=== PATIENT | female | born 1965 | race Caucasian/White ===

== ENCOUNTER → 2017-08-14 09:08 | Outpatient (CLI) | payer SELFPAY ==
--- NOTE | 2017-08-14 09:14 | HPBI_ITS ---
MAMMOGRAPHY - BILATERAL SCREENING REASON FOR EXAM: Female, 51 years old. Routine annual screening examination. PERTINENT HISTORY: Non-contributory. TECHNIQUE: Digital bilateral breast jamil (3D mammographic acquisition) in the CC and MLO projections. 2-D mediolateral oblique (MLO) and craniocaudad (CC) views of both breasts were obtained. CAD: Full Field Digital Mammography with Computer Added Detection was performed. COMPARISON: Comparison is made with prior study dated June 10, 2016 and April 06, 2015. FINDINGS: Breast Composition: There are scattered areas of fibroglandular density. There are no dominant masses or suspicious calcifications. Stable bilateral benign appearing axillary lymph nodes. No other significant abnormalities are identified. There has been no significant change since the prior study. HPBI/SCREENING MAMM (CAD), BILAT IMPRESSION: Stable bilateral screening mammogram. Yearly follow-up mammogram recommended. (A) ASSESSMENT CATEGORY: BIRADS Category 2: Benign. A letter regarding these results will be sent to the patient by the facility within 30 days. Approximately 10% of breast cancers are not detected by mammography. A normal mammogram should not delay biopsy of a clinically suspicious abnormality. [id number] Electronically Signed: Jim Ty MD at 11:13 EST Tel [phone], Service support ,
== END ==
PROVIDERS: Family Provider Internal Medicine; PCP Internal Medicine; Visit Provider Internal Medicine
DX: Z12.31 Encounter for screening mammogram for malignant neoplasm of breast (principal)
CPT/HCPCS: 77063; 77067

== ENCOUNTER → 2018-08-09 16:33 | Outpatient (CLI) | payer OTHER, SELFPAY ==
--- NOTE | 2018-08-09 16:39 | US_ITS ---
STUDY: ULTRASOUND TRANSVAGINAL CLINICAL: Female, 52 years old. Left-sided pelvic pain TECHNIQUE: Transvaginal COMPARISON: None. FINDINGS: Normal uterine size measuring 9.5 x 2.3 x 2.4 cm in maximal craniocaudal dimension. A myometrial fundal mass measures 4.1 x 4.1 x 4.2 cm Normal endometrial thickness measuring 4.8 mm. The lower uterine segment endometrial complex, there is a focal, isoechoic to slightly hyperechoic lesion measuring up to 8 mm. Normal uterine cervix. Normal right ovary, measuring 2.5 x 1.2 x 1.2 cm. There are multiple follicles without a dominant cyst. Normal left ovary, measuring 2.5 x 1.7 x 1.0 cm. There are multiple follicles without a dominant cyst. There is no free fluid in the pelvis. Polycystic ovary disease: No. US/Pelvic (Non ) IMPRESSION: 1. Uterine fundal fibroid measuring 4.2 cm. 2. 8 mm focal lower uterine segment endometrial hyperechoic/isoechoic mass could represent an endometrial polyp. Additional evaluation with sonohysterography or MRI suggested. Electronically Signed: Deni Osman MD at 8:20 EST , Service support ,
--- NOTE | 2018-08-09 17:15 | US_ITS ---
STUDY: ULTRASOUND TRANSVAGINAL CLINICAL: Female, 52 years old. Left-sided pelvic pain TECHNIQUE: Transvaginal COMPARISON: None. FINDINGS: Normal uterine size measuring 9.5 x 2.3 x 2.4 cm in maximal craniocaudal dimension. A myometrial fundal mass measures 4.1 x 4.1 x 4.2 cm Normal endometrial thickness measuring 4.8 mm. The lower uterine segment endometrial complex, there is a focal, isoechoic to slightly hyperechoic lesion measuring up to 8 mm. Normal uterine cervix. Normal right ovary, measuring 2.5 x 1.2 x 1.2 cm. There are multiple follicles without a dominant cyst. Normal left ovary, measuring 2.5 x 1.7 x 1.0 cm. There are multiple follicles without a dominant cyst. There is no free fluid in the pelvis. Polycystic ovary disease: No. US/Transvaginal Non- IMPRESSION: 1. Uterine fundal fibroid measuring 4.2 cm. 2. 8 mm focal lower uterine segment endometrial hyperechoic/isoechoic mass could represent an endometrial polyp. Additional evaluation with sonohysterography or MRI suggested. Electronically Signed: Deni Osman MD at 8:20 EST , Service support ,
== END ==
PROVIDERS: Family Provider Internal Medicine; PCP Internal Medicine; Referring Provider Obstetrics & Gynecology Gynecology; Visit Provider Obstetrics & Gynecology Gynecology
DX: R10.2 Pelvic and perineal pain (principal)
CPT/HCPCS: 76830; 76856; 93976

== ENCOUNTER → 2018-09-17 07:03 | Outpatient (CLI) | payer OTHER, SELFPAY ==
--- NOTE | 2018-09-17 07:08 | BI_ITS ---
MAMMOGRAPHY - BILATERAL SCREENING REASON FOR EXAM: Female, 52 years old. Routine annual screening examination. PERTINENT HISTORY: Non-contributory. TECHNIQUE: Digital bilateral breast jamil (3D mammographic acquisition) in the CC and MLO projections. 2-D mediolateral oblique (MLO) and craniocaudad (CC) views of both breasts were obtained. CAD: Full Field Digital Mammography with Computer Added Detection was performed. COMPARISON: Comparison is made with prior study dated August 14, 2017 and June 10, 2016. FINDINGS: Breast Composition: There are scattered areas of fibroglandular density. There are no dominant masses or suspicious calcifications. There is a 3.3 mm x 3.1 mm well-defined nodule in the slightly upper central portion of the right breast. This may represent a small cyst. Stable benign-appearing bilateral axillary lymph nodes. Correlation with ultrasound is recommended. No other significant abnormalities are identified. BI/SCREENING MAMM (CAD), BILAT IMPRESSION: 3.3 mm x 3.1 mm well-defined nodule in the slightly upper central portion of the right breast. Correlation with ultrasound is recommended. ASSESSMENT CATEGORY: BIRADS Category 0: Incomplete. Need additional imaging evaluation. A letter regarding these results will be sent to the patient by the facility within 30 days. Approximately 10% of breast cancers are not detected by mammography. A normal mammogram should not delay biopsy of a clinically suspicious abnormality. [id number] Electronically Signed: Jim Ty, at 9:14 EDT , Service support ,
== END ==
PROVIDERS: Family Provider Internal Medicine; PCP Internal Medicine; Referring Provider Obstetrics & Gynecology Gynecology; Visit Provider Obstetrics & Gynecology Gynecology
DX: Z12.31 Encounter for screening mammogram for malignant neoplasm of breast (principal)
CPT/HCPCS: 77063; 77067

== ENCOUNTER → 2018-09-20 15:25 | Outpatient (CLI) | payer OTHER, SELFPAY ==
--- NOTE | 2018-09-20 15:36 | US_ITS ---
STUDY: ULTRASOUND BREAST - RIGHT REASON FOR EXAM: Female, 52 years old. MAMMSMammogram,Abnormal-[id number] for exam - Breast (US) TECHNIQUE: Axial and longitudinal images of the RIGHT breast were performed with a high resolution ultrasound transducer. COMPARISON: None. FINDINGS: RIGHT Breast: There is no ultrasound abnormality. There is no abnormal cyst or mass. US/Breast Limited Unilateral IMPRESSION: The previously described lesion on the mammogram is not visualized on the ultrasound. Stereotactic biopsy may be warranted to exclude a neoplastic process. ASSESSMENT CATEGORY: BIRADS Category 4: Suspicious - Biopsy Should Be Considered. A letter regarding these results will be sent to the patient by the facility within 30 days. Electronically Signed: Connie Vazquez, at 10:57 EDT Tel , Service support ,
== END ==
PROVIDERS: Family Provider Internal Medicine; PCP Internal Medicine; Referring Provider Obstetrics & Gynecology Gynecology; Visit Provider Obstetrics & Gynecology Gynecology
DX: R92.2 Inconclusive mammogram (principal)
CPT/HCPCS: 76642

== ENCOUNTER → 2018-10-22 | Outpatient (CLI) | payer SELFPAY ==
[2018-10-22 13:27] VITALS: BP 108/72; PULSE 66; RESP 16; O2SAT 99; BMI 29.2
--- NOTE | 2018-10-22 13:28 | CT_ITS ---
STUDY: CT CHEST WITHOUT CONTRAST REASON FOR EXAM: Female, 52 years old. Family history of cardiovascular disease RADIATION DOSAGE (If Supplied By Facility): CTDIvol = ( 12.19 ) mGy, DLP = ( 170.66 ) mGycm TECHNIQUE: Transaxial imaging was performed without the administration of intravenous contrast material. Individualized dose optimization techniques were used for this CT. COMPARISON: None. FINDINGS: Only a portion of the chest was imaged for the purposes of calcium scoring. No visible pulmonary nodules, acute alveolar disease, pleural fluid, or pericardial fluid. No acute osseous abnormality is visible. Visualized portions of upper abdomen are intact. CT/Limited Chest CT w/CCTA IMPRESSION: No focal lesions are seen in the visualized portions of the lungs. Electronically Signed: Alton Carpenter MD at 21:51 EDT Tel , Service support ,
--- NOTE | 2018-10-22 16:15 | CA.SCORE ---
Calcium Scoring Date of Study:: 10/22/18 Coronary Calcium Scoring: High-resolution Computed Tomographic imaging of the chest was performed on [10/22/2018], with particular attention paid to the coronary arteries. Images from the examination were analyzed for the presence and extent of coronary artery calcification , using coronary calcium quantification software. The patient tolerated the procedure well and there were no complications. The results of the coronary calcification analysis are provided below. - Findings Left Main (LM): 0 Left Anterior Descending (LAD): 0 Left Circumflex (LCX): 0 Right Coronary Artery (RCA): 0 Total Agatston Score: 0 Percentile Rankin - Conclusion Calcium Scoring Interpretation: Calcium Score Interpretation 0 No identifiable atherosclerotic plaque. Very low cardiovascular disease risk. <5% chance of presence coronary artery disease A Negative Examination 1-10 Minimal Plaque burden. Significant coronary artery disease very unlikely. 11-100 Mild plaque burden. Likely mild or minimal coronary atherosclerosis. 101-400 Moderate plaque burden Moderate non-obstructive coronary artery disease highly likely. Over 400 Extensive plaque burden. High likelihood of at least one significant coronary stenosis (>50% diameter) Calcium Score: 0 Negative Examination - The above is suggestive of no identifiable plaque. A full evaluation of cardiac risk should include assessment of all conventional risk factors.
== END | disposition home or self-care (01) ==
PROVIDERS: Family Provider Internal Medicine; PCP Internal Medicine; Referring Provider Internal Medicine; Visit Provider Internal Medicine
DX: Z82.49 Family history of ischemic heart disease and other diseases of the circulatory system (principal)
CPT/HCPCS: 75571; 76380

== ENCOUNTER → 2019-05-23 | Outpatient (CLI) | payer OTHER, SELFPAY ==
[2018-10-22 13:27] VITALS: BMI 29.2
--- NOTE | 2019-05-23 12:48 | RAD_ITS ---
STUDY: X-RAY - RIGHT FOOT CLINICAL: Female, 53 years old. Pain at the base of the great toe following hyperextension injury. TECHNIQUE: 3 view(s) of the foot. COMPARISON: None. FINDINGS: There is a small plantar calcaneal spur. Normal visualized subtalar, talonavicular, calcaneocuboid, tarsal and tarsometatarsal articulations. Normal metatarsi. Normal metatarsophalangeal joint of the great toe. Normal tibial and fibular sesamoid bones. Normal interphalangeal joint of the great toe. Normal phalanges of the great toe. Normal second through fifth metatarsophalangeal joints. Normal interphalangeal joints and phalanges of the lesser toes. The soft tissue structures are unremarkable. RAD/Foot min 3 Views IMPRESSION: Small plantar spur. Electronically Signed: Jim Ty, at 13:23 EST , Service support ,
== END | disposition home or self-care (01) ==
LOC: HPRAD 12:44
PROVIDERS: Family Provider Internal Medicine; PCP Internal Medicine; Referring Provider Internal Medicine; Visit Provider Internal Medicine
DX: M79.671 Pain in right foot (principal); W19.XXXA Unspecified fall, initial encounter
CPT/HCPCS: 73630

== ENCOUNTER → 2019-07-08 08:11 | Outpatient (CLI) | payer OTHER, SELFPAY ==
[2018-10-22 13:27] VITALS: BMI 29.2
--- NOTE | 2019-07-08 08:17 | RAD_ITS ---
STUDY: X-RAY - PELVIS AND RIGHT HIP REASON FOR EXAM: Female, 53 years old. Hip pain. TECHNIQUE: 3 views of the pelvis and hip. COMPARISON: None. FINDINGS: Tubal ligation devices. Left pelvic phlebolith. No acute fracture, dislocation or osseous destruction. Mild joint space narrowing at the hips. Mild productive changes at the superior lateral acetabula bilaterally. Normal pubic symphysis. Normal sacroiliac joints. Normal lumbar spine. Small pelvic enthesophytes. Slightly prominent lateral femoral head neck junction protuberance. No significant soft tissue swelling. Normal bowel gas pattern. RAD/HIP, UNI W/ Pelvis 2-3 Views IMPRESSION: Hips and pelvis intact Mild bilateral hip osteoarthritis Electronically Signed: Ron Travis DO at 9:08 EST Tel , Service support ,
== END ==
PROVIDERS: Family Provider Internal Medicine; PCP Internal Medicine; Referring Provider Internal Medicine; Visit Provider Internal Medicine
DX: M25.551 Pain in right hip (principal)
CPT/HCPCS: 73502

== ENCOUNTER → 2019-07-08 10:59 | Outpatient (CLI) | payer OTHER, SELFPAY ==
[2018-10-22 13:27] VITALS: BMI 29.2
--- NOTE | 2019-07-08 11:01 | ECHOD_ITS ---
Reason For Study: Chest pain Procedure This was a 2D Doppler, Color Flow transthoracic echocardiogram. Exam performed in department. Left Ventricle Normal LV size. Apical false tendon noted. Left ventricular systolic function is normal. The estimated ejection fraction is 60 %. No evidence for diastolic dysfunction. No regional wall motion abnormalities noted. Right Ventricle Normal RV size. Normal systolic function. Atria Normal left atrium. Normal right atrium. No doppler evidence for ASD. Bubble contrast study negative for right to left interatrial shunt. Mitral Valve There is no mitral annular calcification. Normal mitral valve. Trivial mitral valve insufficiency. Tricuspid Valve Normal tricuspid valve. Trivial tricuspid valve insufficiency. Right ventricular systolic pressure estimated to be 24 mmHg. Aortic Valve Trisinus/trileaflet aortic valve. Normal aortic valve. Pulmonic Valve The pulmonic valve is not well visualized. Trivial pulmonic valve insufficiency. Great Vessels Normal sized aortic root. Pericardium/Pleural No pericardial effusion. Medication 22 gauge I.V. with prn adaptor inserted into right arm. Performed a rapid injection of agitated mix of 9 cc saline and 1cc air to assess for atrial septal defect. MMode/2D Measurements & Calculations LVIDd: 4.3 cm IVSd: 0.79 cm Ao root diam: 2.7 cm LVIDs: 2.7 cm LVPWd: 0.71 cm RVDd: 2.8 cm FS: 36.6 % LAV(MOD-bp): 40.3 ml LA A4 area: 15.3 cm2 LA dimension(2D): 3.3 cm LAV(MOD-bp) Indexed: 25.1 ml/m2 LAV(MOD-sp2): 42.0 ml LAV(MOD-sp4): 38.8 ml RA A4 area: 10.9 cm2 Doppler Measurements & Calculations MV E max pedrito: 83.1 cm/sec Lat Peak E' Pedrito: 13.6 cm/sec Med Peak E' Pedrito: 10.7 cm/sec MV A max pedrito: 76.7 cm/sec E/E' lat: 6.1 E/E' med: 7.8 MV E/A: 1.1 Ao V2 max: 140.9 cm/sec LV V1 max: 117.0 cm/sec PA V2 max: 92.3 cm/sec Ao max P.9 mmHg LV V1 max P.5 mmHg TR max pedrito: 230.1 cm/sec TR max P.2 mmHg Interpretation Summary Left ventricular systolic function is normal. The estimated ejection fraction is 60 %. Apical false tendon noted. Trivial mitral valve insufficiency. Trivial tricuspid valve insufficiency. Trivial pulmonic valve insufficiency. Right ventricular systolic pressure estimated to be 24 mmHg. No evidence for diastolic dysfunction. Bubble contrast study negative for right to left interatrial shunt. Ordering Physician: Jaz Reid Referring Physician: Clarisse Evans D.O. Performed By: Gracie Reed RDCS
== END ==
PROVIDERS: Family Provider Internal Medicine; PCP Internal Medicine; Referring Provider Internal Medicine; Visit Provider Internal Medicine
DX: R07.9 Chest pain, unspecified (principal)
CPT/HCPCS: 93306; A4216

== ENCOUNTER → 2020-01-19 | Outpatient (CLI) | payer OTHER, BC, SELFPAY ==
[2018-10-22 13:27] VITALS: BMI 29.2
--- NOTE | 2020-01-19 10:44 | CT_ITS ---
STUDY: CT ABDOMEN AND PELVIS WITH CONTRAST REASON FOR EXAM: Female, 54 years old. RLQ PAIN RADIATION DOSAGE (If Supplied By Facility): CTDIvol = ( 13.17 ) mGy, DLP = ( 812.62 ) mGycm TECHNIQUE: Transaxial images were obtained from the dome of the diaphragm to the symphysis pubis without oral contrast. Oral and amp;amp; IV Gastrografin and amp;amp; 100mL Isovue-300 was administered. Sagittal and coronal images were reconstructed. Individualized dose optimization techniques were used for this CT. COMPARISON: None. FINDINGS: The visualized lung bases are unremarkable. The visualized portions of the heart are within normal limits. Normal liver. Normal gallbladder and extrahepatic biliary system. Normal spleen. Normal pancreas. Normal bilateral adrenal glands. Minimal dilatation of the right renal pelvis and proximal right ureter. There is a 1 mm calculus in the distal portion of the right ureter just proximal to the right ureterovesical junction. Normal left kidney. Normal visualized stomach. Normal small intestine. Normal colon. The appendix is visualized and appears normal. Normal abdominal aorta. Normal inferior vena cava. Normal retroperitoneum. Normal urinary bladder. The endometrium is thickened measuring 14 mm. There is a 1.7 cm x 1.1 cm right ovarian follicle. There is evidence of tubal ligation clips bilaterally. Normal abdominal wall. Normal osseous structures. CT/Abdomen/Pelvis WITH Contrast IMPRESSION: 1 mm calculus in the distal portion of the right ureter just proximal to the ureterovesical junction. Small ovarian follicles. Electronically Signed: Jim Ty, at 13:29 EDT , Service support ,
== END | disposition home or self-care (01) ==
PROVIDERS: PCP Internal Medicine; Referring Provider Internal Medicine; Visit Provider Internal Medicine
DX: R10.31 Right lower quadrant pain (principal)
CPT/HCPCS: 74177; Q9967

== ENCOUNTER → 2020-04-13 | Outpatient (CLI) | payer BC, SELFPAY ==
[2018-10-22 13:27] VITALS: BMI 29.2
--- NOTE | 2020-04-13 09:01 | US_ITS ---
STUDY: ULTRASOUND TRANSVAGINAL CLINICAL: Female, 54 years old. MEN Irregular Menses US - Pelvic, Tvag -- EXCESSIVE AND FREQUENT MENSTRUATION WITH IRREGULAR CYCLE-EVALUATE ENDO STRIPE TECHNIQUE: Transvaginal COMPARISON: To FINDINGS: Normal uterine size measuring 3.3 x 5.1 x 4.3 cm in maximal craniocaudal dimension. 2.4 cm intramural fibroid in the posterior body the uterus.. Normal endometrial thickness measuring 7 mm. There are no endometrial masses, and there is no fluid in the endometrial cavity. Normal uterine cervix. Normal right ovary, measuring 2.8 x 2.2 x 2.8 cm. 2.6 cm oval isoechoic mass with increased transmission the right ovary likely consistent with a complicated corpus luteum cyst.. Normal left ovary, measuring 3.4 x 1.7 x 1.5 cm. There are multiple follicles without a dominant cyst. There is no free fluid in the pelvis. Polycystic ovary disease: No. US/Transvaginal Non- IMPRESSION: 1. 2.4 cm intramural fibroid in the posterior body the uterus. 2. 2.6 cm probable the hemorrhagic corpus luteum cyst right ovary. Electronically Signed: Cade Curtis MD at 10:14 EDT Tel , Service support ,
== END | disposition home or self-care (01) ==
LOC: OPUS 08:59
PROVIDERS: PCP Internal Medicine; Referring Provider Obstetrics & Gynecology Gynecology; Visit Provider Obstetrics & Gynecology Gynecology
DX: N92.1 Excessive and frequent menstruation with irregular cycle (principal)
CPT/HCPCS: 76830

== ENCOUNTER → 2020-06-29 10:00 | Outpatient (CLI) | payer BC, SELFPAY ==
[2018-10-22 13:27] VITALS: BMI 29.2
--- NOTE | 2020-06-29 10:07 | RAD_ITS ---
STUDY: X-RAY - ESOPHAGUS (BARIUM SWALLOW) WITH FLUOROSCOPY REASON FOR EXAM: Female, 54 years old. COUGHING AFTER EATING -- CHOKING -- 6-8 MONTHS, GOTTEN WORSE TECHNIQUE: 26 view(s) of the esophagus were obtained following swallowing of barium. FLUOROSCOPY TIME (if supplied): (0:29) minutes/seconds COMPARISON: None. FINDINGS: There is no demonstrated esophageal foreign body. There is no demonstrated stricture or mucosal abnormality. Normal gastroesophageal junction, without a demonstrated hiatal hernia. The patient ingested a 12 mm tablet of barium without difficulty. Normal visualized aortic arch and descending thoracic aorta. Normal visualized pulmonary parenchyma. Normal visualized osseous structures of the thorax. RAD/Esophagus Dual Contrast IMPRESSION: Normal plain film x-ray examination (barium swallow) of the esophagus. Electronically Signed: Jim Ty, at 11:17 EST , Service support ,
== END ==
PROVIDERS: PCP Internal Medicine; Referring Provider Internal Medicine; Visit Provider Internal Medicine
DX: R13.10 Dysphagia, unspecified (principal)
CPT/HCPCS: 74221

== ENCOUNTER → 2022-07-07 | Outpatient (CLI) | payer BC, SELFPAY ==
--- NOTE | 2022-07-07 15:18 | RAD_ITS ---
INDICATION: FOOT PAIN EXAMINATION/TECHNIQUE: X-RAY - LEFT XR Foot Min 3 Views: Weightbearing views COMPARISON: None. FINDINGS: SOFT TISSUES: No significant soft tissue swelling. No radiopaque foreign body detected. BONES/JOINTS: No acute fracture or subluxation. Normal alignment. Preservation of the joint space(s). Small posterior and plantar calcaneal enthesophytes. RAD/Foot min 3 Views IMPRESSION: Mild calcaneal spurring. Electronically Signed: Ronan Zamora MD at 7:41 EST ,
== END | disposition home or self-care (01) ==
PROVIDERS: PCP Internal Medicine; Referring Provider Internal Medicine; Visit Provider Internal Medicine
DX: M77.30 Calcaneal spur, unspecified foot (principal)
CPT/HCPCS: 73630

== ENCOUNTER 2023-05-04 16:28 | Outpatient (CLI) | payer BC, SELFPAY ==
--- NOTE | 2023-05-04 16:29 | US_ITS ---
INDICATION: postmenopausal bleeding EXAMINATION: Ultrasound US Pelvis Non OB Complete With Transvaginal Imaging TECHNIQUE: Transabdominal and transvaginal pelvic ultrasound was performed. Grayscale, spectral waveform, and color flow Doppler evaluation of the adnexa. COMPARISON: FINDINGS: UTERUS: Anteverted. The uterus measures 9.2 x 4.3 x 2.8 cm. There is no uterine mass. The endometrial stripe measures 4 mm in AP diameter which is within normal limits. RIGHT OVARY: 2.3 x 1.9 x 1.5 cm.. Complex cyst 0.95 x 0.77 x 0.91 cm. This likely represents hemorrhagic cyst less likely endometrioma. Non-enlarged, normal echogenicity. There is normal arterial inflow and venous outflow present in the right ovary. LEFT OVARY: 1.9 x 1.1 x 1.1 cm.. Non-enlarged, normal echogenicity. There is normal arterial inflow and venous outflow present in the left ovary. FREE FLUID: None. US/Pelvic w/ Transvaginal IMPRESSION: Uterus normal. Endometrial thickness of 4 mm is normal in a postmenopausal patient. Given patient''s history of postmenopausal bleeding occult pathology including endometrial hyperplasia or endometrial carcinoma cannot be excluded. Complex cyst right ovary 1.0 x 0.9 x 0.2 cm likely hemorrhagic cyst or less likely endometrioma. Left ovary normal. Electronically Signed: Ronan Guevara MD at 10:13 EDT ,
== END 2023-05-04 23:59 | disposition home or self-care (01) ==
LOC: US 16:29
PROVIDERS: PCP Internal Medicine; Referring Provider Internal Medicine; Visit Provider Internal Medicine
DX: Z78.0 Asymptomatic menopausal state (principal)
CPT/HCPCS: 76830; 76856

== ENCOUNTER → 2023-07-03 | Outpatient (CLI) | payer BC, SELFPAY ==
--- NOTE | 2023-07-03 16:00 | US_ITS ---
INDICATION: abnormal pelvic ultrasound -- abdominal ultrasound ordered as well, only do transvaginal if nee EXAMINATION: Ultrasound US Pelvis Non OB Complete With Transvaginal Imaging TECHNIQUE: Transabdominal and transvaginal pelvic ultrasound was performed. Grayscale, spectral waveform, and color flow Doppler evaluation of the adnexa. COMPARISON: Prior study dated: 05/04/2023. FINDINGS: UTERUS: Anteverted. The uterus measures 7.5 x 3.2 x 2.8 cm. There is no uterine mass. The endometrial stripe is suboptimally visualized and measures 4 mm in AP diameter which is within normal limits. RIGHT OVARY: The right ovary measures 2.2 x 2.2 x 1.7 cm. Non-enlarged, normal echogenicity. There is normal arterial inflow and venous outflow present in the right ovary. LEFT OVARY: The left ovary is not visualized. FREE FLUID: None. US/Transvaginal Non- IMPRESSION: No significant abnormality is seen. Electronically Signed: Rush Strong MD at 16:02 EST ,
== END | disposition home or self-care (01) ==
LOC: US 15:58
PROVIDERS: PCP Internal Medicine; Referring Provider Internal Medicine; Visit Provider Internal Medicine
DX: R93.89 Abnormal findings on diagnostic imaging of other specified body structures (principal)
CPT/HCPCS: 76830; 76856

== ENCOUNTER → 2025-06-24 | Outpatient (CLI) | payer BC, SELFPAY ==
--- OUTSIDE RECORDS SUMMARY | 2025-06-24 07:43 | XMS RPT_ITS | CCD ---
Author Organization [facility] Care Team Providers Care Wheelage Clerk Name Role Phone Young Reid Unavailable MessengerAshwini Unavailable Unavailable Carrillo, Florencia Unavailable Unavailable Long, Constanza L Unavailable Unavailable Dustin, Dot Unavailable Unavailable Unavailable Unavailable Young Reid Unavailable MessengerAshwini Unavailable Unavailable Diallo, Constanza L Unavailable Unavailable Dustin, Dot Unavailable Unavailable Unavailable Unavailable Gravius, Renee Unavailable Unavailable Manchak, Agnes Unavailable Unavailable Rose Marie GASTON, Jeffy May Unavailable Gravius, Renee Unavailable Unavailable Messenger, Ashwini Unavailable Unavailable Viki Dumont Unavailable Manchak, Agnes Unavailable Unavailable Long, Constanza L Unavailable Unavailable Unavailable Unavailable Carrillo, Florencia Unavailable Unavailable Fast, Rajesh A Unavailable Young Reid MD Unavailable Gravius FLEXIBLE NANNY, Renee Unavailable Unavailable Julia DO, Viki Unavailable Messenger RNAshwini Unavailable Unavailable Fast DO, Rajesh A Unavailable Constanza Landrum RN Unavailable Unavailable Dustin, Dot Unavailable Unavailable Unavailable Unavailable JOEY Negrete LPN Unavailable Unavailable Manchak FLEXIBLE NANNY, Agnes Unavailable Unavailable Fast DO, Rajesh A Primary Care Provider Unavailable Primary Care Provider UnavailYoung Balderrama MD Unavailable Fast DO, Rajesh A Unavailable Sam Mcpherson LPN Unavailable Unavailable Baxter FLEXIBLE NANNY, Kayela Unavailable Unavailable Fast, Dr. Robb Primary Care Provider Austin, Dr. Medeiros Attending Provider [phone] Jayla PHOTOGRAPHIC COLORIST, Victor M Unavailable Unavailable Slarb PHOTOGRAPHIC COLORIST, Freda Unavailable Unavailable BONNEZZI, YOUNG Referring Unavailable BONNEZZI, YOUNG Attending Unavailable FAST, RAJESH A Attending Unavailable BONNEZZI, YOUNG Attending Unavailable FAST, RAJESH A Attending Unavailable FAST, RAJESH A Referring Unavailable FAST, RAJESH A Attending Unavailable Fast DO, Rajesh A Primary Care Provider Armida PHOTOGRAPHIC COLORIST, Malinda Unavailable Unavailable Fast, Dr. Robb Primary Care Provider Dr. Waldemar Avila Attending Provider [phone] Assessment, Health Risk Referring Unavaila ble Assessment, Health Risk Attending Unavaila ble Fast, Rajesh Primary Care Unavailable FAST, RAJESH A Referring Unavailable FAST, RAJESH A Attending Unavailable FAST, RAJESH A Primary Care Unavailable Fast DO, Rajesh A Primary Care Provider Medications Current Medications Medication Drug Class(es) Dates Sig (Normalized) Sig (Original) Calcium (6 sources) Phosphate Binder, Calcium take 1200 mg by mouth once daily CALCIUM PO Take 1,200 mg by mouth daily. Active take 1200 mg by mouth once daily CALCIUM PO Take 1,200 mg by mouth daily. 0 Active Cholecalciferol (VITAMIN D) 4000 Units capsule (6 sources) take 1 capsule by mouth once daily Cholecalciferol (VITAMIN D) 4000 Units capsule Take 4,000 Units by mouth daily. Active take 1 capsule by mouth once qi ly Cholecalciferol (VITAMIN D) 4000 Units capsule Take 4,000 Units by mouth daily. 0 Active HERBAL PRODUCT (20 sources) take 1 tablet by mouth once felicitas y HERBAL PRODUCT Take 1 tablet by mouth daily. Calm Day Active take 1 tablet by mouth at bedtim e HERBAL PRODUCT Take 1 tablet by mouth at bedtime. Sleeptime Active take 1 tablet by mouth once felicitas y HERBAL PRODUCT Take 1 tablet by mouth daily. eccinashea Active take 1 tablet by mouth once felicitas y HERBAL PRODUCT Take 1 tablet by mouth daily. Adrenamax Active take 1 tablet by mouth once felicitas y HERBAL PRODUCT Take 1 tablet by mouth daily. Calm Day 0 Active take 1 tablet by mouth at bedtim e HERBAL PRODUCT Take 1 tablet by mouth at bedtime. Sleeptime 0 Active take 1 tablet by mouth once felicitas y HERBAL PRODUCT Take 1 tablet by mouth daily. eccinashea 0 Active take 1 tablet by mouth once felicitas y HERBAL PRODUCT Take 1 tablet by mouth daily. Adrenamax 0 Active levothyroxine sodium 0.137 mg oral tablet (20 sources) l-Thyroxine Start: 05-11-2023 Synthroid 137 mcg oral tablet 1 Tablet 6days a week for 30 days Quantity: 30 {Tablet} Refills: 6 Ordered: 11-May-2023 Viki Dumont DO Start : 11-May-2023 Active Dispense as Written Comments: Cheryle BALDERAS Start: 05-11-2023 Synthroid 137 mcg oral tablet 1 Tablet 6days a week for 90 days Quantity: 90 {Tablet} Refills: 3 Ordered: 11-May-2023 Viki Dumont DO Start : 11-May-2023 Active Dispense as Written Comments: Mail order. Start: 07-12-2022 take 1 tablet by ramon th once daily levothyroxine 150 mcg oral tablet 1 Tablet qd for 90 days Quantity: 90 {Tablet} Refills: 3 Ordered: 12-Jul-2022 Viki Dumont DO Start : 12-Jul-2022 Active Dispense as Written Comments: Mail order. Start: 10-31-2017 take 1 tablet by ramon th once daily levothyroxine 137 MCG Tab tablet Take 137 mcg by mouth daily. 10/31/2017 Active Comment on above: ZOE Mail order. Cheryle DF Turmeric extract (6 sources) take 1 tablet by ramon th once daily TURMERIC PO Take 1 tablet by mouth daily. Active take 1 tablet by mouth once felicitas y TURMERIC PO Take 1 tablet by mouth daily. 0 Active Completed/Discontinued Medications Medication Drug Class(es) Dates Sig (Normalized) Sig (Original) amoxicillin 500 mg oral tablet (20 sources) Penicillin-class Antibacterial Start: 04-23-2023 take 4 tablets by mouth every hour amoxicillin 500 mg oral tablet 4 tablet 1 hour prior to procedure for 0 days Quantity: 4 {Tablet} Refills: 0 Ordered: 23-Apr-2023 Fast DORajesh Start : 23-Apr-2023 Active Start: 02-19-2023 End: 04-20-2023 take 4 tablets by mouth every hour amoxicillin 500 mg oral tablet 4 tablet one hour prior to dental procedure for 0 days Quantity: 4 {Tablet} Refills: 0 Ordered: 20-Apr-2023 Agnes Chris CMA Start : 19-Feb-2023 End : 20-Apr-2023 Inactive Start: 12-01-2021 End: 09-08-2022 take 4 capsules by mouth every hour amoxicillin 500 mg oral capsule 4 Capsule one hour prior to procedure for 0 days Quantity: 4 {Capsule} Refills: 0 Ordered: 08-Sep-2022 Viki Dumont DO Start : 01-Dec-2021 End : 08-Sep-2022 Inactive amoxicillin 875 mg / clavulanate 125 mg oral tablet (20 sources) Penicillin-class Antibacterial Start: 12-20-2017 End: 01-03-2018 take 1 tablet by mouth twice daily Augmentin 875-125 MG Oral Tablet 1 Tablet bid for 14 days Quantity: 28 {Tablet} Refills: 0 Ordered: 20-Dec-2017 Viki Dumont DO Start : 20-Dec-2017 End : 03-Jan-2018 Inactive azithromycin 250 mg oral tablet (20 sources) Macrolide Antimicrobial Start: 09-26-2019 End: 10-31-2019 Zithromax Z-Angel 250 MG Oral Tablet 1 (one) Tablet 2 day one than one a day for 10 days for 0 days Quantity: 12 {Tablet} Refills: 0 Ordered: 31-Oct-2019 Ashwini Ortiz RN Start : 26-Sep-2019 End : 31-Oct-2019 Inactive Start: 10-08-2017 End: 08-12-2018 take 1 tablet by mouth once daily Zithromax Z-Angel 250 MG Oral Tablet 1 (one) Tablet qd for 0 days Quantity: 1 {Packet} Refills: 0 Ordered: 12-Aug-2018 JOEY Negrete Start : 08-Oct-2017 End : 12-Aug-2018 Inactive betamethasone 0.5 mg/ml / clotrimazole 10 mg/ml topical cream (20 sources) Azole Antifungal, Corticosteroid Start: 03-16-2014 End: 12-28-2016 Lotrisone 1-0.05 % External Cream 1 (one) Cream bid for 0 days Quantity: 1 {Box} Refills: 1 Ordered: 28-Dec-2016 Ashwini Ortiz RN Start : 16-Mar-2014 End : 28-Dec-2016 Inactive Comments: 30gm tube Comment on above: 30gm tube celecoxib 200 mg oral capsule (1 source) Nonsteroidal Anti-inflammatory Drug Start: 10-14-2019 CELEBREX 200 MG CAPS 1 capsule as directed as needed CELECOXIB [id number] Jeffy Trotter MD chlordiazePOXIDE hydrochloride 5 mg / clidinium bromide 2.5 mg oral capsule (20 sources) Anticholinergic, Benzodiazepine Start: 03-11-2015 End: 12-28-2016 take 1 capsule by mouth three times daily Librax 5-2.5 MG Oral Capsule 1 (one) Capsule tid for 0 days Quantity: 30 {Capsule} Refills: 0 Ordered: 28-Dec-2016 Ashwini Ortiz RN Start : 11-Mar-2015 End : 28-Dec-2016 Inactive Comments: THIRTY Comment on above: THIRTY cholecalciferol 1.25 mg oral capsule (20 sources) Vitamin D Start: 11-06-2011 take 1 capsule by mouth two times weekly VITAMIN D3, [id number] (Oral Capsule) 1 Capsule 2 times a week for 0 days Quantity: 8 {Capsule} Refills: 11 Ordered: 06-Nov-2011 Ashwini Ortiz RN Start : 06-Nov-2011 Active ciprofloxacin 3 mg/ml ophthalmic solution (20 sources) Quinolone Antimicrobial Start: 07-12-2016 End: 12-28-2016 Ciprofloxacin HCl 0.3 % Ophthalmic Solution 1-2 drops q 2 hrs while awake x 2 days then 1-2 drops q 4 hrs while awake 3-5 days for 0 days Quantity: 1 {Bottle} Refills: 0 Ordered: 28-Dec-2016 Ashwini Ortiz RN Start : 12-Jul-2016 End : 28-Dec-2016 Inactive citalopram 10 mg oral tablet (20 sources) Serotonin Reuptake Inhibitor Start: 05-17-2012 End: 12-28-2016 take 1 tablet by mouth once daily CeleXA 10 MG Oral Tablet 1 Tablet daily for 0 days Quantity: 30 {Tablet} Refills: 3 Ordered: 28-Dec-2016 Ashwini Ortiz RN Start : 17-May-2012 End : 28-Dec-2016 Inactive clobetasol propionate 0.5 mg/ml topical lotion (20 sources) Corticosteroid Start: 01-12-2016 End: 12-28-2016 Clobetasol Propionate 0.05 % External Lotion 1 (one) Lotion apply bid for 0 days Quantity: 1 {Tube} Refills: 0 Ordered: 28-Dec-2016 Ashwini Ortiz RN Start : 12-Jan-2016 End : 28-Dec-2016 Inactive Comments: call office with cost [phone] Comment on above: call office with cos t [phone] codeine phosphate 2 mg/ml / guaiFENesin 20 mg/ml oral solution (20 sources) Opioid Agonist Start: 09-25-2014 End: 10-25-2015 CHERATUSSIN AC, 100-10MG/5ML (Oral Syrup) 1 (one) Syrup every 6 hiurs for 0 days Quantity: 8 {Fluid_Ounce} Refills: 0 Ordered: 25-Oct-2015 JOEY Negrete LPN Start : 25-Sep-2014 End : 25-Oct-2015 [facility] DULoxetine 30 mg delayed release oral capsule (20 sources) Serotonin and Norepinephrine Reuptake Inhibitor Start: 02-07-2021 End: 07-15-2021 take 1 capsule by mouth once daily DULoxetine HCl 30 MG Oral Capsule Delayed Release Particles 1 (one) Capsule qd for 0 days Quantity: 30 {Capsule} Refills: 5 Ordered: 15-Jul-2021 Renee Barrientos CMA Start : 07-Feb-2021 End : 15-Jul-2021 Inactive ergocalciferol 1.25 mg oral capsule (20 sources) Provitamin D2 Compound take 1 capsule by mouth every week DRDAVE, [id number] (Oral Capsule) 1 cap once a week (78782 UNIT) Inactive escitalopram 10 mg oral tablet (20 sources) Serotonin Reuptake Inhibitor Start: 02-07-2021 End: 02-07-2021 take 1 tablet by mouth once daily Escitalopram Oxalate 10 MG Oral Tablet 1 (one) Tablet qd for 0 days Quantity: 30 {Tablet} Refills: 6 Ordered: 07-Feb-2021 Rajesh Jim DO Start : 07-Feb-2021 End : 07-Feb-2021 Discontinued Start: 11-24-2019 take 1 tablet by ramon th once daily Escitalopram Oxalate 10 MG Oral Tablet 1 (one) Tablet qd for 0 days Quantity: 30 {Tablet} Refills: 6 Ordered: 24-Nov-2019 Franklin GASTON, Young Mccoy MD Start : 24-Nov-2019 Active fluconazole 100 mg oral tablet (20 sources) Azole Antifungal Start: 12-19-2021 End: 09-08-2022 take 1 tablet by mouth once daily fluconazole 100 mg oral tablet 1 (one) Tablet daily for 0 days Quantity: 7 {Tablet} Refills: 0 Ordered: 08-Sep-2022 Viki Dumont DO Start : 19-Dec-2021 End : 08-Sep-2022 Inactive Comments: please deliver to patient per her request, thank you Start: 03-10-2020 End: 04-12-2020 Diflucan 100 MG Oral Tablet 1 (one) Tablet daily for 5 days for 0 days Quantity: 5 {Tablet} Refills: 0 Ordered: 12-Apr-2020 Renee Barrientos CMA Start : 10-Mar-2020 End : 12-Apr-2020 Inactive Start: 02-04-2020 End: 04-12-2020 take 1 tablet by mouth once daily Diflucan 150 MG Oral Tablet 1 (one) Tablet qd for 1 days Quantity: 1 {Tablet} Refills: 2 Ordered: 12-Apr-2020 Floyd MO Renee Start : 04-Feb-2020 End : 12-Apr-2020 Inactive Comments: generic ok Start: 01-26-2016 End: 01-27-2016 take 1 tablet by mouth once daily Diflucan 150 MG Oral Tablet 1 Tablet QD for 1 days Quantity: 1 {Tablet} Refills: 0 Ordered: 26-Jan-2016 Viki Dumont DO Start : 26-Jan-2016 End : 27-Jan-2016 Inactive Comment on above: generic ok please deliver to adan valero per her request, thank you hydroxychloroquine sulfate 200 mg oral tablet (20 sources) Antimalarial, Antirheumatic Agent Start: 2019 End: 2019 take 1 tablet by mouth twice daily Hydroxychloroquine Sulfate 200 MG Oral Tablet 1 (one) Tablet bid for 0 days Quantity: 60 {Tablet} Refills: 0 Ordered: 11-Dec-2019 Viki Dumont DO Start : 26-Sep-2019 End : 11-Dec-2019 Inactive ivermectin 3 mg oral tablet (20 sources) Antiparasitic, Pediculicide Start: 2020 End: 2021 take 5 tablets by mouth every week Ivermectin 3 MG Oral Tablet 5 Tablet pills once a week for 0 days Quantity: 20 {Tablet} Refills: 6 Ordered: 15-Jul-2021 Hero Barrientos CMAin Start : 04-Mar-2021 End : 15-Jul-2021 Inactive Start: 12-31-2020 take 4 tablets by mo [facility] every week Ivermectin 3 MG Oral Tablet 4 Tablet pills once a week for 0 days Quantity: 20 {Tablet} Refills: 6 Ordered: 31-Dec-2020 Rajesh Jim DO Start : 31-Dec-2020 Active Start: 12-20-2020 Ivermectin 3 M G Oral Tablet 5 Tablet pills today and 5 pills day 3 for 0 days Quantity: 10 {Tablet} Refills: 1 Ordered: 20-Dec-2020 Viki Dumont DO Start : 20-Dec-2020 Active Start: 10-18-2020 Ivermectin 3 M G Oral Tablet 5 Tablet pills today and 5 pills day 3 for 0 days Quantity: 10 {Tablet} Refills: 1 Ordered: 18-Oct-2020 Rajesh Jim DO Start : 18-Oct-2020 Active ketorolac tromethamine 10 mg oral tablet (20 sources) Nonsteroidal Anti-inflammatory Drug, Cyclooxygenase Inhibitor Start: 01-21-2020 End: 04-12-2020 Ketorolac Tromethamine 10 MG Oral Tablet 1 (one) Tablet q6hrs x48hr for 0 days Quantity: 8 {Tablet} Refills: 0 Ordered: 12-Apr-2020 Hero Barrientos CMAin Start : 21-Jan-2020 End : 12-Apr-2020 Inactive Comments: loading dose given 01/21/2020 lot:[id number]:08/30site/route:L gmamt:1mlYOBANI Wheeler Comment on above: loading dose given 01/21/2020 lot:[id number] exp:08/30site/route:L gmamt:1mlYOBANI Wheeler levoFLOXacin 500 mg oral tablet (20 sources) Quinolone Antimicrobial Start: 04-10-2011 End: 03-06-2012 take 1 tablet by mouth once daily LEVAQUIN, 500MG (Oral Tablet) 1 Tablet qd for 0 days Quantity: 10 {Tablet} Refills: 0 Ordered: 06-Mar-2012 Ashwini Ortiz RN Start : 10-Apr-2011 End : 06-Mar-2012 Inactive LORazepam 0.5 mg oral tablet (20 sources) Benzodiazepine Start: 04-07-2019 End: 10-31-2019 take 1 tablet by mouth once daily at bedtime as needed LORazepam 0.5 MG Oral Tablet 1 (one) Tablet qhs prn for 0 days Quantity: 5 {Tablet} Refills: 0 Ordered: 31-Oct-2019 Ashwini Ortiz RN Start : 07-Apr-2019 End : 31-Oct-2019 Inactive Comments: called into [facility] 04/07/19 Start: 03-11-2015 End: 12-28-2016 take 1 tablet by mouth once daily as needed Ativan 0.5 MG Oral Tablet 1 (one) Tablet qd prn for 0 days Quantity: 20 {Tablet} Refills: 0 Ordered: 28-Dec-2016 Ashwini Ortiz RN Start : 11-Mar-2015 End : 28-Dec-2016 Inactive Comments: TWENTY Comment on above: [facility]ENT[facility] metaxalone 800 mg oral tablet (20 sources) Muscle Relaxant Start: 10-14-19 11 End: 10-22-19 13 take 1 tablet by mouth three times daily as needed METAXALONE, 800MG (Oral Tablet) 1 Tablet tid prn for 0 days Quantity: 30 {Tablet} Refills: 1 Ordered: 21-Oct-2012 Ashwini Ortiz RN Start : 13-Oct-2010 End : 21-Oct-2012 Inactive Comments: thirty Comment on above: thirty metoprolol tartrate 50 mg oral tablet (20 sources) beta-Adrenergic Brian Start: 10-22-19 End: 10-31-19 20 Metoprolol Tartrate 50 MG Oral Tablet 1 (one) Tablet by mouth at 6pm the night before scan, 1 tablet by mouth at 7am morning of scan for 0 days Quantity: 2 {Tablet} Refills: 0 Ordered: 31-Oct-2019 Ashwini Ortiz RN Start : 21-Oct-2018 End : 31-Oct-2019 Inactive [facility] [employer] (1 source) Start: 10-14-19 20 ADRENAL CAPS 1 capsule once daily [facility] [employer] [id number] Jeffy Trotter MD nitrofurantoin, macrocrystals 25 mg / nitrofurantoin, monohydrate 75 mg oral capsule (1 source) Start: 10-25-19 16 End: 12-29-19 17 take 1 capsule by mouth twice daily Macrobid 100 MG Oral Capsule 1 Capsule bid for 0 days Quantity: 20 {Capsule} Refills: 0 Ordered: 28-Dec-2016 Ashwini Ortiz NAZARIO Start : 25-Oct-2015 End : 28-Dec-2016 Inactive Comments: postcoital Comment on above: postcoital nitrofurantoin, macrocrystals 25 mg / nitrofurantoin, monohydrate 75 mg oral capsule (20 sources) Nitrofuran Antibacterial Start: 07-28-19 20 End: 04-12-20 Macrobid 100 MG Oral Capsule 1 Capsule bid x 10 days then prn post coital for 0 days Quantity: 50 {Capsule} Refills: 1 Ordered: 12-Apr-2020 Renee Barrientos CMA Start : 28-Jul-2019 End : 12-Apr-2020 Inactive Start: 08-12-2018 End: 12-28-2016 Macrobid 100 MG Oral Capsule 1 Capsule bid x 10 days then prn post coital for 0 days Quantity: 50 {Capsule} Refills: 1 Ordered: 12-Aug-2018 Young Reid MD, MD, Dana M Start : 12-Aug-2018 End : 28-Dec-2016 Active Start: 08-12-2018 End: 12-28-2016 Macrobid 100 MG Oral Capsule 1 Capsule bid x 10 days then prn post coital for 0 days Quantity: 50 {Capsule} Refills: 1 Ordered: 12-Aug-2018 Young Reid MD, MD, Dana M Start : 12-Aug-2018 End : 28-Dec-2016 Active Start: 08-12-2018 End: 12-28-2016 Macrobid 100 MG Oral Capsule 1 Capsule bid x 10 days then prn post coital for 0 days Quantity: 50 {Capsule} Refills: 1 Ordered: 12-Aug-2018 Young Reid MD, MD, Dana M Start : 12-Aug-2018 End : 28-Dec-2016 Active Start: 08-12-2018 End: 12-28-2016 Macrobid 100 MG Oral Capsule 1 Capsule bid x 10 days then prn post coital for 0 days Quantity: 50 {Capsule} Refills: 1 Ordered: 12-Aug-2018 Franklin GASTON, Young Mccoy MD Start : 12-Aug-2018 End : 28-Dec-2016 Active Start: 08-12-2018 End: 12-28-2016 Macrobid 100 MG Oral Capsule 1 Capsule bid x 10 days then prn post coital for 0 days Quantity: 50 {Capsule} Refills: 1 Ordered: 12-Aug-2018 Franklin GASTON, Young Mccoy MD Start : 12-Aug-2018 End : 28-Dec-2016 Active Start: 08-12-2018 End: 12-28-2016 Macrobid 100 MG Oral Capsule 1 Capsule bid x 10 days then prn post coital for 0 days Quantity: 50 {Capsule} Refills: 1 Ordered: 12-Aug-2018 Franklin GASTON, Young Mccoy MD Start : 12-Aug-2018 End : 28-Dec-2016 Active Start: 08-12-2018 End: 12-28-2016 Macrobid 100 MG Oral Capsule 1 Capsule bid x 10 days then prn post coital for 0 days Quantity: 50 {Capsule} Refills: 1 Ordered: 12-Aug-2018 Young Reid MD, MD, Dana M Start : 12-Aug-2018 End : 28-Dec-2016 Active NUTRITIONAL SUPPLEMENTS (1 source) Start: 10-14-2019 IMMUNE ENHANCE TABS 1 tablet once daily NUTRITIONAL SUPPLEMENTS [id number] Jeffy Trotter MD omeprazole 40 mg delayed release oral capsule (20 sources) Proton Pump Inhibitor Start: 09-30-2020 End: 09-08-2022 take 1 capsule by mouth once daily omeprazole 40 mg oral capsule,delayed release (enteric coated) 1 (one) Capsule daily for 0 days Quantity: 90 {Capsule} Refills: 2 Ordered: 08-Sep-2022 Viki Dumont DO Start : 30-Sep-2020 End : 08-Sep-2022 Inactive Start: 07-12-2020 take 1 capsule by mo ut once daily Omeprazole 40 MG Oral Capsule Delayed Release 1 (one) Capsule daily for 0 days Quantity: 30 {Capsule} Refills: 2 Ordered: 12-Jul-2020 Hero Barrientos CMAin Start : 12-Jul-2020 Active phenazopyridine hydrochloride 200 mg oral tablet (20 sources) Start: 10-25-2015 End: 12-28-2016 take 1 tablet by mouth every eight hours as needed Pyridium 200 MG Oral Tablet 1 Tablet q 8hrs prn for 0 days Quantity: 30 {Tablet} Refills: 1 Ordered: 28-Dec-2016 Ashwini Ortiz RN Start : 25-Oct-2015 End : 28-Dec-2016 Inactive phentermine hydrochloride 37.5 mg oral tablet (20 sources) Sympathomimetic Amine Anorectic Start: 08-16-2021 End: 09-08-2022 take 1 tablet by mouth once daily phentermine 37.5 mg oral tablet 1 Tablet daily for 0 days Quantity: 30 {Tablet} Refills: 0 Ordered: 08-Sep-2022 Viki Dumont DO Start : 16-Aug-2021 End : 08-Sep-2022 Inactive Comments: BMI 31.02 called to [facility] Start: 07-19-2021 take 1 tablet by [facility] once daily Phentermine HCl 37.5 MG Oral Tablet 1 Tablet daily for 0 days Quantity: 30 {Tablet} Refills: 0 Ordered: 19-Jul-2021 Franklin GASTON, Young Reid MD, Young Eric Start : 19-Jul-2021 Active Comments: BMI 31.0 Start: 06-20-2021 End: 07-15-2021 take 1 tablet by mouth once daily Phentermine HCl 37.5 MG Oral Tablet 1 Tablet daily for 0 days Quantity: 30 {Tablet} Refills: 0 Ordered: 15-Jul-2021 Renee Barrientos CMA Start : 20-Jun-2021 End : 15-Jul-2021 Inactive Comments: BMI 33.0 called to [facility] reviewed Start: 11-24-2019 End: 04-12-2020 take 1 tablet by mouth once daily Phentermine HCl 37.5 MG Oral Tablet 1 Tablet daily for 0 days Quantity: 30 {Tablet} Refills: 0 Ordered: 12-Apr-2020 Floyd MO Renee Start : 24-Nov-2019 End : 12-Apr-2020 Inactive Comments: BMI 30 10/31/19 starting weight 152 Start: 05-10-2015 End: 12-28-2016 take 1 tablet by mouth once daily Adipex-P 37.5 MG Oral Tablet 1 Tablet daily for 0 days Quantity: 30 {Tablet} Refills: 0 Ordered: 28-Dec-2016 Ashwini Ortiz LPN Start : 10-May-2015 End : 28-Dec-2016 Inactive Comments: BMI: 28.32 called to [facility] 05-10-15 douglas Comment on above: BMI: 28.32 called to [facility] 05-10-15 douglas BMI 30 10/31/19 start ing weight 152 BMI 33.0 called to Gerry Espino reviewed BMI 31.0 BMI 31.08-16-21 robin d to [facility] predniSONE 20 mg oral tablet (20 sources) Corticosteroid Start: 0 End: 0 take 2 tablets by mouth in the morning, then take 1 tablet by mouth twice daily in the evening, then take 1 tablet by mouth once daily, then take 1 tablet by mouth once daily, then take 1 tablet by mouth once daily predniSONE 20 MG Oral Tablet 1 (one) Tablet uad for 63 days Quantity: 73 {Tablet} Refills: 0 Ordered: 31-Dec-2019 Ashwini Ortiz RN Start : 31-Dec-2019 End : 03-Mar-2020 Inactive Comments: 2 pills in AM and 1 pill in PM x 7days1 pill bid x 14 days1 pill qd x 14 days1/2 pill qd x 14 days1/4 pill qd x 14 days Start: 01-17-2016 End: 12-28-2016 take 1 tablet by mouth once daily PredniSONE 20 MG Oral Tablet 1 (one) Tablet qd for 0 days Quantity: 30 {Tablet} Refills: 0 Ordered: 28-Dec-2016 Ashwini Ortiz LPN Start : 17-Jan-2016 End : 28-Dec-2016 Inactive Comment on above: 2 pills in AM and 1 pill in PM x 7days1 pill bid x 14 days1 pill qd x 14 days1/2 pill qd x 14 days1/4 pill qd x 14 days sulfamethoxazole 800 mg / trimethoprim 160 mg oral tablet (20 sources) Dihydrofolate Reductase Inhibitor Antibacterial, Sulfonamide Antimicrobial Start: 03-23-20 11 End: 03-06-20 12 take 1 tablet by mouth twice daily BACTRIM DS, 800-160MG (Oral Tablet) 1 Tablet bid for 0 days Quantity: 60 {Tablet} Refills: 1 Ordered: 06-Mar-2012 Ashwini Ortiz RN Start : 23-Mar-2011 End : 06-Mar-2012 Inactive tamsulosin hydrochloride 0.4 mg oral capsule (20 sources) alpha-Adrenergic Brian Start: 01-26-20 End: 02-25-20 take 1 capsule by mouth once daily Flomax 0.4 MG Oral Capsule 1 (one) Capsule qd for 30 days Quantity: 30 {Capsule} Refills: 0 Ordered: 26-Jan-2020 Ashwini Ortiz RN Start : 26-Jan-2020 End : 25-Feb-2020 Inactive tiZANidine 4 mg oral capsule (20 sources) Central alpha-2 Adrenergic Agonist Start: 05-09-20 End: 04-20-20 23 tiZANidine 4 mg oral capsule 1 1/2 (one and a half) Capsule bid for 0 days Quantity: 90 {Capsule} Refills: 6 Ordered: 20-Apr-2023 Agnes Chris CMA Start : 09-May-2021 End : 20-Apr-2023 Inactive Start: 11-24-2020 take 1 capsule by mo ut twice daily tiZANidine HCl 4 MG Oral Capsule 1 (one) Capsule bid for 0 days Quantity: 60 {Capsule} Refills: 1 Ordered: 24-Nov-2020 Rajesh Jim DO Start : 24-Nov-2020 Active Start: 07-12-2020 take 1 capsule by mo ut twice daily tiZANidine HCl 4 MG Oral Capsule 1 (one) Capsule bid for 0 days Quantity: 40 {Capsule} Refills: 1 Ordered: 12-Jul-2020 Renee Barrientos CMA Start : 12-Jul-2020 Active Start: 06-28-2020 take 1 capsule by mo ut twice daily tiZANidine HCl 4 MG Oral Capsule 1 (one) Capsule bid for 0 days Quantity: 30 {Capsule} Refills: 1 Ordered: 28-Jun-2020 Renee Barrientos CMA Start : 28-Jun-2020 Active tretinoin 0.5 mg/ml topical cream (20 sources) Retinoid Start: 08-15-2019 End: 10-31-2019 Tretinoin 0.05 % External Cream 1 (one) Application to face 3 times weekly for 0 days Quantity: 1 {Tube} Refills: 0 Ordered: 31-Oct-2019 Ashwini Ortiz RN Start : 15-Aug-2019 End : 31-Oct-2019 Inactive liothyronine sodium 0.025 mg oral tablet (20 sources) l-Triiodothyronine Start: 10-14-2019 CYTOMEL 25 MCG TABS quarter of a tablet 2-3 times a week LIOTHYRONINE SODIUM [id number] Jeffy Trotter MD Start: 10-08-2017 End: 07-15-2021 take 0.25 tablet by mouth three times weekly Liothyronine Sodium 25 MCG Oral Tablet 1/4 Tablet 3 times week for 30 days Quantity: 12 {Tablet} Refills: 3 Ordered: 15-Jul-2021 GravRenee awad CMA Start : 08-Oct-2017 End : 15-Jul-2021 Inactive valACYclovir 1000 mg oral tablet (20 sources) Herpesvirus Nucleoside Analog DNA Polymerase Inhibitor, Herpes Simplex Virus Nucleoside Analog DNA Polymerase Inhibitor, Herpes Zoster Virus Nucleoside Analog DNA Polymerase Inhibitor Start: 12-10-2014 End: 12-28-2016 Valtrex 1 GM Oral Tablet 1 (one) Tablet tid x 7 days for 0 days Quantity: 21 {Tablet} Refills: 0 Ordered: 28-Dec-2016 Ashwini Ortiz RN Start : 10-Dec-2014 End : 28-Dec-2016 Inactive Problems Active Problems Problem Classification Problem Date Documented Da te Episodic/Chronic Abdominal pain (20 sources) Right lower quadrant pain; Translations: [RLQ abdominal pain] Resolved: 0 01-19-2020 Episodic Allergic reactions (20 sources) Contact dermatitis due to poison desiree; Translations: [Poison desiree] 12-28-2016 Episodic Anxiety disorders (20 sources) Acute stress disorder; Translations: [Anxiety] Resolved: 3 12-28-2016 Chronic Calculus of urinary tract (20 sources) Kidney stone; Translations: [Kidney stone] Resolved: 3 01-30-2020 Episodic Coagulation and hemorrhagic disorders (20 sources) Spontaneous bruising; Translations: [Bruising, spontaneous] 11-23-2022 Episodic Esophageal disorders (20 sources) Gastroesophageal reflux disease; Translations: [Gastroesophageal reflux disease without esophagitis] 12-28-2016 Chronic Comment on above: h/o EGD prob 2014 no stricture or barrets at that tiime -- Genitourinary symptoms and ill-defined conditions (20 sources) Dysuria; Translations: [Blood in urine] Resolved: 0 12-12-2017 Episodic Immunizations and screening for infectious disease (20 sources) Need for prophylactic vaccination and inoculation against influenza; Translations: [Contact with and (suspected) exposure to other viral communicable diseases] 01-07-2020 Episodic Inflammation, infection of eye (20 sources) [place] eye disease; Translations: [Conjunctivitis] Resolved: 0 12-28-2016 Episodic Joint disorders and dislocations; trauma-related (1 source) Other articular cartilage disorders, right hip; Translations: [Other articular cartilage disorders, right hip] Onset: 0 10-14-2019 Chronic Malaise and fatigue (20 sources) Fatigue; Translations: [Fatigue] Resolved: 0 12-28-2016 Episodic Menopausal disorders (17 sources) Postmenopausal bleeding; Translations: [Postmenopausal bleeding] 04-18-2023 Chronic Menstrual disorders (20 sources) Menorrhagia; Translations: [Menorrhagia] Resolved: 3 12-28-2016 Chronic Mycoses (20 sources) Mycosis; Translations: [Yeast infection] Resolved: 0 12-28-2016 Episodic Nausea and vomiting (20 sources) Nausea; Translations: [Nausea] 12-28-2016 Episodic Nonmalignant breast conditions (1 source) Fibrocystic disease of breast; Translations: [Diffuse cystic mastopathy of unspecified breast] Chronic Nonspecific chest pain (20 sources) Chest pain; Translations: [Chest pain] Resolved: 3 12-28-2016 Episodic Nutritional deficiencies (20 sources) Vitamin D deficiency, unspecified; Translations: [Vitamin D deficiency] 04-22-2018 Chronic Osteoarthritis (20 sources) Osteoarthritis; Translations: [Osteoarthritis] 07-24-2021 Chronic Comment on above: getting hip replacme nt Other circulatory disease (20 sources) Easy bruising; Translations: [Easy bruising] Resolved: 0 Episodic Other circulatory disease (20 sources) Choking; Translations: [Choking] Resolved: 3 04-19-2020 Episodic Other connective tissue disease (10 sources) History of repair of hip joint; Translations: [S/P hip replacement] 04-23-2023 Chronic Other connective tissue disease (20 sources) Spasm; Translations: [Muscle spasm] 12-28-2016 Episodic Other connective tissue disease (20 sources) Muscle pain; Translations: [Myalgia] Resolved: 1 10-09-2018 Episodic Other diseases of veins and lymphatics (1 source) Peripheral venous insufficiency; Translations: [Venous insufficiency (chronic) (peripheral)] Episodic Other gastrointestinal disorders (20 sources) Dysphagia; Translations: [Swallowing difficulty] Resolved: 1 04-12-2020 Episodic Other gastrointestinal disorders (20 sources) Diarrhea; Translations: [Diarrhea] Resolved: 3 01-26-2022 Episodic Other lower respiratory disease (20 sources) Cough; Translations: [Cough] 12-28-2016 Episodic Other non-traumatic joint disorders (1 source) Other specified joint disorders, right hip; Translations: [Other specified joint disorders, right hip] Onset: 0 10-14-2019 Episodic Other non-traumatic joint disorders (20 sources) Hip pain; Translations: [Pain in right hip joint] Resolved: 3 04-12-2020 Episodic Comment on above: s/p PT- MRI ( 3-Tels a ) showed 30% of jt bone on bone-- s/p 2-sets of PRP and Exosome injections november 2019 Other nutritional; endocrine; and metabolic disorders (20 sources) Body mass index 25-29 - overweight; Translations: [BMI 26.0-26.9,adult] 12-28-2016 Chronic Other nutritional; endocrine; and metabolic disorders (20 sources) Obesity, unspecified; Translations: [Obesity] Chronic Other nutritional; endocrine; and metabolic disorders (20 sources) Obesity; Translations: [Obesity, unspecified] Resolved: 3 12-28-2016 Chronic Comment on above: with her gerd so bad she needs more weight loss. bmi 28 with this comorbid problem would continue adipex because working. will do total of three months. is making lifestyle change willrefillher meds a dipex ghet weight off before hip surgery Other nutritional; endocrine; and metabolic disorders (20 sources) Body mass index 30+ - obesity; Translations: [BMI 30.0-30.9,adult] Resolved: 2 11-24-2019 Chronic Other nutritional; endocrine; and metabolic disorders (20 sources) Weight gain; Translations: [Weight gain] 11-24-2019 Episodic Other nutritional; endocrine; and metabolic disorders (20 sources) Body mass index 25-29 - overweight; Translations: [BMI 26.0-26.9,adult] Resolved: 2 04-12-2020 Episodic Other nutritional; endocrine; and metabolic disorders (20 sources) Overweight in adulthood with body mass index of 25 or more but less than 30; Translations: [BMI 26.0-26.9,adult] Resolved: 2 08-16-2021 Episodic Other screening for suspected conditions (not mental disorders or infectious disease) (4 sources) Ultrasound scan abnormal; Translations: [Abnormal pelvic ultrasound] 05-10-2023 Chronic Other upper respiratory disease (20 sources) Pain in throat Episodic Other upper respiratory infections (20 sources) Sore throat symptom; Translations: [Acute laryngitis] 12-28-2016 Episodic Residual codes; unclassified (20 sources) Non-smoker; Translations: [Non-smoker] 04-12-2020 Episodic Thyroid disorders (20 sources) Hypothyroidism; Translations: [Hypothyroidism] 04-22-2018 Chronic Comment on above: was abnormal 3-17 wo uld recheck. due for recheck. chronic stable-jacqueline nue present regimen Unclassified (20 sources) Breast neoplasm screening status; Translations: [Other specified abnormal findings of blood chemistry] Onset: 5 Resolved: 7 08-09-2017 Episodic Unclassified (20 sources) Needs influenza immunization; Translations: [Need for prophylactic vaccination and inoculation against influenza] 12-28-2016 Episodic Urinary tract infections (20 sources) Urinary tract infectious disease; Translations: [Urinary tract infection, site not specified] 12-28-2016 Episodic Varicose veins of lower extremity (2 sources) Varicose veins of lower extremity; Translations: [Varicose veins of bilateral lower extremities with other complications] Onset: 2 Episodic Viral infection (20 sources) Viral disease; Translations: [Viral infection] 12-28-2016 Episodic Comment on above: pt has tamiflu at [facility]. severe cough and nasal rhinitis. postiive for flu. called in script Past or Other Problems Problem Classification Problem Date Documented Date Episodic/Chronic Esophageal disorders (20 sources) Esophageal disorders Influenza (10 sources) Influenza Mood disorders (4 sources) Mood disorders Onset: 01-31-2021 Resolved: 01-31-2021 01-31-2021 Other non-traumatic joint disorders (20 sources) Pain in right hip joint; Translations: [Right hip pain] 11-24-2019 Comment on above: s/p PT- MRI ( 3-Tels a ) showed 30% of jt bone on bone-- s/p 2-sets of PRP and Exosome injections november 2019 Residual codes; unclassified (20 sources) Bruises easily; Translations: [Easy bruising] Resolved: 04-19-2020 11-24-2019 Episodic Unclassified (20 sources) [place] eye Unclassified (20 sources) Stress Reaction (308.4) Unclassified (20 sources) Breast screening Unclassified (20 sources) Unspecified Diagnosis 02-07-2013 Unclassified (20 sources) Viral infection Unclassified (20 sources) HYPOTHYROIDISM NOS (244.9) Unclassified (20 sources) DEFICIENCY, VITAMIN D NOS (268.9) Unclassified (20 sources) Yeast infection (117.9) Unclassified (20 sources) Patient encounter status; Translations: [Lipid screening] 01-01-2017 Comment on above: pt good will get lab s done with lipids. will stay up to date on pap and pelvic. tetanus upt to date. had lipids 2015. lan ds colonscopy make sure gets tdap if not done in last 10 years. remind her to get mammogram Unclassified (20 sources) Unclassified (20 sources) EXAMINATION, ROUTINE MEDICAL (V70.0) Unclassified (20 sources) Abnormal TSH Unclassified (20 sources) Frequency (788.41) Unclassified (20 sources) LARYNGITIS, NOS (464.0) Unclassified (20 sources) BMI 26.0-26.9,adult Unclassified (20 sources) Non-smoker; Translations: [Non-smoker] 12-28-2016 Unclassified (20 sources) UTI symptoms Unclassified (20 sources) Poison desiree Unclassified (20 sources) Encounter for general adult medical examination w/o abnormal findings (Renamed from Encounter for general adult medical examination without abnormal findings) Unclassified (20 sources) Encounter for screening mammogram for malignant neoplasm of breast Unclassified (20 sources) Muscle spasm (728.85) Unclassified (20 sources) Non-smoker Unclassified (20 sources) Lipid screening; Translations: [Screening status] 01-19-2020 Unclassified (1 source) Problem Unclassified (20 sources) Exposure to SARS virus Unclassified (20 sources) Immune system finding; Translations: [Antibody response exam] 12-10-2019 Unclassified (20 sources) BMI 30.0-30.9,adult Unclassified (20 sources) Stress reaction Unclassified (20 sources) Weight gain Unclassified (20 sources) BMI 29.0-29.9,adult Unclassified (20 sources) RLQ abdominal pain Unclassified (20 sources) Swallowing difficulty Unclassified (20 sources) Exposure to COVID-19 virus Unclassified (13 sources) Encounter for screening for COVID-19 Unclassified (13 sources) BMI 33.0-33.9,adult Unclassified (20 sources) Pre-op evaluation Unclassified (11 sources) Immunity status testing Unclassified (10 sources) BMI 31.0-31.9,adult Unclassified (10 sources) Physical for colonoscopy 04-23-2023 Comment on above: medically stable Urinary tract infections (20 sources) Urinary tract infections Results Test Name Value Interpretation Reference Range Facility MAMMO SCREENING WITH PACO BI LATERALon 05-05-2025 MAMMO SCREENING WITH PACO BILATERAL EXAM: MAMMO SCREENING WITH PACO BILATERAL, 05/05/2025 11:54 AM CLINICAL INDICATIONS: Screening COMPARISON: May 03, 2024, May 01, 2023, February 14, 2022, January 31, 2021 TECHNIQUE: 3-D MLO and CC digital tomosynthesis images were obtained of the bilateral breasts. Synthetic 2-D images were generated from the tomosynthesis data. Computer aided detection was utilized. FINDINGS: Breast Density: The breasts are almost entirely fatty. There are no suspicious masses, calcifications, or architectural distortions. IMPRESSION: No mammographic evidence of malignancy. BI-RADS: 1: Negative Recommendation: Routine mammography. Recommendation Laterality: Bilateral The current National Comprehensive Cancer Network and [employer] guidelines recommend women undergo a screening mammogram every year over the age of 40 and continue mammographic screening as long as they are in good health. Screening mammography under age 40 may occur for women who are at increased risk for breast cancer. [facility] Facility: [facility] Mammography at [facility], [address] [place] [address], Table formatting from the original result was not included. MAMMO STANDARD RISK MQSA SITE BEGIN [facility] at [facility] [address], [place] [address] MQSA SITE END Normal [facility] IMPRESSION: No mammographic evidence of malignancy. BI-RADS: 1: Negative Recommendation: Routine mammography. Recommendation Laterality: Bilateral The current National Comprehensive Cancer Network and [employer] guidelines recommend women undergo a screening mammogram every year over the age of 40 and continue mammographic screening as long as they are in good health. Screening mammography under age 40 may occur for women who are at increased risk for breast cancer. [facility] Facility: [facility] Mammography at [facility], [address], [place] [address], OLOGY EXAM: MAMMO SCREENIN G WITH PACO BILATERAL, 05/05/2025 11:54 AM CLINICAL INDICATIONS: Screening COMPARISON: May 03, 2024, May 01, 2023, February 14, 2022, January 31, 2021 TECHNIQUE: 3-D MLO and CC digital tomosynthesis images were obtained of the bilateral breasts. Synthetic 2-D images were generated from the tomosynthesis data. Computer aided detection was utilized. FINDINGS: Breast Density: The breasts are almost entirely fatty. There are no suspicious masses, calcifications, or architectural distortions. RADIOLOGY Stacy Rock DO - 05/05/2025 EXAM: MAMMO SCREENING WITH PACO BILATERAL, 05/05/2025 11:54 AM CLINICAL INDICATIONS: Screening COMPARISON: May 03, 2024, May 01, 2023, February 14, 2022, January 31, 2021 TECHNIQUE: 3-D MLO and CC digital tomosynthesis images were obtained of the bilateral breasts. Synthetic 2-D images were generated from the tomosynthesis data. Computer aided detection was utilized. FINDINGS: Breast Density: The breasts are almost entirely fatty. There are no suspicious masses, calcifications, or architectural distortions. IMPRESSION IMPRESSION: No mammographic evidence of malignancy. BI-RADS: 1: Negative Recommendation: Routine mammography. Recommendation Laterality: Bilateral The current National Comprehensive Cancer Network and [employer] guidelines recommend women undergo a screening mammogram every year over the age of 40 and continue mammographic screening as long as they are in good health. Screening mammography under age 40 may occur for women who are at increased risk for breast cancer. [facility] Facility: [facility] Mammography at [facility], [address], [place] [address], [facility] Radiology Study observation (narrative) [facility] MG Breast - bilateral Screen ingOrdered By: Stacy Rock on 05-05-2025 [facility] Work Phone: Mumps Antibody,IgGon 025 MUMPS Ab, IgG 142.0 AU/mL Normal Immune >10.9 [facility] Comment on above: Result Comment: Nega tive <9.0 Equivocal 9.0 - 10.9 Positive >10.9 A positive result generally indicates past exposure to Mumps virus or previous vaccination. Performed By: #### L 3100.3400, L3400.1750, L509.4006 #### [facility] [address] [place], [place], [id number] Quantiferon TB-Gold+on 04-23 QFT MITOGEN RAMANDEEP > 10.00 Normal . [facility] Comment on above: Performed By: #### L 3400.8000 #### [facility] [address] [place], [address] QFT NIL VALUE 0.20 IU/mL Normal . [facility] Comment on above: Performed By: #### L 3400.8000 #### [facility] [address] [place], [address] QFT TB GOLD+ Comment Normal . [facility] Comment on above: Result Comment: [place] tiFERON-TB Gold Plus is a qualitative indirect test for M tuberculosis infection (including disease) and is intended for use in conjunction with risk assessment, radiography, and other medical and diagnostic evaluations. The QuantiFERON-TB Gold Plus result is determined by subtracting the Nil value from either TB antigen (Ag) value. The Mitogen tube serves as a control for the test. Performed By: #### L 3400.8000 #### [facility] [address] [place], [place], [id number] QFT TB POS CRIT Negative Normal Negative [facility] Comment on above: Result Comment: No r esponse to M tuberculosis antigens detected. Infection with M tuberculosis is unlikely, but high risk individuals should be considered for additional testing (ATS/IDSA/CDC Clinical Practice Guidelines, 2017). The reference range is an Antigen minus Nil result of <0.35 IU/mL. The specimen received for QuantiFERON testing was incubated by the ordering institution. Specific procedures outlined in our Directory of Services and in the package insert for the QuantiFERON Gold (In Tube) test must be followed to enable for proper stimulation of cells for the production of interferon gamma. Chemiluminescence immunoassay methodology Performed at: [facility] [address] [id number] Roller Repairer: Ole Mcneil PhD, Phone: [phone] Performed By: #### L 3400.8000 #### [facility] [address] [place], [address] QFT TB1+ AG RAMANDEEP 0.20 IU/mL Normal . [facility] Comment on above: Performed By: #### L 3400.8000 #### [facility] [address] [place], [address] QFT TB2+ AG RAMANDEEP 0.21 IU/mL Normal . [facility] Comment on above: Performed By: #### L 3400.8000 #### [facility] [address] [place], [place], [id number] [facility] EMP Rubeola Titeron 10-1 RUBEOLA Ab, IgG 28.2 AU/mL High Immune >16.4 [facility] Comment on above: Result Comment: Clie nt Requested Flag Negative <13.5 Equivocal 13.5 - 16.4 Positive >16.4 Presence of antibodies to Rubeola is presumptive evidence of immunity except when acute infection is suspected. Performed at: [facility] [id number] Roller Repairer: Ole Mcneil PhD, Phone: [phone] Performed By: #### L 3100.3400, L3400.1750, L509.4006 #### [facility] [address] [place], [place], [address] Hepatitis B Surface Antibody on 04-21-2025 HEP B Surf Ab Non-Reactive Normal [facility] Comment on above: Result Comment: <8.5 mIU/mL: Non-Reactive 8.5<= x <11.5 mIU/mL: Indeterminate >=11.5 mIU/mL: Reactive Non Reactive: Inconsistent with immunity less than <10 mIU/mL Reactive: Consistent with immunity greater than or equal to 10 mIU/mL Performed By: #### L 3890.6202 #### [facility] [address] [place], [place], [id number] L509.4006on 04-21-2025 Rubella IgG REAC Normal Nonreactive [facility] Comment on above: Result Comment: Anti body Result: Interpretation Non-Reactive: Non-Immune Reactive: Immune The following results were obtained with the [employer] Rubella IgG assay. Results from assays of other manufacturers cannot be used interchangeably. Performed By: #### L 3100.3400, L3400.1750, L509.4006 #### [facility] [address] [place], [place], [id number] Cancer Antigen (CA) 125 ([id number])Ordered By: Filler Blender on 05-10-2023 Cancer Ag 125 Qn 5.2 [arb'U]/mL Normal 0.0-38.1 Comp rehensive [facility]; [facility] Work Phone: Comment on above: [facility] El ectrochemiluminescence Immunoassay (ECLIA) .Values obtained with different assay methods or kits cannot beused interchangeably. Results cannot be interpreted as absoluteevidence of the presence or absence of malignant disease. PATIENT NOT FASTINGP ERFORMED BY: MAIA [facility] [id number] [facility] [id number] TSH ([id number])Ordered By: Irenemynor m Manager Animal on 05-10-2023 TSH Qn 0.051 {uIU/mL} Abnormal 0.450-4.500 Dulceen arianna [facility]; [facility] Work Phone: Comment on above: PATIENT NOT FASTINGP ERFORMED BY: MAIA [facility] [id number] [facility] [id number] MG Breast - bilateral Screen ingon 05-01-2023 IMPRESSION: No mammographic evidence of malignancy. BI-RADS: 1: Negative Recommendation: Routine mammography. Recommendation Laterality: Bilateral The current National Comprehensive Cancer Network and [employer] guidelines recommend women undergo a screening mammogram every year over the age of 40 and continue mammographic screening as long as they are in good health. Screening mammography under age 40 may occur for women who are at increased risk for breast cancer. OLOGY EXAM: MAMMO SCREENIN G WITH PACO BILATERAL, 05/01/2023 10:43 AM CLINICAL INDICATIONS: Screening COMPARISON: February 14, 2022, January 31, 2021, January 08, 2020, September 17, 2018 TECHNIQUE: 3-D MLO and CC digital tomosynthesis images were obtained of the bilateral breasts. Synthetic 2-D images were generated from the tomosynthesis data. Computer aided detection was utilized. FINDINGS: The breasts have scattered areas of fibroglandular density. There are no suspicious masses, calcifications, or architectural distortions. RADIOLOGY Maritza Landeros MD - 05/01/2023 EXAM: MAMMO SCREENING WITH PACO BILATERAL, 05/01/2023 10:43 AM CLINICAL INDICATIONS: Screening COMPARISON: February 14, 2022, January 31, 2021, January 08, 2020, September 17, 2018 TECHNIQUE: 3-D MLO and CC digital tomosynthesis images were obtained of the bilateral breasts. Synthetic 2-D images were generated from the tomosynthesis data. Computer aided detection was utilized. FINDINGS: The breasts have scattered areas of fibroglandular density. There are no suspicious masses, calcifications, or architectural distortions. IMPRESSION IMPRESSION: No mammographic evidence of malignancy. BI-RADS: 1: Negative Recommendation: Routine mammography. Recommendation Laterality: Bilateral The current National Comprehensive Cancer Network and [employer] guidelines recommend women undergo a screening mammogram every year over the age of 40 and continue mammographic screening as long as they are in good health. Screening mammography under age 40 may occur for women who are at increased risk for breast cancer. [facility] Radiology Study observation (narrative) [facility] MG Breast - bilateral Screen ingOrdered By: Maritza Landeros on 05-01-2023 [facility] Work Phone: C-REACTIVE PROTEIN ([id number])Or dered By: Filler Blender on 11-23-2022 CRP [Mass/Vol] 2 mg/L Normal 0-10 Comprehens olga Internal [facility]; [facility] Work Phone: Comment on above: PATIENT NOT FASTINGP ERFORMED BY: CB [facility] [id number] [facility] [id number] CBC, PLATELETS & AUT DIFF ([id number])Ordered By: Filler Blender on 11-23-2022 Basophils (Bld) [#/Vol] 0.1 10*3/uL Normal 0.0-0.2 [facility]; [facility] Work Phone: Comment on above: PATIENT NOT FASTINGP ERFORMED BY: CB [facility] [id number] [place] [facility] [id number] Basophils/100 WBC (Bld) 1 % Normal [facility] Internal Medicine; [facility] Work Phone: Comment on above: PATIENT NOT FASTINGP ERFORMED BY: CB [facility] Dpdsrq0943 [address] Asterias BiotherapeuticsFirstHealth [facility] [id number] Eosinophils (Bld) [#/Vol] 0.2 10*3/uL Normal 0.0-0.4 [facility]; [facility] Work Phone: Comment on above: PATIENT NOT FASTINGP ERFORMED BY: MAIA [facility] Rayhot5[address]Dublin [place] [id number] Eosinophils/100 WBC (Bld) 3 % Normal [facility]; [facility] Work Phone: Comment on above: PATIENT NOT FASTINGP ERFORMED BY: CB [facility] Uuuvsm9937 [address] RoadDublin [place] [id number] Erythrocyte distribution width (RBC) [Ratio] 13.6 % Normal 11.7-15.4 [facility]; [facility] Work Phone: Comment on above: PATIENT NOT FASTINGP ERFORMED BY: CB [facility] Oaryhb5085 [address] RoadDublin [place] [id number] Hematocrit (Bld) [Volume fraction] 44.1 % Normal 34.0-46.6 [facility]; [facility] Work Phone: Comment on above: PATIENT NOT FASTINGP ERFORMED BY: CB [facility] Tygdor5702 [address] RoadDublin [place] [id number] Hemoglobin (Bld) [Mass/Vol] 14.3 g/dL Normal 11.1-15.9 [facility]; [facility] Work Phone: Comment on above: PATIENT NOT FASTINGP ERFORMED BY: CB [facility] Zxomik8082 [address] RoadDublin [place] [id number] Immature granulocytes (Bld) [#/Vol] 0.0 10*3/uL Normal 0.0-0.1 [facility]; [facility] Work Phone: Comment on above: PATIENT NOT FASTINGP ERFORMED BY: CB [facility] Gzytqw1404 [address] RoadDublin [place] [id number] Immature granulocytes/100 WBC (Bld) 0 % Normal [facility]; [facility] Work Phone: Comment on above: PATIENT NOT FASTINGP ERFORMED BY: CB [facility] Famarz9894 [address] RoadDublin [place] [id number] Lymphocytes (Bld) [#/Vol] 3.2 10*3/uL Abnormal 0.7-3.1 [facility]; [facility] Work Phone: Comment on above: PATIENT NOT FASTINGP ERFORMED BY: MAIA Labcogadiel MichaelsHblumk3343 [address] RoadDublin [place] [id number] Lymphocytes/100 WBC (Bld) 39 % Normal [facility]; [facility] Work Phone: Comment on above: PATIENT NOT FASTINGP ERFORMED BY: CB [facility] Xjcddq9666 [address] RoadDublin [place] [id number] MCH (RBC) [Entitic mass] 26.7 pg Normal 26.6-33.0 [facility]; [facility] Work Phone: Comment on above: PATIENT NOT FASTINGP ERFORMED BY: MAIA [facility] Gwpcoq7098 [address] RoadDublin [place] [id number] MCHC (RBC) [Mass/Vol] 32.4 g/dL Normal 31.5-35.7 [facility]; [facility] Work Phone: Comment on above: PATIENT NOT FASTINGP ERFORMED BY: MAIA [facility] Soifxi[address] [facility] [place] [id number] MCV (RBC) [Entitic vol] 82 fL Normal 79-97 [facility]; [facility] Work Phone: Comment on above: PATIENT NOT FASTINGP ERFORMED BY: CB [facility] Mdgsfj[address] [facility] [place] [id number] Monocytes (Bld) [#/Vol] 0.5 10*3/uL Normal 0.1-0.9 [facility]; [facility] Work Phone: Comment on above: PATIENT NOT FASTINGP ERFORMED BY: CB [facility] Kpghon0292 [address]Dublin [place] [id number] Monocytes/100 WBC (Bld) 7 % Normal [facility]; [facility] Work Phone: Comment on above: PATIENT NOT FASTINGP ERFORMED BY: CB [facility] Hxzumf3020 [address]Dublin [place] [id number] Neutrophils (Bld) [#/Vol] 4.1 10*3/uL Normal 1.4-7.0 [facility]; [facility] Work Phone: Comment on above: PATIENT NOT FASTINGP ERFORMED BY: MAIA Michaels6370 [address] RoadDublin [place] [id number] Neutrophils/100 WBC (Bld) 50 % Normal [facility]; [facility] Work Phone: Comment on above: PATIENT NOT FASTINGP ERFORMED BY: MAIA [facility] Ohygpa1835 [address] RoadDublin [place] [id number] Platelets (Bld) [#/Vol] 365 10*3/uL Normal 150-450 [facility]; [facility] Work Phone: Comment on above: PATIENT NOT FASTINGP ERFORMED BY: MAIA Labcogadiel MichaelsIhayjm9482 [address] Roadblin [place] [id number] RBC (Bld) [#/Vol] 5.35 10*6/uL Abnormal 3.77-5.28 Compr ensive Internal Medicine; [facility] Work Phone: Comment on above: PATIENT NOT FASTINGP ERFORMED BY: MAIA Labcogadiel MichaelsXxdekz5436 [address] Roadblin [place] [id number] WBC (Bld) [#/Vol] 8.0 10*3/uL Normal 3.4-10.8 [facility] Internal Medicine; [facility] Work Phone: Comment on above: PATIENT NOT FASTINGP ERFORMED BY: MAIA [facility] Bdzbzh[address] [facility] [place] [id number] ESR-F (SED RATE ERYTHROCYTE - FEMALE) ([id number])Ordered By: Filler Blender on 11-23-2022 ESR (Bld) [Velocity] 27 mm/h Normal 0-40 [facility] Centerensive [facility]; [facility] Work Phone: Comment on above: PATIENT NOT FASTINGP ERFORMED BY: MAIA [facility] Cpyydj2315 [address]Dublin [place] [id number] METABOLIC PANEL, COMPREHENSI VE ([id number])Ordered By: Filler Blender on 11-23-2022 Albumin [Mass/Vol] 4.7 g/dL Normal 3.8-4.9 [facility] Internal Medicine; [facility] Work Phone: Comment on above: PATIENT NOT FASTINGP ERFORMED BY: CB [facility] Xjfgsa3655 [address] RoadDublin [place] [id number] Albumin/Globulin [Mass ratio] 1.7 {ratio} Normal 1.2-2.2 [facility]; [facility] Work Phone: Comment on above: PATIENT NOT FASTINGP ERFORMED BY: CB [facility] Skacrc8056 [address] RoadDublin [place] [id number] ALP [Catalytic activity/Vol] 114 U/L Normal 44-121 [facility]; [facility] Work Phone: Comment on above: PATIENT NOT FASTINGP ERFORMED BY: CB [facility] Tnglib7219 [address] RoadDublin [place] [id number] ALT [Catalytic activity/Vol] 16 U/L Normal 0-32 [facility]; [facility] Work Phone: Comment on above: PATIENT NOT FASTINGP ERFORMED BY: CB [facility] Mnexzw4884 [address] RoadDublin [place] [id number] AST [Catalytic activity/Vol] 23 U/L Normal 0-40 [facility]; [facility] Work Phone: Comment on above: PATIENT NOT FASTINGP ERFORMED BY: CB [facility] Efisdh4360 [address] RoadDublin [place] [id number] Bilirubin [Mass/Vol] 0.3 mg/dL Normal 0.0-1.2 [facility] Internal Medicine; [facility] Work Phone: Comment on above: PATIENT NOT FASTINGP ERFORMED BY: CB [facility] Skbnhw1684 [address] RoadDublin [place] [id number] Calcium [Mass/Vol] 10.0 mg/dL Normal 8.7-10.2 [facility] Internal Medicine; [facility] Work Phone: Comment on above: PATIENT NOT FASTINGP ERFORMED BY: CB [facility] Bcmklh4709 [address]Dublin [place] [id number] Chloride [Moles/Vol] 99 mmol/L Normal 96-106 Comp rehensive Internal Medicine; [facility] Work Phone: Comment on above: PATIENT NOT FASTINGP ERFORMED BY: MAIA Michaels6370 [facility] [id number] CO2 [Moles/Vol] 23 mmol/L Normal 20-29 Comprehen sive Internal Medicine; [facility] Work Phone: Comment on above: PATIENT NOT FASTINGP ERFORMED BY: MAIA Wyatt Zsfqvo7518 [facility] [id number] Creatinine [Mass/Vol] 0.84 mg/dL Normal 0.57-1.00 [facility]; [facility] Work Phone: Comment on above: PATIENT NOT FASTINGP ERFORMED BY: MAIA Roylin6370 [facility] [id number] GFR/1.73 sq M.predicted among non-blacks MDRD (S/P/Bld) [Vol rate/Area] 82 mL/min/{1.73_m2} Normal Comprehensiv e Internal Medicine; [facility] Work Phone: Comment on above: PATIENT NOT FASTINGP ERFORMED BY: MAIA Roylin6370 [facility] [id number] Globulin (S) [Mass/Vol] 2.8 g/dL Normal 1.5-4.5 [facility]; [facility] Work Phone: Comment on above: PATIENT NOT FASTINGP ERFORMED BY: MAIA Wyatt Wozntx9008 [facility] [id number] Glucose [Mass/Vol] 78 mg/dL Normal 70-99 Compre hensive Internal Medicine; [facility] Work Phone: Comment on above: PATIENT NOT FASTINGP ERFORMED BY: MAIA Wyatt Cozxlo5295 [facility] [id number] Potassium [Moles/Vol] 4.5 mmol/L Normal 3.5-5.2 [facility]; [facility] Work Phone: Comment on above: PATIENT NOT FASTINGP ERFORMED BY: MAIA Labcogadiel Ostuco1188 [address] RoadDublin [place] [id number] Protein [Mass/Vol] 7.5 g/dL Normal 6.0-8.5 [facility] Internal Medicine; [facility] Work Phone: Comment on above: PATIENT NOT FASTINGP ERFORMED BY: MAIA Labcogadiel RoyHpgqip5495 [address] RoadDublin [place] [id number] Sodium [Moles/Vol] 140 mmol/L Normal 134-144 [facility] Internal Medicine; [facility] Work Phone: Comment on above: PATIENT NOT FASTINGP ERFORMED BY: MAIA Labambar RoyGhwbjj4006 [address] RoadDublin [place] [id number] Urea nitrogen [Mass/Vol] 19 mg/dL Normal 6-24 [facility]; [facility] Work Phone: Comment on above: PATIENT NOT FASTINGP ERFORMED BY: MAIA [facility] Gppovw9253 [address] RoadDublin [place] [id number] Urea nitrogen/Creatinine [Mass ratio] 23 mg/mg Normal 9-23 [facility]; [facility] Work Phone: Comment on above: PATIENT NOT FASTINGP ERFORMED BY: MAIA Roylin6370 [address] [place] [id number] PT (PROTHROMBIN TIME) ([id number] )Ordered By: Filler Blender on 11-23-2022 INR Coag (PPP) [Relative time] 0.9 {INR} Normal 0.9-1.2 [facility]; [facility] Work Phone: Comment on above: Reference interval i s for non-anticoagulated patients. . Suggested INR therapeutic range for Vitamin K antagonist therapy: Standard Dose (moderate intensity therapeutic range): 2.0 - 3.0 Higher intensity therapeutic range 2.5 - 3.5 PATIENT NOT FASTINGP ERFORMED BY: MAIA [facility] Gkxetm9681 [address] RoadDublin [place] [id number] PT Coag (PPP) [Time] 9.8 s Normal 9.1-12.0 [facility] Internal Medicine; [facility] Work Phone: Comment on above: PATIENT NOT FASTINGP ERFORMED BY: ReadWorksMonmouth Medical CenterPwgwmp1549 [facility] [id number] PTT (ACTIVATED PARTIAL THROM BOPLASTIN TIME) ([id number])Ordered By: Filler Blender on 11-23-2022 aPTT Coag (PPP) [Time] 25 s Normal 24-33 [facility]; [facility] Work Phone: Comment on above: This test has not be en validated for monitoring unfractionated heparintherapy. aPTT-based therapeutic ranges for unfractionated heparintherapy have not been established. For general guidelines onHeparin monitoring, refer to the [employer] Directory of Services. PATIENT NOT FASTINGP ERFORMED BY: ReadWorksMonmouth Medical CenterHparvx6452 [facility] [id number] TSH ([id number])Ordered By: [employer] m Manager Animal on 11-09-2022 TSH Qn 0.026 {uIU/mL} Abnormal 0.450-4.500 [facility] Internal Medicine; [facility] Work Phone: Comment on above: PATIENT NOT FASTINGP ERFORMED BY: ReadWorksMonmouth Medical CenterSuwwyu4196 [facility] [id number] PT Outpatient Historical Leo a - Texton 10-24-2022 PT Outpatient Historical Data - Text PT Outpatient Historical Data Entered On: 10/24/2022 10:16 EDT Performed On: 10/24/2022 10:14 EDT by Tania Lopes PT PT Outpatient Historical Data Junior Administrative Assistant Goals : Yes Plan : Yes Manual Therapy : Yes Therapeutic Exercises : Yes Total Visit Count : 3 Precautions/Special Notes : Back and Neck Pain PMH-History of Acid Reflux, hypothyroidism (22 yo), stress incontinence. PSH-3 c-sections, R THR 07-29-21 Tania Lopes PT - 10/24/2022 10:14 EDT [facility] Goals - Historical PT Outpt Pt Goal - grid Goal #1 PT Patient,Caregiver Goal : NL adl's with minimal to no back and neck pain. Duration : 12 weeks Status : Progressing, continue Date : 09/19/2022 EDT Comment : 11/15 Tania Lopes PT - 10/24/2022 10:14 EDT General Function Goal #1 Goal #2 Goal #3 Goal #4 Goal : Independent with symptom management Other: Patient able to forward bend without back and neck pain. Sleep through the night Transition to independent home or community exercise program Duration : 8 Weeks 8 Weeks 8 Weeks 12 Weeks Status : Progressing, continue Goal met Goal met Progressing, continue Date : 09/19/2022 EDT 09/19/2022 EDT 09/19/2022 EDT 09/19/2022 EDT Comment : Oswestry score reflects improved ability to forward bend with decreased score from 16 to 13 (Oswestry score improved to 10.) Moses PT, Tania 10/24/2022 10:14 EDT Moses PT, Tania 10/24/2022 10:14 EDT Moses PT, Tania 10/24/2022 10:14 EDT Moses PT, Tania 10/24/2022 10:14 EDT Goal #5 Goal #6 Goal : Lift/carry to assist in household tasks Other: Ambulate 1/2 mile without LBP as reflected by Oswestry score of 7. Duration : 12 Weeks 16 Weeks Status : Goal met Initial Date : 09/19/2022 EDT 09/19/2022 EDT Comment : Oswestry score reflects improved ability for lifting with decreased Oswestry score of 16 to 10 by end of treatment. Moses PT, Tania 10/24/2022 10:14 EDT Moses PT, Tania 10/24/2022 10:14 EDT Other PT Goals Goal #1 Goal #2 Goal : 0 score for Hoos JR hip survey with reflection in no c/o stiffness in transfers sit to stand. LEFS score increased by 15 as evidenced by patient being able to exercise without hip or back pain. Duration : 12 weeks 12 weeks Status : Initial Initial Moses PT, Tania 10/24/2022 10:14 EDT Moses PT, Tania 10/24/2022 10:14 EDT Plan - Historical PT Frequency Rehab Outpatient : Other: 1-4 x's/month PT Duration Rehab Outpatient : 12 Weeks PT Anticipated Treatments, Needs - Outpt : Edema control, Manual therapy, Dry needling, Neuromuscular re-education, Therapeutic exercises, Therapeutic activities, Pain Management, Patient education, Posture/Body mechanics training PT Plan/Goals Established w Pt/Caregiver : Yes Moses PT, Tania 10/24/2022 10:14 EDT Therapeutic Exercise - Historical Custom Therapeutic Exercise Exercise 1 Exercise 2 Exercise 3 Exercise 4 Exercise : SLS exercises pelvic tilt with exhale contract relax- hip flex/ext knee to chest Lopes PT, Tania 10/24/2022 10:14 EDT Lopes PT, Tania 10/24/2022 10:14 EDT Moses PT, Tania 10/24/2022 10:14 EDT Lopes PT, [place] 10/24/2022 10:14 EDT Exercise 5 Exercise 6 Exercise 7 Exercise 8 Exercise : table top prayer stretch toe stretch adductor stretch with pec stretch Lopes PT, Tania 10/24/2022 10:14 EDT Moses PT, Tania 10/24/2022 10:14 EDT Moses PT, Tania 10/24/2022 10:14 EDT Moses PT, Tania 10/24/2022 10:14 EDT Normal [facility] TSH (THYROID STIMULATING HOR RACHEL) ([id number])Ordered By: Filler Blender on 09-07-2022 TSH Qn 0.007 {uIU/mL} Abnormal 0.450-4.500 Timothy keller Internal Medicine; [facility] Work Phone: Comment on above: PATIENT NOT FASTINGP ERFORMED BY: [facility] Qspzed0731 [facility] [id number] CALCIFIDIOL ([id number]) VIT D 25 Ordered By: Filler Blender on 07-07-2022 25-hydroxyvitamin D [Mass/Vol] 56.3 ng/mL Normal 30.0-100.0 [facility]; [facility] Work Phone: Comment on above: Vitamin D deficiency has been defined by the [place] ofMedicine and an Endocrine Society practice guideline as alevel of serum 25-OH vitamin D less than 20 ng/mL (1,2).The Endocrine Society went on to further define vitamin Dinsufficiency as a level between 21 and 29 ng/mL (2).1. IOM ([place] of Medicine). 2010. Dietary reference intakes for calcium and D. [place]: The National Academies Press.2. Fidelia MF, Tayler MURDOCK, Nataliia HUFF, et al. Evaluation, treatment, and prevention of vitamin D deficiency: an Endocrine Society clinical practice guideline. JCEM. 2010; 96(7):1911-30. PATIENT NOT FASTINGP ERFORMED BY: [facility] Dxacqm4632 [facility] [id number] TSH (THYROID STIMULATING HOR RACHEL) ([id number])Ordered By: Filler Blender on 07-07-2022 TSH Qn 0.038 {uIU/mL} Abnormal 0.450-4.500 [facility] Internal Medicine; [facility] Work Phone: Comment on above: PATIENT NOT FASTINGP ERFORMED BY: [facility] Oordch1435 [facility] [id number] PT Outpatient Historical Leo a - Texton 05-16-2022 PT Outpatient Historical Data - Text PT Outpatient Historical Data Entered On: 05/16/2022 10:20 EST Performed On: 05/16/2022 10:18 EST by Tania Lopes PT PT Outpatient Historical Data Junior Administrative Assistant Goals : Yes Plan : Yes Manual Therapy : Yes Therapeutic Exercises : Yes Total Visit Count : 7 Precautions/Special Notes : R hip pain (tightness) PMH-hypothyroidism (22 yo), stress incontinence, normal bowels, acid reflux PSH- 3 c-sections, R hip replacement Tania Lopes PT - 05/16/2022 10:18 EST [facility] Goals - Historical PT Outpt Pt Goal - grid Goal #1 PT Patient,Caregiver Goal : NL adl's with minimal to no R hip pain. Duration : 12 weeks Status : Progressing, continue Tania Lopes PT - 05/16/2022 10:18 EST General Function Goal #1 Goal #2 Goal #3 Goal #4 Goal : Transition to independent home or community exercise program Independent with symptom management Other: Decreased edema R hip Other: Ascend 7 stairs without lurch in R hip with reciprocal pattern. Duration : 12 Weeks 12 Weeks 12 Weeks 12 Weeks Status : Progressing, continue Progressing, continue Goal met Goal met Date : 01/24/2022 EDT 01/24/2022 EDT Tania Lopes PT - 05/16/2022 10:18 EST Moses JACKMAN Tania 05/16/2022 10:18 EST Lopes PT, Tania 05/16/2022 10:18 EST Lopes PT, Tania 05/16/2022 10:18 EST Goal #5 Goal #6 Goal : Other: Normal scar and myofascial mobility R hip. Ambulate community distances with normal gait mechanics Duration : 12 Weeks 12 Weeks Status : Progressing, continue Goal met Date : 01/24/2022 EDT Lopes PT, Tania 05/16/2022 10:18 EST Lopes PT, Tania 05/16/2022 10:18 EST Plan - Historical PT Frequency Rehab Outpatient : 1 time per week PT Duration Rehab Outpatient : 12 Weeks PT Anticipated Treatments, Needs - Outpt : Edema control, Manual therapy, Dry needling, Therapeutic exercises, Therapeutic activities, Pain Management, Patient education, Posture/Body mechanics training PT Plan/Goals Established w Pt/Caregiver : Yes Moses PT, Tania 05/16/2022 10:18 EST Manual Therapy - Historical Manual Therapy Activity 1 Activity 2 Comment : dural stretch T9-sacrum Lopes PT, Tania 05/16/2022 10:18 EST Lopes PT, Tania 05/16/2022 10:18 EST Therapeutic Exercise - Historical Custom Therapeutic Exercise Exercise 1 Exercise 2 Exercise 3 Exercise 4 Exercise : SLS exercises pelvic tilt with exhale contract relax- hip flex/ext knee to chest Lopes PT, Tania 05/16/2022 10:18 EST Lopes PT, Tania 05/16/2022 10:18 EST Moses PT, Tania 05/16/2022 10:18 EST Moses PT, Tania 05/16/2022 10:18 EST Normal [facility] TSH (THYROID STIMULATING HOR RACHEL) ([id number])Ordered By: Filler Blender on 04-28-2022 TSH Qn 0.083 {uIU/mL} Abnormal 0.450-4.500 Timothy keller Internal Medicine; [facility] Work Phone: Comment on above: PATIENT NOT FASTINGP ERFORMED BY: CB [facility] Fvnigl2514 [facility] [id number] CALCIFEDIOL ([id number])Ordered B y: Filler Blender on 03-02-2022 25-hydroxyvitamin D [Mass/Vol] 35.6 ng/mL Normal 30.0-100.0 [facility]; [facility] Work Phone: Comment on above: Vitamin D deficiency has been defined by the [place] ofMedicine and an Endocrine Society practice guideline as alevel of serum 25-OH vitamin D less than 20 ng/mL (1,2).The Endocrine Society went on to further define vitamin Dinsufficiency as a level between 21 and 29 ng/mL (2).1. IOM ([place] of Medicine). 2010. Dietary reference intakes for calcium and D. [place]: The National Academies Press.2. Fidelia MF, Tayler MURDOCK, Nataliia HUFF, et al. Evaluation, treatment, and prevention of vitamin D deficiency: an Endocrine Society clinical practice guideline. JCEM. 2010; 96(7):1911-30. PATIENT WAS FASTINGP ERFORMED BY: MAIA [employer]6370 Unicorn ProductionFirstHealth Montgomery [facility] Hospital [id number] LIPID PANEL ([id number])Ordered B y: Filler Blender on 03-02-2022 Cholesterol [Mass/Vol] 208 mg/dL Abnormal 100-199 [facility]; [facility] Work Phone: Comment on above: PATIENT WAS FASTINGP ERFORMED BY: MAIA Lab[employer] Partsgadiel Fkfkhb3845 [facility] [id number] Cholesterol in HDL [Mass/Vol] 62 mg/dL Normal [facility]; [facility] Work Phone: Comment on above: PATIENT WAS FASTINGP ERFORMED BY: MAIA [employer] Partsrp Eoovtr9277 [facility] [id number] Triglyceride [Mass/Vol] 97 mg/dL Normal 0-149 [facility]; [facility] Work Phone: Comment on above: PATIENT WAS FASTINGP ERFORMED BY: MAIA [employer] Partsrp Xdimyz6164 [facility] [id number] LIPID PANEL ([id number]) 17 mg/dL Normal 5-40 Compr ensive Internal Medicine; [facility] Work Phone: Comment on above: PATIENT WAS FASTINGP ERFORMED BY: LabDasdak6370 [facility] [id number] LIPID PANEL ([id number]) 129 mg/dL Abnormal 0-99 Compr ehensive Internal Medicine; [facility] Work Phone: Comment on above: PATIENT WAS FASTINGP ERFORMED BY: [facility] Jouzzc1687 [facility] [id number] LIPID PANEL ([id number]) 2.1 {ratio} Normal 0.0-3.2 Comp rehensive Internal Medicine; [facility] Work Phone: Comment on above: LDL/HDL Ratio Men Wo men 1/2 Avg.Risk 1.0 1.5 Avg.Risk 3.6 3.2 2X Avg.Risk 6.2 5.0 3X Avg.Risk 8.0 6.1 PATIENT WAS FASTINGP ERFORMED BY: [facility] Wfhvhx7260 [facility] [id number] TSH (THYROID STIMULATING HOR RACHEL) ([id number])Ordered By: Filler Blender on 03-02-2022 TSH Qn 10.000 {uIU/mL} Abnormal 0.450-4.500 Compre[facility] Internal Medicine; [facility] Work Phone: Comment on above: PATIENT WAS FASTINGP ERFORMED BY: LabHavenwyck Hospital6370 [facility] [id number] MG Breast - bilateral Screen ingon 02-14-2022 IMPRESSION: No mammographic evidence of malignancy. BI-RADS: 2: Benign Recommendation: Routine mammography. Recommendation Laterality: Bilateral The current National Comprehensive Cancer Network and [place] [employer] guidelines recommend women undergo a screening mammogram every year over the age of 40 and continue mammographic screening as long as they are in good health. Screening mammography under age 40 may occur for women who are at increased risk for breast cancer. OLOGY EXAM: MAMMO SCREENIN G WITH PACO BILATERAL, 02/14/2022 10:29 AM CLINICAL INDICATIONS: Screening COMPARISON: Mammogram January 31, 2021, January 08, 2020, September 17, 2018 TECHNIQUE: 2-D MLO and CC views were obtained of the bilateral breasts. 3-D MLO and CC digital tomosynthesis images were also acquired. Computer aided detection was utilized. FINDINGS: The breasts have scattered areas of fibroglandular density. Bilateral benign appearing calcifications are noted. There are no new suspicious masses, calcifications, or architectural distortions. RADIOLOGY Janeen Pelayo DO - 02/14/2022 EXAM: MAMMO SCREENING WITH PACO BILATERAL, 02/14/2022 10:29 AM CLINICAL INDICATIONS: Screening COMPARISON: Mammogram January 31, 2021, January 08, 2020, September 17, 2018 TECHNIQUE: 2-D MLO and CC views were obtained of the bilateral breasts. 3-D MLO and CC digital tomosynthesis images were also acquired. Computer aided detection was utilized. FINDINGS: The breasts have scattered areas of fibroglandular density. Bilateral benign appearing calcifications are noted. There are no new suspicious masses, calcifications, or architectural distortions. IMPRESSION IMPRESSION: No mammographic evidence of malignancy. BI-RADS: 2: Benign Recommendation: Routine mammography. Recommendation Laterality: Bilateral The current National Comprehensive Cancer Network and [employer] guidelines recommend women undergo a screening mammogram every year over the age of 40 and continue mammographic screening as long as they are in good health. Screening mammography under age 40 may occur for women who are at increased risk for breast cancer. [facility] Radiology Study observation (narrative) [facility] MG Breast - bilateral Screen ingOrdered By: Janeen Pelayo on 02-14-2022 [facility] Work Phone: DONNA CULTURE-STOOL ([id number])Ord ered By: Filler Blender on 01-26-2022 Bacteria identified Cx Nom (Unsp spec) NSS Normal [facility]; [facility] Work Phone: Comment on above: No Salmonella or Sun gella recovered. PATIENT NOT FASTINGP ERFORMED BY: [facility]coMon[facility] Medical CenterFqqofe8963 [facility] [id number] Information: SRC:ST SRC:ST Bacteria identified Cx Nom (Unsp spec) NCI Normal [facility]; [facility] Work Phone: Comment on above: No Campylobacter spe cies isolated. PATIENT NOT FASTINGP ERFORMED BY: CB [facility] Ybdtqo1407 [address] RoadDublin [place] [id number] Information: SRC:ST SRC:ST Campylobacter sp identified Org specific cx Nom (Stl) Final report Normal [facility]; [facility] Work Phone: Comment on above: PATIENT NOT FASTINGP ERFORMED BY: CB [facility] Iknwhm[address] [facility] [place] [id number] Information: SRC:ST SRC:ST E. coli shiga-like toxin IA Ql (Stl) Negative Normal [facility]; [facility] Work Phone: Comment on above: PATIENT NOT FASTINGP ERFORMED BY: CB [facility] Jyfnav[address] [facility] [place] [id number] Information: SRC:ST SRC:ST Salmonella and Shigella sp identified Org specific cx Nom (Stl) Final report Normal [facility]; [facility] Work Phone: Comment on above: PATIENT NOT FASTINGP ERFORMED BY: [facility] Pdhypz3844 [address] [facility] [place] [id number] Information: SRC:ST SRC:ST LEUKOCYTE COUNT, FECAL ([id number])Ordered By: Filler Blender on 01-26-2022 WBC LM Ql (Stl) Final report Normal Compreh ensive [facility]; [facility] Work Phone: Comment on above: PATIENT NOT FASTINGP ERFORMED BY: CB [facility] Qxfxgx6649 [address] RoadFirsthealth Montgomery [facility] Hospitalin [place] [id number] WBC LM Ql (Stl) NWBC Normal Comprehen s[facility]; [facility] Work Phone: Comment on above: No white blood cells seen. PATIENT NOT FASTINGP ERFORMED BY: CB [facility] Awhbul5779 [address]iano RoadDublin [place] [id number] OVA & PARASITE DIR SMEAR ([id number])Ordered By: Filler Blender on 01-26-2022 Ova and parasites identified Concentration Nom (Stl) NOCP1 Normal [facility]; [facility] Work Phone: Comment on above: No ova, cysts, or pa rasites seen. .One negative specimen does not rule out the possibility of aparasitic infection. PATIENT NOT FASTINGP ERFORMED BY: [employer]6370 Unicorn ProductionFirstHealth Montgomery Memorial Hospital [id number] Ova and parasites identified LM Nom (Unsp spec) Final report Normal [facility]; [facility] Work Phone: Comment on above: These results were o btained using wet preparation(s) and trichromestained smear. This test does not include testing for Cryptosporidiumparvum, Cyclospora, or Microsporidia. PATIENT NOT FASTINGP ERFORMED BY: GreenerU6370 KanchufangTriStar [facility] [id number] DEVAUGHNOVcristian 11-21-2021 CNOV Office Visit (AMELIA) -------- VIKI DUMONT ([id number]) 1965 F Date Time Provider Department 11/21/21 2:45 PM RODNEY SPRAGUE During your visit today, we recorded the following information about you: Weight 79.4 kg Elena Juan RDMS, RVT 11/21/2021 3:07 PM Signed Patient is here today with concerns of veins in the legs. Patient complains of some pain without swelling. Patient is active and wears compression stockings. Elena Juan RDMS, RVT Rodney Sprague MD 11/21/2021 3:32 PM Signed Patient is seen today in assessment evaluation of bilateral lower extremity varicosities. I last saw this patient about 12 years ago and at that point time felt that the patient would best benefit from conservative management. She has been doing a very good job of this and been compliant with therapy and at this point in time presents wondering if the varicose veins have proceeded to a point that they should require treatment. She is moderately symptomatic from the varicose veins in the right lower extremity but they are right over her anterior tibia and I am really reluctant to treat these unless they become more symptomatic. They really have not grown in size since the last time we saw her may be a little bit more bulging than there was but this is primarily just one varix and there is a whole nest of underlying veins that 1 can see that her not yet varicose. She might benefit from sclerotherapy for this however at this point time my concern would be that if we get into any complication she might actually be having more pain and problems that she is currently having. Her left leg is a newer problem and this developed after recent right hip surgery. She has developed some telangiectasia and some irritating small varicose veins on the surface of the anterior left leg. At this point she is possibly going to have to have left hip surgery as well and while these may be treated with sclerotherapy and relieve some of her problems I think that I would wait until after she has had further surgery since the seem to develop after the first surgery that she had. Especially since she is going to be possibly having that surgery on the affected leg. She seems to understand all of this and overall have a good grasp of what our plan is. She is going to continue to wear compression and will follow up with one of my partners should her issue become more problematic. 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 I spent 10 minutes in the visit, with more than 50% of the total [id number] time of the visit in counseling / coordination of care. This note was generated with [employer] dictation software. It may contain incorrect words, spelling, and punctuation and that were not noted in review of the chart prior to signing. Referring Provider: SELF [200] Allergies As of Date: 11/21/2021 (Not on File) Date Reviewed: Never Reviewed Reason for Visit: Telangiectasia [2084] Pain [78] Varicose Veins [965] Primary Visit Diagnosis:Chronic venous insufficiency [I87.2] Other Visit Diagnosis:Varicose veins of bilateral lower extremities with other complications [I83.893] Problem List As Of Date 11/21/2021 Noted Resolved Varicose veins of both lower extremities [I83.9*11/21/2021 Visit Notes: >> Elena Juan RDMS, RVT SunNovember 21, 2021 3:06 PM Status: Signed Patient is here today with concerns of veins in the legs. Patient complains of some pain without swelling. Patient is active and wears compression stockings. Elena REGINO Juan, RVT Disposition: Return for varicose veins, venous insufficiency. Follow-up and Disposition History for Encounter Date Provider Department Center 11/21/2021 [id number]-MMPTUTRODNEY SPRAGUE*AGCARDVEIN AG POB Encounter Status:Closed by RODNEY SPRAGUE on 11/21/21 Normal [facility] 2019 Novel Coronavirus (COVI D-19), KOLBY ([id number])Ordered By: Filler Blender on 07-26-20212018 Novel Coronavirus (COVID-19), KOLBY ([id number]) Not detected Normal [facility]; [facility] Work Phone: Comment on above: This nucleic acid am plification test was developed and its performancecharacteristics determined by [employer]. Nucleic acidamplification tests include RT-PCR and TMA. This test has not beenFDA cleared or approved. This test has been authorized by FDA underan Emergency Use Authorization (EUA). This test is only authorizedfor the duration of time the declaration that circumstances existjustifying the authorization of the emergency use of in vitrodiagnostic tests for detection of SARS-CoV-2 virus and/or diagnosisof COVID-19 infection under section 564(b)(1) of the Act, 21 U.S.C.360bbb-3(b) (1), unless the authorization is terminated or revokedsooner.When diagnostic testing is negative, the possibility of a falsenegative result should be considered in the context of a patient'srecent exposures and the presence of clinical signs and symptomsconsistent with COVID-19. An individual without symptoms of COVID-19and who is not shedding SARS-CoV-2 virus would expect to have anegative (not detected) result in this assay. PATIENT NOT FASTINGP ERFORMED BY: MAIA [facility] Ghyyru2657 Luciano RoadFormerly [facility] [id number] CBC, PLATELETS & AUT DIFF ([id number])Ordered By: Filler Blender on 07-26-2021 Basophils (Bld) [#/Vol] 0.1 10*3/uL Normal 0.0-0.2 [facility]; [facility] Work Phone: Comment on above: PATIENT NOT FASTINGP ERFORMED BY: MAIA Michaels6370 [facility] [id number] Information: ADD CMP Basophils/100 WBC (Bld) 1 % Normal [facility]; [facility] Work Phone: Comment on above: PATIENT NOT FASTINGP ERFORMED BY: MAIA Wyatt Qtxpth9[address] [id number] Information: ADD CMP Eosinophils (Bld) [#/Vol] 0.2 10*3/uL Normal 0.0-0.4 [facility]; [facility] Work Phone: Comment on above: PATIENT NOT FASTINGP ERFORMED BY: MAIA Wyatt Bkaikw13[address] [id number] Information: ADD CMP Eosinophils/100 WBC (Bld) 2 % Normal [facility]; [facility] Work Phone: Comment on above: PATIENT NOT FASTINGP ERFORMED BY: MAIA Wyatt Nemrtx95[address] [id number] Information: ADD CMP Erythrocyte distribution width (RBC) [Ratio] 13.5 % Normal 11.7-15.4 [facility]; [facility] Work Phone: Comment on above: PATIENT NOT FASTINGP ERFORMED BY: MAIA Wyatt Kswsxg45[address] [id number] Information: ADD CMP Hematocrit (Bld) [Volume fraction] 40.9 % Normal 34.0-46.6 [facility]; [facility] Work Phone: Comment on above: PATIENT NOT FASTINGP ERFORMED BY: MAIA Wyatt Lcooyp7466 [facility] [id number] Information: ADD CMP Hemoglobin (Bld) [Mass/Vol] 13.6 g/dL Normal 11.1-15.9 [facility]; [facility] Work Phone: Comment on above: PATIENT NOT FASTINGP ERFORMED BY: MAIA Jose Cruzambar RoyWllnrh2801 [facility] [id number] Information: ADD CMP Immature granulocytes (Bld) [#/Vol] 0.0 10*3/uL Normal 0.0-0.1 [facility]; [facility] Work Phone: Comment on above: PATIENT NOT FASTINGP ERFORMED BY: MAIA Jose Cruzambar RoyFguewt119[address] [id number] Information: ADD CMP Immature granulocytes/100 WBC (Bld) 0 % Normal [facility]; [facility] Work Phone: Comment on above: PATIENT NOT FASTINGP ERFORMED BY: MAIA Jose Cruzambar RoyPzjuze01[address] [id number] Information: ADD CMP Lymphocytes (Bld) [#/Vol] 3.0 10*3/uL Normal 0.7-3.1 [facility]; [facility] Work Phone: Comment on above: PATIENT NOT FASTINGP ERFORMED BY: MAIA Jose Cruzambar RoyVfmxhv0194[address] [id number] Information: ADD CMP Lymphocytes/100 WBC (Bld) 33 % Normal [facility]; [facility] Work Phone: Comment on above: PATIENT NOT FASTINGP ERFORMED BY: MAIA Roy[address] [id number] Information: ADD CMP MCH (RBC) [Entitic mass] 28.1 pg Normal 26.6-33.0 [facility]; [facility] Work Phone: Comment on above: PATIENT NOT FASTINGP ERFORMED BY: MAIA Jose Cruzambar [address] [id number] Information: ADD CMP MCHC (RBC) [Mass/Vol] 33.3 g/dL Normal 31.5-35.7 [facility]; [facility] Work Phone: Comment on above: PATIENT NOT FASTINGP ERFORMED BY: CB LabHavenwyck Hospital6370 [facility] [id number] Information: ADD CMP MCV (RBC) [Entitic vol] 85 fL Normal 79-97 [facility]; [facility] Work Phone: Comment on above: PATIENT NOT FASTINGP ERFORMED BY: MAIA Wyatt Sxuotv0541 [facility] [id number] Information: ADD CMP Monocytes (Bld) [#/Vol] 0.7 10*3/uL Normal 0.1-0.9 [facility]; [facility] Work Phone: Comment on above: PATIENT NOT FASTINGP ERFORMED BY: MAIA Jose Cruzmiss[facility] delta [facility] Hemayp0484 [facility] [id number] Information: ADD CMP Monocytes/100 WBC (Bld) 8 % Normal [facility]; [facility] Work Phone: Comment on above: PATIENT NOT FASTINGP ERFORMED BY: [facility] Fdssyn3088 [facility] [id number] Information: ADD CMP Neutrophils (Bld) [#/Vol] 5.1 10*3/uL Normal 1.4-7.0 [facility]; [facility] Work Phone: Comment on above: PATIENT NOT FASTINGP ERFORMED BY: MAIA Yoselin Cdviqa9238 [facility] [id number] Information: ADD CMP Neutrophils/100 WBC (Bld) 56 % Normal [facility]; [facility] Work Phone: Comment on above: PATIENT NOT FASTINGP ERFORMED BY: LabZachary Ville [id number] [facility] [id number] Information: ADD CMP Platelets (Bld) [#/Vol] 373 10*3/uL Normal 150-450 [facility]; [facility] Work Phone: Comment on above: PATIENT NOT FASTINGP ERFORMED BY: LabZachary Ville [id number] [facility] [id number] Information: ADD CMP RBC (Bld) [#/Vol] 4.84 10*6/uL Normal 3.77-5.28 Compr [facility] Internal Medicine; [facility] Work Phone: Comment on above: PATIENT NOT FASTINGP ERFORMED BY: MAIA [facility] Tecqmc7911 [facility] [id number] Information: ADD CMP WBC (Bld) [#/Vol] 9.0 10*3/uL Normal 3.4-10.8 Compre [facility] Internal Medicine; [facility] Work Phone: Comment on above: PATIENT NOT FASTINGP ERFORMED BY: [facility] Vpcsod5574 [facility] [id number] Information: ADD CMP HgA1C , Office ([id number])Ordere d By: Agnes Chris on 07-26-2021 HbA1c (Bld) [Mass fraction] 5.5 % Normal 4.6 - 7.1 [facility]; [facility] Work Phone: TSH ([id number])Ordered By: Jonas Yancey on 07-26-2021 TSH Qn 0.183 {uIU/mL} Abnormal 0.450-4.500 Comprehen [facility]; [facility] Work Phone: Comment on above: PATIENT NOT FASTINGP ERFORMED BY: [employer] Ztojnj7698 [facility] [id number] INHOUSE Rapid Covid/ Flu A/ Flu BOrdered By: JOEY Negrete on 06-24-2021 SARS-CoV-2 (COVID-19) RNA KOLBY+probe Ql (Unsp spec) Negative Normal [facility]; [facility] Work Phone: MG Breast Viewson 01-31-2021 IMPRESSION: No mammographic evidence of malignancy. BI-RADS: 1: Negative Recommendation: Routine mammography. Recommendation Laterality: Bilateral The current National Comprehensive Cancer Network and [place] [employer] guidelines recommend women undergo a screening mammogram every year over the age of 40 and continue mammographic screening as long as they are in good health. Screening mammography under age 40 may occur for women who are at increased risk for breast cancer. OLOGY EXAM: MAMMO SCREENIN G WITH PACO BILATERAL, 01/31/2021 10:04 AM CLINICAL INDICATIONS: Screening COMPARISON: Prior exams dated 01/08/2020, 04/22/2019, 09/17/2018, 08/14/2017 TECHNIQUE: 2-D MLO and CC views were obtained of the bilateral breasts. 3-D MLO and CC digital tomosynthesis images were also acquired. Computer aided detection was utilized. FINDINGS: The breasts have scattered areas of fibroglandular density. There are no suspicious masses, calcifications, or architectural distortions. [facility] Stacy Rock DO - 01/31/2021 EXAM: MAMMO SCREENING WITH PACO BILATERAL, 01/31/2021 10:04 AM CLINICAL INDICATIONS: Screening COMPARISON: Prior exams dated 01/08/2020, 04/22/2019, 09/17/2018, 08/14/2017 TECHNIQUE: 2-D MLO and CC views were obtained of the bilateral breasts. 3-D MLO and CC digital tomosynthesis images were also acquired. Computer aided detection was utilized. FINDINGS: The breasts have scattered areas of fibroglandular density. There are no suspicious masses, calcifications, or architectural distortions. IMPRESSION IMPRESSION: No mammographic evidence of malignancy. BI-RADS: 1: Negative Recommendation: Routine mammography. Recommendation Laterality: Bilateral The current National Comprehensive Cancer Network and [place] [employer] guidelines recommend women undergo a screening mammogram every year over the age of 40 and continue mammographic screening as long as they are in good health. Screening mammography under age 40 may occur for women who are at increased risk for breast cancer. [facility] Radiology Study observation (narrative) [facility] MG Breast ViewsOrdered By: Abdi Rock on 01-31-2021 [facility] Work Phone: TSH (THYROID STIMULATING HOR RACHEL) ([id number])Ordered By: Filler Blender on 07-12-2020 TSH Qn 0.622 {uIU/mL} Normal 0.450-4.500 Comprehen [facility]; [facility] Work Phone: Comment on above: PATIENT NOT FASTINGP ERFORMED BY: [facility]Saint [facility] Cklxqb6671 [address] [facility] [place] [id number] Troponin I ([id number])Ordered By : Filler Blender on 07-12-2020 Troponin I.cardiac [Mass/Vol] ng/mL Normal 0.00-0.04 [facility]; [facility] Work Phone: Comment on above: PATIENT NOT FASTINGP ERFORMED BY: [facility] Tmitsz7614 [address] RoadDublin [place] [id number] Troponin I.cardiac [Mass/Vol] ng/mL Normal 0.00-0.04 [facility]; [facility] Work Phone: Comment on above: PATIENT NOT FASTINGP ERFORMED BY: [facility]Saint [facility] Zkkzhv0634 [address] [facility] [id number] 2019 Novel Coronavirus (COVI D-19), KOLBY ([id number])Ordered By: Filler Blender on 06-17-20202018 Novel Coronavirus (COVID-19), KOLBY ([id number]) Not Detected Normal [facility]; [facility] Work Phone: Comment on above: This nucleic acid am plification test was developed and its performancecharacteristics determined by [employer]. Nucleic acidamplification tests include PCR and TMA. This test has not been FDAcleared or approved. This test has been authorized by FDA under anEmergency Use Authorization (EUA). This test is only authorized forthe duration of time the declaration that circumstances existjustifying the authorization of the emergency use of in vitrodiagnostic tests for detection of SARS-CoV-2 virus and/or diagnosisof COVID-19 infection under section 564(b)(1) of the Act, 21 U.S.C.360bbb-3(b) (1), unless the authorization is terminated or revokedsooner.When diagnostic testing is negative, the possibility of a falsenegative result should be considered in the context of a patient'srecent exposures and the presence of clinical signs and symptomsconsistent with COVID-19. An individual without symptoms of COVID-19and who is not shedding SARS-CoV-2 virus would expect to have anegative (not detected) result in this assay. PATIENT NOT FASTINGP ERFORMED BY: [employer] Nfbrrd8089 [facility] [id number] 2018 Novel Coronavirus (COVID-19), KOLBY ([id number]) Not detected Normal [facility]; [facility] Work Phone: Comment on above: This nucleic acid am plification test was developed and its performancecharacteristics determined by [employer]. Nucleic acidamplification tests include PCR and TMA. This test has not been FDAcleared or approved. This test has been authorized by FDA under anEmergency Use Authorization (EUA). This test is only authorized forthe duration of time the declaration that circumstances existjustifying the authorization of the emergency use of in vitrodiagnostic tests for detection of SARS-CoV-2 virus and/or diagnosisof COVID-19 infection under section 564(b)(1) of the Act, 21 U.S.C.360bbb-3(b) (1), unless the authorization is terminated or revokedsooner.When diagnostic testing is negative, the possibility of a falsenegative result should be considered in the context of a patient'srecent exposures and the presence of clinical signs and symptomsconsistent with COVID-19. An individual without symptoms of COVID-19and who is not shedding SARS-CoV-2 virus would expect to have anegative (not detected) result in this assay. PATIENT NOT FASTINGP ERFORMED BY: [employer] Vbwcec7400 [facility] [id number] T3, FREE (TRIDOTHYRONINE) (8 2012)Ordered By: Filler Blender on 03-31-2020 Free T3 [Mass/Vol] 3.3 pg/mL Normal 2.0-4.4 Compre [facility] Internal Medicine Work Phone: Comment on above: PATIENT NOT FASTINGP ERFORMED BY: [employer] Mgzhai4245 [facility] [id number] TSH (THYROID STIMULATING HOR RACHEL) ([id number])Ordered By: Filler Blender on 03-31-2020 TSH Qn 0.048 {uIU/mL} Abnormal 0.450-4.500 Timothy keller Internal Medicine Work Phone: Comment on above: PATIENT NOT FASTINGP ERFORMED BY: LabAsc[facility] [place] [id number] Final Surgical Pathology Rep rain 01-22-2020 Final Surgical Pathology Report . Pathology Reports Accession: Collected Date/Time: Received Date/Time: Pathologist: [id number] 01/20/2020 08:56 EDT 01/21/2020 08:56 EDT DO EMERY MCDANIELS Final Surgical Pathology Report DIAGNOSIS: ENDOMETRIAL CURETTINGS -- PREDOMINANTLY FRAGMENTS OF BENIGN ENDOCERVIX, BENIGN ENDOCERVICAL POLYP AND RARE FRAGMENTS OF INACTIVE APPARENT LOWER UTERINE SEGMENT. Tissue suboptimal for endometrial evaluation. COMMENT: [facility] - [id number] CLINICAL INFORMATION: EXCESSIVE AND FREQUENT MENSTRUATION WITH IRREGULAR CYCLE SPECIMEN: ENDOMETRIAL CURETTINGS GROSS DESCRIPTION: Received in formalin, labeled with the patient's name, Case #[id number], and endometrium curettings are multiple nixon hemorrhagic tissue fragments aggregating to 2.5 x 2 x 0.1 cm. TS -1. Dictated by LV CAMP MICROSCOPIC DESCRIPTION: Slides reviewed. Electronically Signed by Pathology Report verified by [facility] Electronically signed by EMERY MCDANIELS DO Sign out Date: 01/22/2020 13:36 Performing Lab: [facility], [address] [place] [address] ([place]) Comment on above: Performed By: #### S PFR #### [place] [address] 2018 Novel Coronavirus (COVI D-19), KOLBY ([id number])Ordered By: Filler Blender on 01-07-2020 2019 Novel Coronavirus (COVID-19), KOLBY ([id number]) Not Detected Normal [facility] Work Phone: Comment on above: Testing was performe d using the Aptima SARS-CoV-2 assay.This test was developed and its performance characteristics determinedby [employer]. This test has not been FDA cleared orapproved. This test has been authorized by FDA under an Emergency UseAuthorization (EUA). This test is only authorized for the duration oftime the declaration that circumstances exist justifying theauthorization of the emergency use of in vitro diagnostic tests fordetection of SARS-CoV-2 virus and/or diagnosis of COVID-19 infectionunder section 564(b)(1) of the Act, 21 U.S.C. 360bbb-3(b)(1), unlessthe authorization is terminated or revoked sooner.When diagnostic testing is negative, the possibility of a falsenegative result should be considered in the context of a patient'srecent exposures and the presence of clinical signs and symptomsconsistent with COVID-19. An individual without symptoms of COVID-19and who is not shedding SARS-CoV-2 virus would expect to have anegative (not detected) result in this assay. PERFORMED BY: =[employer] [address] [id number] 2018 Novel Coronavirus (COVID-19), KOLBY ([id number]) Not detected Normal [facility]; [facility] Work Phone: Comment on above: Testing was performe d using the Aptima SARS-CoV-2 assay.This test was developed and its performance characteristics determinedby [employer]. This test has not been FDA cleared orapproved. This test has been authorized by FDA under an Emergency UseAuthorization (EUA). This test is only authorized for the duration oftime the declaration that circumstances exist justifying theauthorization of the emergency use of in vitro diagnostic tests fordetection of SARS-CoV-2 virus and/or diagnosis of COVID-19 infectionunder section 564(b)(1) of the Act, 21 U.S.C. 360bbb-3(b)(1), unlessthe authorization is terminated or revoked sooner.When diagnostic testing is negative, the possibility of a falsenegative result should be considered in the context of a patient'srecent exposures and the presence of clinical signs and symptomsconsistent with COVID-19. An individual without symptoms of COVID-19and who is not shedding SARS-CoV-2 virus would expect to have anegative (not detected) result in this assay. PERFORMED BY: =[employer] [address] [id number] 2019 Novel Coronavirus (COVI D-19), KOLBY ([id number])Ordered By: Filler Blender on 01-02-2020 2019 Novel Coronavirus (COVID-19), KOLBY ([id number]) Not Detected Normal [facility] Work Phone: Comment on above: Testing was performe d using the Aptima SARS-CoV-2 assay.This test was developed and its performance characteristics determinedby [employer]. This test has not been FDA cleared orapproved. This test has been authorized by FDA under an Emergency UseAuthorization (EUA). This test is only authorized for the duration oftime the declaration that circumstances exist justifying theauthorization of the emergency use of in vitro diagnostic tests fordetection of SARS-CoV-2 virus and/or diagnosis of COVID-19 infectionunder section 564(b)(1) of the Act, 21 U.S.C. 360bbb-3(b)(1), unlessthe authorization is terminated or revoked sooner.When diagnostic testing is negative, the possibility of a falsenegative result should be considered in the context of a patient'srecent exposures and the presence of clinical signs and symptomsconsistent with COVID-19. An individual without symptoms of COVID-19and who is not shedding SARS-CoV-2 virus would expect to have anegative (not detected) result in this assay. PATIENT NOT FASTINGP ERFORMED BY: =[employer] [address] [id number] 2019 Novel Coronavirus (COVID-19), KOLBY ([id number]) Not detected Normal [facility]; [facility] Work Phone: Comment on above: Testing was performe d using the Aptima SARS-CoV-2 assay.This test was developed and its performance characteristics determinedby [employer]. This test has not been FDA cleared orapproved. This test has been authorized by FDA under an Emergency UseAuthorization (EUA). This test is only authorized for the duration oftime the declaration that circumstances exist justifying theauthorization of the emergency use of in vitro diagnostic tests fordetection of SARS-CoV-2 virus and/or diagnosis of COVID-19 infectionunder section 564(b)(1) of the Act, 21 U.S.C. 360bbb-3(b)(1), unlessthe authorization is terminated or revoked sooner.When diagnostic testing is negative, the possibility of a falsenegative result should be considered in the context of a patient'srecent exposures and the presence of clinical signs and symptomsconsistent with COVID-19. An individual without symptoms of COVID-19and who is not shedding SARS-CoV-2 virus would expect to have anegative (not detected) result in this assay. PATIENT NOT FASTINGP ERFORMED BY: =[employer] [address] [id number] 2018 Novel Coronavirus (COVI D-19), KOLBY ([id number])Ordered By: Filler Blender on 12-29-20192018 Novel Coronavirus (COVID-19), KOLBY ([id number]) Not Detected Normal [facility] Work Phone: Comment on above: This test was develo ped and its performance characteristics determinedby [employer]. This test has not been FDA cleared orapproved. This test has been authorized by FDA under an Emergency UseAuthorization (EUA). This test is only authorized for the duration oftime the declaration that circumstances exist justifying theauthorization of the emergency use of in vitro diagnostic tests fordetection of SARS-CoV-2 virus and/or diagnosis of COVID-19 infectionunder section 564(b)(1) of the Act, 21 U.S.C. 360bbb-3(b)(1), unlessthe authorization is terminated or revoked sooner.When diagnostic testing is negative, the possibility of a falsenegative result should be considered in the context of a patient'srecent exposures and the presence of clinical signs and symptomsconsistent with COVID-19. An individual without symptoms of COVID-19and who is not shedding SARS-CoV-2 virus would expect to have anegative (not detected) result in this assay. PATIENT NOT FASTINGP ERFORMED BY: T[facility]illoVault[facility] [place] [id number] 2018 Novel Coronavirus (COVID-19), KOLBY ([id number]) Not detected Normal [facility]; [facility] Work Phone: Comment on above: This test was devvalentinao ped and its performance characteristics determinedby [employer]. This test has not been FDA cleared orapproved. This test has been authorized by FDA under an Emergency UseAuthorization (EUA). This test is only authorized for the duration oftime the declaration that circumstances exist justifying theauthorization of the emergency use of in vitro diagnostic tests fordetection of SARS-CoV-2 virus and/or diagnosis of COVID-19 infectionunder section 564(b)(1) of the Act, 21 U.S.C. 360bbb-3(b)(1), unlessthe authorization is terminated or revoked sooner.When diagnostic testing is negative, the possibility of a falsenegative result should be considered in the context of a patient'srecent exposures and the presence of clinical signs and symptomsconsistent with COVID-19. An individual without symptoms of COVID-19and who is not shedding SARS-CoV-2 virus would expect to have anegative (not detected) result in this assay. PATIENT NOT FASTINGP ERFORMED BY: [facility] [address]ivpi[address] [place] [id number] SARS-CoV-2 Antibody, IgGOrde red By: Filler Blender on 12-10-2019 SARS-CoV-2 Antibody, IgG Negative Normal [facility] Work Phone: Comment on above: This sample does not contain detectable SARS-CoV-2 IgG antibodies.This negative result does not rule out SARS-CoV-2 infection.Correlation with epidemiologic risk factors and other clinical andlaboratory findings is recommended. Serologic results should not beused as the sole basis to diagnose or exclude recent [id number].This assay was performed using the Nair SARS-CoV-2 IgG assay. Test(s) 646182-[id number]- CoV-2 Antibody, IgGhas not been FDA cleared or approved. This test hasbeen authorized by FDA under an Emergency Use Authorization(EUA). This test is only authorized for the duration of thedeclaration that circumstances exist justifying the authorizationof emergency use of in vitro diagnostics for detection and/ordiagnosis of COVID-19 under Section 564(b)(1) of the Act, 21U.S.C. 360bbb-3(b)(1), unless the authorization is terminated orrevoked sooner. This test has been authorized only for detectingthe presence of antibodies against SARS-CoV-2, not for any otherviruses or pathogens.PATIENT NOT FASTINGPERFORMED BY: [facility] Bbrhqz2371 [facility] [id number] SARS-CoV-2 Antibody, IgG Negative Normal [facility]; [facility] Work Phone: Comment on above: This sample does not contain detectable SARS-CoV-2 IgG antibodies.This negative result does not rule out SARS-CoV-2 infection.Correlation with epidemiologic risk factors and other clinical andlaboratory findings is recommended. Serologic results should not beused as the sole basis to diagnose or exclude recent [id number].This assay was performed using the Nair SARS-CoV-2 IgG assay. Test(s) 195971-QOFT- CoV-2 Antibody, IgGhas not been FDA cleared or approved. This test hasbeen authorized by FDA under an Emergency Use Authorization(EUA). This test is only authorized for the duration of thedeclaration that circumstances exist justifying the authorizationof emergency use of in vitro diagnostics for detection and/ordiagnosis of COVID-19 under Section 564(b)(1) of the Act, 21U.S.C. 360bbb-3(b)(1), unless the authorization is terminated orrevoked sooner. This test has been authorized only for detectingthe presence of antibodies against SARS-CoV-2, not for any otherviruses or pathogens.PATIENT NOT FASTINGPERFORMED BY: [facility] Zbtmbc7174 [facility] [id number] T3, FREE (TRIDOTHYRONINE) ([id number])Ordered By: Filler Blender on 12-10-2019 Free T3 [Mass/Vol] 2.5 pg/mL Normal 2.0-4.4 [facility] Work Phone: Comment on above: PATIENT NOT FASTINGP ERFORMED BY: [facility] Aonrvf5056 [facility]in [place] [id number] T4, FREE (THYROXINE) ([id number]) Ordered By: Filler Blender on 12-10-2019 Free T4 [Mass/Vol] 1.56 ng/dL Normal 0.82-1.77 [facility] Work Phone: Comment on above: PATIENT NOT FASTINGP ERFORMED BY: CB [facility] Evbxme5270 [address]uin [place] [id number] TSH ([id number])Ordered By: Syste m Manager Animal on 12-10-2019 TSH Qn 0.270 {uIU/mL} Abnormal 0.450-4.500 [facility] Internal [facility] Work Phone: Comment on above: PATIENT NOT FASTINGP ERFORMED BY: [facility] Eltzks6470 [facility] [id number] MRI HIP WO IVCON RTon 2019 MRI HIP WO IVCON RT * * *Final Report* * * DATE OF EXAM: Oct 21 2019 2:04PM [facility] 0207 - MRI HIP WO IVCON RT / PROCEDURE REASON: Other specified joint disorders right hip ([id number]) * * * * Physician Interpretation * * * * MRI Right Hip INDICATION: Chronic right hip pain, worsening since March 2019 COMPARISON: None. TECHNIQUE: Hip MRI protocol. RESULT: Right Hip: Diffuse femoral chondral irregularity and thinning. Areas of full-thickness chondral loss in the superior acetabulum with a subarticular degenerative cysts and mild marrow edema. Degenerative labral tearing. No fractures. No avascular necrosis. Small joint effusion. No synovitis. Left Hip: Within normal limits. No fractures. No avascular necrosis. Large field of view images limits evaluation of labrum and cartilage Sacroiliac joints: Within normal limits. Pubic symphysis: Within normal limits. Tendons: Within normal limits including the iliopsoas, hamstring, gluteal and rectus femoris tendons. Muscles: Within normal limits. Bone Marrow: Within normal limits. No fractures or marrow replacing lesions. IMPRESSION: RIGHT HIP OSTEOARTHRITIS. Bellows Assembler: JOSHUA Transcribe Date/Time: Oct 21 2019 5:10P Dictated by : PARTHIV AGUIAR, MD This examination was interpreted and the report reviewed and electronically signed by: DAVE STANFORD MD on Oct 21 2019 9:06PM EST [id number] Normal [facility] PROGRESSon 10-21-2019 PROGRESS HNO ID: [id number] Author: Sparkle Dangelo (Tech) Service: ? Author Type: Network Controller Type: Progress Notes Filed: 10/21/2019 2:00 PM Note Text: Radiology Service Progress Note PATIENT NAME: Viki Dumont DATE OF SERVICE: October 21, 2019 TIME: 1:59 PM PATIENT IDENTITY VERIFICATION COMPLETED USING TWO (2) IDENTIFIERS: Name and Date of confirmed by patient verbally. PATIENT GENDER DATA: Female. status: : No status: NO. PATIENT RELEVANT IMPLANT DATA REVIEWED: Yes RADIOLOGY DEPARTMENT: MR; Exam(s) Completed: Lower MSK: Hip, right PERIPHERAL IV DATA: Not applicable SIGNED BY: Sparkle Dangelo October 21, 2019 1:59 PM Normal [facility] Clinical Summary: HMSPatient IDon 10-14-[address] [facility] Work Phone: Office Visit: New/Est - 1st visit with physician, Rm: 7on 10-14-2019 NEGATED: Highlighted rowTobacco smoking status VTIS Tobacco smoking status [facility] Work Phone: NEGATED: Highlighted rowxray history of the right hip on 07/08/2019 at [facility]-images not available [facility] Work Phone: T3, FREE (TRIDOTHYRONINE) ([id number])Ordered By: Filler Blender on 09-25-2019 Free T3 [Mass/Vol] 1.8 pg/mL Abnormal 2.0-4.4 [facility] Work Phone: Comment on above: PATIENT NOT FASTINGP ERFORMED BY: [facility] Wxfqzz6000 [facility] [id number] T4, FREE (THYROXINE) ([id number]) Ordered By: Filler Blender on 09-25-2019 Free T4 [Mass/Vol] 1.55 ng/dL Normal 0.82-1.77 [facility] Work Phone: Comment on above: PATIENT NOT FASTINGP ERFORMED BY: MAIA [facility] Vhjoob6307 [address]Dublin [place] [id number] TSH (THYROID STIMULATING HOR RACHEL) ([id number])Ordered By: Filler Blender on 09-25-2019 TSH Qn 4.140 {uIU/mL} Normal 0.450-4.500 [facility] Work Phone: Comment on above: PATIENT NOT FASTINGP ERFORMED BY: CB [facility] Ywurtu3056 [address] [place] [id number] C-REACTIVE PROTEIN ([id number])Or dered By: Filler Blender on 06-27-2019 CRP [Mass/Vol] 1 mg/L Normal 0-10 [facility] Work Phone: Comment on above: PATIENT NOT FASTINGP ERFORMED BY: CB [facility] Rufjkt8830 [address] RoadFirsthealth Montgomery Memorial Hospitalin [place] [id number] CBC WITH MANUAL DIFF ([id number]) Ordered By: Filler Blender on 06-27-2019 Basophils (Bld) [#/Vol] 0.0 {x10E3/uL} Normal 0.0-0.2 [facility] Work Phone: Comment on above: PATIENT NOT FASTINGP ERFORMED BY: CB [facility] Dqsklq8245 [address] [place] [id number] Basophils (Bld) [#/Vol] 0.0 10*3/uL Normal 0.0-0.2 [facility]; [facility] Work Phone: Comment on above: PATIENT NOT FASTINGP ERFORMED BY: CB [facility] Hhoknx1566 [address]Dublin [place] [id number] Basophils/100 WBC (Bld) 1 % Normal [facility] Work Phone: Comment on above: PATIENT NOT FASTINGP ERFORMED BY: CB [facility] Sagell5676 [address]Dublin [place] [id number] Eosinophils (Bld) [#/Vol] 0.1 {x10E3/uL} Normal 0.0-0.4 [facility] Work Phone: Comment on above: PATIENT NOT FASTINGP ERFORMED BY: MAIA [facility] Ksrsgd6516 [address] [facility] [id number] Eosinophils (Bld) [#/Vol] 0.1 10*3/uL Normal 0.0-0.4 [facility]; [facility] Work Phone: Comment on above: PATIENT NOT FASTINGP ERFORMED BY: [facility] Qzjlaz4724 [facility] [id number] Eosinophils/100 WBC (Bld) 1 % Normal [facility] Work Phone: Comment on above: PATIENT NOT FASTINGP ERFORMED BY: LabC[place] [id number] [facility] [id number] Erythrocyte distribution width (RBC) [Ratio] 14.4 % Normal 12.3-15.4 [facility] Work Phone: Comment on above: Effective July 14, 2019, the RDW pediatric reference interval will be removed and the adult reference interval will be changing to: Female 11.7 - 15.4 Male 11.6 - 15.4 PATIENT NOT FASTINGP ERFORMED BY: [facility]Co[facility] CenterJrpyij2672 [facility] [id number] Hematocrit (Bld) [Volume fraction] 40.1 % Normal 34.0-46.6 [facility] Work Phone: Comment on above: PATIENT NOT FASTINGP ERFORMED BY: [facility]CoMon[facility] CenterEmgmvg7388 [facility] [id number] Hemoglobin (Bld) [Mass/Vol] 12.8 g/dL Normal 11.1-15.9 [facility] Work Phone: Comment on above: PATIENT NOT FASTINGP ERFORMED BY: LabCoAshley Ville 1349570 [facility] [id number] Immature granulocytes (Bld) [#/Vol] 0.0 {x10E3/uL} Normal 0.0-0.1 [facility] Work Phone: Comment on above: PATIENT NOT FASTINGP ERFORMED BY: CB [facility] Ewaynj8454 [address]Dublin [place] [id number] Immature granulocytes (Bld) [#/Vol] 0.0 10*3/uL Normal 0.0-0.1 [facility]; [facility] Work Phone: Comment on above: PATIENT NOT FASTINGP ERFORMED BY: CB [facility] Bobiop7245 [address]Dublin [place] [id number] Immature granulocytes/100 WBC (Bld) 0 % Normal [facility] Work Phone: Comment on above: PATIENT NOT FASTINGP ERFORMED BY: CB [facility] Idxlff3221 [address] RoadDublin [place] [id number] Lymphocytes (Bld) [#/Vol] 2.5 {x10E3/uL} Normal 0.7-3.1 [facility] Work Phone: Comment on above: PATIENT NOT FASTINGP ERFORMED BY: CB [facility] Grahwe3340 [address]Dublin [place] [id number] Lymphocytes (Bld) [#/Vol] 2.5 10*3/uL Normal 0.7-3.1 [facility]; [facility] Work Phone: Comment on above: PATIENT NOT FASTINGP ERFORMED BY: CB [facility] Jarjqp1392 [address]Dublin [place] [id number] Lymphocytes/100 WBC (Bld) 30 % Normal [facility] Work Phone: Comment on above: PATIENT NOT FASTINGP ERFORMED BY: CB [facility] Eslvab3397 [address]Dublin [place] [id number] MCH (RBC) [Entitic mass] 27.5 pg Normal 26.6-33.0 [facility] Work Phone: Comment on above: PATIENT NOT FASTINGP ERFORMED BY: CB [facility] Ktbyqe0677 [address]Dublin [place] [id number] MCHC (RBC) [Mass/Vol] 31.9 g/dL Normal 31.5-35.7 [facility] Work Phone: Comment on above: PATIENT NOT FASTINGP ERFORMED BY: CB [facility] Nfcocp5636 [address] RoadDublin [place] [id number] MCV (RBC) [Entitic vol] 86 fL Normal 79-97 [facility] Work Phone: Comment on above: PATIENT NOT FASTINGP ERFORMED BY: CB [facility] Dgcius5770 [address] [place] [id number] Monocytes (Bld) [#/Vol] 0.5 {x10E3/uL} Normal 0.1-0.9 [facility] Work Phone: Comment on above: PATIENT NOT FASTINGP ERFORMED BY: CB [facility] Obigzx3375 [address]Dublin [place] [id number] Monocytes (Bld) [#/Vol] 0.5 10*3/uL Normal 0.1-0.9 [facility]; [facility] Work Phone: Comment on above: PATIENT NOT FASTINGP ERFORMED BY: CB [facility] Ncgcde2455 [address] [place] [id number] Monocytes/100 WBC (Bld) 6 % Normal [facility] Work Phone: Comment on above: PATIENT NOT FASTINGP ERFORMED BY: CB [facility] Ovtkrx0155 [address]Dublin [place] [id number] Neutrophils (Bld) [#/Vol] 5.2 {x10E3/uL} Normal 1.4-7.0 [facility] Work Phone: Comment on above: PATIENT NOT FASTINGP ERFORMED BY: CB [facility] Bcaszi1067 [address]Dublin [place] [id number] Neutrophils (Bld) [#/Vol] 5.2 10*3/uL Normal 1.4-7.0 [facility]; [facility] Work Phone: Comment on above: PATIENT NOT FASTINGP ERFORMED BY: CB [facility] Gbxoae4606 [address]Dublin [place] [id number] Neutrophils/100 WBC (Bld) 62 % Normal [facility] Work Phone: Comment on above: PATIENT NOT FASTINGP ERFORMED BY: CB [facility] Fxjngs7874 [address] [place] [id number] Platelets (Bld) [#/Vol] 332 {x10E3/uL} Normal 150-450 [facility] Work Phone: Comment on above: PATIENT NOT FASTINGP ERFORMED BY: CB [facility] Cczkjh0798 [address] [place] [id number] Platelets (Bld) [#/Vol] 332 10*3/uL Normal 150-450 [facility]; [facility] Work Phone: Comment on above: PATIENT NOT FASTINGP ERFORMED BY: CB [facility] Pbavqi3244 [address] [place] [id number] RBC (Bld) [#/Vol] 4.66 {x10E6/uL} Normal 3.77-5.28 [facility] Internal [facility] Work Phone: Comment on above: PATIENT NOT FASTINGP ERFORMED BY: CB [facility] Wwdpuv7433 [address] [place] [id number] RBC (Bld) [#/Vol] 4.66 10*6/uL Normal 3.77-5.28 [facility]; [facility] Work Phone: Comment on above: PATIENT NOT FASTINGP ERFORMED BY: CB [facility] Qwjmvz3263 [address] [place] [id number] WBC (Bld) [#/Vol] 8.5 {x10E3/uL} Normal 3.4-10.8 [facility] Work Phone: Comment on above: PATIENT NOT FASTINGP ERFORMED BY: CB [facility] Fauzjz8966 [address] [place] [id number] WBC (Bld) [#/Vol] 8.5 10*3/uL Normal 3.4-10.8 [facility]; [facility] Work Phone: Comment on above: PATIENT NOT FASTINGP ERFORMED BY: CB [facility] Oznpzl8291 [address] [place] [id number] METABOLIC PANEL, COMPREHENSI VE ([id number])Ordered By: Filler Blender on 06-27-2019 Albumin [Mass/Vol] 4.1 g/dL Normal 3.5-5.5 [facility] Work Phone: Comment on above: PATIENT NOT FASTINGP ERFORMED BY: CB [facility] Udwbpz1452 [address]Dublin [place] [id number] Albumin/Globulin [Mass ratio] 1.6 {ratio} Normal 1.2-2.2 [facility] Work Phone: Comment on above: PATIENT NOT FASTINGP ERFORMED BY: CB [facility] Mgonqn8161 [address] [place] [id number] ALP [Catalytic activity/Vol] 69 [iU]/L Normal 39-117 [facility] Work Phone: Comment on above: PATIENT NOT FASTINGP ERFORMED BY: CB [facility] Ednujk6562 [address] [place] [id number] ALP [Catalytic activity/Vol] 69 U/L Normal 39-117 [facility]; [facility] Work Phone: Comment on above: PATIENT NOT FASTINGP ERFORMED BY: CB [facility] Fpfqtn6576 [address] [place] [id number] ALT [Catalytic activity/Vol] 18 [iU]/L Normal 0-32 [facility] Work Phone: Comment on above: PATIENT NOT FASTINGP ERFORMED BY: CB [facility] Rwxnbo7293 [address] [place] [id number] ALT [Catalytic activity/Vol] 18 U/L Normal 0-32 [facility]; [facility] Work Phone: Comment on above: PATIENT NOT FASTINGP ERFORMED BY: CB [facility] Hijrdt4076 [address] [place] [id number] AST [Catalytic activity/Vol] 24 [iU]/L Normal 0-40 [facility] Work Phone: Comment on above: PATIENT NOT FASTINGP ERFORMED BY: CB [facility] Xrufmi8021 [address] [place] [id number] AST [Catalytic activity/Vol] 24 U/L Normal 0-40 [facility]; [facility] Work Phone: Comment on above: PATIENT NOT FASTINGP ERFORMED BY: CB [facility] Rxuihd1851 [address] [place] [id number] Bilirubin [Mass/Vol] 0.2 mg/dL Normal 0.0-1.2 [facility] Work Phone: Comment on above: PATIENT NOT FASTINGP ERFORMED BY: CB [facility] Kjhyut5822 [address] RoadDublin [place] [id number] Calcium [Mass/Vol] 8.9 mg/dL Normal 8.7-10.2 [facility] Internal Medicine Work Phone: Comment on above: PATIENT NOT FASTINGP ERFORMED BY: MAIA [facility] Rdxopg1610 [address] RoadDublin [place] [id number] Chloride [Moles/Vol] 104 mmol/L Normal 96-106 [facility] Internal Medicine Work Phone: Comment on above: PATIENT NOT FASTINGP ERFORMED BY: CB [facility] Enejpa5431 [address] RoadDublin [place] [id number] CO2 [Moles/Vol] 27 mmol/L Normal 20-29 [facility] Internal Medicine Work Phone: Comment on above: PATIENT NOT FASTINGP ERFORMED BY: CB [facility] Vfwvxy9613 [address] RoadDublin [place] [id number] Creatinine [Mass/Vol] 0.71 mg/dL Normal 0.57-1.00 [facility] Internal Medicine Work Phone: Comment on above: PATIENT NOT FASTINGP ERFORMED BY: CB [facility] Qdmkta2229 [address] RoadDublin [place] [id number] GFR/1.73 sq M predicted among blacks CKD-EPI (S/P/Bld) [Vol rate/Area] 113 mL/min/1.73 Normal [facility] Internal Medicine Work Phone: Comment on above: PATIENT NOT FASTINGP ERFORMED BY: CB [facility] Pzniwv0675 [address] RoadDublin [place] [id number] GFR/1.73 sq M predicted among non-blacks CKD-EPI (S/P/Bld) [Vol rate/Area] 98 mL/min/1.73 Normal [facility] Work Phone: Comment on above: PATIENT NOT FASTINGP ERFORMED BY: MAIA [facility] Goiqhc7623 [address] RoadDublin [place] [id number] Globulin (S) [Mass/Vol] 2.5 g/dL Normal 1.5-4.5 [facility] Work Phone: Comment on above: PATIENT NOT FASTINGP ERFORMED BY: MAIA [facility] Pizpjz3267 [address] RoadDublin [place] [id number] Glucose [Mass/Vol] 81 mg/dL Normal 65-99 [facility] Internal Medicine Work Phone: Comment on above: PATIENT NOT FASTINGP ERFORMED BY: MAIA [facility] Nceuqb1829 [address] RoadDublin [place] [id number] Potassium [Moles/Vol] 4.3 mmol/L Normal 3.5-5.2 [facility] Work Phone: Comment on above: PATIENT NOT FASTINGP ERFORMED BY: MAIA [facility] Lvwbxg8283 [address] RoadDublin [place] [id number] Protein [Mass/Vol] 6.6 g/dL Normal 6.0-8.5 [facility] Internal Medicine Work Phone: Comment on above: PATIENT NOT FASTINGP ERFORMED BY: CB [facility] Sereiy8555 [address] RoadDublin [place] [id number] Sodium [Moles/Vol] 144 mmol/L Normal 134-144 [facility] Internal Medicine Work Phone: Comment on above: PATIENT NOT FASTINGP ERFORMED BY: CB [facility] Aitink5055 [address]Dublin [place] [id number] Urea nitrogen [Mass/Vol] 8 mg/dL Normal 6-24 [facility] Work Phone: Comment on above: PATIENT NOT FASTINGP ERFORMED BY: MAIA [facility] Uigbps2815 [address] RoadDublin [place] [id number] Urea nitrogen/Creatinine [Mass ratio] 11 mg/mg Normal 9-23 [facility] Work Phone: Comment on above: PATIENT NOT FASTINGP ERFORMED BY: [facility] [place] [id number] PT (Prothrobim Time) (22037) Ordered By: Filler Blender on 06-27-2019 INR Coag (PPP) [Relative time] 0.9 {INR} Normal 0.8-1.2 [facility] Work Phone: Comment on above: Reference interval i s for non-anticoagulated patients. . Suggested INR therapeutic range for Vitamin K antagonist therapy: Standard Dose (moderate intensity therapeutic range): 2.0 - 3.0 Higher intensity therapeutic range 2.5 - 3.5 PATIENT NOT FASTINGP ERFORMED BY: [facility]Formerly [facility] [id number] PT Coag (PPP) [Time] 10.0 {sec} Normal 9.1-12.0 [facility] Work Phone: Comment on above: PATIENT NOT FASTINGP ERFORMED BY: [facility]6[address]blin [place] [id number] PT Coag (PPP) [Time] 10.0 s Normal 9.1-12.0 [facility]; [facility] Work Phone: Comment on above: PATIENT NOT FASTINGP ERFORMED BY: [facility] [facility] Medical Centerblin [place] [id number] PTT (Activated Partial Throm boplastin Time) (12666)Ordered By: Filler Blender on 06-27-2019 aPTT Coag (PPP) [Time] 26 {sec} Normal 24-33 [facility] Work Phone: Comment on above: This test has not be en validated for monitoring unfractionated heparintherapy. aPTT-based therapeutic ranges for unfractionated heparintherapy have not been established. For general guidelines onHeparin monitoring, refer to the [facility] Directory of Services. PATIENT NOT FASTINGP ERFORMED BY: [place] [address]88[address] [facility] [id number] aPTT Coag (PPP) [Time] 26 s Normal 24-33 [facility]; [facility] Work Phone: Comment on above: This test has not be en validated for monitoring unfractionated heparintherapy. aPTT-based therapeutic ranges for unfractionated heparintherapy have not been established. For general guidelines onHeparin monitoring, refer to the [facility] Directory of Services. PATIENT NOT FASTINGP ERFORMED BY: [facility]6370 [facility] [id number] SED RATE ERYTHROCYTE (60028) Ordered By: Filler Blender on 06-27-2019 ESR (Bld) [Velocity] 3 mm/h Normal 0-40 [facility] Work Phone: Comment on above: PATIENT NOT FASTINGP ERFORMED BY: MAIA [facility] Crqyju9094 [facility] [id number] HPVon 06-16-2019 HPV Interp Normal See Interp HPVN [facility] ([place]) Comment on above: Order Comment: Order placed by AP_HPV_ORDER rule from [id number] Result Comment: High Risk HPV Typing: NEGATIVE HPV types 16, 18, 31, 33, 35, 39, 45, 51, 52, 56, 58, 59, 66 and 68 DNA were undetectable or below the pre-set threshold. The anita High-Risk HPV DNA Test is not intended for use as a screening device for Pap normal women under age 30 and is not intended to substitute for regular Pap screening. The anita High-Risk HPV DNA Test is designed to augment existing methods for the detection of cervical disease and should be used in conjunction with clinical information derived from other diagnostic and screening tests, physical examinations and full medical history in accordance with appropriate patient management procedures. NOTE: A negative result does not preclude the presence of HPV infection because results depend on adequate specimen collection, absence of inhibitors and sufficient DNA to be detected. See Interp HPVN Performed By: #### H PV #### [place] [address] HPV Source Cervix Normal [facility] ([place]) Comment on above: Order Comment: Order placed by AP_HPV_ORDER rule from [id number] Performed By: #### H PV #### [place] [address] [employer] Cytology Reporton 2018 [employer]er Cytology Report . Pathology Reports Accession: Collected Date/Time: Received Date/Time: Pathologist: [id number] 06/10/2019 15:59 EST 06/11/2019 18:00 EST [employer] Cytology Report SPECIMEN: Specimen Description: Liquid Prep w/ HPV Specimen: Cervical/Endocervical Screening or Diagnostic: Screening RELEVANT HISTORY: LMP: 05-07-19 [id number] SPECIMEN ADEQUACY: SATISFACTORY FOR EVALUATION ENDOCERVICAL/TRANSFORMAT IONAL ZONE COMPONENT ABSENT/INSUFFICIENT INTERPRETATION/RESULTS: NEGATIVE FOR INTRAEPITHELIAL LESION OR MALIGNANCY ADJUNCTIVE TESTING: HIGH RISK HPV DNA TESTING ORDERED, REPORT TO FOLLOW UNDER SEPARATE COVER COMMENT: This Pap Test was successfully processed and evaluated with the assistance of the [employer] ThinPrep Test Imaging System. Electronically Signed by Pathology report verified by [facility] Screened by: [place] Electronically signed by Ching BAEZA (ASCP) Sign-Out Date: 06/13/2019 15:46 Performing Lab: [address] Disclaimer The Pap test is a screening test for cervical cancer. As evidenced by published data, it is subject to both inherent false negative and false positive results. Your patient's results should be interpreted in context with pertinent clinical history including gynecological examination. Normal [facility] ([place]) Comment on above: Performed By: #### G YCR #### [place] [address] CTPCRon 06-12-2019 C. trachomatis Interp Normal See CT Interp N [facility] ([place]) Comment on above: Result Comment: C. t rachomatis DNA not detected. Specimen is presumptive negative for C. trachomatis. A negative result does not preclude C. trachomatis infection because results depend on adequate specimen collection, absence of inhibitors, and sufficient DNA to be detected. See CT Interp N Performed By: #### C TPCR, NGPCR1 #### [place] [address] C.trachomatis PCR Negative Normal Negative [facility] ([place]) Comment on above: Result Comment: Mole cular (PCR) assay performed on the Brodie Anita 4800 system. Performed By: #### C TPCR, NGPCR1 #### [facility] [address] [place] [address] Chlam Source Cervix Normal [facility] ([place]) Comment on above: Performed By: #### C TPCR, NGPCR1 #### [facility] [address] [place] [address] NGPCRon 06-12-2019 GC PCR Source Cervix Normal [facility] ([place]) Comment on above: Performed By: #### C TPCR, NGPCR1 #### [facility] [address] [place] [address] N. gonorrhoeae (PCR) Negative Normal Negative [facility] ([place]) Comment on above: Result Comment: Mole cular (PCR) assay performed on the [employer] Anita 4800 System. Performed By: #### C TPCR, NGPCR1 #### [address] [address] N. gonorrhoeae Interp Normal See NG Interp N [facility] ([place]) Comment on above: Result Comment: N. g onorrhoeae DNA not detected. Specimen is presumptive negative for N. gonorrhoeae. A negative result does not preclude Neisseria gonorrhoeae infection because results depend on adequate specimen collection, absence of inhibitors, and sufficient DNA to be detected. See NG Interp N Performed By: #### C TPCR, NGPCR1 #### [address] [address] NMR Profile (66842)Ordered B y: Filler Blender on 05-02-2019 Cholesterol [Mass/Vol] 182 mg/dL Normal 100-199 [facility] Work Phone: Comment on above: Test(s) 570619-PRK-X ; 212255-DYU-Z; 836809-ZVH-N; 011634-Mukthdsdaymuo; 984800-Tridcbytmdm, Total; 255681-VGE-C (Total);245392-Bplji LDL-P; 788797-QSC Size; 251233-FX-XO Scorewas developed and its performance characteristics determinedby [employer]. It has not been cleared or approved by the Foodand Drug Administration.PATIENT WAS FASTINGPERFORMED BY: [employer] [address] [id number] BY: [employer] Kghotd5317 [facility] [id number] Lipoprotein.alpha [Moles/Vol] 34.2 umol/L Normal [facility] Work Phone: Comment on above: Test(s) 582661-YKO-J ; 011451-TIE-C; 245777-NTZ-P; 480800-Aexbkczdgvgvg; 970328-Grrjvacqtdp, Total; 308234-RAN-A (Total);523060-Xkino LDL-P; 254895-SPI Size; 835971-FS-MX Scorewas developed and its performance characteristics determinedby [employer]. It has not been cleared or approved by the Foodand Drug Administration.PATIENT WAS FASTINGPERFORMED BY: [employer] [address] [id number] BY: [employer] Automotivelin6370 [facility] [id number] Lipoprotein.beta.sub particle [Entitic length] 21.7 nm Normal [facility] Work Phone: Comment on above: INTERPRETATIVE INFORMATION PARTICLE CONCENTRATION AND SIZE <--Lower CVD Risk Higher CVD Risk--> LDL AND HDL PARTICLES Percentile in Reference Population HDL-P (total) High 75th 50th 25th Low >34.9 34.9 30.5 26.7 <26.7 . Small LDL-P Low 25th 50th 75th High <117 117 527 839 >839 . LDL Size <-Large (Pattern A)-> <-Small (Pattern B)-> 23.0 20.6 20.5 19.0 Small LDL-P and LDL Size are associated with CVD risk, but not afterLDL-P is taken into account. Test(s) 625377-MGO-U ; 448685-CAB-O; 352173-YOL-A; 384174-Fnhuzydxqkuag; 057090-Dsihwlqxnat, Total; 600334-OVU-S (Total);347654-Yustv LDL-P; 134985-FIP Size; 179380-IU-WW Scorewas developed and its performance characteristics determinedby [employer]. It has not been cleared or approved by the Foodand Drug Administration.PATIENT WAS FASTINGPERFORMED BY: BECC[address] [id number] BY: [employer] urSelfFormerly [facility] [id number] Lipoprotein.beta.sub particle [Moles/Vol] 1026 nmol/L Abnormal [facility] Work Phone: Comment on above: Low < 1000 Moderate 1000 - 1299 Borderline-High 1300 - 1599 High 1600 - 2000 Very High > 2000 Test(s) 308196-QFS-G ; 717223-POS-W; 832243-FYO-V; 935332-Idiwacwimfezu; 666931-Hyhrbzhlgwl, Total; 357255-QEU-Z (Total);701148-Azdgg LDL-P; 503109-ZZD Size; 147997-GD-JC Scorewas developed and its performance characteristics determinedby [employer] Dot. It has not been cleared or approved by the FoodLookIt Drug Administration.PATIENT WAS FASTINGPERFORMED BY: BECC[address] [id number] BY: Muzicall70 NeedFeedFormerly [facility] [id number] Lipoprotein.beta.sub particle.small [Moles/Vol] 372 nmol/L Normal [facility] Work Phone: Comment on above: Test(s) 780486-HFK-Y ; 853203-EKJ-L; 073913-LVP-A; 089338-Bpbeblfchctbt; 961078-Duuqgpdifyy, Total; 223331-TKX-G (Total);825910-Jegpe LDL-P; 683272-TJE Size; 852837-BR-WL Scorewas developed and its performance characteristics determinedby [employer]. It has not been cleared or approved by the Foodand Drug Administration.PATIENT WAS FASTINGPERFORMED BY: [facility] [address] [id number] BY: [employer]6370 [facility] [id number] Triglyceride [Mass/Vol] 74 mg/dL Normal 0-149 [facility] Internal Medicine Work Phone: Comment on above: Test(s) 521677-TDV-C ; 128810-YEC-P; 989671-IRE-N; 020136-Optjpbofbwapa; 520242-Ydzzfhgzlfu, Total; 566439-JJK-F (Total);194797-Cuhsp LDL-P; 042594-PWO Size; 353659-NQ-NJ Scorewas developed and its performance characteristics determinedby [employer]. It has not been cleared or approved by the Foodand Drug Administration.PATIENT WAS FASTINGPERFORMED BY: [facility] [address] [id number] BY: [employer] Aqxuwq2453 [facility] [id number] NMR Profile (18860) 116 mg/dL Abnormal 0-99 [facility] Internal Medicine Work Phone: Comment on above: . Optimal < 100 Abov e optimal 100 - 129 Borderline 130 - 159 High 160 - 189 Very high > 189 .LDL-C is inaccurate if patient is non-fasting. Test(s) 974021-EIT-Y ; 529143-XMX-O; 288957-OVW-U; 884526-Stgcwwrtaknyu; 576651-Pdqfpfcfyvs, Total; 027461-ODT-G (Total);628110-Pxclm LDL-P; 691106-KCJ Size; 501130-JJ-OS Scorewas developed and its performance characteristics determinedby [employer]. It has not been cleared or approved by the Foodand Drug Administration.PATIENT WAS FASTINGPERFORMED BY: [facility] [address] [id number] BY: [employer]6370 [facility] [id number] NMR Profile (59576) 51 mg/dL Normal [facility] Internal Medicine Work Phone: Comment on above: Test(s) 243495-BSS-H ; 461573-PVS-E; 346883-WCE-M; 807491-Inhyfhrqejkfw; 438687-Tbovztntkny, Total; 546018-CAV-V (Total);816892-Oekwn LDL-P; 487492-KAD Size; 623389-KS-TT Scorewas developed and its performance characteristics determinedby Hot Dot. It has not been cleared or approved by the Foodand Drug Administration.PATIENT WAS FASTINGPERFORMED BY: [facility] [address] [id number] BY: [employer]6370 [facility] [id number] T3, FREE (TRIDOTHYRONINE) (2 2518)Ordered By: Filler Blender on 05-02-2019 Free T3 [Mass/Vol] 2.2 pg/mL Normal 2.0-4.4 [facility] Internal Medicine Work Phone: Comment on above: Test(s) 792241-XNK-L ; 927674-KQH-J; 580768-NEK-C; 085273-Zogydjtylfsfv; 056861-Clvmzwhmfxy, Total; 505436-OLR-A (Total);686790-Rskjp LDL-P; 643897-OZX Size; 419994-HJ-GI Scorewas developed and its performance characteristics determinedby [employer]. It has not been cleared or approved by the Foodand Drug Administration.PATIENT WAS FASTINGPERFORMED BY: [facility] [address] [id number] BY: [employer]lin6370 [facility] [id number] T4, FREE (THYROXINE) (90344) Ordered By: Filler Blender on 05-02-2019 Free T4 [Mass/Vol] 2.10 ng/dL Abnormal 0.82-1.77 [facility] Internal Medicine Work Phone: Comment on above: Test(s) 797261-OOZ-N ; 029001-VPW-K; 496308-GXQ-X; 736460-Svrrodrqldgwk; 020894-Gvkhzhspkai, Total; 548501-KSD-V (Total);763833-Gvnsq LDL-P; 308499-ZYQ Size; 345367-JL-XK Scorewas developed and its performance characteristics determinedby [employer]. It has not been cleared or approved by the Foodand Drug Administration.PATIENT WAS FASTINGPERFORMED BY: docTrackr[address] [place] [address] [id number] BY: [facility] For ExpecteensTriStar [facility] [id number] TSH (38772)Ordered By: [employer] Manager Animal on 05-02-2019 TSH Qn 0.276 {uIU/mL} Abnormal 0.450-4.500 [facility] Internal Medicine Work Phone: Comment on above: Test(s) 221946-LCE-I ; 690736-ZZE-B; 556038-MKX-I; 291505-Blphvjiakbwaj; 221208-Cpvunnlymcy, Total; 153215-DMG-Z (Total);142162-Yulpm LDL-P; 018666-RYO Size; 129984-IO-UP Scorewas developed and its performance characteristics determinedby [employer]. It has not been cleared or approved by the Foodand Drug Administration.PATIENT WAS FASTINGPERFORMED BY: BECCton1447 [facility] [id number] BY: [employer]70 [employer] [place] [id number] C-REACTIVE PROTEIN (10199)Or dered By: Filler Blender on 10-09-2018 CRP mass conc 2.4 mg/L Normal 0.0-4.9 [facility] Work Phone: Comment on above: PATIENT NOT FASTINGP ERFORMED BY: Muzicall70 KanchufangTriStar Greenview Regional Hospital [id number] CBC, PLATELETS & MANUAL DIFF (29467)Ordered By: Filler Blender on 10-09-2018 Basophils #/vol (Bld) 0.0 {x10E3/uL} Normal 0.0-0.2 [facility] Work Phone: Comment on above: PATIENT NOT FASTINGP ERFORMED BY: CB [facility] Ukuwrj7934 [address] RoadDublin [place] [id number] Basophils (Bld) [#/Vol] 0.0 10*3/uL Normal 0.0-0.2 [facility]; [facility] Work Phone: Comment on above: PATIENT NOT FASTINGP ERFORMED BY: CB [facility] Kgxrwj3649 [address] RoadDublin [place] [id number] Basophils/100 WBC (Bld) 1 % Normal [facility] Work Phone: Comment on above: PATIENT NOT FASTINGP ERFORMED BY: CB [facility] Lbsdbg2309 [address] RoadDublin [place] [id number] Eosinophils #/vol (Bld) 0.1 {x10E3/uL} Normal 0.0-0.4 [facility] Work Phone: Comment on above: PATIENT NOT FASTINGP ERFORMED BY: CB [facility] Pdilug9896 [address] RoadDublin [place] [id number] Eosinophils (Bld) [#/Vol] 0.1 10*3/uL Normal 0.0-0.4 [facility]; [facility] Work Phone: Comment on above: PATIENT NOT FASTINGP ERFORMED BY: CB [facility] Rqspgw5623 [address] RoadDublin [place] [id number] Eosinophils/100 WBC (Bld) 1 % Normal [facility] Work Phone: Comment on above: PATIENT NOT FASTINGP ERFORMED BY: CB [facility] Fphtfz7936 [address] RoadDublin [place] [id number] Erythrocyte distribution width Ratio (RBC) 14.2 % Normal 12.3-15.4 [facility] Work Phone: Comment on above: PATIENT NOT FASTINGP ERFORMED BY: CB [facility] Ackqej2581 [address] RoadDublin [place] [id number] Hematocrit Volume Fraction (Bld) 39.1 % Normal 34.0-46.6 [facility] Work Phone: Comment on above: PATIENT NOT FASTINGP ERFORMED BY: MAIA BillingsleyCogadiel MichaelsQfttht6397 [facility] [id number] Hemoglobin mass conc (Bld) 12.9 g/dL Normal 11.1-15.9 [facility] Work Phone: Comment on above: PATIENT NOT FASTINGP ERFORMED BY: CB [facility] Utubvt9587 [facility] [id number] Immature granulocytes #/vol (Bld) 0.0 {x10E3/uL} Normal 0.0-0.1 [facility] Work Phone: Comment on above: PATIENT NOT FASTINGP ERFORMED BY: MAIA [facility] Bfemlx2035 [facility] [id number] Immature granulocytes (Bld) [#/Vol] 0.0 10*3/uL Normal 0.0-0.1 [facility]; [facility] Work Phone: Comment on above: PATIENT NOT FASTINGP ERFORMED BY: MAIA [facility] Qfbuhe5120 [facility] [id number] Immature granulocytes/100 WBC (Bld) 0 % Normal [facility] Work Phone: Comment on above: PATIENT NOT FASTINGP ERFORMED BY: MAIA [facility] Bvefuc1213 [facility] [id number] Lymphocytes #/vol (Bld) 1.4 {x10E3/uL} Normal 0.7-3.1 [facility] Work Phone: Comment on above: PATIENT NOT FASTINGP ERFORMED BY: CB [facility] Srbczy3296 [address] [facility] [id number] Lymphocytes (Bld) [#/Vol] 1.4 10*3/uL Normal 0.7-3.1 [facility]; [facility] Work Phone: Comment on above: PATIENT NOT FASTINGP ERFORMED BY: CB [facility] Ytnsvx4048 [facility] [id number] Lymphocytes/100 WBC (Bld) 20 % Normal [facility] Work Phone: Comment on above: PATIENT NOT FASTINGP ERFORMED BY: CB [facility] Xcjwqp5949 [address] [facility] [id number] MCH Entitic mass (RBC) 27.4 pg Normal 26.6-33.0 [facility] Work Phone: Comment on above: PATIENT NOT FASTINGP ERFORMED BY: CB [facility] Talpeg6827 [address] [facility] [id number] MCHC mass conc (RBC) 33.0 g/dL Normal 31.5-35.7 [facility] Internal Medicine Work Phone: Comment on above: PATIENT NOT FASTINGP ERFORMED BY: CB [facility] Azldfz2997 [facility] [id number] MCV Entitic volume (RBC) 83 fL Normal 79-97 [facility] Work Phone: Comment on above: PATIENT NOT FASTINGP ERFORMED BY: CB [facility] Nlbyos1979 [address] [facility] [id number] Monocytes #/vol (Bld) 0.9 {x10E3/uL} Normal 0.1-0.9 [facility] Work Phone: Comment on above: PATIENT NOT FASTINGP ERFORMED BY: CB [facility] Pzujpi0145 [address] [facility] [id number] Monocytes (Bld) [#/Vol] 0.9 10*3/uL Normal 0.1-0.9 [facility]; [facility] Work Phone: Comment on above: PATIENT NOT FASTINGP ERFORMED BY: CB [facility] Zaqrkk5164 [address] [facility] [id number] Monocytes/100 WBC (Bld) 13 % Normal [facility] Work Phone: Comment on above: PATIENT NOT FASTINGP ERFORMED BY: CB [facility] Klumnt7822 [address] [facility]in [place] [id number] Neutrophils #/vol (Bld) 4.7 {x10E3/uL} Normal 1.4-7.0 [facility] Work Phone: Comment on above: PATIENT NOT FASTINGP ERFORMED BY: MAIA [facility] Byilke0290 [address] RoadDublin [place] [id number] Neutrophils (Bld) [#/Vol] 4.7 10*3/uL Normal 1.4-7.0 [facility]; [facility] Work Phone: Comment on above: PATIENT NOT FASTINGP ERFORMED BY: CB [facility] Kukrph7772 [address] RoadDublin [place] [id number] Neutrophils/100 WBC (Bld) 65 % Normal [facility] Work Phone: Comment on above: PATIENT NOT FASTINGP ERFORMED BY: CB LabCogadiel oRyHsvlxo4449 [address] RoadDublin [place] [id number] Platelets #/vol (Bld) 293 {x10E3/uL} Normal 150-379 [facility] Work Phone: Comment on above: PATIENT NOT FASTINGP ERFORMED BY: CB [facility] Fqxciy7719 [address] RoadDublin [place] [id number] Platelets (Bld) [#/Vol] 293 10*3/uL Normal 150-379 [facility]; [facility] Work Phone: Comment on above: PATIENT NOT FASTINGP ERFORMED BY: CB [facility] Oknyuc1673 [address] RoadDublin [place] [id number] RBC #/vol (Bld) 4.71 {x10E6/uL} Normal 3.77-5.28 [facility] Work Phone: Comment on above: PATIENT NOT FASTINGP ERFORMED BY: CB [facility] Cfilxh4122 [address] RoadDublin [place] [id number] RBC (Bld) [#/Vol] 4.71 10*6/uL Normal 3.77-5.28 [facility]; [facility] Work Phone: Comment on above: PATIENT NOT FASTINGP ERFORMED BY: CB [facility] Vcubgm1052 [address] RoadDublin [place] [id number] WBC #/vol (Bld) 7.1 {x10E3/uL} Normal 3.4-10.8 [facility] Internal Medicine Work Phone: Comment on above: PATIENT NOT FASTINGP ERFORMED BY: MAIA Michaels6370 [facility] [id number] WBC (Bld) [#/Vol] 7.1 10*3/uL Normal 3.4-10.8 [facility] Internal Medicine; [facility] Work Phone: Comment on above: PATIENT NOT FASTINGP ERFORMED BY: MAIA Wyatt Qpgxzh1019 [facility] [id number] METABOLIC PANEL, COMPREHENSI VE ([id number])Ordered By: Filler Blender on 10-09-2018 Albumin mass conc 4.3 g/dL Normal 3.5-5.5 [facility] Internal Medicine Work Phone: Comment on above: PATIENT NOT FASTINGP ERFORMED BY: MAIA Wyatt Kjbjij7202 [facility] [id number] Albumin/Globulin mass ratio 1.5 {ratio} Normal 1.2-2.2 [facility] Internal Medicine Work Phone: Comment on above: PATIENT NOT FASTINGP ERFORMED BY: MAIA Roylin6370 [facility] [id number] ALP [Catalytic activity/Vol] 60 U/L Normal 39-117 [facility]; [facility] Work Phone: Comment on above: PATIENT NOT FASTINGP ERFORMED BY: MAIA Wyatt Wjvjpn7407 [facility] [id number] ALP enzyme act/vol 60 [iU]/L Normal 39-117 [facility] Internal Medicine Work Phone: Comment on above: PATIENT NOT FASTINGP ERFORMED BY: MAIA Wyatt Dazabg1064 [facility] [id number] ALT [Catalytic activity/Vol] 21 U/L Normal 0-32 [facility]; [facility] Work Phone: Comment on above: PATIENT NOT FASTINGP ERFORMED BY: MAIA Wyatt Gunpsv2635 [address] RoadDublin [place] [id number] ALT enzyme act/vol 21 [iU]/L Normal 0-32 [facility] Internal Medicine Work Phone: Comment on above: PATIENT NOT FASTINGP ERFORMED BY: CB [facility] Rqbykc2995 [address] RoadDublin [place] [id number] AST [Catalytic activity/Vol] 28 U/L Normal 0-40 [facility]; [facility] Work Phone: Comment on above: PATIENT NOT FASTINGP ERFORMED BY: CB [facility] Iqekac8096 [address] RoadDublin [place] [id number] AST enzyme act/vol 28 [iU]/L Normal 0-40 [facility] Internal Medicine Work Phone: Comment on above: PATIENT NOT FASTINGP ERFORMED BY: MAIA [facility] Gmtytt5122 [address] RoadDublin [place] [id number] Bilirubin mass conc 0.4 mg/dL Normal 0.0-1.2 Compr ensive Internal Medicine Work Phone: Comment on above: PATIENT NOT FASTINGP ERFORMED BY: CB [facility] Bntpit4850 [address] RoadDublin [place] [id number] Calcium mass conc 9.0 mg/dL Normal 8.7-10.2 Compreh ensive Internal Medicine Work Phone: Comment on above: PATIENT NOT FASTINGP ERFORMED BY: CB [facility] Imouvl2634 [address] RoadDublin [place] [id number] Chloride molar conc 99 mmol/L Normal 96-106 Compr ensive Internal Medicine Work Phone: Comment on above: PATIENT NOT FASTINGP ERFORMED BY: CB [facility] Qjkqhl1699 [address] RoadDublin [place] [id number] CO2 molar conc 24 mmol/L Normal 20-29 Comprehens olga Internal Medicine Work Phone: Comment on above: PATIENT NOT FASTINGP ERFORMED BY: CB [facility] Aapnzc2505 [address] RoadDublin [place] [id number] Creatinine mass conc 0.78 mg/dL Normal 0.57-1.00 Comp rehensive Internal Medicine Work Phone: Comment on above: PATIENT NOT FASTINGP ERFORMED BY: MAIA [facility] Chpcrp[address] [facility]blin [place] [id number] GFR/1.73 sq M predicted among blacks CKD-EPI vol rate/area (S/P/Bld) 102 mL/min/1.73 Normal Comprehensiv e Internal Medicine Work Phone: Comment on above: PATIENT NOT FASTINGP ERFORMED BY: CB [facility] Qbnbdq8091 [address] [facility] [place] [id number] GFR/1.73 sq M predicted among non-blacks CKD-EPI vol rate/area (S/P/Bld) 88 mL/min/1.73 Normal [facility] Work Phone: Comment on above: PATIENT NOT FASTINGP ERFORMED BY: MAIA [facility] Obzffl6222 [address] [facility] [id number] Globulin mass conc (S) 2.8 g/dL Normal 1.5-4.5 [facility] Work Phone: Comment on above: PATIENT NOT FASTINGP ERFORMED BY: MAIA [facility] Qqblgb5013 [address] [facility] [id number] Glucose mass conc 75 mg/dL Normal 65-99 Compreh ensive Internal Medicine Work Phone: Comment on above: PATIENT NOT FASTINGP ERFORMED BY: [facility] Ifegja6984 [facility] [id number] Potassium molar conc 4.2 mmol/L Normal 3.5-5.2 Comp rehensive Internal Medicine Work Phone: Comment on above: PATIENT NOT FASTINGP ERFORMED BY: [facility] Pkmtsb7312 [address] [facility]in [place] [id number] Protein mass conc 7.1 g/dL Normal 6.0-8.5 Compreh ensive Internal Medicine Work Phone: Comment on above: PATIENT NOT FASTINGP ERFORMED BY: [facility] Uwfyeq5654 [address] [facility] [id number] Sodium molar conc 141 mmol/L Normal 134-144 Compreh ensive Internal Medicine Work Phone: Comment on above: PATIENT NOT FASTINGP ERFORMED BY: MAIA Michaels6370 [facility]in [place] [id number] Urea nitrogen mass conc 13 mg/dL Normal 6-24 [facility] Work Phone: Comment on above: PATIENT NOT FASTINGP ERFORMED BY: MAIA Roylin6370 [facility] [id number] Urea nitrogen/Creatinine mass ratio 17 mg/mg Normal 9-23 [facility] Work Phone: Comment on above: PATIENT NOT FASTINGP ERFORMED BY: MAIA Sherrie Michaels6370 [facility] [id number] Sedimentation Rate-ESR (8565 2)Ordered By: Filler Blender on 10-09-2018 ESR Velocity (Bld) 4 mm/h Normal 0-40 Compre hensive Internal Medicine Work Phone: Comment on above: PATIENT NOT FASTINGP ERFORMED BY: MAIA Wyatt Bexvpu8989 [facility] [id number] T3, FREE (TRIDOTHYRONINE) (1 8980)Ordered By: Filler Blender on 10-09-2018 T3 free mass conc 1.6 pg/mL Abnormal 2.0-4.4 Compreh ensive Internal Medicine Work Phone: Comment on above: PATIENT NOT FASTINGP ERFORMED BY: MAIA LabKaitlyn Esbsbq5827 [facility] [id number] T4, FREE (THYROXINE) (02820) Ordered By: Filler Blender on 10-09-2018 T4 free mass conc 1.73 ng/dL Normal 0.82-1.77 Compreh ensive Internal Medicine Work Phone: Comment on above: PATIENT NOT FASTINGP ERFORMED BY: MAIA Wyatt Vewcip0014 [address] [facility] [id number] TSH (THYROID STIMULATING HOR RACHEL) ([id number])Ordered By: Filler Blender on 10-09-2018 Thyrotropin Qn 1.910 {uIU/mL} Normal 0.450-4.500 Compr ehensive Internal Medicine Work Phone: Comment on above: PATIENT NOT FASTINGP ERFORMED BY: [employer] LabLoopbackrp Pqcvsq9462 [address] RoadDublin [place] [id number] CALCIFEDIOL (02177)Ordered B y: Filler Blender on 04-22-2018 25-Hydroxyvitamin D2+25-Hydroxyvitamin D3 [Mass/Vol] 31.4 ng/mL Normal 30.0-100.0 [facility] Internal Medicine Work Phone: Comment on above: Vitamin D deficiency has been defined by the [place] ofMedicine and an Endocrine Society practice guideline as alevel of serum 25-OH vitamin D less than 20 ng/mL (1,2).The Endocrine Society went on to further define vitamin Dinsufficiency as a level between 21 and 29 ng/mL (2).1. IOM ([place] of Medicine). 2010. Dietary reference intakes for calcium and D. [place]: The National Academies Press.2. Fidelia MF, Tayler MURDOCK, Nataliia HUFF, et al. Evaluation, treatment, and prevention of vitamin D deficiency: an Endocrine Society clinical practice guideline. JCEM. 2010; 96(7):1911-30. PATIENT NOT FASTINGP ERFORMED BY: [employer] Gumvdr8723 [address] Productionblin [place] [id number] T3, FREE (TRIDOTHYRONINE) (8 0700)Ordered By: Filler Blender on 04-22-2018 Free T3 [Mass/Vol] 1.9 pg/mL Abnormal 2.0-4.4 [facility] Internal Medicine Work Phone: Comment on above: PATIENT NOT FASTINGP ERFORMED BY: [employer] [facility] Cbgwcd3437 [address] RoadDublin [place] [id number] T4, FREE (THYROXINE) (93259) Ordered By: Filler Blender on 04-22-2018 Free T4 [Mass/Vol] 1.91 ng/dL Abnormal 0.82-1.77 [facility] Internal Medicine Work Phone: Comment on above: PATIENT NOT FASTINGP ERFORMED BY: [employer] [facility] Lsiqng7751 [address] RoadDublin [place] [id number] TSH ([id number])Ordered By: Syste m Manager Animal on 04-22-2018 TSH Qn 1.570 {uIU/mL} Normal 0.450-4.500 Comprehen sive Internal Medicine Work Phone: Comment on above: PATIENT NOT FASTINGP ERFORMED BY: MAAI [facility] Qgzxuv8760 [address] RoadDublin [place] [id number] URINE DONNA CULTURE-IDENTIFICA [place] (31551)Ordered By: Filler Blender on 12-12-2017 Bacteria identified Cx Nom (U) Final report Abnormal [facility] Work Phone: Comment on above: PATIENT NOT FASTINGP ERFORMED BY: MAIA [facility] Izmpqz2949 [address] RoadDublin [place] [id number] Information: SRC:KRISTIE Bacteria identified Cx Nom (U) Escherichia coli Abnormal [facility] Work Phone: Comment on above: 25,000-50,000 colony forming units per mL PATIENT NOT FASTINGP ERFORMED BY: MAIA [facility] Jvdxpr0206 [address] RoadFirsthealth [facility] Hospitalin [place] [id number] Information: SRC:KRISTIE Other Antibiotic susc MIHEAD Normal [facility] Medicine Work Phone: Comment on above: S = Susceptible; I = Intermediate; R = Resistant P = Positive; N = Negative MICS are expressed in micrograms per mL Antibiotic RSLT#1 RSLT#2 RSLT#3 RSLT#4Amoxicillin/Clavulanic Acid SAmpicillin RCefepime SCeftriaxone SCefuroxime SCephalothin SCiprofloxacin SErtapenem SGentamicin SImipenem SLevofloxacin SNitrofurantoin SPiperacillin RTetracycline STobramycin STrimethoprim/Sulfa S PATIENT NOT FASTINGP ERFORMED BY: MAIA [facility] Fzggcr3789 [address] RoadFirsthealth Montgomery Memorial Hospitalin [place] [id number] Information: SRC:KRISTIE T3, FREE (TRIDOTHYRONINE) (6 1707)Ordered By: Filler Blender on 10-30-2017 T3 free mass conc 2.2 pg/mL Normal 2.0-4.4 Compreh ensive Internal Medicine Work Phone: Comment on above: PATIENT NOT FASTINGP ERFORMED BY: MAIA [facility] Zjspvb7089 [address] RoadDublin [place] [id number] T4, FREE (THYROXINE) (55961) Ordered By: Filler Blender on 10-30-2017 T4 free mass conc 2.33 ng/dL Abnormal 0.82-1.77 Compreh [facility]river[facility] Internal Medicine Work Phone: Comment on above: PATIENT NOT FASTINGP ERFORMED BY: [facility] Rsvfwi0053 [address] RoadDublin [place] [id number] TSH ([id number])Ordered By: Syste m Manager Animal on 10-30-2017 Thyrotropin Qn 0.317 {uIU/mL} Abnormal 0.450-4.500 Compr [facility] Internal Medicine Work Phone: Comment on above: PATIENT NOT FASTINGP ERFORMED BY: [facility] Cvpulc0464 [address] RoadDublin [place] [id number] CALCIFEDIOL (32972)Ordered B y: Filler Blender on 07-04-2017 25-Hydroxyvitamin D2+25-Hydroxyvitamin D3 mass conc 38.2 ng/mL Normal 30.0-100.0 [facility] Work Phone: Comment on above: Vitamin D deficiency has been defined by the [place] of[place]icine and an Endocrine Society practice guideline as alevel of serum 25-OH vitamin D less than 20 ng/mL (1,2).The Endocrine Society went on to further define vitamin Dinsufficiency as a level between 21 and 29 ng/mL (2).1. IOM ([place] of Medicine). 2010. Dietary reference intakes for calcium and D. [place]: The National Academies Press.2. Fidelia MF, Tayler [place], Nataliia HUFF, et al. Evaluation, treatment, and prevention of vitamin D deficiency: an Endocrine Society clinical practice guideline. JCEM. 2010; 96(7):1911-30. PATIENT NOT FASTINGP ERFORMED BY: [facility] Xtkeqf3769 [address] RoadDublin [place] [id number] CBC WITH MANUAL DIFF ([id number]) Ordered By: Filler Blender on 07-04-2017 Basophils (Bld) [#/Vol] 0.0 {x10E3/uL} Normal 0.0-0.2 [facility] Work Phone: Comment on above: PATIENT NOT FASTINGP ERFORMED BY: MAIA [facility] Bwvlwj1370 [address] [facility]in [place] [id number] Basophils (Bld) [#/Vol] 0.0 10*3/uL Normal 0.0-0.2 [facility]; [facility] Work Phone: Comment on above: PATIENT NOT FASTINGP ERFORMED BY: CB [facility] Aoimtx6472 [address] [facility] [id number] Basophils Auto #/vol (Bld) 0.0 {x10E3/uL} Normal 0.0-0.2 [facility] Work Phone: Basophils/100 WBC (Bld) 0 % Normal [facility] Work Phone: Comment on above: PATIENT NOT FASTINGP ERFORMED BY: LabKaitlynAshley Ville [id number] [address] [facility] [id number] Basophils/100 WBC Auto (Bld) 0 % Normal [facility] Work Phone: Eosinophils (Bld) [#/Vol] 0.1 {x10E3/uL} Normal 0.0-0.4 [facility] Work Phone: Comment on above: PATIENT NOT FASTINGP ERFORMED BY: MAIA LabKaitlynAshley Ville [id number] [facility] [id number] Eosinophils (Bld) [#/Vol] 0.1 10*3/uL Normal 0.0-0.4 [facility]; [facility] Work Phone: Comment on above: PATIENT NOT FASTINGP ERFORMED BY: CB [facility] Hixmol5190 [address] [facility]in [place] [id number] Eosinophils Auto #/vol (Bld) 0.1 {x10E3/uL} Normal 0.0-0.4 [facility] Work Phone: Eosinophils/100 WBC (Bld) 2 % Normal [facility] Work Phone: Comment on above: PATIENT NOT FASTINGP ERFORMED BY: CB [facility] Fdtyog0420 [facility] [id number] Eosinophils/100 WBC Auto (Bld) 2 % Normal [facility] Work Phone: Erythrocyte distribution width (RBC) [Ratio] 14.3 % Normal 12.3-15.4 [facility] Work Phone: Comment on above: PATIENT NOT FASTINGP ERFORMED BY: Jose CruzAscension Borgess-Pipp Hospital6370 [facility] [id number] Erythrocyte distribution width Auto Ratio (RBC) 14.3 % Normal 12.3-15.4 [facility] Work Phone: Hematocrit (Bld) [Volume fraction] 40.4 % Normal 34.0-46.6 [facility] Work Phone: Comment on above: PATIENT NOT FASTINGP ERFORMED BY: [place] [id number] [facility] [id number] Hematocrit Auto Volume Fraction (Bld) 40.4 % Normal 34.0-46.6 [facility] Work Phone: Hemoglobin mass conc (Bld) 13.1 g/dL Normal 11.1-15.9 [facility] Work Phone: Comment on above: PATIENT NOT FASTINGP ERFORMED BY: Jose CruzCory [place] [id number] [facility] [id number] Immature granulocytes #/vol (Bld) 0.0 {x10E3/uL} Normal 0.0-0.1 [facility] Work Phone: Comment on above: PATIENT NOT FASTINGP ERFORMED BY: LabCory [place] [id number] [facility] [id number] Immature granulocytes (Bld) [#/Vol] 0.0 10*3/uL Normal 0.0-0.1 [facility]; [facility] Work Phone: Comment on above: PATIENT NOT FASTINGP ERFORMED BY: LabCory [place] [id number] [facility] [id number] Immature granulocytes/100 WBC (Bld) 0 % Normal [facility] Work Phone: Comment on above: PATIENT NOT FASTINGP ERFORMED BY: [facility]6370 [facility] [id number] Lymphocytes (Bld) [#/Vol] 2.6 {x10E3/uL} Normal 0.7-3.1 [facility] Work Phone: Comment on above: PATIENT NOT FASTINGP ERFORMED BY: [facility]6370 [facility] [id number] Lymphocytes (Bld) [#/Vol] 2.6 10*3/uL Normal 0.7-3.1 [facility]; [facility] Work Phone: Comment on above: PATIENT NOT FASTINGP ERFORMED BY: [place] 1368870 [facility] [id number] Lymphocytes Auto #/vol (Bld) 2.6 {x10E3/uL} Normal 0.7-3.1 [facility] Work Phone: Lymphocytes/100 WBC (Bld) 42 % Normal [facility] Work Phone: Comment on above: PATIENT NOT FASTINGP ERFORMED BY: [place] 1368870 [facility] [id number] Lymphocytes/100 WBC Auto (Bld) 42 % Normal [facility] Work Phone: MCH (RBC) [Entitic mass] 27.5 pg Normal 26.6-33.0 [facility] Work Phone: Comment on above: PATIENT NOT FASTINGP ERFORMED BY: [facility]6370 [facility] [id number] MCH Auto Entitic mass (RBC) 27.5 pg Normal 26.6-33.0 [facility] Work Phone: MCHC (RBC) [Mass/Vol] 32.4 g/dL Normal 31.5-35.7 [facility] Work Phone: Comment on above: PATIENT NOT FASTINGP ERFORMED BY: [facility]6370 [facility] [id number] MCHC Auto mass conc (RBC) 32.4 g/dL Normal 31.5-35.7 [facility] Work Phone: MCV (RBC) [Entitic vol] 85 fL Normal 79-97 [facility] Work Phone: Comment on above: PATIENT NOT FASTINGP ERFORMED BY: MAIA [facility] Ndojij1171 [address] [facility] [place] [id number] MCV Auto Entitic volume (RBC) 85 fL Normal 79-97 [facility] Work Phone: Monocytes (Bld) [#/Vol] 0.5 {x10E3/uL} Normal 0.1-0.9 [facility] Work Phone: Comment on above: PATIENT NOT FASTINGP ERFORMED BY: MAIA [facility] Fxlsdh5476 [address] [facility] [id number] Monocytes (Bld) [#/Vol] 0.5 10*3/uL Normal 0.1-0.9 [facility]; [facility] Work Phone: Comment on above: PATIENT NOT FASTINGP ERFORMED BY: [facility] Yqpnux5344 [address] [facility] [id number] Monocytes Auto #/vol (Bld) 0.5 {x10E3/uL} Normal 0.1-0.9 [facility] Work Phone: Monocytes/100 WBC (Bld) 8 % Normal [facility] Work Phone: Comment on above: PATIENT NOT FASTINGP ERFORMED BY: [facility] Vpojiy4671 [address] [facility] [id number] Monocytes/100 WBC Auto (Bld) 8 % Normal [facility] Work Phone: Neutrophils (Bld) [#/Vol] 2.9 {x10E3/uL} Normal 1.4-7.0 [facility] Work Phone: Comment on above: PATIENT NOT FASTINGP ERFORMED BY: CB [facility] Supoqv1754 [address] [facility]in [place] [id number] Neutrophils (Bld) [#/Vol] 2.9 10*3/uL Normal 1.4-7.0 [facility]; [facility] Work Phone: Comment on above: PATIENT NOT FASTINGP ERFORMED BY: MAIA Sherrie Michaels6370 [address] RoadDublin [place] [id number] Neutrophils Auto #/vol (Bld) 2.9 {x10E3/uL} Normal 1.4-7.0 [facility] Work Phone: Neutrophils/100 WBC (Bld) 48 % Normal [facility] Work Phone: Comment on above: PATIENT NOT FASTINGP ERFORMED BY: MAIA LabCogadiel Ldvesv1314 [address] RoadDublin [place] [id number] Neutrophils/100 WBC Auto (Bld) 48 % Normal [facility] Work Phone: Platelets (Bld) [#/Vol] 302 {x10E3/uL} Normal 150-379 [facility] Work Phone: Comment on above: PATIENT NOT FASTINGP ERFORMED BY: MAIA Sherrie Cxbvzx3195 [address] RoadDublin [place] [id number] Platelets (Bld) [#/Vol] 302 10*3/uL Normal 150-379 [facility]; [facility] Work Phone: Comment on above: PATIENT NOT FASTINGP ERFORMED BY: MAIA Sherrie Lcesln3206 [address] RoadDublin [place] [id number] Platelets Auto #/vol (Bld) 302 {x10E3/uL} Normal 150-379 [facility] Work Phone: RBC (Bld) [#/Vol] 4.76 {x10E6/uL} Normal 3.77-5.28 [facility] Internal Medicine Work Phone: Comment on above: PATIENT NOT FASTINGP ERFORMED BY: MAIA [facility] Sglmnq2637 [address] RoadDublin [place] [id number] RBC (Bld) [#/Vol] 4.76 10*6/uL Normal 3.77-5.28 [facility] Internal Medicine; [facility] Work Phone: Comment on above: PATIENT NOT FASTINGP ERFORMED BY: AMIA [facility] Oczkkb5110 [address] [facility] [place] [id number] RBC Auto #/vol (Bld) 4.76 {x10E6/uL} Normal 3.77-5.28 [facility] Work Phone: WBC (Bld) [#/Vol] 6.1 {x10E3/uL} Normal 3.4-10.8 [facility] prehensive Internal Medicine Work Phone: Comment on above: PATIENT NOT FASTINGP ERFORMED BY: CB [facility] Dcfiaq5721 [address] [facility] [id number] WBC (Bld) [#/Vol] 6.1 10*3/uL Normal 3.4-10.8 Compre hensriver[facility] hospital Internal Medicine; [facility] Work Phone: Comment on above: PATIENT NOT FASTINGP ERFORMED BY: LabCoMonmouth Medical CenterQbkjvm0377 [address] [facility] [id number] WBC Auto #/vol (Bld) 6.1 {x10E3/uL} Normal 3.4-10.8 [facility] Work Phone: Metabolic Panel, Comprehensi ve ([id number])Ordered By: Filler Blender on 07-04-2017 Albumin mass conc 4.1 g/dL Normal 3.5-5.5 [facility] ensive Internal Medicine Work Phone: Comment on above: PATIENT NOT FASTINGP ERFORMED BY: [facility] Wcbiie7549 [address] [facility] [id number] Albumin/Globulin mass ratio 1.5 {ratio} Normal 1.2-2.2 [facility] Work Phone: Comment on above: PATIENT NOT FASTINGP ERFORMED BY: [facility] Tnvryr8511 [address] [facility] [id number] ALP [Catalytic activity/Vol] 58 U/L Normal 39-117 [facility]; [facility] Work Phone: Comment on above: PATIENT NOT FASTINGP ERFORMED BY: [facility] Eotoez6957 [address] [facility] [id number] ALP enzyme act/vol 58 [iU]/L Normal 39-117 [facility] Internal Medicine Work Phone: Comment on above: PATIENT NOT FASTINGP ERFORMED BY: CB [facility] Rpyrqb8073 [address] RoadDublin [place] [id number] ALT [Catalytic activity/Vol] 17 U/L Normal 0-32 [facility]; [facility] Internal Medicine Work Phone: Comment on above: PATIENT NOT FASTINGP ERFORMED BY: CB [facility] Xbzjwv6071 [address] RoadDublin [place] [id number] ALT enzyme act/vol 17 [iU]/L Normal 0-32 [facility] Internal Medicine Work Phone: Comment on above: PATIENT NOT FASTINGP ERFORMED BY: CB [facility] Zoqelj5557 [address] RoadDublin [place] [id number] AST [Catalytic activity/Vol] 23 U/L Normal 0-40 [facility] Internal Medicine; [facility] Internal Medicine Work Phone: Comment on above: PATIENT NOT FASTINGP ERFORMED BY: CB [facility] Kcybzr8284 [address] RoadDublin [place] [id number] AST enzyme act/vol 23 [iU]/L Normal 0-40 [facility] Internal Medicine Work Phone: Comment on above: PATIENT NOT FASTINGP ERFORMED BY: CB [facility] Dvwvnl2130 [address] RoadDublin [place] [id number] Bilirubin mass conc 0.6 mg/dL Normal 0.0-1.2 [facility] Internal Medicine Work Phone: Comment on above: PATIENT NOT FASTINGP ERFORMED BY: CB [facility] Nynyjr3240 [address] RoadDublin [place] [id number] Calcium mass conc 9.0 mg/dL Normal 8.7-10.2 [facility] Internal Medicine Work Phone: Comment on above: PATIENT NOT FASTINGP ERFORMED BY: CB [facility] Jbufys2364 [address] RoadDublin [place] [id number] Chloride molar conc 103 mmol/L Normal 96-106 [facility] Internal Medicine Work Phone: Comment on above: PATIENT NOT FASTINGP ERFORMED BY: CB [facility] Qbdsno1855 [address]bl[address] [place] [id number] CO2 molar conc 26 mmol/L Normal 18-29 Comprehens olga Internal Medicine Work Phone: Comment on above: PATIENT NOT FASTINGP ERFORMED BY: CB [facility] Eufxdw9171 [address] Roadbl[address] [place] [id number] Creatinine mass conc 0.87 mg/dL Normal 0.57-1.00 Comp rehensive Internal Medicine Work Phone: Comment on above: PATIENT NOT FASTINGP ERFORMED BY: CB [facility] Riynqn9662 Luc[address] RoadFirsthealth Montgomery Memorial Hospitalin [place] [id number] GFR/1.73 sq M predicted among blacks CKD-EPI vol rate/area (S/P/Bld) 90 mL/min/1.73 Normal Comprehensiv e Internal Medicine Work Phone: Comment on above: PATIENT NOT FASTINGP ERFORMED BY: CB [facility] Wytpqb0353 Luciano RoadFirsthealth Montgomery Memorial Hospitalin [place] [id number] GFR/1.73 sq M predicted among non-blacks CKD-EPI vol rate/area (S/P/Bld) 78 mL/min/1.73 Normal [facility] Work Phone: Comment on above: PATIENT NOT FASTINGP ERFORMED BY: CB [facility] Wvzwui3978 [address] [facility] [place] [id number] Globulin (S) [Mass/Vol] 2.7 g/dL Normal 1.5-4.5 [facility] Work Phone: Comment on above: PATIENT NOT FASTINGP ERFORMED BY: CB [facility] Zcncul3973 [address] [facility] [id number] Globulin Calculated mass conc (S) 2.7 g/dL Normal 1.5-4.5 [facility] Work Phone: Glucose mass conc 67 mg/dL Normal 65-99 Compreh ensive Internal Medicine Work Phone: Comment on above: PATIENT NOT FASTINGP ERFORMED BY: CB [facility] Rlseio3497 [address] [facility] [place] [id number] Potassium molar conc 4.1 mmol/L Normal 3.5-5.2 Comp rehensive Internal Medicine Work Phone: Comment on above: PATIENT NOT FASTINGP ERFORMED BY: MAIA Michaels6370 [facility] [id number] Protein mass conc 6.8 g/dL Normal 6.0-8.5 Compreh ensive Internal Medicine Work Phone: Comment on above: PATIENT NOT FASTINGP ERFORMED BY: MAIA Michaels6370 [facility] [id number] Sodium molar conc 142 mmol/L Normal 134-144 Compreh ensive Internal Medicine Work Phone: Comment on above: PATIENT NOT FASTINGP ERFORMED BY: MAIA Roylin6370 [facility] [id number] Urea nitrogen mass conc 16 mg/dL Normal 6-24 [facility] Work Phone: Comment on above: PATIENT NOT FASTINGP ERFORMED BY: MAIA Roylin6370 [facility] [id number] Urea nitrogen/Creatinine mass ratio 18 mg/mg Normal 9-23 [facility] Work Phone: Comment on above: PATIENT NOT FASTINGP ERFORMED BY: MAIA Roylin6370 [facility] [id number] T3, FREE (TRIDOTHYRONINE) (5 2209)Ordered By: Filler Blender on 07-04-2017 T3 free mass conc 2.2 pg/mL Normal 2.0-4.4 Compreh ensive Internal Medicine Work Phone: Comment on above: PATIENT NOT FASTINGP ERFORMED BY: MAIA [place] 1349570 [facility] [id number] T4, FREE (THYROXINE) ([id number]) Ordered By: Filler Blender on 07-04-2017 T4 free mass conc 1.54 ng/dL Normal 0.82-1.77 Compreh ensive Internal Medicine Work Phone: Comment on above: PATIENT NOT FASTINGP ERFORMED BY: MAIA Wyatt Fnoaip6549 [facility] [id number] TSH ([id number])Ordered By: Jonas m Manager Animal on 07-04-2017 Thyrotropin Qn 0.715 {uIU/mL} Normal 0.450-4.500 Compr [facility] Internal Medicine Work Phone: Comment on above: PATIENT NOT FASTINGP ERFORMED BY: MAIA [facility] Kdeedy0090 [address] RoadDublin [place] [id number] T3, FREE (TRIDOTHYRONINE) (8 1121)Ordered By: Filler Blender on 03-21-2017 T3 free mass conc 2.3 pg/mL Normal 2.0-4.4 [facility] Internal [facility] Work Phone: Comment on above: PATIENT NOT FASTINGP ERFORMED BY: MAIA [facility] Ecpeob7656 [address] RoadDublin [place] [id number] T4, FREE (THYROXINE) ([id number]) Ordered By: Filler Blender on 03-21-2017 T4 free mass conc 2.16 ng/dL Abnormal 0.82-1.77 [facility]pre[facility] Internal Medicine Work Phone: Comment on above: PATIENT NOT FASTINGP ERFORMED BY: MAIA [facility] Ijxogp9873 [address] RoadDublin [place] [id number] TSH ([id number])Ordered By: Jonas m Manager Animal on 03-21-2017 Thyrotropin Qn 0.158 {uIU/mL} Abnormal 0.450-4.500 [facility] Internal Medicine Work Phone: Comment on above: PATIENT NOT FASTINGP ERFORMED BY: CB [facility] Jhwlci1190 [address] RoadDublin [place] [id number] CALCIFEDIOL ([id number])Ordered B y: Filler Blender on 01-24-2017 25-Hydroxyvitamin D2+25-Hydroxyvitamin D3 mass conc 39.8 ng/mL Normal 30.0-100.0 [facility] Work Phone: Comment on above: Vitamin D deficiency has been defined by the [place] ofMedicine and an Endocrine Society practice guideline as alevel of serum 25-OH vitamin D less than 20 ng/mL (1,2).The Endocrine Society went on to further define vitamin Dinsufficiency as a level between 21 and 29 ng/mL (2).1. IOM ([place] of Medicine). 2010. Dietary reference intakes for calcium and D. [place]: The National Academies Press.2. Fidelia MF, Tayler MURDOCK, Nataliia HUFF, et al. Evaluation, treatment, and prevention of vitamin D deficiency: an Endocrine Society clinical practice guideline. JCEM. 2010; 96(7):1911-30. PATIENT NOT FASTINGP ERFORMED BY: [employer] [facility] Cwefir5505 [address] RoadDublin [place] [id number] T3, FREE (TRIDOTHYRONINE) (6 0198)Ordered By: Filler Blender on 01-24-2017 T3 free mass conc 1.9 pg/mL Abnormal 2.0-4.4 Compreh ensive Internal Medicine Work Phone: Comment on above: PATIENT NOT FASTINGP ERFORMED BY: [employer] [facility] Purutb7783 [address] RoadDublin [place] [id number] T4, FREE (THYROXINE) (82231) Ordered By: Filler Blender on 01-24-2017 T4 free mass conc 1.42 ng/dL Normal 0.82-1.77 Compreh ensive Internal Medicine Work Phone: Comment on above: PATIENT NOT FASTINGP ERFORMED BY: [employer] LabLoopbackrp Npdotv0463 [address] RoadDublin [place] [id number] TSH ([id number])Ordered By: Syste m Manager Animal on 01-24-2017 Thyrotropin Qn 2.450 {uIU/mL} Normal 0.450-4.500 Compr ehensive Internal Medicine Work Phone: Comment on above: PATIENT NOT FASTINGP ERFORMED BY: [employer] [facility] Hvhxll5604 [address] RoadDublin [place] [id number] URINE DONNA CULTURE-ELMIRA COL C OUNT (90100)Ordered By: Filler Blender on 10-13-2016 Bacteria identified Cx Nom (U) Escherichia coli Abnormal [facility] Work Phone: Comment on above: 25,000-50,000 colony forming units per mL PATIENT NOT FASTINGP ERFORMED BY: CB [facility] Kynntq4644 [address] RoadDublin [place] [id number] Information: SRC: Bacteria identified Cx Nom (U) Final report Abnormal [facility] Work Phone: Comment on above: PATIENT NOT FASTINGP ERFORMED BY: MAIA Michaels6370 [facility] [id number] Information: SRC: Other Antibiotic susc MIHEAD Normal [facility] Work Phone: Comment on above: S = Susceptible; I = Intermediate; R = Resistant P = Positive; N = Negative MICS are expressed in micrograms per mL Antibiotic RSLT#1 RSLT#2 RSLT#3 RSLT#4Amoxicillin/Clavulanic Acid SAmpicillin RCefepime SCeftriaxone SCefuroxime SCephalothin ICiprofloxacin SErtapenem SGentamicin SImipenem SLevofloxacin SNitrofurantoin SPiperacillin RTetracycline STobramycin STrimethoprim/Sulfa S PATIENT NOT FASTINGP ERFORMED BY: MAIA Roylin6370 [address] [facility] [id number] Information: SRC: T3, FREE (TRIDOTHYRONINE) (8 1085)Ordered By: Filler Blender on 09-11-2016 T3 free mass conc 2.9 pg/mL Normal 2.0-4.4 Compreh ensive Internal Medicine Work Phone: Comment on above: PATIENT NOT FASTINGP ERFORMED BY: MAIA Roylin6370 [address] [facility] [place] [id number] T4, FREE (THYROXINE) (80499) Ordered By: Filler Blender on 09-11-2016 T4 free mass conc 2.44 ng/dL Abnormal 0.82-1.77 Compreh ensive Internal Medicine Work Phone: Comment on above: PATIENT NOT FASTINGP ERFORMED BY: MAIA Roylin6370 [facility] [id number] TSH ([id number])Ordered By: Vigor Pharmamynor m Manager Animal on 09-11-2016 Thyrotropin Qn 0.067 {uIU/mL} Abnormal 0.450-4.500 Compr ehensive Internal Medicine Work Phone: Comment on above: PATIENT NOT FASTINGP ERFORMED BY: MAIA [employer] Jpplzg5316 [facility] [id number] C-REACTIVE PROTEIN ([id number])Or dered By: Filler Blender on 06-26-2016 CRP mass conc 1.2 mg/L Normal 0.0-4.9 Comprehensi Internal Medicine Work Phone: Comment on above: PATIENT NOT FASTINGP ERFORMED BY: [employer] NetworksCorp Gwqzur8172 [address] [facility] [id number] CALCIFEDIOL (56636)Ordered B y: Filler Blender on 06-26-2016 25-Hydroxyvitamin D2+25-Hydroxyvitamin D3 mass conc 21.2 ng/mL Abnormal 30.0-100.0 [facility] Internal Medicine Work Phone: Comment on above: Vitamin D deficiency has been defined by the [place] of[place]icine and an Endocrine Society practice guideline as alevel of serum 25-OH vitamin D less than 20 ng/mL (1,2).The Endocrine Society went on to further define vitamin Dinsufficiency as a level between 21 and 29 ng/mL (2).1. IOM ([place] of Medicine). 2010. Dietary reference intakes for calcium and D. [place]: The National Academies Press.2. Fidelia MF, Tayler [place], Nataliia HUFF, et al. Evaluation, treatment, and prevention of vitamin D deficiency: an Endocrine Society clinical practice guideline. JCEM. 2010; 96(7):1911-30. PATIENT NOT FASTINGP ERFORMED BY: [employer] Xvkgcz5193 [facility] [id number] CBC (Auto) (21221)Ordered By : Filler Blender on 06-26-2016 Erythrocyte distribution width (RBC) [Ratio] 13.7 % Normal 12.3-15.4 [facility] Internal Medicine Work Phone: Comment on above: PATIENT NOT FASTINGP ERFORMED BY: IQumulusrp Nqdced2644 [facility] [id number] Erythrocyte distribution width Auto Ratio (RBC) 13.7 % Normal 12.3-15.4 [facility] Internal Medicine Work Phone: Hematocrit (Bld) [Volume fraction] 38.4 % Normal 34.0-46.6 [facility] Work Phone: Comment on above: PATIENT NOT FASTINGP ERFORMED BY: CB [facility] Vqbpvv1186 [address] Tech urSelfFirsthealth Montgomery [facility] Hospitalin [place] [id number] Hematocrit Auto Volume Fraction (Bld) 38.4 % Normal 34.0-46.6 [facility] Work Phone: Hemoglobin mass conc (Bld) 12.5 g/dL Normal 11.1-15.9 [facility] Work Phone: Comment on above: PATIENT NOT FASTINGP ERFORMED BY: MAIA [facility] Alfova2067 [address] Tech urSelfFormerly [facility] [id number] MCH (RBC) [Entitic mass] 27.3 pg Normal 26.6-33.0 [facility] Work Phone: Comment on above: PATIENT NOT FASTINGP ERFORMED BY: CB [facility] Qjdckq8380 [address] Tech urSelfFormerly [facility] [id number] MCH Auto Entitic mass (RBC) 27.3 pg Normal 26.6-33.0 [facility] Work Phone: MCHC (RBC) [Mass/Vol] 32.6 g/dL Normal 31.5-35.7 [facility] Work Phone: Comment on above: PATIENT NOT FASTINGP ERFORMED BY: CB [facility] Hyypjg2943 [address] Tech urSelfFormerly [facility] [id number] MCHC Auto mass conc (RBC) 32.6 g/dL Normal 31.5-35.7 [facility] Work Phone: MCV (RBC) [Entitic vol] 84 fL Normal 79-97 [facility] Work Phone: Comment on above: PATIENT NOT FASTINGP ERFORMED BY: CB [facility] Cvjfgi0594 [address] [facility] [id number] MCV Auto Entitic volume (RBC) 84 fL Normal 79-97 [facility] Work Phone: Platelets (Bld) [#/Vol] 285 {x10E3/uL} Normal 150-379 [facility] Work Phone: Comment on above: PATIENT NOT FASTINGP ERFORMED BY: CB [facility] Eiykei3157 [address] RoadDublin [place] [id number] Platelets (Bld) [#/Vol] 285 10*3/uL Normal 150-379 [facility]; [facility] Work Phone: Comment on above: PATIENT NOT FASTINGP ERFORMED BY: CB [facility] Ohhkmz7389 [address] RoadDublin [place] [id number] Platelets Auto #/vol (Bld) 285 {x10E3/uL} Normal 150-379 [facility] Work Phone: RBC (Bld) [#/Vol] 4.58 {x10E6/uL} Normal 3.77-5.28 [facility] Internal Medicine Work Phone: Comment on above: PATIENT NOT FASTINGP ERFORMED BY: CB [facility] Ihgfji3423 [address] RoadDuin [place] [id number] RBC (Bld) [#/Vol] 4.58 10*6/uL Normal 3.77-5.28 [facility] Internal Medicine; [facility] Work Phone: Comment on above: PATIENT NOT FASTINGP ERFORMED BY: CB [facility] Mpbvhi8087 [address] RoadDublin [place] [id number] RBC Auto #/vol (Bld) 4.58 {x10E6/uL} Normal 3.77-5.28 [facility] Work Phone: WBC (Bld) [#/Vol] 7.8 {x10E3/uL} Normal 3.4-10.8 [facility] Internal Medicine Work Phone: Comment on above: PATIENT NOT FASTINGP ERFORMED BY: CB [facility] Ixvvod7991 [address] RoadDublin [place] [id number] WBC (Bld) [#/Vol] 7.8 10*3/uL Normal 3.4-10.8 [facility] Internal Medicine; [facility] Work Phone: Comment on above: PATIENT NOT FASTINGP ERFORMED BY: CB [facility] Qvoapv1856 [address] RoadDublin [place] [id number] WBC Auto #/vol (Bld) 7.8 {x10E3/uL} Normal 3.4-10.8 [facility] Work Phone: Metabolic Panel, Comprehensi ve (08156)Ordered By: Filler Blender on 06-26-2016 Albumin mass conc 4.0 g/dL Normal 3.5-5.5 Compreh ensive Internal Medicine Work Phone: Comment on above: PATIENT NOT FASTINGP ERFORMED BY: CB [facility] Iioman2909 [address] RoadDublin [place] [id number] Albumin/Globulin mass ratio 1.4 {ratio} Normal 1.1-2.5 [facility] Work Phone: Comment on above: PATIENT NOT FASTINGP ERFORMED BY: CB [facility] Wajbwh0127 [address] RoadDublin [place] [id number] ALP [Catalytic activity/Vol] 57 U/L Normal 39-117 [facility]; [facility] Work Phone: Comment on above: PATIENT NOT FASTINGP ERFORMED BY: CB [facility] Dabxgn3126 [address] RoadDublin [place] [id number] ALP enzyme act/vol 57 [iU]/L Normal 39-117 [facility] Internal Medicine Work Phone: Comment on above: PATIENT NOT FASTINGP ERFORMED BY: CB [facility] Cncjjl8947 [address] RoadDublin [place] [id number] ALT [Catalytic activity/Vol] 21 U/L Normal 0-32 [facility]; [facility] Work Phone: Comment on above: PATIENT NOT FASTINGP ERFORMED BY: CB [facility] Qzclqf0587 [address] RoadDublin [place] [id number] ALT enzyme act/vol 21 [iU]/L Normal 0-32 [facility] Internal Medicine Work Phone: Comment on above: PATIENT NOT FASTINGP ERFORMED BY: CB [facility] Otcguo9172 [address] RoadDublin [place] [id number] AST [Catalytic activity/Vol] 24 U/L Normal 0-40 [facility]; [facility] Work Phone: Comment on above: PATIENT NOT FASTINGP ERFORMED BY: MAIA [facility] Kjsalk5778 [address] RoadDublin [place] [id number] AST enzyme act/vol 24 [iU]/L Normal 0-40 Compre hensive Internal Medicine Work Phone: Comment on above: PATIENT NOT FASTINGP ERFORMED BY: CB [facility] Fiwbgv[address] [facility]bl[facility] [place] [id number] Bilirubin mass conc 0.4 mg/dL Normal 0.0-1.2 Compr ehensive Internal Medicine Work Phone: Comment on above: PATIENT NOT FASTINGP ERFORMED BY: MAIA [facility] Kinvlg2194 [address] RoadFirsthealth Montgomery Memorial Hospitalin [place] [id number] Calcium mass conc 8.7 mg/dL Normal 8.7-10.2 Compreh ensive Internal Medicine Work Phone: Comment on above: PATIENT NOT FASTINGP ERFORMED BY: MAIA [facility] Ubkwnb6110 [address] [facility] [id number] Chloride molar conc 100 mmol/L Normal 96-106 Compr ensive Internal Medicine Work Phone: Comment on above: Please note refere nce interval change PATIENT NOT FASTINGP ERFORMED BY: MAIA [facility] Tndezl3379 [address] [facility] [place] [id number] CO2 molar conc 25 mmol/L Normal 18-29 Comprehens olga Internal Medicine Work Phone: Comment on above: PATIENT NOT FASTINGP ERFORMED BY: CB [facility] Pxdvmb2818 [address] [facility] [id number] Creatinine mass conc 0.82 mg/dL Normal 0.57-1.00 Comp [facility] Internal [facility] Work Phone: Comment on above: PATIENT NOT FASTINGP ERFORMED BY: MAIA [facility] Dqvawm1649 [address] [facility] [place] [id number] GFR/1.73 sq M predicted among blacks CKD-EPI vol rate/area (S/P/Bld) 97 mL/min/1.73 Normal Comprehensiv e Internal Medicine Work Phone: Comment on above: PATIENT NOT FASTINGP ERFORMED BY: MAIA [facility] Oxiruz5842 [address] Roadblin [place] [id number] GFR/1.73 sq M predicted among non-blacks CKD-EPI vol rate/area (S/P/Bld) 84 mL/min/1.73 Normal [facility] Work Phone: Comment on above: PATIENT NOT FASTINGP ERFORMED BY: CB [facility] Xsakmq3557 [address] RoadFormerly [facility] [id number] Globulin (S) [Mass/Vol] 2.8 g/dL Normal 1.5-4.5 [facility] Work Phone: Comment on above: PATIENT NOT FASTINGP ERFORMED BY: MAIA [facility] Jvkfwg0528 [address] RoadFirsthealth Montgomery Memorial Hospitalin [place] [id number] Globulin Calculated mass conc (S) 2.8 g/dL Normal 1.5-4.5 [facility] Work Phone: Glucose mass conc 97 mg/dL Normal 65-99 Compreh ensive Internal Medicine Work Phone: Comment on above: PATIENT NOT FASTINGP ERFORMED BY: MAIA [facility] Zxykru1539 [address] [facility] [place] [id number] Potassium molar conc 4.2 mmol/L Normal 3.5-5.2 Comp rehensive Internal Medicine Work Phone: Comment on above: PATIENT NOT FASTINGP ERFORMED BY: CB [facility] Riexlo1021 [address] [facility] [place] [id number] Protein mass conc 6.8 g/dL Normal 6.0-8.5 Compreh ensive Internal Medicine Work Phone: Comment on above: PATIENT NOT FASTINGP ERFORMED BY: CB [facility] Mdwyzv7927 [address] [facility] [place] [id number] Sodium molar conc 141 mmol/L Normal 134-144 Compreh ensive Internal Medicine Work Phone: Comment on above: Please note refere nce interval change PATIENT NOT FASTINGP ERFORMED BY: CB [facility] Wqfkro2779 [address] [facility] [id number] Urea nitrogen mass conc 17 mg/dL Normal 6-24 [facility] Work Phone: Comment on above: PATIENT NOT FASTINGP ERFORMED BY: MAIA LabAmbar Michaels6370 [address] RoadDublin [place] [id number] Urea nitrogen/Creatinine mass ratio 21 mg/mg Normal 9-23 [facility] Work Phone: Comment on above: PATIENT NOT FASTINGP ERFORMED BY: MAIA [facility] Xtunfd6997 [address] Roadblin [place] [id number] SED RATE ERYTHROCYTE (36001) Ordered By: Filler Blender on 06-26-2016 ESR Velocity (Bld) 7 mm/h Normal 0-32 Compre [facility] Internal Medicine Work Phone: Comment on above: PATIENT NOT FASTINGP ERFORMED BY: MAIA [facility] Btgevw7780 [address] Roadblin [place] [id number] T3, FREE (TRIDOTHYRONINE) (0 8975)Ordered By: Filler Blender on 06-26-2016 T3 free mass conc 1.9 pg/mL Abnormal 2.0-4.4 Compreh ensive Internal Medicine Work Phone: Comment on above: PATIENT NOT FASTINGP ERFORMED BY: MAIA LabKaitlyn Mhdrim[address] [facility] Centerbl[facility] [place] [id number] T4, FREE (THYROXINE) (76695) Ordered By: Filler Blender on 06-26-2016 T4 free mass conc 2.02 ng/dL Abnormal 0.82-1.77 Compreh ensive Internal Medicine Work Phone: Comment on above: PATIENT NOT FASTINGP ERFORMED BY: [facility] Fbdsdh2713 [address] Roadblin [place] [id number] TSH ([id number])Ordered By: Syste m Manager Animal on 06-26-2016 Thyrotropin Qn 0.985 {uIU/mL} Normal 0.450-4.500 Compr ehensive Internal Medicine Work Phone: Comment on above: PATIENT NOT FASTINGP ERFORMED BY: [facility] Wsqpbj7097 [address] Roadblin [place] [id number] VITAMIN B-12 (CYANOCOBALAMIN ) (43334)Ordered By: Filler Blender on 06-26-2016 Cobalamin (Vitamin B12) mass conc 375 pg/mL Normal 211-946 [facility] Work Phone: Comment on above: PATIENT NOT FASTINGP ERFORMED BY: MAIA [facility] Nljxej5699 [facility] Centerbl[facility] [place] [id number] T3, FREE (TRIDOTHYRONINE) (8 8973)Ordered By: Filler Blender on 05-02-2016 T3 free mass conc 2.1 pg/mL Normal 2.0-4.4 Compreh ensive Internal Medicine Work Phone: Comment on above: PATIENT NOT FASTINGP ERFORMED BY: MAIA [facility] Yfdjcs1519 [facility]in [place] [id number] T4, FREE (THYROXINE) (55138) Ordered By: Filler Blender on 05-02-2016 T4 free mass conc 2.88 ng/dL Abnormal 0.82-1.77 Compreh ensive Internal Medicine Work Phone: Comment on above: PATIENT NOT FASTINGP ERFORMED BY: MAIA [facility] Cotujk2756 [address] [facility] [id number] TSH ([id number])Ordered By: Jonas Manager Animal on 05-02-2016 Thyrotropin Qn 0.488 {uIU/mL} Normal 0.450-4.500 Compr ehensive Internal Medicine Work Phone: Comment on above: PATIENT NOT FASTINGP ERFORMED BY: MAIA [facility]Saint [facility] Dckggg4528 [facility] [id number] TSH (10128)Ordered By: Jonas m Manager Animal on 03-16-2016 Thyrotropin Qn 22.520 {uIU/mL} Abnormal 0.450-4.500 Comp rehensive Internal Medicine Work Phone: Comment on above: PATIENT NOT FASTINGP ERFORMED BY: MAIA LabSaint [facility] Ivkmzr[address] [facility] [id number] TSH ([id number])Ordered By: Jonas m Manager Animal on 03-10-2016 Thyrotropin Qn 63.950 {uIU/mL} Abnormal 0.450-4.500 Comp rehensive Internal Medicine Work Phone: Comment on above: PATIENT NOT FASTINGP ERFORMED BY: MAIA LabCogadiel RoyPbzscn8609 [address] RoadDublin [place] [id number] Microscopic ExaminationOrder ed By: Filler Blender on 01-18-2016 Bacteria LM.HPF #/area (Urine sed) Few Normal [facility] Work Phone: Comment on above: PATIENT NOT FASTINGP ERFORMED BY: MAIA [facility] Tzmxdl2252 [address] RoadDublin [place] [id number] Crystals LM Nom (Urine sed) Calcium Oxalate Normal [facility] Work Phone: Comment on above: PATIENT NOT FASTINGP ERFORMED BY: MAIA LabAmbar RoyQlrjuo[address] [facility] Centerbl[facility] [place] [id number] Epithelial cells LM.HPF #/area (Urine sed) /[HPF] Abnormal 0 - 10 [facility] Work Phone: Comment on above: PATIENT NOT FASTINGP ERFORMED BY: MAIA [facility]leySaint [facility] Qxdhhl1080 [address] Roadbl[address] [place] [id number] Mucus LM Ql (Urine sed) Present Normal [facility] Work Phone: Mucus Ql (Urine sed) Present Normal Comp rehensive Internal Medicine Work Phone: Comment on above: PATIENT NOT FASTINGP ERFORMED BY: MAIA Roylin6370 [address] RoadDublin [place] [id number] RBC LM.HPF #/area (Urine sed) 0-2 Normal 0 - 2 [facility] Work Phone: Comment on above: PATIENT NOT FASTINGP ERFORMED BY: MAIA [facility] Imlxsm5945 [address] RoadDublin [place] [id number] Unidentified crystals LM Ql (Urine sed) Present Abnormal [facility] Work Phone: Comment on above: PATIENT NOT FASTINGP ERFORMED BY: MAIA [facility] Cxoaia6492 [address] RoadDublin [place] [id number] WBC LM.HPF #/area (Urine sed) 6-10 Abnormal 0 - 5 [facility] Work Phone: Comment on above: PATIENT NOT FASTINGP ERFORMED BY: MAIA Michaels6370 [address] RoadD[address] [place] [id number] URINALYSIS ([id number])Ordered By : Filler Blender on 01-18-2016 Appearance Nom (U) Turbid Abnormal Compre hensive Internal Medicine Work Phone: Comment on above: PATIENT NOT FASTINGP ERFORMED BY: MAIA Roylin6370 [address] RoadDublin [place] [id number] Information: [id number] Bilirubin Ql (U) Negative Normal Comprehe nsive Internal Medicine Work Phone: Comment on above: PATIENT NOT FASTINGP ERFORMED BY: MAIA LabAmbar RoyFsxjyp6227 [address] RoadDublin [place] [id number] Information: [id number] Bilirubin Ql (U) Negative Normal Comprehe nsive Internal Medicine; [facility] Work Phone: Comment on above: PATIENT NOT FASTINGP ERFORMED BY: MAIA Yoselingadiel RoyCvzxrw5220 [address] RoadDublin [place] [id number] Information: [id number] Color Nom (U) Yellow Normal Comprehensi ve Internal Medicine Work Phone: Comment on above: PATIENT NOT FASTINGP ERFORMED BY: MAIA Sherrie Roylin6370 [address] RoadDublin [place] [id number] Information: [id number] Glucose Ql (U) Negative Normal Comprehens [facility] Medicine Work Phone: Comment on above: PATIENT NOT FASTINGP ERFORMED BY: AMIA Sherrie Wjscgi2800 [address]iano RoadDublin [place] [id number] Information: [id number] Glucose Ql (U) Negative Normal Comprehens [facility]; [facility] Work Phone: Comment on above: PATIENT NOT FASTINGP ERFORMED BY: MAIA Yoselinrp Wfkzry7700 [address] RoadDublin [place] [id number] Information: [id number] Hemoglobin Ql (U) Negative Normal Compreh ensive Internal Medicine Work Phone: Comment on above: PATIENT NOT FASTINGP ERFORMED BY: MAIA Yoselinrp Gdrpeh1494 [address] RoadDublin [place] [id number] Information: [id number] Hemoglobin Ql (U) Negative Normal Compreh ensive Internal Medicine; [facility] Work Phone: Comment on above: PATIENT NOT FASTINGP ERFORMED BY: MAIA Sherrie Roylin6370 [facility] [id number] Information: E38403 Hemoglobin Test strip Ql (U) Negative Normal [facility] Work Phone: Ketones Ql (U) Negative Normal Comprehens [facility] Work Phone: Comment on above: PATIENT NOT FASTINGP ERFORMED BY: MAIA Jose CruzSaint John'S Regional [facility] Tygvsc[address] [id number] Information: [id number] Ketones Ql (U) Negative Normal Comprehens [facility]; [facility] Work Phone: Comment on above: PATIENT NOT FASTINGP ERFORMED BY: MAIA Yoselin Kdtdah28[address] [id number] Information: B58629 Leukocyte esterase Test strip Ql (U) 1+ Abnormal [facility] Work Phone: Comment on above: PATIENT NOT FASTINGP ERFORMED BY: MAIA Yoselingadiel RoyCyrxha7104[address] [id number] Information: U19653 Microscopic observation LM Nom (Urine sed) See below: Normal [facility] Work Phone: Comment on above: Microscopic was roxy cated and was performed. PATIENT NOT FASTINGP ERFORMED BY: MAIA YoselinAshley V[place] 1349570 [facility] [id number] Information: F71046 Nitrite Ql (U) Negative Normal Comprehens [facility] Work Phone: Comment on above: PATIENT NOT FASTINGP ERFORMED BY: MAIA Yoselin Patent6188 [facility] [id number] Information: G76746 Nitrite Ql (U) Negative Normal Comprehens [facility]; [facility] Work Phone: Comment on above: PATIENT NOT FASTINGP ERFORMED BY: MAIA [facility] Sbxinz6195 [address] RoadDublin [place] [id number] Information: T31336 Nitrite Test strip Ql (U) Negative Normal [facility] Work Phone: pH (U) 6.0 [pH] Normal 5.0-7.5 [facility] Work Phone: Comment on above: PATIENT NOT FASTINGP ERFORMED BY: MAIA [facility] Zfitda2713 [address] RoadDublin [place] [id number] Information: C51652 pH Test strip (U) 6.0 [pH] Normal 5.0-7.5 Compreh ensive Internal Medicine Work Phone: Protein Ql (U) Negative Normal Comprehens [facility] Work Phone: Comment on above: PATIENT NOT FASTINGP ERFORMED BY: MAIA [facility] Qkvfhq1630 [address] RoadFirsthealth Montgomery Memorial Hospitalin [place] [id number] Information: W35061 Protein Ql (U) Negative Normal Comprehens [facility]; [facility] Work Phone: Comment on above: PATIENT NOT FASTINGP ERFORMED BY: MAIA LabKaitlyn Mnnalg1965 [address] RoadFirsthealth Montgomery Memorial Hospitalin [place] [id number] Information: [id number] Protein Test strip Ql (U) Negative Normal [facility] Work Phone: Specific gravity Relative Density (U) >=1.030 Abnormal 1.005-1.030 Comprehensi ve Internal Medicine Work Phone: Comment on above: PATIENT NOT FASTINGP ERFORMED BY: MAIA [facility] Hsleyx0906 [address] RoadDublin [place] [id number] Information: A02539 Urobilinogen (U) [Mass/Vol] 0.2 mg/dL Normal 0.2-1.0 [facility]; [facility] Work Phone: Comment on above: PATIENT NOT FASTINGP ERFORMED BY: MAIA [facility] Zgfool9130 [address] RoadDublin [place] [id number] Information: F85065 Urobilinogen Test strip mass conc (U) 0.2 mg/dL Normal 0.2-1.0 Comprehensiv e Internal Medicine Work Phone: Comment on above: PATIENT NOT FASTINGP ERFORMED BY: MAIA [facility] Arkdpy4916 [address] [facility] [id number] Information: E88730 URINE DONNA CULTURE-IDENTIFICA [place] (51167)Ordered By: Filler Blender on 01-18-2016 Bacteria identified Cx Nom (U) MUG Normal [facility] Work Phone: Comment on above: Mixed urogenital bora ra4,000 Colonies/mL PATIENT NOT FASTINGP ERFORMED BY: MAIA [facility] Xrwhqb5994 [address] [facility] [id number] Bacteria identified Cx Nom (U) Final report Normal [facility] Work Phone: Comment on above: PATIENT NOT FASTINGP ERFORMED BY: MAIA [facility] Pfnddb2720 [address] [facility] [id number] URINE DONNA [place]URE[place] (49815)Ordered By: Filler Blender on 11-05-2015 Bacteria identified Cx Nom (U) Final report Abnormal [facility] Work Phone: Comment on above: PATIENT NOT FASTINGP ERFORMED BY: MAIA [facility] Nbdfbp7628 [address] [facility] [id number] Information: [id number] Bacteria identified Cx Nom (U) Escherichia coli Abnormal [facility] Work Phone: Comment on above: 2,000 Colonies/mL PATIENT NOT FASTINGP ERFORMED BY: CB [facility] Tdzwep6512 [address] [facility] [id number] Information: Y97193 Other Antibiotic [facility] Normal [facility] Work Phone: Comment on above: S = Susceptible; I = Intermediate; R = Resistant P = Positive; N = Negative MICS are expressed in micrograms per mL Antibiotic RSLT#1 RSLT#2 RSLT#3 RSLT#4Amoxicillin/Clavulanic Acid SAmpicillin RCefepime SCeftriaxone SCefuroxime SCephalothin SCiprofloxacin SErtapenem SGentamicin SImipenem SLevofloxacin SNitrofurantoin SPiperacillin RTetracycline STobramycin STrimethoprim/Sulfa S PATIENT NOT FASTINGP ERFORMED BY: MAIA Michaels6370 [facility] [id number] Information: A59618 CALCIFEDIOL (55142)Ordered B y: Filler Blender on 08-25-2015 25-Hydroxyvitamin D2+25-Hydroxyvitamin D3 mass conc 31.0 ng/mL Normal 30.0-100.0 [facility] Work Phone: Comment on above: Vitamin D deficiency has been defined by the [place] [facility]cine and an Endocrine Society practice guideline as alevel of serum 25-OH vitamin D less than 20 ng/mL (1,2).The Endocrine Society went on to further define vitamin Dinsufficiency as a level between 21 and 29 ng/mL (2).1. IOM ([place] of Medicine). 2010. Dietary reference intakes for calcium and D. [place]: The National Academies Press.2. Fidelia MF, Tayler MURDOCK, Nataliia HUFF, et al. Evaluation, treatment, and prevention of vitamin D deficiency: an Endocrine Society clinical practice guideline. JCEM. 2010; 96(7):1911-30. PATIENT WAS FASTINGP ERFORMED BY: MAIA [employer] Rxwftu7568 [facility] [id number] CBC (Auto) (61290)Ordered By : Filler Blender on 08-25-2015 Erythrocyte distribution width (RBC) [Ratio] 14.7 % Normal 12.3-15.4 [facility] Work Phone: Comment on above: PATIENT WAS FASTINGP ERFORMED BY: MAIA [employer] Wvfiun4679 [facility] [id number] Erythrocyte distribution width Auto Ratio (RBC) 14.7 % Normal 12.3-15.4 [facility] Work Phone: Hematocrit (Bld) [Volume fraction] 39.4 % Normal 34.0-46.6 [facility] Work Phone: Comment on above: PATIENT WAS FASTINGP ERFORMED BY: MAIA LabCoAshley Ville 1349570 [facility] [id number] Hematocrit Auto Volume Fraction (Bld) 39.4 % Normal 34.0-46.6 [facility] Work Phone: Hemoglobin mass conc (Bld) 13.0 g/dL Normal 11.1-15.9 [facility] Work Phone: Comment on above: PATIENT WAS FASTINGP ERFORMED BY: [place] 1368870 [facility] [id number] MCH (RBC) [Entitic mass] 27.8 pg Normal 26.6-33.0 [facility] Work Phone: Comment on above: PATIENT WAS FASTINGP ERFORMED BY: [place] 1368870 [facility] [id number] MCH Auto Entitic mass (RBC) 27.8 pg Normal 26.6-33.0 [facility] Work Phone: MCHC (RBC) [Mass/Vol] 33.0 g/dL Normal 31.5-35.7 [facility] Work Phone: Comment on above: PATIENT WAS FASTINGP ERFORMED BY: [place] 1368870 [facility] [id number] MCHC Auto mass conc (RBC) 33.0 g/dL Normal 31.5-35.7 [facility] Work Phone: MCV (RBC) [Entitic vol] 84 fL Normal 79-97 [facility] Work Phone: Comment on above: PATIENT WAS FASTINGP ERFORMED BY: [place] 1368870 [facility] [id number] MCV Auto Entitic volume (RBC) 84 fL Normal 79-97 [facility] Work Phone: Platelets (Bld) [#/Vol] 255 {x10E3/uL} Normal 150-379 [facility] Work Phone: Comment on above: PATIENT WAS FASTINGP ERFORMED BY: [place] 1368870 [facility] [id number] Platelets (Bld) [#/Vol] 255 10*3/uL Normal 150-379 [facility]; [facility] Work Phone: Comment on above: PATIENT WAS FASTINGP ERFORMED BY: MAIA Jose CruzSaint John'S Regional Health Center Kmbblo4113 [facility] [id number] Platelets Auto #/vol (Bld) 255 {x10E3/uL} Normal 150-379 [facility] Work Phone: RBC (Bld) [#/Vol] 4.67 {x10E6/uL} Normal 3.77-5.28 [facility] Internal Medicine Work Phone: Comment on above: PATIENT WAS FASTINGP ERFORMED BY: MAIA LabSaint John'S Regional [facility] Center Erbwdd5920 [facility] [id number] RBC (Bld) [#/Vol] 4.67 10*6/uL Normal 3.77-5.28 [facility] Internal Medicine; [facility] Work Phone: Comment on above: PATIENT WAS FASTINGP ERFORMED BY: MAIA [facility]6370 [facility] [id number] RBC Auto #/vol (Bld) 4.67 {x10E6/uL} Normal 3.77-5.28 [facility] Work Phone: WBC (Bld) [#/Vol] 4.6 {x10E3/uL} Normal 3.4-10.8 [facility] Internal Medicine Work Phone: Comment on above: PATIENT WAS FASTINGP ERFORMED BY: MAIA LabAscension Borgess-Pipp Hospital6370 [facility] [id number] WBC (Bld) [#/Vol] 4.6 10*3/uL Normal 3.4-10.8 [facility] Internal Medicine; [facility] Work Phone: Comment on above: PATIENT WAS FASTINGP ERFORMED BY: LabAscension Borgess-Pipp Hospital6370 [facility] [id number] WBC Auto #/vol (Bld) 4.6 {x10E3/uL} Normal 3.4-10.8 [facility] Work Phone: Lipid Panel (16650)Ordered B y: Filler Blender on 08-25-2015 Cholesterol in HDL mass conc 35 mg/dL Abnormal [facility] Work Phone: Comment on above: According to ATP-III Guidelines, HDL-C >59 mg/dL is considered anegative risk factor for CHD. PATIENT WAS FASTINGP ERFORMED BY: MAIA [facility] Cxmdkq1664 [address] RoadDublin [place] [id number] Cholesterol in LDL mass conc 89 mg/dL Normal 0-99 [facility] Work Phone: Comment on above: PATIENT WAS FASTINGP ERFORMED BY: MAIA [facility] Xbqhiw8525 [address] RoadDublin [place] [id number] Cholesterol in LDL/Cholesterol in HDL mass ratio 2.5 {ratio_units} Normal 0.0-3.2 [facility] Work Phone: Comment on above: LDL/HDL Ratio Men Wo men 1/2 Avg.Risk 1.0 1.5 Avg.Risk 3.6 3.2 2X Avg.Risk 6.2 5.0 3X Avg.Risk 8.0 6.1 PATIENT WAS FASTINGP ERFORMED BY: MAIA [facility] Legals[address] urSelfDublin [place] [id number] Cholesterol in VLDL mass conc 14 mg/dL Normal 5-40 [facility] Work Phone: Comment on above: PATIENT WAS FASTINGP ERFORMED BY: MAIA [facility] Japppd3386 [address] urSelfDublin [place] [id number] Cholesterol mass conc 138 mg/dL Normal 100-199 [facility] Work Phone: Comment on above: PATIENT WAS FASTINGP ERFORMED BY: CB [facility] Bmwnvc0601 [address] RoadDublin [place] [id number] Triglyceride mass conc 69 mg/dL Normal 0-149 [facility] Work Phone: Comment on above: PATIENT WAS FASTINGP ERFORMED BY: MAIA [facility] Rlebwn9646 [address] RoadDublin [place] [id number] Metabolic Panel, Comprehensi ve (98632)Ordered By: Filler Blender on 08-25-2015 Albumin mass conc 4.0 g/dL Normal 3.5-5.5 [facility] Internal Medicine Work Phone: Comment on above: PATIENT WAS FASTINGP ERFORMED BY: MAIA Wyatt Xofnoo4376 [facility] [id number] Information: 889256,R08467 Albumin/Globulin mass ratio 1.6 {ratio} Normal 1.1-2.5 [facility] Work Phone: Comment on above: PATIENT WAS FASTINGP ERFORMED BY: [place] 1368870 [facility] [id number] Information: 904079,Z32291 ALP [Catalytic activity/Vol] 34 U/L Abnormal 39-117 [facility]; [facility] Work Phone: Comment on above: PATIENT WAS FASTINGP ERFORMED BY: [address] [id number] Information: 574549,U92174 ALP enzyme act/vol 34 [iU]/L Abnormal 39-117 [facility] Internal Medicine Work Phone: Comment on above: PATIENT WAS FASTINGP ERFORMED BY: Jose CruzCory [place] 9220670 [facility] [id number] Information: 016848,P39153 ALT [Catalytic activity/Vol] 18 U/L Normal 0-32 [facility]; [facility] Work Phone: Comment on above: PATIENT WAS FASTINGP ERFORMED BY: [place] 1368870 [facility] [id number] Information: 337498,B35732 ALT enzyme act/vol 18 [iU]/L Normal 0-32 [facility] Internal Medicine Work Phone: Comment on above: PATIENT WAS FASTINGP ERFORMED BY: [place] 1368870 [facility] [id number] Information: 413876,Z37175 AST [Catalytic activity/Vol] 24 U/L Normal 0-40 [facility]; [facility] Work Phone: Comment on above: PATIENT WAS FASTINGP ERFORMED BY: MAIA [facility] Yrzkwo2504 [facility] [id number] Information: 220992,M10005 AST enzyme act/vol 24 [iU]/L Normal 0-40 Compre [facility] Internal Medicine Work Phone: Comment on above: PATIENT WAS FASTINGP ERFORMED BY: [facility] Hhqbxf5554 [facility] [id number] Information: 713260,R82514 Bilirubin mass conc 0.5 mg/dL Normal 0.0-1.2 Compr ensive Internal Medicine Work Phone: Comment on above: PATIENT WAS FASTINGP ERFORMED BY: MAIA LabSaint [facility] Pgivoa9941 [facility] [id number] Information: 137403,L27576 Calcium mass conc 8.7 mg/dL Normal 8.7-10.2 Compreh [facility] centerive [facility] Work Phone: Comment on above: PATIENT WAS FASTINGP ERFORMED BY: MAIA LabAscension [facility]6370 [facility] [id number] Information: 890873,S15007 Chloride molar conc 105 mmol/L Normal 97-108 [facility] Internal Medicine Work Phone: Comment on above: PATIENT WAS FASTINGP ERFORMED BY: MAIA LabCoMonmouth Medical CenterQwaerw3932 [facility] [id number] Information: 358816,Z90926 CO2 molar conc 23 mmol/L Normal 18-29 Comprehens [facility] Internal Medicine Work Phone: Comment on above: PATIENT WAS FASTINGP ERFORMED BY: [facility] Cerqoh5144 [facility] [id number] Information: 181974,L53876 Creatinine mass conc 0.73 mg/dL Normal 0.57-1.00 Comp [facility]ensive Internal [facility] Work Phone: Comment on above: PATIENT WAS FASTINGP ERFORMED BY: [facility]6370 [facility] [id number] Information: 580702,G53355 GFR/1.73 sq M predicted among blacks CKD-EPI vol rate/area (S/P/Bld) 113 mL/min/1.73 Normal Comprehensiv e Internal Medicine Work Phone: Comment on above: PATIENT WAS FASTINGP ERFORMED BY: LabAscension [facility]6370 [facility] [id number] Information: 043937,E16783 GFR/1.73 sq M predicted among non-blacks CKD-EPI vol rate/area (S/P/Bld) 98 mL/min/1.73 Normal [facility] Work Phone: Comment on above: PATIENT WAS FASTINGP ERFORMED BY: [place] 1368870 [facility] [id number] Information: 454439,B98743 Globulin (S) [Mass/Vol] 2.5 g/dL Normal 1.5-4.5 [facility] Work Phone: Comment on above: PATIENT WAS FASTINGP ERFORMED BY: [place] 1368870 [facility] [id number] Information: 425116,H61125 Globulin Calculated mass conc (S) 2.5 g/dL Normal 1.5-4.5 [facility] Work Phone: Glucose mass conc 78 mg/dL Normal 65-99 Compreh ensive Internal Medicine Work Phone: Comment on above: PATIENT WAS FASTINGP ERFORMED BY: LabSaint [facility] Vnibox2561 [facility] [id number] Information: 727785,B25707 Potassium molar conc 3.9 mmol/L Normal 3.5-5.2 Comp rehensive Internal Medicine Work Phone: Comment on above: PATIENT WAS FASTINGP ERFORMED BY: LabSaint [facility] Gjdekl7450 [facility] [id number] Information: 908256,X42080 Protein mass conc 6.5 g/dL Normal 6.0-8.5 Compreh ensive Internal Medicine Work Phone: Comment on above: PATIENT WAS FASTINGP ERFORMED BY: [facility] Slujxw7946 [facility] [id number] Information: 761166,B41019 Sodium molar conc 143 mmol/L Normal 134-144 Compreh ensive Internal Medicine Work Phone: Comment on above: PATIENT WAS FASTINGP ERFORMED BY: LabAscension [facility]6370 [facility] [id number] Information: 352830,I43323 Urea nitrogen mass conc 10 mg/dL Normal 6-24 [facility] Work Phone: Comment on above: PATIENT WAS FASTINGP ERFORMED BY: [facility]6370 [facility] [id number] Information: 053837,O46788 Urea nitrogen/Creatinine mass ratio 14 mg/mg Normal 9-23 [facility] Work Phone: Comment on above: PATIENT WAS FASTINGP ERFORMED BY: [facility]6370 [facility] [id number] Information: 773968,F46721 T3, FREE (TRIDOTHYRONINE) (3 8008)Ordered By: Filler Blender on 08-25-2015 T3 free mass conc 1.6 pg/mL Abnormal 2.0-4.4 Compreh ensive Internal Medicine Work Phone: Comment on above: PATIENT WAS FASTINGP ERFORMED BY: LabSaint [facility] Xhbcwm0681 [facility] [id number] T4, FREE (THYROXINE) (55514) Ordered By: Filler Blender on 08-25-2015 T4 free mass conc 1.49 ng/dL Normal 0.82-1.77 Compreh ensive Internal Medicine Work Phone: Comment on above: PATIENT WAS FASTINGP ERFORMED BY: LabSaint [facility] Frqczx3764 [facility] [id number] TSH (71999)Ordered By: Syste m Manager Animal on 08-25-2015 Thyrotropin Qn 1.520 {uIU/mL} Normal 0.450-4.500 [facility]pr [facility] Work Phone: Comment on above: PATIENT WAS FASTINGP ERFORMED BY: MAIA Timeliner Aqwhbg6458 [facility] [id number] URINE DONNA CULTURE-IDENTIFICA [place] (22030)Ordered By: Filler Blender on 05-13-2015 Bacteria identified Cx Nom (U) Final report Abnormal [facility] Work Phone: Comment on above: PATIENT NOT FASTINGP ERFORMED BY: MAIA [employer]leyCo Geogqw3178 [facility] [id number] Information: O59270 Bacteria identified Cx Nom (U) BETAGB Abnormal [facility] Work Phone: Comment on above: Beta hemolytic Strep tococcus, group B1,000 Colonies/mLPenicillin and ampicillin are drugs of choice for treatment ofbeta-hemolytic streptococcal infections. Susceptibility testing ofpenicillins and other beta-lactam agents approved by the FDA fortreatment of beta-hemolytic streptococcal infections need not beperformed routinely because nonsusceptible isolates are extremelyrare in any beta-hemolytic streptococcus and have not been reportedfor Streptococcus pyogenes (group A). (CLSI 2011) S = Susceptible; I = Intermediate; R = Resistant P = Positive; N = Negative MICS are expressed in micrograms per mL Antibiotic RSLT#1 RSLT#2 RSLT#3 RSLT#4Amoxicillin/Clavulanic Acid SAmpicillin SCefepime SCeftriaxone SCefuroxime SCephalothin ICiprofloxacin SErtapenem SGentamicin SImipenem SLevofloxacin SNitrofurantoin SPiperacillin STetracycline STobramycin STrimethoprim/Sulfa S PATIENT NOT FASTINGP ERFORMED BY: MAIA RidleySaint John'S Regional [facility] Center Onswtk6167 [facility] [id number] Information: R49586 Bacteria identified Cx Nom (U) Escherichia coli Abnormal [facility] Work Phone: Comment on above: 50,000-100,000 colon y forming units per mL PATIENT NOT FASTINGP ERFORMED BY: MAIA [facility]6370 [facility] [id number] Information: G75013 Throat Culture (13435)Ordere d By: Filler Blender on 04-19-2015 Bacteria identified Respiratory culture Nom (Unsp spec) RRF Normal [facility] Work Phone: Comment on above: Routine respiratory clarisa PATIENT NOT FASTINGP ERFORMED BY: MAIA LabCoAshley Ville 1349570 [facility] [id number] Information: SRC:THRLucius [id number] Bacteria identified Respiratory culture Nom (Unsp spec) Final report Normal [facility] Work Phone: Comment on above: PATIENT NOT FASTINGP ERFORMED BY: MAIA [address] [id number] Information: SRC:BOBBYLucius [id number] Lipid Panel (50057)Ordered B y: Filler Blender on 03-10-2015 Cholesterol in HDL mass conc 54 mg/dL Normal [facility] Work Phone: Comment on above: According to ATP-III Guidelines, HDL-C >59 mg/dL is considered anegative risk factor for CHD. PATIENT WAS FASTINGP ERFORMED BY: MAIA [facility]6370 [facility] [id number] Information: 753459,E34568 Cholesterol in LDL mass conc 131 mg/dL Abnormal 0-99 [facility] Work Phone: Comment on above: PATIENT WAS FASTINGP ERFORMED BY: LabAsc[facility]6370 [facility] [id number] Information: 896279,M80590 Cholesterol in LDL/Cholesterol in HDL mass ratio 2.4 {ratio_units} Normal 0.0-3.2 [facility] Work Phone: Comment on above: LDL/HDL Ratio Men Wo men 1/2 Avg.Risk 1.0 1.5 Avg.Risk 3.6 3.2 2X Avg.Risk 6.2 5.0 3X Avg.Risk 8.0 6.1 PATIENT WAS FASTINGP ERFORMED BY: [facility] Gxdkkb7171 [facility] [id number] Information: 130505,K66879 Cholesterol in VLDL mass conc 15 mg/dL Normal 5-40 [facility] Work Phone: Comment on above: PATIENT WAS FASTINGP ERFORMED BY: [facility] Hemitv2943 [facility] [id number] Information: 244025,M91980 Cholesterol mass conc 200 mg/dL Abnormal 100-199 [facility] Work Phone: Comment on above: PATIENT WAS FASTINGP ERFORMED BY: [facility] Rkifuc3034 [facility] [id number] Information: 222982,W08520 Triglyceride mass conc 74 mg/dL Normal 0-149 [facility] Work Phone: Comment on above: PATIENT WAS FASTINGP ERFORMED BY: [facility] Bblhhm5317 [facility] [id number] Information: 725107,Q16782 TSH (38693)Ordered By: Jonas m Manager Animal on 03-10-2015 Thyrotropin Qn 1.480 {uIU/mL} Normal 0.450-4.500 [facility] [facility] Work Phone: Comment on above: PATIENT WAS FASTINGP ERFORMED BY: [facility] Pqahhl6434 [facility] [id number] Rapid Flu (24070 x 2)Ordered By: Freda Chin on 09-25-2014 FLUAV Ag IA Ql (Throat) Positive Normal [facility] Work Phone: FLUAV Ag IA Ql (Throat) Positive Normal [facility]; [facility] Work Phone: Anti-TPO Antibody ([id number])Ord ered By: Filler Blender on 08-27-2014 Thyroperoxidase Ab Qn 11 {IU/mL} Normal 0-34 [facility] Work Phone: Comment on above: PATIENT NOT FASTINGP ERFORMED BY: [facility] Okffxk1207 [facility] [id number] TPO Ab Qn 11 [IU]/mL Normal 0-34 [facility]; [facility] Work Phone: Comment on above: PATIENT NOT FASTINGP ERFORMED BY: MAIA Michaels6370 [address] Production[address] [place] [id number] CALCIFEDIOL ([id number])Ordered B y: Filler Blender on 08-27-2014 25-Hydroxyvitamin D2+25-Hydroxyvitamin D3 mass conc 34.4 ng/mL Normal 30.0-100.0 [facility] Work Phone: Comment on above: Vitamin D deficiency has been defined by the [place] ofMedicine and an Endocrine Society practice guideline as alevel of serum 25-OH vitamin D less than 20 ng/mL (1,2).The Endocrine Society went on to further define vitamin Dinsufficiency as a level between 21 and 29 ng/mL (2).1. IOM ([place] of Medicine). 2010. Dietary reference intakes for calcium and D. [place]: The National Academies Press.2. Fidelia MF, Tayler MURDOCK, Nataliia HUFF, et al. Evaluation, treatment, and prevention of vitamin D deficiency: an Endocrine Society clinical practice guideline. JCEM. 2010; 96(7):1911-30. PATIENT NOT FASTINGP ERFORMED BY: MAIA [employer] Gwqazo4233 [address] [place] [id number] T3, FREE (TRIDOTHYRONINE) (8 6890)Ordered By: Filler Blender on 08-27-2014 T3 free mass conc 1.8 pg/mL Abnormal 2.0-4.4 Compreh ensive Internal Medicine Work Phone: Comment on above: PATIENT NOT FASTINGP ERFORMED BY: MAIA Timelinerrp Mhrjug3604 Luciano RoadDublin [place] [id number] T4, FREE (THYROXINE) (23308) Ordered By: Filler Blender on 08-27-2014 T4 free mass conc 1.73 ng/dL Normal 0.82-1.77 Compreh ensive Internal Medicine Work Phone: Comment on above: PATIENT NOT FASTINGP ERFORMED BY: MAIA [employer] Suibbr2621 Luciano RoadDublin [place] [id number] Information: [id number] TSH ([id number])Ordered By: Jonas m Manager Animal on 08-27-2014 Thyrotropin Qn 4.090 {uIU/mL} Normal 0.450-4.500 [facility] Work Phone: Comment on above: PATIENT NOT FASTINGP ERFORMED BY: MAIA [facility]Asc[facility]6370 [facility] [id number] TSH ([id number])Ordered By: Irenee m Manager Animal on 03-20-2014 Thyrotropin Qn 0.012 {uIU/mL} Abnormal 0.450-4.500 Compr [facility] Internal Medicine Work Phone: Comment on above: PATIENT NOT FASTINGP ERFORMED BY: MAIA Lab[address] [id number] Information: [id number] Rubeola Antibodies, IgGOrder ed By: Filler Blender on 12-31-2013 MeV IgG IA Qn (S) {index_val} Abnormal [facility] Work Phone: Comment on above: Negative <25.0 Equiv ocal 25.0 - 29.9 Positive >29.9 Presence of antibodies to Rubeola is presumptive evidence of immunity except when acute infection is suspected. PATIENT WAS FASTINGP ERFORMED BY: MAIA LabAsc[facility]6370 [facility] [id number] Written Authoriz RCVOrdered By: Filler Blender on 12-31-2013 Written Authoriz RCV COMMNT Normal [facility] Work Phone: Comment on above: WRITTEN AUTHORIZATIO N RECEIVED.AUTHORIZATION RECEIVED FROM VIKI DUMONT DO [id number] BY MICKEY SCOTT. Test cancelled at ient's request.TEST: RUBEOLA ANTIBODIES, IGMCONTACTED BY [facility] ([facility]) PER DR. DUMONT AT YOUR FACILITY 12-31-2013 PATIENT WAS FASTINGP ERFORMED BY: LabAsc[facility]6370 [facility] [id number] Lipid Panel With LDL/HDL Rat ioOrdered By: Filler Blender on 12-29-2013 Cholesterol in HDL mass conc 56 mg/dL Normal [facility] Work Phone: Comment on above: According to ATP-III Guidelines, HDL-C >59 mg/dL is considered anegative risk factor for CHD. PATIENT WAS FASTINGP ERFORMED BY: MAIA Sherrie Michaels6370 [facility] [id number] Cholesterol in LDL mass conc 110 mg/dL Abnormal 0-99 [facility] Work Phone: Comment on above: PATIENT WAS FASTINGP ERFORMED BY: MAIA Sherrie Roylin6370 [facility] [id number] Cholesterol in LDL/Cholesterol in HDL mass ratio 2.0 {ratio_units} Normal 0.0-3.2 [facility] Work Phone: Comment on above: PATIENT WAS FASTINGP ERFORMED BY: MAIA Yoselin Xsqgkd1587 [facility] [id number] Cholesterol in VLDL mass conc 14 mg/dL Normal 5-40 [facility] Work Phone: Comment on above: PATIENT WAS FASTINGP ERFORMED BY: MAIA Yoselin Jtdnki8810 [facility] [id number] Cholesterol mass conc 180 mg/dL Normal 100-199 [facility] Work Phone: Comment on above: PATIENT WAS FASTINGP ERFORMED BY: MAIA Sherrie Roylin6370 [facility] [id number] Triglyceride mass conc 68 mg/dL Normal 0-149 [facility] Work Phone: Comment on above: PATIENT WAS FASTINGP ERFORMED BY: MAIA Jose CruzAscension Borgess-Pipp Hospital6370 [facility] [id number] Rubella Antibodies, IgGOrder ed By: Filler Blender on 12-29-2013 Rubella virus IgG Qn (S) 1.76 {index} Normal [facility] Work Phone: Comment on above: Non-immune <0.90 Equ ivocal 0.90 - 0.99 Immune >0.99 PATIENT WAS FASTINGP ERFORMED BY: [facility] Xlvpji0075 [facility] [id number] TSHOrdered By: System Manage r on 12-29-2013 Thyrotropin Qn 0.042 {uIU/mL} Abnormal 0.450-4.500 Compr ehensive Internal Medicine Work Phone: Comment on above: PATIENT WAS FASTINGP ERFORMED BY: MAIA LabCogadiel Alqkrd3505 Luc[address] RoadDublin [place] [id number] Thyroxine (T4) Free, Direct, SOrdered By: Filler Blender on 12-29-2013 T4 free mass conc 1.95 ng/dL Abnormal 0.82-1.77 Compreh ensive Internal Medicine Work Phone: Comment on above: PATIENT WAS FASTINGP ERFORMED BY: MAIA [facility] Xaizyf4215 [address] RoadDublin [place] [id number] Triiodothyronine,Free,SerumO rdered By: Filler Blender on 12-29-2013 T3 free mass conc 2.4 pg/mL Normal 2.0-4.4 Compreh [facility]river[facility] Internal Medicine Work Phone: Comment on above: PATIENT WAS FASTINGP ERFORMED BY: MAIA [facility] Ytclny6374 [address] urSelfFirsthealth Montgomery Memorial Hospitalin [place] [id number] Vitamin D, 25-HydroxyOrdered By: Filler Blender on 12-29-2013 25-Hydroxyvitamin D2+25-Hydroxyvitamin D3 mass conc 36.8 ng/mL Normal 30.0-100.0 [facility] Work Phone: Comment on above: Vitamin D deficiency has been defined by the [place] [facility] and an Endocrine Society practice guideline as alevel of serum 25-OH vitamin D less than 20 ng/mL (1,2).The Endocrine Society went on to further define vitamin Dinsufficiency as a level between 21 and 29 ng/mL (2).1. IOM ([place] of Medicine). 2010. Dietary reference intakes for calcium and D. [place]: The National Academies Press.2. Fidelia MF, Tayler MURDOCK, Nataliia HUFF, et al. Evaluation, treatment, and prevention of vitamin D deficiency: an Endocrine Society clinical practice guideline. JCEM. 2010; 96(7):1911-30. PATIENT WAS FASTINGP ERFORMED BY: CB [facility] Hrthhe9123 [address] RoadDublin [place] [id number] URINE DONNA CULTURE (ELMIRA COL COUNT) ([id number])Ordered By: Filler Blender on 10-10-2013 Bacteria identified Cx Nom (U) ECV Abnormal [facility] Work Phone: Comment on above: Escherichia coli, id entified by an automated biochemical system.400 Colonies/mL S = Susceptible; I = Intermediate; R = Resistant P = Positive; N = Negative MICS are expressed in micrograms per mL Antibiotic RSLT#1 RSLT#2 RSLT#3 RSLT#4Amoxicillin/Clavulanic Acid SAmpicillin SCefepime SCeftriaxone SCefuroxime SCephalothin ICiprofloxacin RErtapenem SGentamicin SImipenem SLevofloxacin RNitrofurantoin SPiperacillin STetracycline RTobramycin STrimethoprim/Sulfa R PATIENT NOT FASTINGP ERFORMED BY: [employer] [facility] Dkftby9507 [address] Asterias BiotherapeuticsFirstHealth Montgomery Memorial Hospital [id number] Information: SRC:UR [id number] Bacteria identified Cx Nom (U) Final report Abnormal [facility] Work Phone: Comment on above: PATIENT NOT FASTINGP ERFORMED BY: [employer] [facility] Mwyizr8760 [address] Tech urSelfFormerly [facility] [id number] Information: SRC:UR [id number] T3, FREE (TRIDOTHYRONINE) (6 4816)Ordered By: Filler Blender on 08-29-2013 T3 free mass conc 2.3 pg/mL Normal 2.0-4.4 Compreh ensive Internal Medicine Work Phone: Comment on above: PATIENT NOT FASTINGP ERFORMED BY: CB [facility] Bcgkbq6380 [address] RoadDublin [place] [id number] T4, FREE (THYROXINE) ([id number]) Ordered By: Filler Blender on 08-29-2013 T4 free mass conc 1.32 ng/dL Normal 0.82-1.77 Compreh ensive Internal Medicine Work Phone: Comment on above: PATIENT NOT FASTINGP ERFORMED BY: CB [facility] Skilar7521 [address] RoadFormerly [facility] [id number] Information: [id number] TSH (THYROID STIMULATING HOR RACHEL) ([id number])Ordered By: Filler Blender on 08-29-2013 Thyrotropin Qn 0.073 {uIU/mL} Abnormal 0.450-4.500 Compr ensive Internal Medicine Work Phone: Comment on above: PATIENT NOT FASTINGP ERFORMED BY: MAIA [facility] Stitza5316 [address] [place] [id number] BILAT SCRN DIGITAL & CADOrde red By: Filler Blender on 12-06-2012 BILAT SCRN DIGITAL & CAD See Note Normal [facility] Work Phone: Comment on above: MAMMOGRAPHY - BILATE RAL SCREENING REASON FOR EXAM: Female, 47 years old. Routine annual screeningexamination. PERTINENT HISTORY: Non-contributory. TECHNIQUE: Digital examination. Mediolateral oblique (MLO) andcraniocaudad (CC) views of both breasts were obtained. CAD: CAD wasperformed on this study. COMPARISON: Comparison is made with prior studies dated July 07nd January 18, 2010. FINDINGS:The breast composition is composed of scattered fibroglandular tissuesranging from 25% to 50% of the breast. There are no dominant masses or suspicious calcifications. No other significant abnormalities are identified. There has been nosignificant change since the prior study. IMPRESSION:Stable bilateral screening mammogram. Yearly follow-up recommended. (A) ASSESSMENT CATEGORY:BIRADS Category 2: Benign finding(s). A letter regarding these resultswill be sent to the patient by the facility within 30 days. Approximately 10% of breast cancers are not detected by mammography. Anormal mammogram should not delay biopsy of a clinically suspiciousabnormality. Signed:Jim Dooley M.D.December 06, 2012 at 10:55:54 AM [id number] Signed GP/GP If you are the referring physician and would like to consult with theradiologist who provided this interpretation, please contact Renny Ott at [phone]. If this radiologist is unavailable, youwill be directed to another radiologist to assist. If you are a patient with a question regarding this report, pleasecontactyour referring physician directly. Professional Interpretation Provided By: Bradley Phone , These documents contain legally protected and confidential healthinformation intended only for the use of the individual or entity namedabove. If you are not the intended recipient, you are hereby notifiedthatany disclosure, copying, distribution, or other use of these documents isstrictly prohibited. If you have received this information in error,pleasenotify the sender immediately and arrange for the return or destructionofthese documents. Dictated on 12/06/12 1055 by Melony GASTON,Jnranscribed on 12/06/12 1107 by ITS IMPORTSign by Melony GASTON,Jim on 12/06/12 1105 Sign by: Jim Dooley MD T3, FREE (TRIDOTHYRONINE) (2 6070)Ordered By: Filler Blender on 12-05-2012 T3 free mass conc 4.7 pg/mL Abnormal 2.0-4.4 Compreh ensive Internal Medicine Work Phone: Comment on above: PATIENT NOT FASTINGP ERFORMED BY: [facility] Lnelku5514 [facility] [id number] T4, FREE (THYROXINE) ([id number]) Ordered By: Filler Blender on 12-05-2012 T4 free mass conc 1.93 ng/dL Abnormal 0.82-1.77 Compreh ensive Internal Medicine Work Phone: Comment on above: PATIENT NOT FASTINGP ERFORMED BY: [facility] Yoqejx7655 [facility] [id number] Information: [id number] TSH ([id number])Ordered By: Irenee m Manager Animal on 12-05-2012 Thyrotropin Qn 0.006 {uIU/mL} Abnormal 0.450-4.500 Compr ehensive Internal Medicine Work Phone: Comment on above: PATIENT NOT FASTINGP ERFORMED BY: [employer] Cjjgkb3505 [facility] [id number] URINE DONNA CULTURE (ELMIRA COL COUNT) ([id number])Ordered By: Filler Blender on 11-07-2012 Bacteria identified Cx Nom (U) Escherichia coli Normal [facility] Work Phone: Comment on above: 10,000-25,000 colony forming units per mL PATIENT NOT FASTINGP ERFORMED BY: [facility] Zzaddg3377 [facility] [id number] Information: SRC:UR [id number] Bacteria identified Cx Nom (U) Final report Normal [facility] Work Phone: Comment on above: PATIENT NOT FASTINGP ERFORMED BY: [facility] Zvhygj5321 [facility] [id number] Information: SRC:UR [id number] Bacteria identified Cx Nom (U) Enterococcus faecalis Normal Comprehens olga Internal Medicine Work Phone: Comment on above: 2,000 Colonies/mLNot e: this isolate is vancomycin-susceptible.This information is provided for epidemiologic purposesonly: vancomycin is not among the antibioticsrecommended for therapy of urinary tract infectionscaused by Enterococcus.For Enterococcus species, cephalosporins, aminoglycosides (except forhigh-level resistance screening), clindamycin, and trimethoprim-sulfamethoxazole are not effective clinically. Fluoroquinolones areused primarily for treating urinary tract infections. (CLSI, T864-V51,2009) PATIENT NOT FASTINGP ERFORMED BY: [facility] Myzelb8043 [facility] [id number] Information: SRC:UR I45954 Other Antibiotic [facility] Normal [facility] Work Phone: Comment on above: S = Susceptibl e; I = Intermediate; R = Resistant P = Positive; N = Negative MICS are expressed in micrograms per mL Antibiotic RSLT#1 RSLT#2 RSLT#3 RSLT#4Amoxicillin/Clavulanic Acid SAmpicillin SCefazolin SCefepime SCeftriaxone SCefuroxime SCephalothin ICiprofloxacin R SESBL NErtapenem SGentamicin SImipenem SLevofloxacin R SNitrofurantoin S SPenicillin SPiperacillin STetracycline R RTobramycin STrimethoprim/Sulfa RVancomycin S PATIENT NOT FASTINGP ERFORMED BY: [facility] Kpejov1024 [address] [facility] [id number] Information: SRC:UR [id number] URINE DONNA CULTURE-IDENTIFICA [place] (34336)Ordered By: Filler Blender on 11-04-2012 Bacteria identified Cx Nom (U) Final report Normal [facility] Work Phone: Comment on above: PATIENT NOT FASTINGP ERFORMED BY: CB [facility] Qchxdy8461 [address] [facility] [id number] Information: SRC: URINE Bacteria identified Cx Nom (U) Escherichia coli Normal [facility] Work Phone: Comment on above: Greater than 100,000 colony forming units per mL PATIENT NOT FASTINGP ERFORMED BY: [employer] [facility] Swcxql9034 [address] [facility] [id number] Information: SRC: URINE Other Antibiotic susc MIHEAD Normal [facility] Work Phone: Comment on above: S = Susceptibl e; I = Intermediate; R = Resistant P = Positive; N = Negative MICS are expressed in micrograms per mL Antibiotic RSLT#1 RSLT#2 RSLT#3 RSLT#4Amoxicillin/Clavulanic Acid SAmpicillin SCefazolin SCefepime SCeftriaxone SCefuroxime SCephalothin ICiprofloxacin RESBL NErtapenem SGentamicin SImipenem SLevofloxacin RNitrofurantoin SPiperacillin STetracycline RTobramycin STrimethoprim/Sulfa R PATIENT NOT FASTINGP ERFORMED BY: [facility] Sbsseq1510 [address] [facility] [id number] Information: SRC: URINE Urinalysis, Office ([id number])Or dered By: Ashwini Ortiz on 11-04-2012 Bilirubin Ql (U) Negative Normal Comprehe nsive Internal Medicine Work Phone: Bilirubin Ql (U) Negative Normal Comprehe nsive Internal Medicine; [facility] Work Phone: Glucose Test strip (U) [Mass/Vol] Negative Normal [facility]; [facility] Work Phone: Glucose Test strip mass conc (U) Negative Normal [facility] Work Phone: Hemoglobin Ql (U) Non Hemolyzed Trace Normal [facility] Work Phone: Hemoglobin Test strip Ql (U) Non Hemolyzed Trace Normal Comprehensiv e Internal Medicine Work Phone: Ketones Ql (U) Small Normal Comprehens olga Internal Medicine Work Phone: Leukocyte esterase Test strip Ql (U) Trace Normal [facility] Work Phone: Nitrite Ql (U) Negative Normal Comprehens olga Internal Medicine Work Phone: Nitrite Ql (U) Negative Normal Comprehens olga [facility] Medicine; [facility] Work Phone: Nitrite Test strip Ql (U) Negative Normal [facility] Work Phone: pH (U) 6.0 [pH] Normal [facility] Work Phone: pH Test strip (U) 6.0 [pH] Normal Compreh ensive Internal Medicine Work Phone: Protein Ql (U) Negative Normal Comprehens olga Internal Medicine Work Phone: Protein Ql (U) Negative Normal Comprehens olga [facility] Medicine; [facility] Work Phone: Protein Test strip Ql (U) Negative Normal [facility] Work Phone: Specific gravity Relative Density (U) 1.015 1 Normal Comprehensi ve Internal Medicine Work Phone: Urobilinogen mass/time (24H U) Normal Normal [facility] Work Phone: Allergen Profile, Food-Grain Ordered By: Filler Blender on 10-15-2012 Allergen Profile, Food-Grain SPRCS Normal [facility] Work Phone: Comment on above: Levels of Specific I gE Class Description of Class ----- <0.08 0 Negative 0.08 - 0.15 I 0.16 - 0.50 II Increasing 0.51 - 2.50 III levels 2.51 - 12.50 IV of 12.51 - 62.50 V Specific IgE 62.51 - >100.00 Antibody Test(s) 471970-M544- IgE Lactalbumin, Alpha; 939493-H223-OeN Lactoglobulin, Beta; 956984-K465-EyJ Casein; 714458-H446-MpC Blue Cheese Mold Chewere developed and had performance characteristics determined byLabCoProtiva Biotherapeutics. These tests have not been cleared or approved by the U.S.Food and Drug Administration. The FDA has determined that suchclearance or approval is not necessary. These tests are used forclinical purposes. These should not be regarded as investigationalor for research.PERFORMED BY: [employer] [address] [id number] BY: UNATION [facility] [id number] Allergen Profile, Food-MilkO rdered By: Filler Blender on 10-15-2012 Albumin mass conc g/dL Normal [facility]preh [facility] Internal [facility] Work Phone: Comment on above: Test(s) 324463-B156- IgE Lactalbumin, Alpha; 733763-D890-CiL Lactoglobulin, Beta; 798102-K543-IcQ Casein; 797106-I920-TrH Blue Cheese Mold Chewere developed and had performance characteristics determined byLabTissue Genesis. These tests have not been cleared or approved by the U.S.Food and Drug Administration. The FDA has determined that suchclearance or approval is not necessary. These tests are used forclinical purposes. These should not be regarded as investigationalor for research.PERFORMED BY: [facility] [address] [id number] BY: Muz[employer]all70 [facility] [id number] Allergen Profile, Food-Milk <0.08 Normal [facility] Work Phone: Comment on above: Test(s) 684335-A755- IgE Lactalbumin, Alpha; 714783-S917-JmA Lactoglobulin, Beta; 032861-E909-PcO Casein; 680785-N946-KaY Blue Cheese Mold Chewere developed and had performance characteristics determined by[facility]. These tests have not been cleared or approved by the U.S.Food and Drug Administration. The FDA has determined that suchclearance or approval is not necessary. These tests are used forclinical purposes. These should not be regarded as investigationalor for research.PERFORMED BY: [facility] [address] [id number] BY: [employer]6370 [facility] [id number] TSHOrdered By: System Manage r on 10-15-2012 Thyrotropin Qn 0.036 {uIU/mL} Abnormal 0.450-4.500 Compr [facility] Internal Medicine Work Phone: Comment on above: Test(s) 764106-Q577- IgE Lactalbumin, Alpha; 362610-O418-NwU Lactoglobulin, Beta; 212794-Y304-RdM Casein; 735784-V797-XkP Blue Cheese Mold Chewere developed and had performance characteristics determined byLabCorp. These tests have not been cleared or approved by the U.S.Food and Drug Administration. The FDA has determined that suchclearance or approval is not necessary. These tests are used forclinical purposes. These should not be regarded as investigationalor for research.PERFORMED BY: [facility] [address] [id number] BY: [employer]6370 [facility] [id number] Thyroxine (T4) Free, Direct, SOrdered By: Filler Blender on 10-15-2012 T4 free mass conc 1.27 ng/dL Normal 0.82-1.77 [facility] Internal Medicine Work Phone: Comment on above: Test(s) 720202-G027- IgE Lactalbumin, Alpha; 256556-Y174-SwN Lactoglobulin, Beta; 373081-F291-AxK Casein; 099808-X533-EpJ Blue Cheese Mold Chewere developed and had performance characteristics determined byLabCorp. These tests have not been cleared or approved by the U.S.Food and Drug Administration. The FDA has determined that suchclearance or approval is not necessary. These tests are used forclinical purposes. These should not be regarded as investigationalor for research.PERFORMED BY: [facility] [address] [id number] BY: [employer]70 [place] [id number] Triiodothyronine,Free,SerumO rdered By: Filler Blender on 10-15-2012 T3 free mass conc 5.0 pg/mL Abnormal 2.0-4.4 Compreh ensive Internal Medicine Work Phone: Comment on above: Test(s) 526181-J500- IgE Lactalbumin, Alpha; 221695-O029-OzY Lactoglobulin, Beta; 279243-A282-TnZ Casein; 152200-Y362-TmJ Blue Cheese Mold Chewere developed and had performance characteristics determined by[employer]. These tests have not been cleared or approved by the U.S.Food and Drug Administration. The FDA has determined that suchclearance or approval is not necessary. These tests are used forclinical purposes. These should not be regarded as investigationalor for research.PERFORMED BY: [facility] [employer] [address] [id number] BY: [employer]6370 KanchufangTriStar [facility] [id number] Creatine Kinase (CK), MBOrde red By: Filler Blender on 09-13-2012 CK.MB mass conc 2.1 ng/mL Normal 0.0-2.9 Comprehen [facility] Internal [facility] Work Phone: Comment on above: PERFORMED BY: [employer] [place] [id number] Creatine Kinase,Total,SerumO rdered By: Filler Blender on 09-13-2012 CK enzyme act/vol 97 U/L Normal 24-173 Compreh ensive Internal Medicine Work Phone: Comment on above: PERFORMED BY: MendorFirst[facility] [id number] Troponin IOrdered By: Filler Blender on 09-13-2012 Troponin I.cardiac mass conc ng/mL Normal [facility] Work Phone: Comment on above: PERFORMED BY: [employer]6370 NeedFeedFormerly [facility] [id number] T3, FREE (TRIDOTHYRONINE) (8 [id number])Ordered By: Filler Blender on 08-30-2012 T3 free mass conc 1.9 pg/mL Abnormal 2.0-4.4 [facility] Work Phone: Comment on above: PATIENT NOT FASTINGP ERFORMED BY: Muzicall70 Unicorn ProductionFirstHealth [facility] [id number] TSH ([id number])Ordered By: Jonas m Manager Animal on 08-30-2012 Thyrotropin Qn 3.730 {uIU/mL} Normal 0.450-4.500 Compr ensive Internal Medicine Work Phone: Comment on above: PATIENT NOT FASTINGP ERFORMED BY: [employer]6[address] [facility] [id number] Information: [id number] TSH ([id number])Ordered By: Jonas m Manager Animal on 05-24-2012 Thyrotropin Qn 0.204 {uIU/mL} Abnormal 0.450-4.500 Compr ensive Internal Medicine Work Phone: Comment on above: PATIENT NOT FASTINGP ERFORMED BY: [employer]6370 NeedFeedFormerly [facility] [id number] Information: [id number] Upper Respiratory CultureOrd ered By: Filler Blender on 04-11-2012 Bacteria identified Respiratory culture Nom (Unsp spec) Final report Normal [facility] Work Phone: Comment on above: PERFORMED BY: SendGrid6370 Unicorn ProductionFirstHealth [facility] [id number] Information: SRC:TH Bacteria identified Respiratory culture Nom (Unsp spec) RRF Normal [facility] Work Phone: Comment on above: Routine respiratory clarisa PERFORMED BY: LeukoDx70 [facility] [id number] Information: SRC:TH CBC with manual diff ([id number]) Ordered By: Filler Blender on 03-27-2012 Basophils (Bld) [#/Vol] 0.0 {x10E3/uL} Normal 0.0-0.2 [facility] Work Phone: Comment on above: PATIENT NOT FASTINGP ERFORMED BY: MAIA [address] [id number] Information: [id number] Basophils (Bld) [#/Vol] 0.0 10*3/uL Normal 0.0-0.2 [facility]; [facility] Work Phone: Comment on above: PATIENT NOT FASTINGP ERFORMED BY: MAIA [address] [id number] Information: [id number] Basophils Auto #/vol (Bld) 0.0 {x10E3/uL} Normal 0.0-0.2 [facility] Work Phone: Basophils/100 WBC (Bld) 1 % Normal 0-3 [facility] Work Phone: Comment on above: PATIENT NOT FASTINGP ERFORMED BY: MAIA [address] [id number] Information: [id number] Basophils/100 WBC Auto (Bld) 1 % Normal 0-3 [facility] Work Phone: Eosinophils (Bld) [#/Vol] 0.3 {x10E3/uL} Normal 0.0-0.4 [facility] Work Phone: Comment on above: PATIENT NOT FASTINGP ERFORMED BY: [address] [id number] Information: [id number] Eosinophils (Bld) [#/Vol] 0.3 10*3/uL Normal 0.0-0.4 [facility]; [facility] Work Phone: Comment on above: PATIENT NOT FASTINGP ERFORMED BY: MAIA [address] [id number] Information: [id number] Eosinophils Auto #/vol (Bld) 0.3 {x10E3/uL} Normal 0.0-0.4 [facility] Work Phone: Eosinophils/100 WBC (Bld) 5 % Normal 0-7 [facility] Work Phone: Comment on above: PATIENT NOT FASTINGP ERFORMED BY: [address] [id number] Information: [id number] Eosinophils/100 WBC Auto (Bld) 5 % Normal 0-7 [facility] Work Phone: Erythrocyte distribution width (RBC) [Ratio] 14.4 % Normal 12.3-15.4 [facility] Work Phone: Comment on above: PATIENT NOT FASTINGP ERFORMED BY: MAIA [place] [id number] [facility] [id number] Information: L35165 Erythrocyte distribution width Auto Ratio (RBC) 14.4 % Normal 12.3-15.4 [facility] Work Phone: Hematocrit (Bld) [Volume fraction] 39.6 % Normal 34.0-46.6 [facility] Work Phone: Comment on above: PATIENT NOT FASTINGP ERFORMED BY: MAIA [place] [id number] [facility] [id number] Information: [id number] Hematocrit Auto Volume Fraction (Bld) 39.6 % Normal 34.0-46.6 [facility] Work Phone: Hemoglobin mass conc (Bld) 12.9 g/dL Normal 11.1-15.9 [facility] Work Phone: Comment on above: PATIENT NOT FASTINGP ERFORMED BY: MAIA [place] [id number] [facility] [id number] Information: [id number] Immature granulocytes #/vol (Bld) 0.0 {x10E3/uL} Normal 0.0-0.1 [facility] Work Phone: Comment on above: PATIENT NOT FASTINGP ERFORMED BY: MAIA Wyatt Yhovto3362 [facility] [id number] Information: [id number] Immature granulocytes (Bld) [#/Vol] 0.0 10*3/uL Normal 0.0-0.1 [facility]; [facility] Work Phone: Comment on above: PATIENT NOT FASTINGP ERFORMED BY: MAIA Wyatt Vvqine[address] [id number] Information: [id number] Immature granulocytes/100 WBC (Bld) 0 % Normal 0-2 [facility] Work Phone: Comment on above: PATIENT NOT FASTINGP ERFORMED BY: MAIA Wyatt Gjcccr[address] [id number] Information: [id number] Lymphocytes (Bld) [#/Vol] 2.6 {x10E3/uL} Normal 0.7-4.5 [facility] Work Phone: Comment on above: PATIENT NOT FASTINGP ERFORMED BY: Jose Cruz[address] [id number] Information: [id number] Lymphocytes (Bld) [#/Vol] 2.6 10*3/uL Normal 0.7-4.5 [facility]; [facility] Work Phone: Comment on above: PATIENT NOT FASTINGP ERFORMED BY: Jose Cruz[address] [id number] Information: [id number] Lymphocytes Auto #/vol (Bld) 2.6 {x10E3/uL} Normal 0.7-4.5 [facility] Work Phone: Lymphocytes/100 WBC (Bld) 43 % Normal 14-46 [facility] Work Phone: Comment on above: PATIENT NOT FASTINGP ERFORMED BY: [place] 1368870 [facility] [id number] Information: [id number] Lymphocytes/100 WBC Auto (Bld) 43 % Normal 14-46 [facility] Work Phone: MCH (RBC) [Entitic mass] 26.4 pg Abnormal 26.6-33.0 [facility] Work Phone: Comment on above: PATIENT NOT FASTINGP ERFORMED BY: MAIA [facility] CenterAmbar RoyYgwzup8533 [facility] [id number] Information: E76097 MCH Auto Entitic mass (RBC) 26.4 pg Abnormal 26.6-33.0 [facility] Work Phone: MCHC (RBC) [Mass/Vol] 32.6 g/dL Normal 31.5-35.7 [facility] Work Phone: Comment on above: PATIENT NOT FASTINGP ERFORMED BY: MAIA [facility] Wsjiwb5166 [facility] [id number] Information: [id number] MCHC Auto mass conc (RBC) 32.6 g/dL Normal 31.5-35.7 [facility] Work Phone: MCV (RBC) [Entitic vol] 81 fL Normal 79-97 [facility] Work Phone: Comment on above: PATIENT NOT FASTINGP ERFORMED BY: MAIA [facility] CenterAmbar RoyTtbcpz9131 [facility] [id number] Information: [id number] MCV Auto Entitic volume (RBC) 81 fL Normal 79-97 [facility] Work Phone: Monocytes (Bld) [#/Vol] 0.6 {x10E3/uL} Normal 0.1-1.0 [facility] Work Phone: Comment on above: PATIENT NOT FASTINGP ERFORMED BY: MAIA [place] [id number] [facility] [id number] Information: [id number] Monocytes (Bld) [#/Vol] 0.6 10*3/uL Normal 0.1-1.0 [facility]; [facility] Work Phone: Comment on above: PATIENT NOT FASTINGP ERFORMED BY: MAIA [facility] Wabtnk[address] [place] [id number] Information: [id number] Monocytes Auto #/vol (Bld) 0.6 {x10E3/uL} Normal 0.1-1.0 [facility] Work Phone: Monocytes/100 WBC (Bld) 10 % Normal 4-13 [facility] Work Phone: Comment on above: PATIENT NOT FASTINGP ERFORMED BY: MAIA [facility] Jsgbee1202 [facility] [id number] Information: [id number] Monocytes/100 WBC Auto (Bld) 10 % Normal 4-13 [facility] Work Phone: Neutrophils (Bld) [#/Vol] 2.5 {x10E3/uL} Normal 1.8-7.8 [facility] Work Phone: Comment on above: PATIENT NOT FASTINGP ERFORMED BY: MAIA [facility] CenterKaitlyn Jnbcxf8066 [facility] [id number] Information: [id number] Neutrophils (Bld) [#/Vol] 2.5 10*3/uL Normal 1.8-7.8 [facility]; [facility] Work Phone: Comment on above: PATIENT NOT FASTINGP ERFORMED BY: MAIA Jose CruzAmbar RoyChbpdc2475 [facility] [id number] Information: [id number] Neutrophils Auto #/vol (Bld) 2.5 {x10E3/uL} Normal 1.8-7.8 [facility] Work Phone: Neutrophils/100 WBC (Bld) 41 % Normal 40-74 [facility] Work Phone: Comment on above: PATIENT NOT FASTINGP ERFORMED BY: MAIA [place] [id number] [facility] [id number] Information: [id number] Neutrophils/100 WBC Auto (Bld) 41 % Normal 40-74 [facility] Work Phone: Platelets (Bld) [#/Vol] 327 {x10E3/uL} Normal 140-415 [facility] Work Phone: Comment on above: PATIENT NOT FASTINGP ERFORMED BY: MAIA Byers70 [facility] [id number] Information: [id number] Platelets (Bld) [#/Vol] 327 10*3/uL Normal 140-415 [facility]; [facility] Work Phone: Comment on above: PATIENT NOT FASTINGP ERFORMED BY: MAIA Byers70 [facility] [id number] Information: [id number] Platelets Auto #/vol (Bld) 327 {x10E3/uL} Normal 140-415 [facility] Work Phone: RBC (Bld) [#/Vol] 4.88 {x10E6/uL} Normal 3.77-5.28 [facility] Internal Medicine Work Phone: Comment on above: PATIENT NOT FASTINGP ERFORMED BY: MAIA Michaels6370 [facility] [id number] Information: [id number] RBC (Bld) [#/Vol] 4.88 10*6/uL Normal 3.77-5.28 [facility] Internal Medicine; [facility] Work Phone: Comment on above: PATIENT NOT FASTINGP ERFORMED BY: MAIA Roylin6370 [facility] [id number] Information: [id number] RBC Auto #/vol (Bld) 4.88 {x10E6/uL} Normal 3.77-5.28 [facility] Work Phone: WBC (Bld) [#/Vol] 6.0 {x10E3/uL} Normal 4.0-10.5 [facility] Internal Medicine Work Phone: Comment on above: PATIENT NOT FASTINGP ERFORMED BY: MAIA Roylin6370 [facility] [id number] Information: [id number] WBC (Bld) [#/Vol] 6.0 10*3/uL Normal 4.0-10.5 [facility] Internal Medicine; [facility] Work Phone: Comment on above: PATIENT NOT FASTINGP ERFORMED BY: MAIA LabAmbar Michaels6370 [address] RoadDublin [place] [id number] Information: [id number] WBC Auto #/vol (Bld) 6.0 {x10E3/uL} Normal 4.0-10.5 [facility] Work Phone: Metabolic Panel, Comprehensi ve ([id number])Ordered By: Filler Blender on 03-27-2012 Albumin mass conc 4.1 g/dL Normal 3.5-5.5 [facility] Work Phone: Comment on above: PATIENT NOT FASTINGP ERFORMED BY: MAIA LabAmbar RoyMuydfj8906 Luciano RoadDublin [place] [id number] Albumin/Globulin mass ratio 1.5 {ratio} Normal 1.1-2.5 [facility] Work Phone: Comment on above: PATIENT NOT FASTINGP ERFORMED BY: MAIA [facility] Mbxvzs1895 [address]iano RoadDublin [place] [id number] ALP [Catalytic activity/Vol] 73 U/L Normal 25-150 [facility]; [facility] Work Phone: Comment on above: PATIENT NOT FASTINGP ERFORMED BY: MAIA [facility] Cfqohh8071 [address] RoadDublin [place] [id number] ALP enzyme act/vol 73 [iU]/L Normal 25-150 [facility] Internal Medicine Work Phone: Comment on above: PATIENT NOT FASTINGP ERFORMED BY: CB [facility] Tywggl6248 [address] RoadDublin [place] [id number] ALT [Catalytic activity/Vol] 19 U/L Normal 0-40 [facility]; [facility] Work Phone: Comment on above: PATIENT NOT FASTINGP ERFORMED BY: MAIA [facility] Hvzgmn2798 [address] RoadDublin [place] [id number] ALT enzyme act/vol 19 [iU]/L Normal 0-40 [facility] Internal Medicine Work Phone: Comment on above: PATIENT NOT FASTINGP ERFORMED BY: MAIA [facility] Mpkioq1840 [address] RoadDublin [place] [id number] AST [Catalytic activity/Vol] 22 U/L Normal 0-40 [facility]; [facility] Work Phone: Comment on above: PATIENT NOT FASTINGP ERFORMED BY: CB [facility] Odhjcv5771 [address] RoadDublin [place] [id number] AST enzyme act/vol 22 [iU]/L Normal 0-40 Compre hensive Internal Medicine Work Phone: Comment on above: PATIENT NOT FASTINGP ERFORMED BY: MAIA [facility] Osczfh1713 [address] RoadDublin [place] [id number] Bilirubin mass conc 0.4 mg/dL Normal 0.0-1.2 Compr ehensive Internal Medicine Work Phone: Comment on above: PATIENT NOT FASTINGP ERFORMED BY: MAIA [facility] Qkgquv4713 [address] RoadDublin [place] [id number] Calcium mass conc 8.7 mg/dL Normal 8.7-10.2 Compreh ensive Internal Medicine Work Phone: Comment on above: PATIENT NOT FASTINGP ERFORMED BY: MAIA [facility] Zijhyr2232 [address] RoadDublin [place] [id number] Chloride molar conc 101 mmol/L Normal 97-108 Compr ensive Internal Medicine Work Phone: Comment on above: PATIENT NOT FASTINGP ERFORMED BY: MAIA [facility] Awgffj8796 [address] RoadDublin [place] [id number] CO2 molar conc 22 mmol/L Normal 20-32 Comprehens olga Internal Medicine Work Phone: Comment on above: PATIENT NOT FASTINGP ERFORMED BY: CB [facility] Oydehs0397 [address] RoadDublin [place] [id number] Creatinine mass conc 0.73 mg/dL Normal 0.57-1.00 Comp rehensive Internal Medicine Work Phone: Comment on above: PATIENT NOT FASTINGP ERFORMED BY: CB [facility] Ojskgl7170 [address] RoadDublin [place] [id number] GFR/1.73 sq M predicted among blacks CKD-EPI vol rate/area (S/P/Bld) 115 mL/min/1.73 Normal Comprehensiv e Internal Medicine Work Phone: Comment on above: PATIENT NOT FASTINGP ERFORMED BY: CB [facility] Urbotb3154 [address] RoadDublin [place] [id number] GFR/1.73 sq M predicted among non-blacks CKD-EPI vol rate/area (S/P/Bld) 100 mL/min/1.73 Normal [facility] Work Phone: Comment on above: PATIENT NOT FASTINGP ERFORMED BY: CB [facility] Lsfumn9260 [address]Dublin [place] [id number] Globulin (S) [Mass/Vol] 2.7 g/dL Normal 1.5-4.5 [facility] Work Phone: Comment on above: PATIENT NOT FASTINGP ERFORMED BY: CB [facility] Spfrvz0798 [address] RoadFirsthealth Montgomery Memorial Hospitalin [place] [id number] Globulin Calculated mass conc (S) 2.7 g/dL Normal 1.5-4.5 [facility] Work Phone: Glucose mass conc 76 mg/dL Normal 65-99 Compreh ensive Internal Medicine Work Phone: Comment on above: PATIENT NOT FASTINGP ERFORMED BY: CB [facility] Bgoaqt9747 [address] [facility]in [place] [id number] Potassium molar conc 4.0 mmol/L Normal 3.5-5.2 Comp rehensive Internal Medicine Work Phone: Comment on above: PATIENT NOT FASTINGP ERFORMED BY: CB [facility] Caaqcv[address] [facility] Centerblin [place] [id number] Protein mass conc 6.8 g/dL Normal 6.0-8.5 Compreh ensive Internal Medicine Work Phone: Comment on above: PATIENT NOT FASTINGP ERFORMED BY: CB [facility] Evfqmd[address] [facility] Centerblin [place] [id number] Sodium molar conc 138 mmol/L Normal 134-144 Compreh ensive Internal Medicine Work Phone: Comment on above: PATIENT NOT FASTINGP ERFORMED BY: CB [facility] Tprrwd6399 [address] urSelfFirsthealth Montgomery Memorial Hospitalin [place] [id number] Urea nitrogen mass conc 18 mg/dL Normal 6-24 [facility] Work Phone: Comment on above: PATIENT NOT FASTINGP ERFORMED BY: CB [facility] Zzxhoe6773 [address] urSelfFormerly [facility] [id number] Urea nitrogen/Creatinine mass ratio 25 mg/mg Abnormal 9- [facility] Work Phone: Comment on above: PATIENT NOT FASTINGP ERFORMED BY: CB [facility] Zvryhc7891 [address] [facility] [id number] TSH ([id number])Ordered By: Vigor Pharmamynor m Manager Animal on 03-27-2012 Thyrotropin Qn 0.128 {uIU/mL} Abnormal 0.450-4.500 Compr [facility] Internal Medicine Work Phone: Comment on above: PATIENT NOT FASTINGP ERFORMED BY: CB [facility] Iagomk4038 [facility] [id number] WRIST,MIN 3 VIEWSOrdered By: Filler Blender on 03-08-2012 WRIST,MIN 3 VIEWS See Note Normal Compreh ensive Internal Medicine Work Phone: Comment on above: PROCEDURE: X-RAY - R IGHT WRIST REASON FOR EXAM: Female, 4 years old. Pain following a fall. TECHNIQUE: Three views of the wrist were obtained. COMPARISON: None. FINDINGS:Normal visualized distal radius and ulna. Normal distal radioulnararticulation. Normal radiocarpal articulation. Normal carpal bones. Normal carpal articulations. Normal carpometacarpal articulation of the thumb. Normal second throughfifth carpometacarpal articulations. Normal visualized metacarpal bones. IMPRESSION:Normal x-ray examination of the wrist. Signed:Jim Dooley M.D.March 08, 2012 at 2:01:15 PM [phone] Signed GP/GP If you are the referring physician and would like to consult with theradiologist who provided this interpretation, please contact Renny Ott at [phone]. If this radiologist is unavailable, youwill be directed to another radiologist to assist. If you are a patient with a question regarding this report, pleasecontactyour referring physician directly. Professional Interpretation Provided By: [employer], Phone , These documents contain legally protected and confidential healthinformation intended only for the use of the individual or entity namedabove. If you are not the intended recipient, you are hereby notifiedthatany disclosure, copying, distribution, or other use of these documents isstrictly prohibited. If you have received this information in error,pleasenotify the sender immediately and arrange for the return or destructionofthese documents. Dictated on 03/08/12 1327 by Melony GASTON,Jnranscribed on 03/08/121406 by ITS IMPORTSign by Jim Dooley MD on 03/08/121406 Sign by: Jim Dooley MD PROCEDURE: X-RAY - R IGHT HAND REASON FOR EXAM: Female, 4 years old. Pain following a fall. TECHNIQUE: Three view(s) of the hand. COMPARISON: None. FINDINGS:Normal visualized carpal bones. Normal first metacarpus. Normal secondthrough fifth metacarpi. Normal phalanges. There is no demonstratedfracture. Normal carpal articulations. Normal carpometacarpal (CMC) articulation of the thumb. Normalmetacarpophalangeal (MCP) joint of the thumb. Normal interphalangeal(IP) joint of the thumb. Normal second through fifth carpometacarpal (CMC) joints. Normal secondthrough fifth metacarpophalangeal (MCP) joints. Normal proximalinterphalangeal (PIP) and distal interphalangeal (DIP) joints of thesecondthrough fifth fingers. IMPRESSION:Normal x-ray examination of the hand. Signed:Jim Dooley M.D.March 08, 2012 at 1:58:07 PM [phone] Signed GP/GP If you are the referring physician and would like to consult with theradiologist who provided this interpretation, please contact Renny Ott at [phone]. If this radiologist is unavailable, youwill be directed to another radiologist to assist. If you are a patient with a question regarding this report, pleasecontactyour referring physician directly. Professional Interpretation Provided By: [employer], Phone , These documents contain legally protected and confidential healthinformation intended only for the use of the individual or entity namedabove. If you are not the intended recipient, you are hereby notifiedthatany disclosure, copying, distribution, or other use of these documents isstrictly prohibited. If you have received this information in error,pleasenotify the sender immediately and arrange for the return or destructionofthese documents. Dictated on 03/08/12 1327 by Melony GASTON,Jnranscribed on 03/08/12 140 by ITS IMPORTSign by Melony GASTON,Jim on 03/08/12 140 Sign by: Jim Dooley MD ANCA PanelOrdered By: Filler Blender on 02-21-2012 Myeloperoxidase Ab IA Qn (S) <9.0 Normal 0.0-9.0 [facility] Work Phone: Comment on above: PERFORMED BY: [employer] [address] [id number] BY: Muzicall70 NeedFeedFormerly [facility] [id number] Neutrophil cytoplasmic Ab.classic IF titer (S) <1:20 Normal [facility] Work Phone: Comment on above: PERFORMED BY: [employer] [address] [id number] BY: [employer]6370 Unicorn ProductionFirstHealth [facility] Hospital [id number] Neutrophil cytoplasmic Ab.perinuclear IF titer (S) <1:20 Normal [facility] Work Phone: Comment on above: The presence of posi tive fluorescence exhibiting P-ANCA or C-ANCApatterns alone is not specific for the diagnosis of Chente'sGranulomatosis (WG) or microscopic polyangiitis. Decisions abouttreatment should not be based solely on ANCA IFA results. TheInternational ANCA Group Consensus recommends follow up testing ofpositive sera with both PA-3 and MPO-ANCA enzyme immunoassays. Asmany as 5% serum samples are positive only by EIA.Ref. AM J Clin Pathol 1999;111:507-513. PERFORMED BY: [employer] [address] [id number] BY: Muzicall70 NeedFeedFormerly [facility] [id number] Neutrophil cytoplasmic Ab.perinuclear.atypi ana IF titer (S) <1:20 Normal [facility] Work Phone: Comment on above: The atypical pANCA p attern has been observed in a significantpercentage of patients with ulcerative colitis, primary sclerosingcholangitis and autoimmune hepatitis. PERFORMED BY: [employer] [address] [id number] BY: Muzicall70 Unicorn ProductionFirstHealth [facility] Hospital [id number] Proteinase 3 Ab IA Qn (S) <3.5 Normal 0.0-3.5 [facility] Work Phone: Comment on above: PERFORMED BY: [employer] [address] [id number] BY: [employer]6370 Unicorn ProductionFirstHealth [facility] Hospital [id number] CBC With Differential/Platel etOrdered By: Filler Blender on 02-21-2012 Basophils (Bld) [#/Vol] 0.0 {x10E3/uL} Normal 0.0-0.2 [facility] Work Phone: Comment on above: PERFORMED BY: [employer] [address] [id number] BY: [employer]6370 Unicorn ProductionFirstHealth [facility] Hospital [id number] Basophils Auto #/vol (Bld) 0.0 {x10E3/uL} Normal 0.0-0.2 [facility] Work Phone: Basophils/100 WBC (Bld) 0 % Normal 0-3 [facility] Work Phone: Comment on above: PERFORMED BY: [employer] [address] [id number] BY: Muzicall70 NeedFeedFormerly [facility] [id number] Basophils/100 WBC Auto (Bld) 0 % Normal 0-3 [facility] Work Phone: Eosinophils (Bld) [#/Vol] 0.1 {x10E3/uL} Normal 0.0-0.4 [facility] Work Phone: Comment on above: PERFORMED BY: [employer] [address] [id number] BY: Muzicall70 [address] urSelfFormerly [facility] [id number] Eosinophils Auto #/vol (Bld) 0.1 {x10E3/uL} Normal 0.0-0.4 [facility] Work Phone: Eosinophils/100 WBC (Bld) 2 % Normal 0-7 [facility] Work Phone: Comment on above: PERFORMED BY: [employer] [address] [id number] BY: Muzicall70 [facility] [id number] Eosinophils/100 WBC Auto (Bld) 2 % Normal 0-7 [facility] Internal Medicine Work Phone: Erythrocyte distribution width (RBC) [Ratio] 14.3 % Normal 12.3-15.4 [facility] Work Phone: Comment on above: PERFORMED BY: Exaptive [address] [id number] BY: Muzicall70 NeedFeedFormerly [facility] [id number] Erythrocyte distribution width Auto Ratio (RBC) 14.3 % Normal 12.3-15.4 [facility] Work Phone: Hematocrit (Bld) [Volume fraction] 39.3 % Normal 34.0-46.6 [facility] Work Phone: Comment on above: PERFORMED BY: Exaptive [address] [id number] BY: MAIA [employer] Dot Rhnppu8931 Luciano RoadFirsthealth Montgomery Memorial Hospitalin [place] [id number] Hematocrit Auto Volume Fraction (Bld) 39.3 % Normal 34.0-46.6 [facility] Work Phone: Hemoglobin mass conc (Bld) 12.6 g/dL Normal 11.1-15.9 [facility] Work Phone: Comment on above: PERFORMED BY: Exaptive [address] [id number] BY: Muzicall70 [address] RoadFormerly [facility] [id number] Immature granulocytes #/vol (Bld) 0.0 {x10E3/uL} Normal 0.0-0.1 [facility] Work Phone: Comment on above: PERFORMED BY: Exaptive [address] [id number] BY: Muzicall70 [address] Tech urSelfFirsthealth Montgomery Memorial Hospitalin [place] [id number] Immature granulocytes/100 WBC (Bld) 0 % Normal 0-2 [facility] Work Phone: Comment on above: PERFORMED BY: Exaptive [address] [id number] BY: [employer].lin6370 [address] [facility]in [place] [id number] Lymphocytes (Bld) [#/Vol] 1.7 {x10E3/uL} Normal 0.7-4.5 [facility] Work Phone: Comment on above: PERFORMED BY: Exaptive [address] [id number] BY: [employer].lin6370 Luciano RoadFirsthealth Montgomery Memorial Hospitalin [place] [id number] Lymphocytes Auto #/vol (Bld) 1.7 {x10E3/uL} Normal 0.7-4.5 [facility] Work Phone: Lymphocytes/100 WBC (Bld) 24 % Normal 14-46 [facility] Work Phone: Comment on above: PERFORMED BY: Exaptive [address] [id number] BY: Muzicall70 NeedFeedFormerly [facility] [id number] Lymphocytes/100 WBC Auto (Bld) 24 % Normal 14-46 [facility] Work Phone: MCH (RBC) [Entitic mass] 26.6 pg Normal 26.6-33.0 [facility] Work Phone: Comment on above: PERFORMED BY: Exaptive [address] [id number] BY: Muzicall70 NeedFeedFormerly [facility] [id number] MCH Auto Entitic mass (RBC) 26.6 pg Normal 26.6-33.0 [facility] Work Phone: MCHC (RBC) [Mass/Vol] 32.1 g/dL Normal 31.5-35.7 [facility] Work Phone: Comment on above: PERFORMED BY: Exaptive [address] [id number] BY: Muzicall70 [facility]ianoSt[facility] [id number] MCHC Auto mass conc (RBC) 32.1 g/dL Normal 31.5-35.7 [facility] Work Phone: MCV (RBC) [Entitic vol] 83 fL Normal 79-97 [facility] Work Phone: Comment on above: PERFORMED BY: Exaptive [address] [id number] BY: Muzicall70 Unicorn ProductionFirstHealth Montgomery Memorial Hospital [id number] MCV Auto Entitic volume (RBC) 83 fL Normal 79-97 [facility] Work Phone: Monocytes (Bld) [#/Vol] 0.4 {x10E3/uL} Normal 0.1-1.0 [facility] Work Phone: Comment on above: PERFORMED BY: Exaptive [address] [id number] BY: Muzicall70 [facility] [id number] Monocytes Auto #/vol (Bld) 0.4 {x10E3/uL} Normal 0.1-1.0 [facility] Work Phone: Monocytes/100 WBC (Bld) 6 % Normal 4-13 [facility] Work Phone: Comment on above: PERFORMED BY: Ex[employer] [address] [id number] BY: Muzicall70 Luc[address] Tech urSelfFormerly [facility] [id number] Monocytes/100 WBC Auto (Bld) 6 % Normal -13 [facility] Work Phone: Neutrophils (Bld) [#/Vol] 5.0 {x10E3/uL} Normal 1.8-7.8 [facility] Work Phone: Comment on above: PERFORMED BY: Exaptive [address] [id number] BY: [employer]6370 [facility] [id number] Neutrophils Auto #/vol (Bld) 5.0 {x10E3/uL} Normal 1.8-7.8 [facility] Work Phone: Neutrophils/100 WBC (Bld) 68 % Normal 40-74 [facility] Work Phone: Comment on above: PERFORMED BY: Exapt[employer] [address] [id number] BY: [employer]6370 NeedFeedFormerly [facility] [id number] Neutrophils/100 WBC Auto (Bld) 68 % Normal 40-74 [facility] Work Phone: Platelets (Bld) [#/Vol] 259 {x10E3/uL} Normal 140-415 [facility] Internal Medicine Work Phone: Comment on above: PERFORMED BY: Exaptive [address] [id number] BY: Muzicall70 NeedFeedFormerly [facility] [id number] Platelets Auto #/vol (Bld) 259 {x10E3/uL} Normal 140-415 [facility] Internal Medicine Work Phone: RBC (Bld) [#/Vol] 4.74 {x10E6/uL} Normal 3.77-5.28 [facility] Internal Medicine Work Phone: Comment on above: PERFORMED BY: Exapt[employer] [address] [id number] BY: Muzicall70 [facility] [id number] RBC Auto #/vol (Bld) 4.74 {x10E6/uL} Normal 3.77-5.28 [facility] Internal Medicine Work Phone: WBC (Bld) [#/Vol] 7.4 {x10E3/uL} Normal 4.0-10.5 [facility] Internal Medicine Work Phone: Comment on above: PERFORMED BY: Exaptive [address] [id number] BY: [employer]6370 [facility] [id number] WBC Auto #/vol (Bld) 7.4 {x10E3/uL} Normal 4.0-10.5 [facility] Internal Medicine Work Phone: Immunoglobulins A/E/G/M, Ser umOrdered By: Filler Blender on 02-21-2012 IgA mass conc 346 mg/dL Normal 70-400 Comprehensi [facility] Work Phone: Comment on above: Effective 2011, the reference interval for Immunoglobulin A, Qn, Serum will be changing to: 0 - 11 months 11 - 58 1 - 2 years 20 - 101 3 - 6 years 44 - 189 7 - 12 years 62 - 236 13 - 17 years 77 - 278 18 years and older 91 - 414 PERFORMED BY: Exaptive [address] [id number] BY: IQumulusrp Uktlsl2799 Luciano RoadDublin [place] [id number] IgE Qn 23 {IU/mL} Normal 0-100 [facility] Work Phone: Comment on above: PERFORMED BY: Exaptive [address] [id number] BY: [employer]6370 [address] Tech urSelfDublin [place] [id number] IgG mass conc 1022 mg/dL Normal 700-1600 Comprehensi ve Internal Medicine Work Phone: Comment on above: PERFORMED BY: Exaptive [address] [id number] BY: [employer]6[address] Asterias BiotherapeuticsFirstHealth [facility] Hospital [id number] IgM mass conc 98 mg/dL Normal 40-230 Comprehensi ve Internal Medicine Work Phone: Comment on above: PERFORMED BY: Exaptive [address] [id number] BY: [employer] Asterias BiotherapeuticsFirstHealth Montgomery Memorial Hospital [id number] Protein Electro, Random Urin eOrdered By: Filler Blender on 02-21-2012 Albumin/Protein.tota l Elph mass fraction (U) 16.9 % Normal [facility] Work Phone: Comment on above: PERFORMED BY: Exaptive [address] [id number] BY: SERVICEINFINITY Tgvxxm6103 [address] Tech urSelfFormerly [facility] [id number] Alpha 1 globulin/Protein.tot al Elph mass fraction (U) 4.4 % Normal [facility] Work Phone: Comment on above: PERFORMED BY: Exaptive [address] [id number] BY: MAIA [facility] Yllhax3048 Luciano RoadFirsthealth Montgomery Memorial Hospitalin [place] [id number] Alpha 2 globulin/Protein.tot al Elph mass fraction (U) 28.6 % Normal [facility] Work Phone: Comment on above: PERFORMED BY: Exaptive [address] [id number] BY: MAIA [facility] [id number] [address] RoadFormerly [facility] [id number] Beta globulin/Protein.tot al Elph mass fraction (U) 20.6 % Normal [facility] Work Phone: Comment on above: PERFORMED BY: Exaptive [address] [id number] BY: MAIA [facility] Pystyf2780 [address] [facility] [id number] Gamma globulin/Protein.tot al Elph mass fraction (U) 29.5 % Normal [facility] Work Phone: Comment on above: PERFORMED BY: Exaptive [address] [id number] BY: MAIA [facility] Ivewwh1143 [facility] [id number] Laboratory comment Wayne (Report) [facility] Normal [facility] Work Phone: Comment on above: Protein electrophore sis scan will follow via computer, mail, orcourier delivery. PERFORMED BY: Exaptive [address] [id number] BY: MAIA [facility] Isnklt9448 [facility] [id number] Protein mass conc (U) 3.1 mg/dL Normal 0.0-15.0 [facility] Work Phone: Comment on above: PERFORMED BY: Exaptive [address] [id number] BY: MAIA [facility] Jjlrba5212 [address] [facility] [id number] Protein.monoclonal/P rotein.total Elph mass fraction (U) Not Observed Normal [facility] Work Phone: Comment on above: PERFORMED BY: Exaptive [address] [id number] BY: MAIA [employer] Viwket3161 [facility] [id number] Protein Electro.,SOrdered By : Filler Blender on 02-21-2012 Albumin mass conc 3.8 g/dL Normal 3.2-5.6 Compreh ensive Internal Medicine Work Phone: Comment on above: PERFORMED BY: Exaptive [address] [id number] BY: MAIA [employer]70 [facility] [id number] Albumin/Globulin mass ratio 1.3 {ratio} Normal 0.7-2.0 [facility] Work Phone: Comment on above: PERFORMED BY: Exaptive [address] [id number] BY: [employer]6370 [facility] [id number] Alpha 1 globulin Elph mass conc 0.2 g/dL Normal 0.1-0.4 [facility] Work Phone: Comment on above: PERFORMED BY: Exaptive [address] [id number] BY: [employer]lin6370 [facility] [id number] Alpha 2 globulin Elph mass conc 0.7 g/dL Normal 0.4-1.2 [facility] Work Phone: Comment on above: PERFORMED BY: Exaptive [address] [id number] BY: [employer] Hssxru9643 [facility] [id number] Beta globulin Elph mass conc 1.1 g/dL Normal 0.6-1.3 [facility] Work Phone: Comment on above: PERFORMED BY: Exaptive [address] [id number] BY: IQumulus Bwlwgp3900 [facility] [id number] Gamma globulin Elph mass conc 0.9 g/dL Normal 0.5-1.6 [facility] Work Phone: Comment on above: PERFORMED BY: Exaptive [address] [id number] BY: Muzicall70 [facility] [id number] Globulin (S) [Mass/Vol] 3.0 g/dL Normal 2.0-4.5 [facility] Work Phone: Comment on above: PERFORMED BY: Exaptive [address] [id number] BY: Muzicall70 [facility] [id number] Globulin Calculated mass conc (S) 3.0 g/dL Normal 2.0-4.5 [facility] Work Phone: Protein mass conc 6.8 g/dL Normal 6.0-8.5 Compreh ensive Internal Medicine Work Phone: Comment on above: PERFORMED BY: Exaptive [address] [id number] BY: Muzicall70 [facility] [id number] Protein.monoclonal Elph mass conc Not Observed Normal [facility] Work Phone: Comment on above: PERFORMED BY: Exaptive [address] [id number] BY: [employer]6370 [facility] [id number] Mycoplasma pneu. IgG/IgM Abs Ordered By: Filler Blender on 01-08-2012 M. pneumoniae IgG IA Qn (S) 644 U/mL Abnormal 0-99 [facility] Work Phone: Comment on above: Negative: <100 Indet erminate: 100 - 320 Positive: >320 The reference interval established is intended as a baseline only. Values >100 may indicate a recent infection with Mycoplasma pneumoniae and need to be confirmed either by a positive IgM result and/or an additional specimen drawn 2-4 weeks later showing a significant increase in antibody levels. PERFORMED BY: MilkyWaylin6370 [facility]ianoSt[facility] [id number] M. pneumoniae IgM IA Qn (S) <770 Normal 0-769 [facility] Work Phone: Comment on above: Negative <770 Clinic ally significant amount of M. pneumoniae antibody not detected. Low Positive 770 - 950 M. pneumoniae specific IgM presumptively detected. It is recommended that another sample be collected 1-2 weeks later to assure reactivity. Positive >950 Highly significant amount of M. pneumoniae specific IgM antibody detected. PERFORMED BY: MilkyWaylin6370 [facility] [id number] Bordetella Pertussis PCR (29 236)Ordered By: Filler Blender on 01-04-2012 B. parapertussis DNA KOLBY+probe Ql (Unsp spec) Negative Normal [facility] Work Phone: Comment on above: .This test was devel Race Nationed and its performance characteristics determinedby [employer]. It has not been cleared or approved by the.S. Food and Drug Administration. The FDA has determined that suchclearance or approval is not necessary. This test is used for clinicalpurposes. It should not be regarded as investigational or research. PATIENT NOT FASTINGP ERFORMED BY: Neurocrine BiosciencesRobert Wood Johnson [facility] [id number] Information: SRC:NOS [id number] B. parapertussis DNA KOLBY+probe Ql (Unsp spec) Negative Normal [facility]; [facility] Work Phone: Comment on above: .This test was devel oped and its performance characteristics determinedby [employer]. It has not been cleared or approved by the.S. Food and Drug Administration. The FDA has determined that suchclearance or approval is not necessary. This test is used for clinicalpurposes. It should not be regarded as investigational or research. PATIENT NOT FASTINGP ERFORMED BY: Neurocrine BiosciencesRobert Wood [facility] [id number] Information: SRC:NOS [id number] B. pertussis DNA KOLBY+probe Ql (Unsp spec) Negative Normal [facility] Work Phone: Comment on above: PATIENT NOT FASTINGP ERFORMED BY: 3sun Qkz8343 Mar[address] [place] [id number] Information: SRC:NOS [id number] B. pertussis DNA KOLBY+probe Ql (Unsp spec) Negative Normal [facility]; [facility] Work Phone: Comment on above: PATIENT NOT FASTINGP ERFORMED BY: 3sun Tpq1619 [address] [place] [id number] Information: SRC:NOS [id number] CULTURE, SPUTUM ([id number])Order ed By: Filler Blender on 01-03-2012 Bacteria identified Cx Nom (Sput) Final report Normal [facility] Work Phone: Comment on above: PATIENT NOT FASTINGP ERFORMED BY: CB [facility] Uigfkq2667 [facility] [id number] Information: SRC:[facility] [id number] Bacteria identified Cx Nom (Unsp spec) RRF Normal [facility] Work Phone: Comment on above: Routine respiratory clarisa PATIENT NOT FASTINGP ERFORMED BY: [employer] [facility] Vxrulc4363 [facility] [id number] Information: SRC:[facility] [id number] CHEST, PA AND LATERALOrdered By: Filler Blender on 12-29-2011 CHEST, PA AND LATERAL See Note Normal [facility] Work Phone: Comment on above: PROCEDURE: X-RAY [facility] REASON FOR EXAM: Female, 46 years old. Cough. TECHNIQUE: PA and lateral views of the chest. COMPARISON: CT scan of the thorax, April 16, 2009. FINDINGS: The lungs are expanded. There is no demonstrated parenchymalabnormality.There is no demonstrated pleural abnormality. Normal heart and pericardium. Normal mediastinum and aj. Normal visualized pulmonary arteries.Normalvisualized aortic arch and descending thoracic aorta. Normal visualized thoracic spine. Normal visualized ribs, clavicles, andshoulders. There is no demonstrated abnormality of the visualized soft tissuestructures of the upper abdomen. IMPRESSION:Normal x-ray examination of the chest. Signed:Emery Donald M.D.December 29, 2011 at 10:16:05 PM [phone] Signed MJ/MJ If you are the referring physician and would like to consult with theradiologist who provided this interpretation, please contact Renny Mcleod at . If this radiologist is unavailable, you will bedirected to another radiologist to assist. If you are a patient with a question regarding this report, pleasecontactyour referring physician directly. Professional Interpretation Provided By: Primordial, Phone , Dictated on 12/29/11 1528 by EMERY DONALDTranscribed on 12/30/11 1231 by ITS IMPORTSign by EMERY DONALD on 12/30/11 1232 Sign by: EMERY DONALD ESOPHAGUS ONLYOrdered By: Sy stem Manager Animal on 11-13-2011 ESOPHAGUS ONLY See Note Normal Comprehens olga Internal Medicine Work Phone: Comment on above: PROCEDURE: X-RAY - E SOPHAGUS (BARIUM SWALLOW) WITH FLUOROSCOPY REASON FOR EXAM: Female, 46 years old. Gastroesophageal refluxdisease. TECHNIQUE: Multiple views of the esophagus were obtained followingswallowing of barium. COMPARISON: None. FINDINGS:There is no demonstrated esophageal foreign body. There is nodemonstratedstricture or mucosal abnormality. Normal gastroesophageal junction,without a demonstrated hiatal hernia. The patient ingested a 12 mmtabletof barium without any difficulty. Normal visualized aortic arch and descending thoracic aorta. Normalvisualized pulmonary parenchyma. Normal visualized osseous structures of the thorax. IMPRESSION:Normal plain film x-ray examination (barium swallow) of the esophagus. Signed:Jim Dooley M.D.November 13, 2011 at 9:46:04 AM EDTElectronically Signed GP/GP Professional Interpretation Provided By: MeetMeTix RadiologyBe[facility], , To consult with a radiologist regarding this report, please call our [id number] line @ Dictated on 11/13/11 0907 by Melony GASTON,Keilascribed on 11/13/11 1012 by ITS IMPORTSign by Jim Dooley MD on 11/13/11 1013 Sign by: Jim Dooley MD CALCIFEDIOL ([id number])Ordered B y: Filler Blender on 11-03-2011 25-Hydroxyvitamin D2+25-Hydroxyvitamin D3 mass conc 17.7 ng/mL Abnormal 30.0-100.0 [facility] Work Phone: Comment on above: Vitamin D deficiency has been defined by the [place] ofMedicine and an Endocrine Society practice guideline as alevel of serum 25-OH vitamin D less than 20 ng/mL (1,2).The Endocrine Society went on to further define vitamin Dinsufficiency as a level between 21 and 29 ng/mL (2).1. IOM ([place] of Medicine). 2010. Dietary reference intakes for calcium and D. [place]: The National Academies Press.2. Fidelia MF, [place], Ariadne-Storm HUFF, et al. Evaluation, treatment, and prevention of vitamin D deficiency: an Endocrine Society clinical practice guideline. JCEM. 2010; 96(7):1911-30. PATIENT NOT FASTINGP ERFORMED BY: [employer]6370 Unicorn ProductionFirstHealth Montgomery [facility] Hospital [id number] TSH ([id number])Ordered By: Irenee m Manager Animal on 11-03-2011 Thyrotropin Qn 0.008 {uIU/mL} Abnormal 0.450-4.500 Compr [facility] Internal Medicine Work Phone: Comment on above: PATIENT NOT FASTINGP ERFORMED BY: [employer]6370 Unicorn ProductionFirstHealth Montgomery Memorial Hospital [id number] Information: ADD [id number] AND DRAW FEE 99 3322 EstradiolOrdered By: Filler Blender on 05-01-2011 Estradiol (E2) mass conc 61.8 pg/mL Normal [facility] Work Phone: Comment on above: Adult Female: Follic ular phase 12.5 - 166.0 Ovulation phase 85.8 - 498.0 Luteal phase 43.8 - 211.0 Postmenopausal <6.0 - 54.7 1st trimester 215.0 - >4300.0 Girls (1-10 years) 6.0 - 27.0Roche ECLIA methodology A courtesy copy of t his report has been sent [phone].PERFORMED BY: [employer]6370 Unicorn ProductionFirstHealth Montgomery Memorial Hospital [id number] Information: [id number] Urine Culture,ComprehensiveO rdered By: Filler Blender on 04-21-2011 Bacteria identified Cx Nom (U) Final report Normal [facility] Work Phone: Comment on above: PERFORMED BY: MendorFirstHealth Montgomery Memorial Hospital [id number] Information: SRC:UR Bacteria identified Cx Nom (U) NG36 Normal [facility] Work Phone: Comment on above: No growth in 36 - 48 hours. PERFORMED BY: SendGrid63aitainmentFirstHealth Montgomery Memorial Hospital [id number] Information: SRC:UR Urine Culture,ComprehensiveO rdered By: Filler Blender on 04-06-2011 Bacteria identified Cx Nom (U) Final report Normal [facility] Work Phone: Comment on above: PERFORMED BY: LayerBoomFormerly [facility] [id number] Information: SRC:UR Bacteria identified Cx Nom (U) Enterococcus faecium Normal Comprehensi Internal Medicine Work Phone: Comment on above: Greater than 100,000 colony forming units per mLNote: this isolate is vancomycin-susceptible.This information is provided for epidemiologic purposesonly: vancomycin is not among the antibioticsrecommended for therapy of urinary tract infectionscaused by Enterococcus.For Enterococcus species, cephalosporins, aminoglycosides (except forhigh-level resistance screening), clindamycin, and trimethoprim-sulfamethoxazole are not effective clinically. Fluoroquinolones areused primarily for treating urinary tract infections. (CLSI, B822-Q54,2009) PERFORMED BY: [employer]6370 Unicorn ProductionFirstHealth Montgomery Memorial Hospital [id number] Information: SRC:UR Other Antibiotic nestor MARES Normal [facility] Work Phone: Comment on above: S = Susceptibl e; I = Intermediate; R = Resistant P = Positive; N = Negative MICS are expressed in micrograms per mL Antibiotic RSLT#1 RSLT#2 RSLT#3 RSLT#4Ciprofloxacin ILevofloxacin SNitrofurantoin IPenicillin RTetracycline RVancomycin S PERFORMED BY: [employer]6370 Unicorn ProductionFirstHealth Montgomery [facility] Hospital [id number] Information: SRC:UR EstradiolOrdered By: Filler Blender on 03-24-2011 Estradiol (E2) mass conc 18.2 pg/mL Normal [facility] Work Phone: Comment on above: Adult Female: Follic ular phase 12.5 - 166.0 Ovulation phase 85.8 - 498.0 Luteal phase 43.8 - 211.0 Postmenopausal <6.0 - 54.7 1st trimester 215.0 - >4300.0 Girls (1-10 years) 6.0 - 27.0Roche ECLIA methodology A courtesy copy of t his report has been sent [phone].PERFORMED BY: BeebriteFirstHealth Montgomery Memorial Hospital [id number] FSH, SerumOrdered By: Filler Blender on 03-24-2011 Follitropin Qn 6.9 m[IU]/mL Normal Comprehe nsive Internal Medicine Work Phone: Comment on above: Follicular phase 3.5 - 12.5 Ovulation phase 4.7 - 21.5 Luteal phase 1.7 - 7.7 Postmenopausal 25.8 - 134.8 A courtesy copy of t his report has been sent [phone].PERFORMED BY: [employer] [place] [id number] Luteinizing Hormone(LH), SOr dered By: Filler Blender on 03-24-2011 Lutropin Qn 5.4 m[IU]/mL Normal Comprehensi ve Internal Medicine Work Phone: Comment on above: Follicular phase 2.4 - 12.6 Ovulation phase 14.0 - 95.6 Luteal phase 1.0 - 11.4 Postmenopausal 7.7 - 58.5 A courtesy copy of t his report has been sent [phone].PERFORMED BY: UNATION [facility] [id number] TSHOrdered By: System Manage r on 03-24-2011 Thyrotropin Qn 0.023 {uIU/mL} Abnormal 0.450-4.500 Compr ehensive Internal Medicine Work Phone: Comment on above: A courtesy copy of t his report has been sent [phone].PERFORMED BY: UNATION [facility] [id number] Information: [id number] Urine Culture,ComprehensiveO rdered By: Filler Blender on 03-23-2011 Bacteria identified Cx Nom (U) Enterococcus faecalis Normal Comprehens olga Internal Medicine Work Phone: Comment on above: 1,000 Colonies/mLNot e: this isolate is vancomycin-susceptible.This information is provided for epidemiologic purposesonly: vancomycin is not among the antibioticsrecommended for therapy of urinary tract infectionscaused by Enterococcus.For Enterococcus species, cephalosporins, aminoglycosides (except forhigh-level resistance screening), clindamycin, and trimethoprim-sulfamethoxazole are not effective clinically. Fluoroquinolones areused primarily for treating urinary tract infections. (CLSI, [id number]-C27,2009) PERFORMED BY: SendGrid6370 [facility] [id number] Information: SRC:UR Bacteria identified Cx Nom (U) Final report Normal Comprehensive Internal Medicine Work Phone: Comment on above: PERFORMED BY: SendGrid6370 NeedFeedFormerly [facility] [id number] Information: SRC:UR Bacteria identified Cx Nom (U) MUG Normal Comprehensive [facility] Medicine Work Phone: Comment on above: Mixed urogenital bora ra4,000 Colonies/mL S = Susceptible; I = Intermediate; R = Resistant P = Positive; N = Negative MICS are expressed in micrograms per mL Antibiotic RSLT#1 RSLT#2 RSLT#3 RSLT#4Amoxicillin/Clavulanic Acid SAmpicillin RCefazolin SCefepime SCeftriaxone SCefuroxime SCephalothin ICiprofloxacin R SESBL NErtapenem SGentamicin SImipenem SLevofloxacin R SNitrofurantoin S SPenicillin SPiperacillin RTetracycline R RTobramycin STrimethoprim/Sulfa SVancomycin S PERFORMED BY: LeukoDx70 [facility]ufangTriStar [facility] [id number] Information: SRC:UR Bacteria identified Cx Nom (U) Escherichia coli Normal Comprehensive Internal Medicine Work Phone: Comment on above: 400 Colonies/mL PERFORMED BY: LeukoDx70 [employer] [place] [id number] Information: SRC:UR TSHOrdered By: System Manage r on 02-15-2011 Thyrotropin Qn 0.012 {uIU/mL} Abnormal 0.450-4.500 Compr [facility] Internal Medicine Work Phone: Comment on above: PERFORMED BY: IKOTECHTriStar Greenview [facility] Hospital [id number] URINE DONNA CULTURE-IDENTIFICA [place] ([id number])Ordered By: Filler Blender on 12-26-2010 Bacteria identified Cx Nom (U) VIRIST Normal Comprehensive Internal Medicine Work Phone: Comment on above: Viridans streptococc us group3,000 Colonies/mL .Susceptibility not normally performed on this organism. S = Susceptible; I = Intermediate; R = Resistant P = Positive; N = Negative MICS are expressed in micrograms per mL Antibiotic RSLT#1 RSLT#2 RSLT#3 RSLT#4Amikacin SAmoxicillin/Clavulanic Acid SAmpicillin RCefazolin SCefepime SCefoxitin SCeftriaxone SCiprofloxacin RESBL NErtapenem SGentamicin SImipenem SLevofloxacin RNitrofurantoin STigecycline STobramycin STrimethoprim/Sulfa S post tx; PATIENT NOT FASTINGPERFORMED BY: CB [facility] Tirnrj7594 [address] RoadDuin [place] [id number] Information: [id number] Bacteria identified Cx Nom (U) Escherichia coli Normal Comprehensive [facility] Medicine Work Phone: Comment on above: 25,000-50,000 colony forming units per mL post tx; PATIENT NOT FASTINGPERFORMED BY: CB [facility] Uvdgxq7883 [address] RoadDublin [place] [id number] Information: [id number] Bacteria identified Cx Nom (U) Final report Normal Comprehensive Internal Medicine Work Phone: Comment on above: post tx; PATIENT NOT FASTINGPERFORMED BY: CB [facility] Wjeanb0994 Luc[address] RoadDuin [place] [id number] Information: [id number] URINE DONNA CULTURE-ELMIRA COL C OUNT ([id number])Ordered By: Filler Blender on 12-13-2010 Bacteria identified Cx Nom (U) Final report Normal [facility] Medicine Work Phone: Comment on above: PATIENT NOT FASTINGP ERFORMED BY: CB [facility] Ccdbhk5880 [address] RoadDuin [place] [id number] Information: SRC:UR [id number] Bacteria identified Cx Nom (U) Escherichia coli Normal Comprehensive [facility] Medicine Work Phone: Comment on above: Greater than 100,000 colony forming units per mL PATIENT NOT FASTINGP ERFORMED BY: CB [facility] Kwdolx9137 [address] RoadDublin [place] [id number] Information: SRC:UR [id number] Other Antibiotic [facility] Normal Comprehensive Internal Medicine Work Phone: Comment on above: S = Susceptibl e; I = Intermediate; R = Resistant P = Positive; N = Negative MICS are expressed in micrograms per mL Antibiotic RSLT#1 RSLT#2 RSLT#3 RSLT#4Amikacin SAmoxicillin/Clavulanic Acid SAmpicillin RCefazolin SCefepime SCefoxitin SCeftriaxone SCiprofloxacin RESBL NErtapenem SGentamicin SImipenem SLevofloxacin RNitrofurantoin STigecycline STobramycin STrimethoprim/Sulfa S PATIENT NOT FASTINGP ERFORMED BY: MAIA [facility] Stnxmr9298 [address] RoadDublin [place] [id number] Information: SRC:ADRIANA Q00908 Lipid Panel With LDL/HDL Rat ioOrdered By: Filler Blender on 10-04-2010 Cholesterol in HDL mass conc 42 mg/dL Normal Comprehensive Internal Medicine Work Phone: Comment on above: According to ATP-III Guidelines, HDL-C >59 mg/dL is considered anegative risk factor for CHD. PATIENT WAS FASTINGP ERFORMED BY: MAIA LabCogadiel Fvsgng3671 [address] RoadDuin [place] [id number] Cholesterol in LDL mass conc 102 mg/dL Abnormal 0-99 Comprehensive Internal Medicine Work Phone: Comment on above: PATIENT WAS FASTINGP ERFORMED BY: MAIA Balderas Ughbar9019 [address] RoadFirsthealth Montgomery Memorial Hospitalin [place] [id number] Cholesterol in LDL/Cholesterol in HDL mass ratio 2.4 {ratio_units} Normal 0.0-3.2 Comprehensive Internal Medicine Work Phone: Comment on above: PATIENT WAS FASTINGP ERFORMED BY: MAIA LabAmbar Lvwwig87[address] [facility] [place] [id number] Cholesterol in VLDL mass conc 37 mg/dL Normal 5-40 Comprehensive Internal Medicine Work Phone: Comment on above: PATIENT WAS FASTINGP ERFORMED BY: MAIA LabAmbar Akhyro[address] [facility]D[place] [id number] Cholesterol mass conc 181 mg/dL Normal 100-199 Comprehensive Internal Medicine Work Phone: Comment on above: PATIENT WAS FASTINGP ERFORMED BY: MAIA LabCogadiel Zohoyd1856 [address] RoadDublin [place] [id number] Triglyceride mass conc 183 mg/dL Abnormal 0-149 Comprehensive Internal Medicine Work Phone: Comment on above: PATIENT WAS FASTINGP ERFORMED BY: MAIA LabCogadiel Ozzgki4880 [address] [facility] [place] [id number] TSHOrdered By: System Manage r on 10-04-2010 Thyrotropin Qn 0.008 {uIU/mL} Abnormal 0.450-4.500 Compr ensive Internal Medicine Work Phone: Comment on above: PATIENT WAS FASTINGP ERFORMED BY: [employer] [place] [id number] Vitamin D, 25-HydroxyOrdered By: Filler Blender on 10-04-2010 Calcitriol mass conc 32.3 ng/mL Normal 32.0-100.0 Comp [facility] Work Phone: Comment on above: Recent studies consi ananya the lower limit of 32.0 ng/mL to be athreshold for optimal health.Raul DEAL. J Nutr. 2004;135(2):317-22. PATIENT WAS FASTINGP ERFORMED BY: [employer] [place] [id number] Urine Culture,ComprehensiveO rdered By: Filler Blender on 08-08-2010 Bacteria identified Cx Nom (U) Final report Normal Comprehensive Internal Medicine Work Phone: Comment on above: PERFORMED BY: [employer] [place] [id number] Information: SRC:UR Bacteria identified Cx Nom (U) NG36 Normal Comprehensive Internal Medicine Work Phone: Comment on above: No growth in 36 - 48 hours. PERFORMED BY: [employer] [place] [id number] Information: SRC:UR URINE DONNA CULTURE-ELMIRA COL C OUNT ([id number])Ordered By: Filler Blender on 06-22-2010 Bacteria identified Cx Nom (U) Escherichia coli Normal Comprehensive Internal Medicine Work Phone: Comment on above: Greater than 100,000 colony forming units per mL PATIENT NOT FASTINGP ERFORMED BY: [employer] [place] [id number] Information: SRC:UR [id number] Bacteria identified Cx Nom (U) Final report Normal [facility] Medicine Work Phone: Comment on above: PATIENT NOT FASTINGP ERFORMED BY: [employer] [place] [id number] Information: SRC:UR [id number] Other Antibiotic susc AMBR[facility]ESELECT [facility] Normal Comprehensive Internal Medicine Work Phone: Comment on above: S = Susceptibl e; I = Intermediate; R = Resistant P = Positive; N = Negative MICS are expressed in micrograms per mL Antibiotic RSLT#1 RSLT#2 RSLT#3 RSLT#4Amikacin SAmoxicillin/Clavulanic Acid SAmpicillin SCefazolin SCefepime SCefoxitin SCeftriaxone SCiprofloxacin SESBL NErtapenem SGentamicin SImipenem SLevofloxacin SNitrofurantoin STobramycin STrimethoprim/Sulfa S PATIENT NOT FASTINGP ERFORMED BY: BeebriteFirstHealth [facility] [id number] Information: SRC:UR [id number] TSH (THYROID STIMULATING HOR RACHEL) ([id number])Ordered By: Filler Blender on 05-10-2010 Thyrotropin Qn 0.021 {uIU/mL} Abnormal 0.450-4.500 Compr ensive Internal Medicine Work Phone: Comment on above: PATIENT NOT FASTINGP ERFORMED BY: BeebriteFirstHealth [facility] [id number] Information: [id number], NURSE DRAW Urine Culture,ComprehensiveO rdered By: Filler Blender on 03-24-2010 Bacteria identified Cx Nom (U) MUG Normal Comprehensive Internal Medicine Work Phone: Comment on above: Mixed urogenital bora ra6,000 Colonies/mL PERFORMED BY: LeukoDx70 Unicorn ProductionFirstHealth Montgomery Memorial Hospital [id number] Information: SRC:UC Bacteria identified Cx Nom (U) Final report Normal Comprehensive Internal Medicine Work Phone: Comment on above: PERFORMED BY: MendorFirstHealth [facility] Hospital [id number] Information: SRC:UC CULTURE, URINEOrdered By: stem Manager Animal on 03-19-2010 Bacteria identified Cx Nom (U) See Note Normal Comprehensive Internal Medicine Work Phone: Comment on above: COLONY COUNT 50,000- 80,000 ORGANISM 1: MIXED GRAM POSITIVE ORGANISMS TRANSVAGINAL NON-PREG US (HP )Ordered By: Filler Blender on 02-25-2010 TRANSVAGINAL NON-PREG US (HP) See Note Normal Comprehensive Internal Medicine Work Phone: Comment on above: Exam Number: [id number] CLINICAL:The patient is a 44 old female with pelvic pain. PELVIC ULTRASOUND - COMPLETE TECHNIQUE:Transabdominal and Transvaginal high resolution real time sectorimages were obtained. COMPARISON:January 29, 2007 FINDINGS:Normal urinary bladder contour, without focal or diffuse wallthickening. There are no bladder calculi or intracystic masses. The uterus is enlarged measuring measuring 13.8 x 3.6 x 6.1 cm. There is a 5-mm nabothian cyst in the cervix. Normal endometrial thickness measuring 7 mm. Normal right ovary measuring 1.6 x 0.9 x 1.3 cm. There are multiplesmall follicles follicles within the ovary. There are no cystic orsolid adnexal masses. The left ovary is not seen. There is no free fluid within the pelvis. IMPRESSION:The uterus is moderately enlarged.The right ovary is normal. The left ovary is not seen. Reported By: DULCE PEACOCK M.D. TSHOrdered By: System Manage r on 02-21-2010 Thyrotropin Qn 5.690 {uIU/mL} Abnormal 0.450-4.500 Compr [facility] Internal Medicine Work Phone: Comment on above: Please note refere nce interval change PERFORMED BY: [employer] [address] [id number] BILAT SCRN DIGITAL & CADOrde red By: Filler Blender on 01-18-2010 BILAT SCRN DIGITAL & CAD See Note Normal Comprehensive Internal Medicine Work Phone: Comment on above: Exam Number: [id number] MAMMOGRAPHY - BILATERAL SCREENING INDICATION:Routine annual screening examination. PERTINENT HISTORY:Non-contributory. TECHNIQUE:Digital examination. Mediolateral oblique (MLO) and craniocaudad(CC) views of both breasts were obtained. CAD was performed on thisstudy. COMPARISON:Comparison is made with prior study dated March 26, 2007. FINDINGS:The breast composition is composed of scattered fibroglandulardensities. There are no masses or suspicious microcalcifications. No other significant abnormalities are identified. There has beenno significant change since the prior study. IMPRESSION:Normal bilateral screening mammogram. Yearly follow-up recommended. ASSESSMENT CATEGORY:Category 2: Benign finding(s) Approximately 10% of breast cancers are not detected by mammography.A normal mammogram should not delay biopsy of a clinicallysuspicious abnormality.This addendum is being created for the purpose of attaching a ResultCode to this exam.ADDENDUM: [id number] HPBI/MDS Reported By: JIM DOOLEY Lipid Panel With LDL/HDL Rat ioOrdered By: Filler Blender on 11-15-2009 Cholesterol in HDL mass conc 41 mg/dL Normal Comprehensive Internal Medicine Work Phone: Comment on above: According to ATP-III Guidelines, HDL-C >59 mg/dL is considered anegative risk factor for CHD. PATIENT WAS FASTINGP ERFORMED BY: MAIA [facility] Cvojck7954 Unicorn ProductionFirstHealth Montgomery Memorial Hospital [id number] Cholesterol in LDL mass conc 77 mg/dL Normal 0-99 Comprehensive Internal Medicine Work Phone: Comment on above: PATIENT WAS FASTINGP ERFORMED BY: CB [facility] Ukmpfz4320 [address] Asterias BiotherapeuticsblTriStar Greenview [facility] Hospital [id number] Cholesterol in LDL/Cholesterol in HDL mass ratio 1.9 {ratio_units} Normal 0.0-3.2 Comprehensive Internal Medicine Work Phone: Comment on above: PATIENT WAS FASTINGP ERFORMED BY: CB [facility] Qwjmmr1669 [address] Asterias Biotherapeuticsin [place] [id number] Cholesterol in VLDL mass conc 24 mg/dL Normal 5-40 Comprehensive Internal Medicine Work Phone: Comment on above: PATIENT WAS FASTINGP ERFORMED BY: CB [facility] Frrojc1748 [address] Asterias BiotherapeuticsblTriStar Greenview [facility] Hospital [id number] Cholesterol mass conc 142 mg/dL Normal 100-199 Comprehensive Internal Medicine Work Phone: Comment on above: PATIENT WAS FASTINGP ERFORMED BY: CB [facility] Abnvfx1785 [address] Asterias BiotherapeuticsFirstHealth Montgomery [facility] Hospital [id number] Triglyceride mass conc 119 mg/dL Normal 0-149 Comprehensive Internal Medicine Work Phone: Comment on above: PATIENT WAS FASTINGP ERFORMED BY: IQumulusrp Miyvas5381 [address] Tech urSelfFirsthealth Montgomery Memorial Hospitalin [place] [id number] TSHOrdered By: System Manage r on 11-15-2009 Thyrotropin Qn 0.048 {uIU/mL} Abnormal 0.450-4.500 Compr ensive Internal Medicine Work Phone: Comment on above: PATIENT WAS FASTINGP ERFORMED BY: [employer] [facility] Ujewxe6183 Luc[address] Roadblin [place] [id number] TSHOrdered By: System Manage r on 09-08-2009 Thyrotropin Qn 0.020 {uIU/mL} Abnormal 0.450-4.500 Compr [facility] Internal Medicine Work Phone: Comment on above: PERFORMED BY: SendGrid6370 Unicorn ProductionFirstHealth Montgomery Memorial Hospital [id number] Vitamin D, 25-HydroxyOrdered By: Filler Blender on 09-08-2009 Calcitriol mass conc 30.2 ng/mL Abnormal 32.0-100.0 Comp [facility] Work Phone: Comment on above: Recent studies consi ananya the lower limit of 32.0 ng/mL to be athreshold for optimal health.Raul DEAL. J Nutr. 2004;135(2):317-22. PERFORMED BY: SendGrid6370 Unicorn ProductionFirstHealth Montgomery Memorial Hospital [id number] TSHOrdered By: System Manage r on 05-27-2009 Thyrotropin Qn 12.600 {uIU/mL} Abnormal 0.450-4.500 Comp [facility] Work Phone: Comment on above: PERFORMED BY: LeukoDx70 NeedFeedFormerly [facility] [id number] Thyroxine (T4) Free, Direct, SOrdered By: Filler Blender on 05-27-2009 T4 free mass conc 1.31 ng/dL Normal 0.82-1.77 Compreh [facility] Internal Medicine Work Phone: Comment on above: PERFORMED BY: LeukoDx70 Unicorn ProductionFirstHealth [facility] Hospital [id number] Triiodothyronine,Free,SerumO rdered By: Filler Blender on 05-27-2009 T3 free mass conc 2.1 pg/mL Normal 2.0-4.4 Compreh ensive Internal Medicine Work Phone: Comment on above: PERFORMED BY: SendGrid6370 Unicorn ProductionFirstHealth Montgomery [facility] Hospital [id number] Vitamin D, 25-HydroxyOrdered By: Filler Blender on 05-27-2009 Calcitriol mass conc 24.2 ng/mL Abnormal 32.0-100.0 Comp rehensive Internal Medicine Work Phone: Comment on above: Recent studies consi ananya the lower limit of 32.0 ng/mL to be athreshold for optimal health.Raul DEAL. J Nutr. 2004;135(2):317-22. PERFORMED BY: SendGrid6370 Unicorn ProductionFirstHealth Montgomery [facility] Hospital [id number] Urine Culture,ComprehensiveO rdered By: Filler Blender on 05-26-2009 Bacteria identified Cx Nom (U) Escherichia coli Normal Comprehensive Internal Medicine Work Phone: Comment on above: 2,000 Colonies/mL Clinical Information : SRC:UR PERFORMED BY: [employer]6370 Unicorn ProductionFirstHealth Montgomery Memorial Hospital [id number] Bacteria identified Cx Nom (U) Final report Normal Comprehensive Internal Medicine Work Phone: Comment on above: Clinical Information : SRC:UR PERFORMED BY: [employer]6370 Unicorn ProductionFirstHealth Montgomery Memorial Hospital [id number] Other Antibiotic [facility] Normal Comprehensive Internal Medicine Work Phone: Comment on above: S = Susceptibl e; I = Intermediate; R = Resistant P = Positive; N = Negative MICS are expressed in micrograms per mL Antibiotic RSLT#1 RSLT#2 RSLT#3 RSLT#4Amoxicillin/Clavulanic Acid RAmpicillin RCefepime SCeftriaxone SCefuroxime ICephalothin SCiprofloxacin RESBL NGentamicin SImipenem SLevofloxacin RNitrofurantoin SPiperacillin/Tazobactam STetracycline STobramycin STrimethoprim/Sulfa S Clinical Information : SRC:UR PERFORMED BY: MAIA LabSaint [facility] Lsbalx5426 [address] [facility] [id number] CHEST WITH CONTRASTOrdered B y: Filler Blender on 04-16-2009 CHEST WITH CONTRAST See Note Normal Compr ehensive Internal Medicine Work Phone: Comment on above: Exam Number: [id number] CLINICAL:Left supraclavicular mass. Family history of lymphoma. CT CHEST WITH CONTRAST COMPARISON:None. TECHNIQUE:High resolution transaxial imaging was performed following theintravenous administration of 100ml of Isovue-300 contrast material.A marker was placed at the site of palpable abnormality. FINDINGS:Normal pulmonary parenchyma, with normal inflation of the lungs andno demonstrated parenchymal nodule or infiltrate. Normal pleura without pleural thickening, a mass lesion orcalcifications. There are no pleural effusions. Normal mediastinum and pulmonary aj without lymphadenopathy.There is a small amount of soft tissue in the anterior mediastinumwhich has the appearance of normal thymic tissue (series 2 [id number]).Normal cardiac size without demonstrated pericardial fluid orthickening. There are no vascular calcifications of the coronaryarteries. There are no valvular calcifications. Normal main pulmonary artery with normal right and left pulmonaryarteries. Normal bilateral peripheral pulmonary arteries withoutvascular prominence. There is no demonstrated intraluminal defectof the pulmonary arteries. Specifically, there is no demonstratedpulmonary embolus on this examination. Normal thoracic aorta without aneurysmal dilatation. Normal thoracic esophagus. There is no visualized mass at the site of palpable abnormality inthe left supraclavicular region. Small supraclavicular lymph nodesare identified measuring up to 5 mm in long axis (series 2 [id number]). Small bilateral lower cervical nodes are noted measuring upto 6 mm in long axis (series 2 image 165). Mildly prominentbilateral axillary lymph nodes are identified with normal fatty aj. Normal visualized liver, spleen, gallbladder, pancreas and adrenalglands. There are minimal degenerative changes of the spine. Normalvisualized chest wall structures. There is no abnormal contrast enhancement. IMPRESSION:No visualized mass in the left supraclavicular region. Subcentimeter bilateral supraclavicular and lower cervical lymphnodes. Mildly prominent axillary lymph nodes demonstrating normal fattyhila. Small amount of soft tissue in anterior mediastinum, which has theappearance of normal thymic tissue. Normal pulmonary parenchyma with no nodules or infiltrates.ADDENDUM: [id number] HPCT/CHW Subcentimeter size lymph nodes are considered to be radiographicallynormal. Axillary lymph nodes demonstrating fatty aj are alsoradiographically normal. The visualization of sinus in a young womanis also normal. IMPRESSIONNo abnormality is identified. Reported By: DULCE PEACOCK M.D. TSHOrdered By: System Manage r on 03-05-2009 Thyrotropin Qn 1.140 {uIU/mL} Normal 0.450-4.500 [facility] Internal Medicine Work Phone: Comment on above: Effective February 082008, TSH will be changing to the Brodie ECLIA methodology. The reference interval will be changing to: Age (uIU/mL) 0 - 3 days 5.170 - 14.600 4 - 30 days 0.430 - 16.100 31 day - 12 mon 0.620 - 8.050 13 mon - 5 yrs 0.540 - 4.530 6 - 10 yrs 0.660 - 4.140 11 - 19 yrs 0.530 - 3.590 > 19 yrs 0.450 - 4.500 Clinical Information : NURSE DRAW PERFORMED BY: [employer] [place] [id number] CBC With Differential/Platel etOrdered By: Filler Blender on 12-11-2008 Basophils (Bld) [#/Vol] 0.1 {x10E3/uL} Normal 0.0-0.2 [facility] Work Phone: Comment on above: PERFORMED BY: [employer] [place] [id number] Basophils Auto #/vol (Bld) 0.1 {x10E3/uL} Normal 0.0-0.2 [facility] Work Phone: Basophils/100 WBC (Bld) 1 % Normal 0-3 [facility] Medicine Work Phone: Comment on above: PERFORMED BY: [employer] [place] [id number] Basophils/100 WBC Auto (Bld) 1 % Normal 0-3 [facility] Medicine Work Phone: Eosinophils (Bld) [#/Vol] 0.4 {x10E3/uL} Normal 0.0-0.4 [facility] Medicine Work Phone: Comment on above: PERFORMED BY: SendGrid63BeneChillFormerly [facility] [id number] Eosinophils Auto #/vol (Bld) 0.4 {x10E3/uL} Normal 0.0-0.4 [facility] Work Phone: Eosinophils/100 WBC (Bld) 4 % Normal 0-7 [facility] Work Phone: Comment on above: PERFORMED BY: LayerBoomFormerly [facility] [id number] Eosinophils/100 WBC Auto (Bld) 4 % Normal 0-7 [facility] Work Phone: Erythrocyte distribution width (RBC) [Ratio] 16.0 % Abnormal 11.7-15.0 [facility] Work Phone: Comment on above: PERFORMED BY: LayerBoomFormerly [facility] [id number] Erythrocyte distribution width Auto Ratio (RBC) 16.0 % Abnormal 11.7-15.0 [facility] Work Phone: Hematocrit (Bld) [Volume fraction] 35.7 % Normal 34.0-44.0 [facility] Work Phone: Comment on above: PERFORMED BY: Pinpoint MD [facility] [id number] Hematocrit Auto Volume Fraction (Bld) 35.7 % Normal 34.0-44.0 [facility] Work Phone: Hemoglobin mass conc (Bld) 11.9 g/dL Normal 11.5-15.0 [facility] Work Phone: Comment on above: PERFORMED BY: Pinpoint MD [facility] [id number] Lymphocytes (Bld) [#/Vol] 3.0 {x10E3/uL} Normal 0.7-4.5 [facility] Medicine Work Phone: Comment on above: PERFORMED BY: LayerBoomFormerly [facility] [id number] Lymphocytes Auto #/vol (Bld) 3.0 {x10E3/uL} Normal 0.7-4.5 [facility] Work Phone: Lymphocytes/100 WBC (Bld) 33 % Normal 14-46 [facility] Work Phone: Comment on above: PERFORMED BY: LayerBoomFormerly [facility] [id number] Lymphocytes/100 WBC Auto (Bld) 33 % Normal 14-46 [facility] Work Phone: MCH (RBC) [Entitic mass] 27.4 pg Normal 27.0-34.0 [facility] Work Phone: Comment on above: PERFORMED BY: LayerBoomFormerly [facility] [id number] MCH Auto Entitic mass (RBC) 27.4 pg Normal 27.0-34.0 [facility] Work Phone: MCHC (RBC) [Mass/Vol] 33.5 g/dL Normal 32.0-36.0 [facility] Work Phone: Comment on above: PERFORMED BY: Pinpoint MD [facility] [id number] MCHC Auto mass conc (RBC) 33.5 g/dL Normal 32.0-36.0 [facility] Work Phone: MCV (RBC) [Entitic vol] 82 fL Normal 80-98 [facility] Work Phone: Comment on above: PERFORMED BY: Pinpoint MD [facility] [id number] MCV Auto Entitic volume (RBC) 82 fL Normal 80-98 [facility] Work Phone: Monocytes (Bld) [#/Vol] 0.6 {x10E3/uL} Normal 0.1-1.0 [facility] Work Phone: Comment on above: PERFORMED BY: [id number] LucianoNOBOTFormerly [facility] [id number] Monocytes Auto #/vol (Bld) 0.6 {x10E3/uL} Normal 0.1-1.0 [facility] Work Phone: Monocytes/100 WBC (Bld) 6 % Normal 4-13 [facility] Work Phone: Comment on above: PERFORMED BY: [employer] LucianoNOBOTFormerly [facility] [id number] Monocytes/100 WBC Auto (Bld) 6 % Normal 4-13 [facility] Work Phone: Neutrophils (Bld) [#/Vol] 5.2 {x10E3/uL} Normal 1.8-7.8 [facility] Work Phone: Comment on above: PERFORMED BY: LayerBoomFormerly [facility] [id number] Neutrophils Auto #/vol (Bld) 5.2 {x10E3/uL} Normal 1.8-7.8 [facility] Work Phone: Neutrophils/100 WBC (Bld) 56 % Normal 40-74 [facility] Work Phone: Comment on above: PERFORMED BY: LeukoDx70 NeedFeedFormerly [facility] [id number] Neutrophils/100 WBC Auto (Bld) 56 % Normal 40-74 [facility] Work Phone: Platelets (Bld) [#/Vol] 416 {x10E3/uL} Abnormal 140-415 [facility] Work Phone: Comment on above: Please note refere nce interval change PERFORMED BY: LayerBoomFormerly [facility] [id number] Platelets Auto #/vol (Bld) 416 {x10E3/uL} Abnormal 140-415 [facility] Work Phone: Comment on above: Please note refere nce interval change RBC (Bld) [#/Vol] 4.36 {x10E6/uL} Normal 3.80-5.10 [facility] Internal Medicine Work Phone: Comment on above: PERFORMED BY: Pinpoint MD [facility] [id number] RBC Auto #/vol (Bld) 4.36 {x10E6/uL} Normal 3.80-5.10 [facility] Work Phone: WBC (Bld) [#/Vol] 9.2 {x10E3/uL} Normal 4.0-10.5 [facility] Internal Medicine Work Phone: Comment on above: PERFORMED BY: [facility] [id number] WBC Auto #/vol (Bld) 9.2 {x10E3/uL} Normal 4.0-10.5 [facility] Internal Medicine Work Phone: Urine Culture,ComprehensiveO rdered By: Filler Blender on 12-11-2008 Bacteria identified Cx Nom (U) Final report Normal [facility] Work Phone: Comment on above: Clinical Information : SRC:UR PERFORMED BY: Triond [facility] [id number] Bacteria identified Cx Nom (U) MUG Normal [facility] Work Phone: Comment on above: Mixed urogenital bora ra10,000-25,000 colony forming units per mL Clinical Information : SRC:UR PERFORMED BY: [facility] [id number] CBC With Differential/Platel etOrdered By: Filler Blender on 11-25-2008 Basophils (Bld) [#/Vol] 0.0 {x10E3/uL} Normal 0.0-0.2 [facility] Work Phone: Comment on above: A courtesy copy of t his report has been sent [phone].Clinical Information: [id number] PERFORMED BY: UNATION [facility] [id number] Basophils Auto #/vol (Bld) 0.0 {x10E3/uL} Normal 0.0-0.2 [facility] Work Phone: Basophils/100 WBC (Bld) 0 % Normal 0-3 [facility] Work Phone: Comment on above: A courtesy copy of t his report has been sent [phone].Clinical Information: [id number] PERFORMED BY: Timeliner Nimbuzz [facility] [id number] Basophils/100 WBC Auto (Bld) 0 % Normal 0-3 [facility] Work Phone: Eosinophils (Bld) [#/Vol] 0.1 {x10E3/uL} Normal 0.0-0.4 [facility] Work Phone: Comment on above: A courtesy copy of t his report has been sent [phone].Clinical Information: [id number] PERFORMED BY: MAIA Ongage [facility] [id number] Eosinophils Auto #/vol (Bld) 0.1 {x10E3/uL} Normal 0.0-0.4 [facility] Work Phone: Eosinophils/100 WBC (Bld) 1 % Normal 0-7 [facility] Work Phone: Comment on above: A courtesy copy of t his report has been sent [phone].Clinical Information: [id number] PERFORMED BY: Timeliner Itfqwq3661 [facility] [id number] Eosinophils/100 WBC Auto (Bld) 1 % Normal 0-7 [facility] Work Phone: Erythrocyte distribution width (RBC) [Ratio] 15.7 % Abnormal 11.7-15.0 [facility] Work Phone: Comment on above: A courtesy copy of t his report has been sent [phone].Clinical Information: [id number] PERFORMED BY: IQumulusMonmouth Medical CenterTtxtml9827 [facility] [id number] Erythrocyte distribution width Auto Ratio (RBC) 15.7 % Abnormal 11.7-15.0 [facility] Work Phone: Hematocrit (Bld) [Volume fraction] 35.7 % Normal 34.0-44.0 [facility] Work Phone: Comment on above: A courtesy copy of t his report has been sent [phone].Clinical Information: [id number] PERFORMED BY: Timeliner Ysrkqj1512 [facility] [id number] Hematocrit Auto Volume Fraction (Bld) 35.7 % Normal 34.0-44.0 [facility] Work Phone: Hemoglobin mass conc (Bld) 12.0 g/dL Normal 11.5-15.0 [facility] Work Phone: Comment on above: A courtesy copy of t his report has been sent [phone].Clinical Information: [id number] PERFORMED BY: Timeliner Olamro6292 [facility] [id number] Lymphocytes (Bld) [#/Vol] 2.3 {x10E3/uL} Normal 0.7-4.5 [facility] Work Phone: Comment on above: A courtesy copy of t his report has been sent [phone].Clinical Information: [id number] PERFORMED BY: TimelinerMonmouth Medical CenterAtbqvs6329 [facility] [id number] Lymphocytes Auto #/vol (Bld) 2.3 {x10E3/uL} Normal 0.7-4.5 [facility] Work Phone: Lymphocytes/100 WBC (Bld) 30 % Normal 14-46 [facility] Work Phone: Comment on above: A courtesy copy of t his report has been sent [phone].Clinical Information: [id number] PERFORMED BY: TimelinerAshley V[place] [id number] [facility] [id number] Lymphocytes/100 WBC Auto (Bld) 30 % Normal 14-46 [facility] Work Phone: MCH (RBC) [Entitic mass] 27.4 pg Normal 27.0-34.0 [facility] Work Phone: Comment on above: A courtesy copy of t his report has been sent [phone].Clinical Information: [id number] PERFORMED BY: UNATION [facility] [id number] MCH Auto Entitic mass (RBC) 27.4 pg Normal 27.0-34.0 [facility] Work Phone: MCHC (RBC) [Mass/Vol] 33.5 g/dL Normal 32.0-36.0 [facility] Work Phone: Comment on above: A courtesy copy of t his report has been sent [phone].Clinical Information: [id number] PERFORMED BY: Muzicall70 [facility] [id number] MCHC Auto mass conc (RBC) 33.5 g/dL Normal 32.0-36.0 [facility] Work Phone: MCV (RBC) [Entitic vol] 82 fL Normal 80-98 [facility] Work Phone: Comment on above: A courtesy copy of t his report has been sent [phone].Clinical Information: [id number] PERFORMED BY: [employer]6370 [facility] [id number] MCV Auto Entitic volume (RBC) 82 fL Normal 80-98 [facility] Work Phone: Monocytes (Bld) [#/Vol] 0.5 {x10E3/uL} Normal 0.1-1.0 [facility] Work Phone: Comment on above: A courtesy copy of t his report has been sent [phone].Clinical Information: [id number] PERFORMED BY: [employer]lin6370 [facility] [id number] Monocytes Auto #/vol (Bld) 0.5 {x10E3/uL} Normal 0.1-1.0 [facility] Work Phone: Monocytes/100 WBC (Bld) 7 % Normal 4-13 [facility] Work Phone: Comment on above: A courtesy copy of t his report has been sent [phone].Clinical Information: [id number] PERFORMED BY: Timeliner Eknhbn9442 [facility] [id number] Monocytes/100 WBC Auto (Bld) 7 % Normal 4-13 [facility] Work Phone: Neutrophils (Bld) [#/Vol] 4.8 {x10E3/uL} Normal 1.8-7.8 [facility] Work Phone: Comment on above: A courtesy copy of t his report has been sent [phone].Clinical Information: [id number] PERFORMED BY: TimelinerMonmouth Medical CenterYxvdyc0659 [facility] [id number] Neutrophils Auto #/vol (Bld) 4.8 {x10E3/uL} Normal 1.8-7.8 [facility] Work Phone: Neutrophils/100 WBC (Bld) 62 % Normal 40-74 [facility] Work Phone: Comment on above: A courtesy copy of t his report has been sent [phone].Clinical Information: [id number] PERFORMED BY: [place] [id number] [facility] [id number] Neutrophils/100 WBC Auto (Bld) 62 % Normal 40-74 [facility] Work Phone: Platelets (Bld) [#/Vol] 222 {x10E3/uL} Normal 140-415 [facility] Work Phone: Comment on above: Please note refere nce interval change A courtesy copy of t his report has been sent [phone].Clinical Information: [id number] PERFORMED BY: MAIA Ongage [facility] [id number] Platelets Auto #/vol (Bld) 222 {x10E3/uL} Normal 140-415 [facility] Internal Medicine Work Phone: Comment on above: Please note refere nce interval change RBC (Bld) [#/Vol] 4.37 {x10E6/uL} Normal 3.80-5.10 [facility] Internal Medicine Work Phone: Comment on above: A courtesy copy of t his report has been sent [phone].Clinical Information: [id number] PERFORMED BY: Ongage [facility] [id number] RBC Auto #/vol (Bld) 4.37 {x10E6/uL} Normal 3.80-5.10 [facility] Internal Medicine Work Phone: WBC (Bld) [#/Vol] 7.7 {x10E3/uL} Normal 4.0-10.5 [facility] Internal Medicine Work Phone: Comment on above: A courtesy copy of t his report has been sent [phone].Clinical Information: [id number] PERFORMED BY: Timeliner Xqxmqm1281 [facility] [id number] WBC Auto #/vol (Bld) 7.7 {x10E3/uL} Normal 4.0-10.5 [facility] Internal Medicine Work Phone: Comp. Metabolic Panel (14)Or dered By: Filler Blender on 11-25-2008 Albumin mass conc 3.3 g/dL Abnormal 3.5-5.5 [facility] Work Phone: Comment on above: A courtesy copy of t his report has been sent [phone].PERFORMED BY: Ongage [facility] [id number] Albumin/Globulin mass ratio 1.2 {ratio} Normal 1.1-2.5 [facility] Internal Medicine Work Phone: Comment on above: A courtesy copy of t his report has been sent [phone].PERFORMED BY: Timeliner Urndyi9769 [facility] [id number] ALP enzyme act/vol 118 [iU]/L Normal 25-150 [facility] Internal Medicine Work Phone: Comment on above: A courtesy copy of t his report has been sent [phone].PERFORMED BY: Timeliner Nimbuzz [facility] [id number] ALT enzyme act/vol 14 [iU]/L Normal 0-40 [facility] Internal Medicine Work Phone: Comment on above: A courtesy copy of t his report has been sent [phone].PERFORMED BY: Timeliner Nimbuzz [facility] [id number] AST enzyme act/vol 25 [iU]/L Normal 0-40 [facility] Internal Medicine Work Phone: Comment on above: A courtesy copy of t his report has been sent [phone].PERFORMED BY: Timeliner Nimbuzz [facility] [id number] Bilirubin mass conc 0.2 mg/dL Normal 0.1-1.2 [facility] Internal Medicine Work Phone: Comment on above: A courtesy copy of t his report has been sent [phone].PERFORMED BY: Timeliner Qcznqd4120 [facility] [id number] Calcium mass conc 9.5 mg/dL Normal 8.5-10.6 [facility] Internal Medicine Work Phone: Comment on above: A courtesy copy of t his report has been sent [phone].PERFORMED BY: Timeliner Nimbuzz [facility] [id number] Chloride molar conc 105 mmol/L Normal 97-108 Compr ehensive Internal Medicine Work Phone: Comment on above: A courtesy copy of t his report has been sent [phone].PERFORMED BY: MAIA Ongage [facility] [id number] CO2 molar conc 20 mmol/L Normal 20-32 Comprehens olga Internal Medicine Work Phone: Comment on above: A courtesy copy of t his report has been sent [phone].PERFORMED BY: MAIA Ongage [facility] [id number] Creatinine mass conc 0.64 mg/dL Normal 0.57-1.00 [facility] Work Phone: Comment on above: A courtesy copy of t his report has been sent [phone].PERFORMED BY: MAIA Ongage [facility] [id number] GFR/1.73 sq M predicted among blacks MDRD vol rate/area (S/P/Bld) mL/min/{1.73_m2} Normal [facility] Work Phone: Comment on above: Note: Persistent red uction for 3 months or more in an eGFR<60 mL/min/1.73 m2 defines CKD. Patients with eGFR values>/=60 mL/min/1.73 m2 may also have CKD if evidence of persistentproteinuria is present. Additional information may be found [email or web address]. A courtesy copy of t his report has been sent [phone].PERFORMED BY: [employer]70 [facility] [id number] GFR/1.73 sq M.predicted MDRD (S/P/Bld) [Vol rate/Area] mL/min/{1.73_m2} Normal [facility] Work Phone: Comment on above: A courtesy copy of t his report has been sent [phone].PERFORMED BY: Ongage [facility] [id number] GFR/1.73 sq M.predicted MDRD vol rate/area mL/min/{1.73_m2} Normal [facility] Work Phone: Comment on above: A courtesy copy of t his report has been sent [phone].PERFORMED BY: [facility]6370 [facility] [id number] Globulin (S) [Mass/Vol] 2.7 g/dL Normal 1.5-4.5 [facility] Work Phone: Comment on above: A courtesy copy of t his report has been sent [phone].PERFORMED BY: [facility]6370 [facility] [id number] Globulin Calculated mass conc (S) 2.7 g/dL Normal 1.5-4.5 [facility] Work Phone: Glucose mass conc 80 mg/dL Normal 65-99 Compreh ensive Internal Medicine Work Phone: Comment on above: A courtesy copy of t his report has been sent [phone].PERFORMED BY: [facility]6370 [facility] [id number] Potassium molar conc 4.1 mmol/L Normal 3.5-5.2 Comp rehensive Internal Medicine Work Phone: Comment on above: A courtesy copy of t his report has been sent [phone].PERFORMED BY: [facility]6370 [facility] [id number] Protein mass conc 6.0 g/dL Normal 6.0-8.5 Compreh ensive Internal Medicine Work Phone: Comment on above: A courtesy copy of t his report has been sent [phone].PERFORMED BY: [facility]6370 [facility] [id number] Sodium molar conc 139 mmol/L Normal 135-145 Compreh ensive Internal Medicine Work Phone: Comment on above: A courtesy copy of t his report has been sent [phone].PERFORMED BY: [facility] [place] [address] [id number] Urea nitrogen mass conc 8 mg/dL Normal 5-26 [facility] Internal Medicine Work Phone: Comment on above: A courtesy copy of t his report has been sent [phone].PERFORMED BY: [address] [id number] Urea nitrogen/Creatinine mass ratio 13 mg/mg Normal 8-27 [facility] Internal Medicine Work Phone: Comment on above: A courtesy copy of t his report has been sent [phone].PERFORMED BY: Ridley[address] [id number] RPROrdered By: System Rubicon Project r on 11-25-2008 Reagin Ab RPR Ql (S) Non Reactive Normal Co [facility] Internal Medicine Work Phone: Comment on above: A courtesy copy of t his report has been sent [phone].PERFORMED BY: Ridley[address] [id number] TSHOrdered By: System [employer] Project r on 11-25-2008 Thyrotropin Qn 4.407 {uIU/mL} Normal 0.450-4.500 [facility] Internal Medicine Work Phone: Comment on above: A courtesy copy of t his report has been sent [phone].PERFORMED BY: [address] [id number] Parvovirus B19, Human, IgG/I gMOrdered By: Filler Blender on 10-21-2008 Parvovirus B19 IgG IA Qn (S) 0.1 {index} Normal 0.0-0.8 [facility] Internal Medicine Work Phone: Comment on above: Negative <0.9 Equivo ana 0.9 - 1.1 Positive >1.1 PERFORMED BY: [employer] [address] [id number] Parvovirus B19 IgM IA Qn (S) 0.3 {index} Normal 0.0-0.8 [facility] Work Phone: Comment on above: Negative <0.9 Equivo ana 0.9 - 1.1 Positive >1.1 PERFORMED BY: [employer] [address] [id number] Gest. Diabetes 1-Hr ScreenOr dered By: Filler Blender on 10-07-2008 Glucose 1H p 50 g glucose PO mass conc 118 mg/dL Normal 65-139 Comprehensi ve Internal Medicine Work Phone: Comment on above: According to ADA, a glucose threshold of >139 mg/dL after 50-gramload identifies approximately 80% of women with gestationaldiabetes mellitus, while the sensitivity is further increased toapproximately 90% by a threshold of >129 mg/dL. PATIENT WAS FASTINGC linical Information: DRAWN @ 935AM PERFORMED BY: [employer] Gjudtk7019 [facility] [id number] Parvovirus B19, Human, IgG/I gMOrdered By: Filler Blender on 10-07-2008 Parvovirus B19 IgG IA Qn (S) 0.1 {index} Normal 0.0-0.8 [facility] Internal Medicine Work Phone: Comment on above: Negative <0.9 Equivo ana 0.9 - 1.1 Positive >1.1 Clinical Information : NO DRAW FEE 2ND ORDER PERFORMED BY: [facility] [address] [id number] Parvovirus B19 IgM IA Qn (S) 0.3 {index} Normal 0.0-0.8 [facility] Work Phone: Comment on above: Negative <0.9 Equivo ana 0.9 - 1.1 Positive >1.1 Clinical Information : NO DRAW FEE 2ND ORDER PERFORMED BY: [facility] [address] [id number] CBC, Platelet; No Differenti alOrdered By: Filler Blender on 10-05-2008 Erythrocyte distribution width (RBC) [Ratio] 14.5 % Normal 11.7-15.0 [facility] Work Phone: Comment on above: PATIENT WAS FASTINGP ERFORMED BY: [facility]Asc[facility]6370 [facility] [id number] Erythrocyte distribution width Auto Ratio (RBC) 14.5 % Normal 11.7-15.0 [facility] Work Phone: Hematocrit (Bld) [Volume fraction] 32.7 % Abnormal 34.0-44.0 [facility] Work Phone: Comment on above: PATIENT WAS FASTINGP ERFORMED BY: [facility]Asc[facility]6370 [facility] [id number] Hematocrit Auto Volume Fraction (Bld) 32.7 % Abnormal 34.0-44.0 [facility] Work Phone: Hemoglobin mass conc (Bld) 11.1 g/dL Abnormal 11.5-15.0 [facility] Work Phone: Comment on above: PATIENT WAS FASTINGP ERFORMED BY: [facility]6370 [facility] [id number] MCH (RBC) [Entitic mass] 28.2 pg Normal 27.0-34.0 [facility] Work Phone: Comment on above: PATIENT WAS FASTINGP ERFORMED BY: [facility]6370 [facility] [id number] MCH Auto Entitic mass (RBC) 28.2 pg Normal 27.0-34.0 [facility] Work Phone: MCHC (RBC) [Mass/Vol] 34.1 g/dL Normal 32.0-36.0 [facility] Work Phone: Comment on above: PATIENT WAS FASTINGP ERFORMED BY: [facility]Asc[facility]6370 [facility] [id number] MCHC Auto mass conc (RBC) 34.1 g/dL Normal 32.0-36.0 [facility] Work Phone: MCV (RBC) [Entitic vol] 83 fL Normal 80-98 [facility] Work Phone: Comment on above: PATIENT WAS FASTINGP ERFORMED BY: MAIA Sherrie Michaels6370 [facility] [id number] MCV Auto Entitic volume (RBC) 83 fL Normal 80-98 [facility] Work Phone: Platelets (Bld) [#/Vol] 296 {x10E3/uL} Normal 140-415 [facility] Work Phone: Comment on above: PATIENT WAS FASTINGP ERFORMED BY: MAIA [place] [id number] [facility] [id number] Platelets Auto #/vol (Bld) 296 {x10E3/uL} Normal 140-415 [facility] Internal Medicine Work Phone: RBC (Bld) [#/Vol] 3.96 {x10E6/uL} Normal 3.80-5.10 [facility] Internal Medicine Work Phone: Comment on above: PATIENT WAS FASTINGP ERFORMED BY: MAIA [place] [id number] [facility] [id number] RBC Auto #/vol (Bld) 3.96 {x10E6/uL} Normal 3.80-5.10 [facility] Internal Medicine Work Phone: WBC (Bld) [#/Vol] 8.7 {x10E3/uL} Normal 4.0-10.5 [facility] Internal Medicine Work Phone: Comment on above: PATIENT WAS FASTINGP ERFORMED BY: MAIA [facility]6370 [facility] [id number] WBC Auto #/vol (Bld) 8.7 {x10E3/uL} Normal 4.0-10.5 [facility] Internal Medicine Work Phone: TSHOrdered By: System Manage r on 10-05-2008 Thyrotropin Qn 1.062 {uIU/mL} Normal 0.450-4.500 [facility] Internal Medicine Work Phone: Comment on above: PATIENT WAS FASTINGP ERFORMED BY: MAIA [place] [id number] [facility] [id number] Vitamin D, 25-HydroxyOrdered By: Filler Blender on 10-05-2008 Calcitriol mass conc 12.2 ng/mL Abnormal 32.0-100.0 [facility] rehensive Internal Medicine Work Phone: Comment on above: Recent studies consi ananya the lower limit of 32.0 ng/mL to be athreshold for optimal health.Raul DEAL. J Nutr. 2004;135(2):317-22. PATIENT WAS FASTINGP ERFORMED BY: [employer]70 [facility] [id number] Glucose Tolerance (5 Sp Bloo d)Ordered By: Filler Blender on 09-03-2008 Glucose 1H p 75 g glucose PO mass conc 141 mg/dL Normal 65-199 Comprehensi ve Internal Medicine Work Phone: Comment on above: A courtesy copy of t his report has been sent [phone].Clinical Information: CC:[id number] PERFORMED BY: [employer]6370 [facility] [id number] Glucose 2 hours p 75 g glucose PO mass conc 123 mg/dL Normal 65-139 [facility] Work Phone: Comment on above: A courtesy copy of t his report has been sent [phone].Clinical Information: [id number] PERFORMED BY: Infinancials6370 [facility] [id number] Glucose 3 hours p 75 g glucose PO mass conc 117 mg/dL Abnormal 65-109 [facility] Work Phone: Comment on above: A courtesy copy of t his report has been sent [phone].Clinical Information: [id number] PERFORMED BY: Metagenics70 [facility] [id number] Glucose 30M p 75 g glucose PO mass conc 128 mg/dL Normal 65-199 Comprehensi ve Internal Medicine Work Phone: Comment on above: A courtesy copy of t his report has been sent [phone].Clinical Information: [id number] PERFORMED BY: Muzicall70 [facility] [id number] Glucose fasting mass conc 85 mg/dL Normal 65-99 [facility] Work Phone: Comment on above: A courtesy copy of t his report has been sent [phone].Clinical Information: [id number] PERFORMED BY: Muzicall[address] [place] [address] [id number] TSHOrdered By: System Manage r on 09-03-2008 Thyrotropin Qn 4.253 {uIU/mL} Normal 0.450-4.500 [facility] Internal Medicine Work Phone: Comment on above: A courtesy copy of t his report has been sent [phone].PERFORMED BY: Muzicall[address] [place] [address] [id number] CBC With Differential/Platel etOrdered By: Filler Blender on 08-12-2008 Basophils (Bld) [#/Vol] 0.0 {x10E3/uL} Normal 0.0-0.2 [facility] Work Phone: Comment on above: PERFORMED BY: MilkyWaylin6370 [facility] [id number] Basophils Auto #/vol (Bld) 0.0 {x10E3/uL} Normal 0.0-0.2 [facility] Work Phone: Basophils/100 WBC (Bld) 0 % Normal 0-3 [facility] Work Phone: Comment on above: PERFORMED BY: [employer] Czqqvo4012 [facility] [id number] Basophils/100 WBC Auto (Bld) 0 % Normal 0-3 [facility] Work Phone: Eosinophils (Bld) [#/Vol] 0.1 {x10E3/uL} Normal 0.0-0.4 [facility] Work Phone: Comment on above: PERFORMED BY: LeukoDx70 [facility] [id number] Eosinophils Auto #/vol (Bld) 0.1 {x10E3/uL} Normal 0.0-0.4 [facility] Work Phone: Eosinophils/100 WBC (Bld) 1 % Normal 0-7 [facility] Work Phone: Comment on above: PERFORMED BY: SendGrid6370 [address] [facility] [id number] Eosinophils/100 WBC Auto (Bld) 1 % Normal 0-7 [facility] Work Phone: Erythrocyte distribution width (RBC) [Ratio] 14.6 % Normal 11.7-15.0 [facility] Work Phone: Comment on above: PERFORMED BY: Pinpoint MD [facility] [id number] Erythrocyte distribution width Auto Ratio (RBC) 14.6 % Normal 11.7-15.0 [facility] Work Phone: Hematocrit (Bld) [Volume fraction] 33.4 % Abnormal 34.0-44.0 [facility] Work Phone: Comment on above: PERFORMED BY: SendGrid6370 NeedFeedFormerly [facility] [id number] Hematocrit Auto Volume Fraction (Bld) 33.4 % Abnormal 34.0-44.0 [facility] Work Phone: Hemoglobin mass conc (Bld) 11.4 g/dL Abnormal 11.5-15.0 [facility] Work Phone: Comment on above: PERFORMED BY: SendGrid[address] [place] [address] [id number] Lymphocytes (Bld) [#/Vol] 1.7 {x10E3/uL} Normal 0.7-4.5 [facility] Work Phone: Comment on above: PERFORMED BY: SendGrid[address] [place], [place] [address]ox [facility] [id number] Lymphocytes Auto #/vol (Bld) 1.7 {x10E3/uL} Normal 0.7-4.5 [facility] Work Phone: Lymphocytes/100 WBC (Bld) 19 % Normal 14-46 [facility] Work Phone: Comment on above: PERFORMED BY: LayerBoomFormerly [facility] [id number] Lymphocytes/100 WBC Auto (Bld) 19 % Normal 14-46 [facility] Work Phone: MCH (RBC) [Entitic mass] 29.1 pg Normal 27.0-34.0 [facility] Work Phone: Comment on above: PERFORMED BY: MendorFirstHealth [facility] [id number] MCH Auto Entitic mass (RBC) 29.1 pg Normal 27.0-34.0 [facility] Work Phone: MCHC (RBC) [Mass/Vol] 34.3 g/dL Normal 32.0-36.0 [facility] Work Phone: Comment on above: PERFORMED BY: LayerBoomFormerly [facility] [id number] MCHC Auto mass conc (RBC) 34.3 g/dL Normal 32.0-36.0 [facility] Work Phone: MCV (RBC) [Entitic vol] 85 fL Normal 80-98 [facility] Work Phone: Comment on above: PERFORMED BY: Pinpoint MD [facility] [id number] MCV Auto Entitic volume (RBC) 85 fL Normal 80-98 [facility] Work Phone: Monocytes (Bld) [#/Vol] 0.3 {x10E3/uL} Normal 0.1-1.0 [facility] Work Phone: Comment on above: PERFORMED BY: SendGrid63[employer] [facility] [id number] Monocytes Auto #/vol (Bld) 0.3 {x10E3/uL} Normal 0.1-1.0 [facility] Work Phone: Monocytes/100 WBC (Bld) 3 % Abnormal 4-13 [facility] Work Phone: Comment on above: PERFORMED BY: Pinpoint MD [facility] [id number] Monocytes/100 WBC Auto (Bld) 3 % Abnormal 4-13 [facility] Work Phone: Neutrophils (Bld) [#/Vol] 7.0 {x10E3/uL} Normal 1.8-7.8 [facility] Work Phone: Comment on above: PERFORMED BY: Pinpoint MD [facility] [id number] Neutrophils Auto #/vol (Bld) 7.0 {x10E3/uL} Normal 1.8-7.8 [facility] Work Phone: Neutrophils/100 WBC (Bld) 77 % Abnormal 40-74 [facility] Work Phone: Comment on above: PERFORMED BY: Pinpoint MD [facility] [id number] Neutrophils/100 WBC Auto (Bld) 77 % Abnormal 40-74 [facility] Work Phone: Platelets (Bld) [#/Vol] 306 {x10E3/uL} Normal 140-415 [facility] Work Phone: Comment on above: PERFORMED BY: Pinpoint MD [facility] [id number] Platelets Auto #/vol (Bld) 306 {x10E3/uL} Normal 140-415 [facility] Work Phone: RBC (Bld) [#/Vol] 3.93 {x10E6/uL} Normal 3.80-5.10 [facility] Internal Medicine Work Phone: Comment on above: PERFORMED BY: SendGrid63[employer] [facility] [id number] RBC Auto #/vol (Bld) 3.93 {x10E6/uL} Normal 3.80-5.10 [facility] Work Phone: WBC (Bld) [#/Vol] 9.1 {x10E3/uL} Normal 4.0-10.5 [facility] Work Phone: Comment on above: PERFORMED BY: [employer] [facility] [id number] WBC Auto #/vol (Bld) 9.1 {x10E3/uL} Normal 4.0-10.5 [facility] Internal Medicine Work Phone: Comp. Metabolic Panel (14)Or dered By: Filler Blender on 08-12-2008 Albumin mass conc 3.3 g/dL Abnormal 3.5-5.5 [facility] Internal Medicine Work Phone: Comment on above: PERFORMED BY: [employer] [facility] [id number] Albumin/Globulin mass ratio 1.1 {ratio} Normal 1.1-2.5 [facility] Internal Medicine Work Phone: Comment on above: PERFORMED BY: Pinpoint MD [facility] [id number] ALP enzyme act/vol 54 [iU]/L Normal 25-150 [facility] Internal Medicine Work Phone: Comment on above: PERFORMED BY: [employer] [place] [facility] [id number] ALT enzyme act/vol 24 [iU]/L Normal 0-40 [facility] Internal Medicine Work Phone: Comment on above: PERFORMED BY: Pinpoint MD [facility] [id number] AST enzyme act/vol 26 [iU]/L Normal 0-40 [facility] Internal Medicine Work Phone: Comment on above: PERFORMED BY: LayerBoomFormerly [facility] [id number] Bilirubin mass conc 0.3 mg/dL Normal 0.1-1.2 [facility] Internal Medicine Work Phone: Comment on above: PERFORMED BY: LayerBoomFormerly [facility] [id number] Calcium mass conc 9.0 mg/dL Normal 8.5-10.6 Compreh ensive Internal Medicine Work Phone: Comment on above: PERFORMED BY: SendGrid6370 Unicorn ProductionFirstHealth [facility] [id number] Chloride molar conc 105 mmol/L Normal 97-108 Compr ehensive Internal Medicine Work Phone: Comment on above: PERFORMED BY: MendorFirstHealth [facility] [id number] CO2 molar conc 22 mmol/L Normal 20-32 Comprehens olga Internal Medicine Work Phone: Comment on above: PERFORMED BY: LeukoDx70 NeedFeedFormerly [facility] [id number] Creatinine mass conc 0.50 mg/dL Abnormal 0.57-1.00 Comp rehensive Internal Medicine Work Phone: Comment on above: PERFORMED BY: LayerBoomFormerly [facility] [id number] GFR/1.73 sq M predicted among blacks MDRD vol rate/area (S/P/Bld) mL/min/{1.73_m2} Normal Comprehensi ve Internal Medicine Work Phone: Comment on above: Note: Persistent red uction for 3 months or more in an eGFR<60 mL/min/1.73 m2 defines CKD. Patients with eGFR values>/=60 mL/min/1.73 m2 may also have CKD if evidence of persistentproteinuria is present. Additional information may be found [email or web address]. PERFORMED BY: SendGrid6370 NeedFeedFormerly [facility] [id number] GFR/1.73 sq M.predicted MDRD (S/P/Bld) [Vol rate/Area] mL/min/{1.73_m2} Normal [facility] Work Phone: Comment on above: PERFORMED BY: SendGrid6370 [employer] [facility] [id number] GFR/1.73 sq M.predicted MDRD vol rate/area mL/min/{1.73_m2} Normal [facility] Work Phone: Comment on above: PERFORMED BY: SendGrid6370 [facility] [id number] Globulin (S) [Mass/Vol] 2.9 g/dL Normal 1.5-4.5 [facility] Work Phone: Comment on above: PERFORMED BY: LeukoDx70 [facility] [id number] Globulin Calculated mass conc (S) 2.9 g/dL Normal 1.5-4.5 [facility] Work Phone: Glucose mass conc 96 mg/dL Normal 65-99 Compreh ensive Internal Medicine Work Phone: Comment on above: PERFORMED BY: LeukoDx70 [facility] [id number] Potassium molar conc 3.7 mmol/L Normal 3.5-5.2 Comp rehensive Internal Medicine Work Phone: Comment on above: PERFORMED BY: LeukoDx70 [facility] [id number] Protein mass conc 6.2 g/dL Normal 6.0-8.5 Compreh ensive Internal Medicine Work Phone: Comment on above: PERFORMED BY: LeukoDx70 [facility] [id number] Sodium molar conc 139 mmol/L Normal 135-145 Compreh ensive Internal Medicine Work Phone: Comment on above: PERFORMED BY: SendGrid6370 [facility] [id number] Urea nitrogen mass conc 7 mg/dL Normal 5-26 [facility] Work Phone: Comment on above: PERFORMED BY: SendGrid6370 [facility] [id number] Urea nitrogen/Creatinine mass ratio 14 mg/mg Normal 8-27 [facility] Work Phone: Comment on above: PERFORMED BY: LeukoDx70 [facility] [id number] D-DimerOrdered By: System Maryjane bowers on 08-12-2008 D-Dimer 0.5 {ug_FEU/mL} Abnormal 0.0-0.4 Comprehen sive Internal Medicine Work Phone: Comment on above: PERFORMED BY: Pinpoint MD [facility] [id number] TSHOrdered By: System Manage r on 08-12-2008 Thyrotropin Qn 3.321 {uIU/mL} Normal 0.450-4.500 Compr ehensive Internal Medicine Work Phone: Comment on above: PERFORMED BY: Pinpoint MD [facility] [id number] Thyroxine (T4) Free, Direct, SOrdered By: Filler Blender on 08-12-2008 T4 free mass conc 0.93 ng/dL Normal 0.61-1.76 Compreh ensive Internal Medicine Work Phone: Comment on above: PERFORMED BY: Pinpoint MD [facility] [id number] Triiodothyronine,Free,SerumO rdered By: Filler Blender on 08-12-2008 T3 free mass conc 2.6 pg/mL Normal 2.3-4.2 Compreh ensive Internal Medicine Work Phone: Comment on above: PERFORMED BY: LeukoDx70 [place] [facility] [id number] CBC With Differential/Platel etOrdered By: Filler Blender on 07-31-2008 Basophils (Bld) [#/Vol] 0.0 {x10E3/uL} Normal 0.0-0.2 [facility] Work Phone: Comment on above: Clinical Information : CALL RESULTS TO DR JOSHI PERFORMED BY: B-hive NetworksCoGame ClosurePctnzh5282 [place] [facility] [id number] Basophils Auto #/vol (Bld) 0.0 {x10E3/uL} Normal 0.0-0.2 [facility] Work Phone: Basophils/100 WBC (Bld) 0 % Normal 0-3 [facility] Work Phone: Comment on above: Clinical Information : CALL RESULTS TO DR JOSHI PERFORMED BY: [facility]6370 [facility] [id number] Basophils/100 WBC Auto (Bld) 0 % Normal 0-3 [facility] Work Phone: Eosinophils (Bld) [#/Vol] 0.0 {x10E3/uL} Normal 0.0-0.4 [facility] Work Phone: Comment on above: Clinical Information : CALL RESULTS TO DR JOSHI PERFORMED BY: [facility]6370 [facility] [id number] Eosinophils Auto #/vol (Bld) 0.0 {x10E3/uL} Normal 0.0-0.4 [facility] Work Phone: Eosinophils/100 WBC (Bld) 0 % Normal 0-7 [facility] Work Phone: Comment on above: Clinical Information : CALL RESULTS TO DR JOSHI PERFORMED BY: [place] [id number] [facility] [id number] Eosinophils/100 WBC Auto (Bld) 0 % Normal 0-7 [facility] Work Phone: Erythrocyte distribution width (RBC) [Ratio] 14.4 % Normal 11.7-15.0 [facility] Work Phone: Comment on above: Clinical Information : CALL RESULTS TO DR JOSHI PERFORMED BY: [place] [id number] [facility] [id number] Erythrocyte distribution width Auto Ratio (RBC) 14.4 % Normal 11.7-15.0 [facility] Work Phone: Hematocrit (Bld) [Volume fraction] 33.4 % Abnormal 34.0-44.0 [facility] Work Phone: Comment on above: Clinical Information : CALL RESULTS TO DR JOSHI PERFORMED BY: [place] [id number] [facility] [id number] Hematocrit Auto Volume Fraction (Bld) 33.4 % Abnormal 34.0-44.0 [facility] Work Phone: Hemoglobin mass conc (Bld) 11.2 g/dL Abnormal 11.5-15.0 [facility] Work Phone: Comment on above: Clinical Information : CALL RESULTS TO DR JOSHI PERFORMED BY: [facility]6370 [facility] [id number] Lymphocytes (Bld) [#/Vol] 0.9 {x10E3/uL} Normal 0.7-4.5 [facility] Work Phone: Comment on above: Clinical Information : CALL RESULTS TO DR JOSHI PERFORMED BY: [facility]6370 [facility] [id number] Lymphocytes Auto #/vol (Bld) 0.9 {x10E3/uL} Normal 0.7-4.5 [facility] Work Phone: Lymphocytes/100 WBC (Bld) 12 % Abnormal 14-46 [facility] Work Phone: Comment on above: Clinical Information : CALL RESULTS TO DR JOSHI PERFORMED BY: [facility]6370 [facility] [id number] Lymphocytes/100 WBC Auto (Bld) 12 % Abnormal [facility] Work Phone: MCH (RBC) [Entitic mass] 27.9 pg Normal 27.0-34.0 [facility] Work Phone: Comment on above: Clinical Information : CALL RESULTS TO DR JOSHI PERFORMED BY: [place] [id number] [facility] [id number] MCH Auto Entitic mass (RBC) 27.9 pg Normal 27.0-34.0 [facility] Work Phone: MCHC (RBC) [Mass/Vol] 33.5 g/dL Normal 32.0-36.0 [facility] Work Phone: Comment on above: Clinical Information : CALL RESULTS TO DR JOSHI PERFORMED BY: [facility]6370 [facility] [id number] MCHC Auto mass conc (RBC) 33.5 g/dL Normal 32.0-36.0 [facility] Work Phone: MCV (RBC) [Entitic vol] 84 fL Normal 80-98 [facility] Work Phone: Comment on above: Clinical Information : CALL RESULTS TO DR JOSHI PERFORMED BY: MAIA Timeliner Hnborv7704 [place] [facility] [id number] MCV Auto Entitic volume (RBC) 84 fL Normal 80-98 [facility] Work Phone: Monocytes (Bld) [#/Vol] 0.6 {x10E3/uL} Normal 0.1-1.0 [facility] Work Phone: Comment on above: Clinical Information : CALL RESULTS TO DR JOSHI PERFORMED BY: Timeliner Weyegz0207 [place] [facility] [id number] Monocytes Auto #/vol (Bld) 0.6 {x10E3/uL} Normal 0.1-1.0 [facility] Work Phone: Monocytes/100 WBC (Bld) 8 % Normal 4-13 [facility] Work Phone: Comment on above: Clinical Information : CALL RESULTS TO DR JOSHI PERFORMED BY: MAIA Timeliner Jswfqm9639 [place] [facility] [id number] Monocytes/100 WBC Auto (Bld) 8 % Normal 4-13 [facility] Work Phone: Neutrophils (Bld) [#/Vol] 6.0 {x10E3/uL} Normal 1.8-7.8 [facility] Work Phone: Comment on above: Clinical Information : CALL RESULTS TO DR JOSHI PERFORMED BY: [facility] Medical CenterLoopbackMonmouth Medical CenterCusynk9573 [facility] [id number] Neutrophils Auto #/vol (Bld) 6.0 {x10E3/uL} Normal 1.8-7.8 [facility] Work Phone: Neutrophils/100 WBC (Bld) 80 % Abnormal 40-74 [facility] Work Phone: Comment on above: Clinical Information : CALL RESULTS TO DR JOSHI PERFORMED BY: MAIA [facility] CenterLoopbackMonmouth Medical CenterBnniah0122 [facility] [id number] Neutrophils/100 WBC Auto (Bld) 80 % Abnormal 40-74 [facility] Work Phone: Platelets (Bld) [#/Vol] 287 {x10E3/uL} Normal 140-415 [facility] Work Phone: Comment on above: Clinical Information : CALL RESULTS TO DR JOSHI PERFORMED BY: LabCoMonmouth Medical CenterUlqqhh1424 [facility] [id number] Platelets Auto #/vol (Bld) 287 {x10E3/uL} Normal 140-415 [facility] Internal Medicine Work Phone: RBC (Bld) [#/Vol] 4.01 {x10E6/uL} Normal 3.80-5.10 [facility] Internal Medicine Work Phone: Comment on above: Clinical Information : CALL RESULTS TO DR JOSHI PERFORMED BY: LabAscension [facility]ess[facility]ipp [facility]6370 [facility] [id number] RBC Auto #/vol (Bld) 4.01 {x10E6/uL} Normal 3.80-5.10 [facility] Internal Medicine Work Phone: WBC (Bld) [#/Vol] 7.5 {x10E3/uL} Normal 4.0-10.5 [facility] Internal Medicine Work Phone: Comment on above: Clinical Information : CALL RESULTS TO DR JOSHI PERFORMED BY: LabCoMonmouth Medical CenterQxnllj1621 [facility] [id number] WBC Auto #/vol (Bld) 7.5 {x10E3/uL} Normal 4.0-10.5 [facility] Internal Medicine Work Phone: TSHOrdered By: System Manage r on 06-10-2008 Thyrotropin Qn 3.702 {uIU/mL} Normal 0.450-4.500 [facility] Internal Medicine Work Phone: Comment on above: PERFORMED BY: [employer] Lab [facility]6370 [facility] [id number] hCG,Beta Subunit,Qnt,SerumOr dered By: Filler Blender on 05-12-2008 [place] [address] m[iU]/mL Normal [facility] Work Phone: Comment on above: Female (Non- ) <10 . Female () 1 D - 1 wk 5 - 50 1 - 2 wk 50 - 500 2 - 3 wk 100 - 5000 3 - 4 wk 500 - 46798 4 - 5 wk 1000 - 40037 5 - 6 wk 70937 -867133 6 - 8 wk 04900 -053913 2 - 3 mo 20641 -908056Qjzkb Centaur/ACS methodology PERFORMED BY: [employer] Ambar StarNet InteractiveFirstHealth [facility] Hospital [id number] TSHOrdered By: System Rubicon Project r on 04-30-2008 Thyrotropin Qn 3.079 {uIU/mL} Normal 0.450-4.500 Compr ensive Internal Medicine Work Phone: Comment on above: Clinical Information : [id number] PERFORMED BY: [employer] [facility] InteractiveFirstHealth [facility] [id number] hCG,Beta Subunit,Qnt,SerumOr dered By: Filler Blender on 04-30-2008 [place] [address] m[iU]/mL Normal [facility] Work Phone: Comment on above: Female (Non- ) <10 . Female () 1 D - 1 wk 5 - 50 1 - 2 wk 50 - 500 2 - 3 wk 100 - 5000 3 - 4 wk 500 - 38081 4 - 5 wk 1000 - 21654 5 - 6 wk 57781 -835071 6 - 8 wk 23278 -010680 2 - 3 mo 23491 -393005Zcmrh Centaur/ACS methodology PERFORMED BY: MendorFirstHealth [facility] Hospital [id number] TSHOrdered By: System Rubicon Project r on 01-31-2008 Thyrotropin Qn 1.838 {uIU/mL} Normal 0.350-5.500 [facility] Institute[facility] Work Phone: Comment on above: Adult TSH concentrat ions below 5.5 uIU/mL do not rule out the presence of subclinical hypothyroidism. PERFORMED BY: [employer] Ambar StarNet InteractiveFirstHealth Montgomery [facility] Hospital [id number] Lipid Panel With LDL/HDL Rat ioOrdered By: Filler Blender on 10-23-2007 Cholesterol in HDL mass conc 46 mg/dL Normal 40-59 [facility] Work Phone: Comment on above: PATIENT WAS FASTINGP ERFORMED BY: MAIA LabAmbar RoyJynhkh9002 [address] RoadDublin [place] [id number] Cholesterol in LDL mass conc 105 mg/dL Abnormal 0-99 [facility] Work Phone: Comment on above: PATIENT WAS FASTINGP ERFORMED BY: MAIA LabAmbar Phkxwx0333 [address] RoadDublin [place] [id number] Cholesterol in LDL/Cholesterol in HDL mass ratio 2.3 {ratio_units} Normal 0.0-3.2 [facility] Work Phone: Comment on above: PATIENT WAS FASTINGP ERFORMED BY: MAIA LabAmbar RoyTovdfi2265 Luciano RoadDublin [place] [id number] Cholesterol in LDL/Cholesterol in HDL mass ratio SPRCS Normal [facility] Work Phone: Comment on above: If initial LDL-steve sterol result is >100 mg/dL, assess forrisk factors. PATIENT WAS FASTINGP ERFORMED BY: MAIA Roylin[address] [facility] Centerblin [place] [id number] Cholesterol in VLDL mass conc 27 mg/dL Normal 5-40 [facility] Work Phone: Comment on above: PATIENT WAS FASTINGP ERFORMED BY: MAIA LabCogadiel Eofesh[address] [facility] Centerblin [place] [id number] Cholesterol mass conc 178 mg/dL Normal 100-199 [facility] Work Phone: Comment on above: PATIENT WAS FASTINGP ERFORMED BY: MAIA LabCogadiel Brodap5[address] RoadDublin [place] [id number] Triglyceride mass conc 133 mg/dL Normal 0-149 [facility] Work Phone: Comment on above: PATIENT WAS FASTINGP ERFORMED BY: MAIA [facility] Lzyrqv6034 [address] RoadDublin [place] [id number] TSHOrdered By: System Manage r on 10-23-2007 Thyrotropin Qn 0.064 {uIU/mL} Abnormal 0.350-5.500 Compr ehensive Internal Medicine Work Phone: Comment on above: Adult TSH concentrat ions below 5.5 uIU/mL does not rule out the presence of subclinical hypothyroidism. PATIENT WAS FASTINGP ERFORMED BY: MAIA [facility] Krsbbn6621 [facility] [id number] CULTURE, MISCOrdered By: Juani tem Manager Animal on 05-24-2007 Microscopic observation Gram stain Nom (Unsp spec) See Note Normal [facility] Work Phone: Comment on above: GRAM STAIN 1+ WHITE BLOOD CELLS RARE RED BLOOD CELLS NO ORGANISMS SEEN SOURCE UNKNOWM BUG B ITE CULTURE, MISC See Note Normal Comprehensi ve Internal Medicine Work Phone: Comment on above: GRAM STAIN 1+ WHITE BLOOD CELLS RARE RED BLOOD CELLS NO ORGANISMS SEEN ORGANISM 1: PSEUDOMO QUINTON AERUGINOSAORGANISM 2: COAG NEGATIVE STAPH PSEUDOMONAS AERUGINOSA: REACTION AMPICILLIN GN $ >=32 R AMPICILLIN/SULBACTAM $$$ >=32 R AZTREONAM $$$ <=8 S CEFAZOLIN $ >=32 R CEFEPIME $$$ <=4 S CEFTAZIDIME $$$ <=8 S CEFTRIAXONE $$$ >=64 R CIPROFLOXACIN GN $$$ <=0.5 S GENTAMICIN GN $ <=0.5 S IMIPENEM $$$ <=4 S LEVOFLOXACIN $$ <=1 S NITROFURANTOIN $ >=128 R PIPERACILLIN/TAZOBACTAM PS $$$ 16 S TOBRAMYCIN $$ <=0.5 S TRIMETHOPRIM/SULFAMETHOXAZ $$ >=320 R COAG NEGATIVE STAPH: REACTION AMOXICILLIN/CLAVULANIC ACID $$ <=2 S AMPICILLIN/SULBACTAM $$$ <=4 S CEFAZOLIN $ <=8 S CIPROFLOXACIN GP $$$ <=0.5 S CLINDAMYCIN $$ <=0.5 S ERYTHROMYCIN $$ <=0.5 S GENTAMICIN GP $ <=2 S LEVOFLOXACIN $$ <=1 S NITROFURANTOIN $ <=32 S PENICILLIN G (STAPH) $$ <=0.03 S RIFAMPIN $ <=1 S TETRACYCLINE $$ <=1 S TRIMETHOPRIM/SULFAMETHOXAZ $$ <=10 S VANCOMYCIN $$ <=0.5 S COAG NEGATIVE STAPH: REACTION AMOXICILLIN/CLAVULANIC ACID $$ <=2 S AMPICILLIN/SULBACTAM $$$ <=4 S CEFAZOLIN $ <=8 S CIPROFLOXACIN GP $$$ <=0.5 S CLINDAMYCIN $$ <=0.5 S ERYTHROMYCIN $$ <=0.5 S GENTAMICIN GP $ <=2 S LEVOFLOXACIN $$ <=1 S OXACILLIN COAG NEG $$ <=0.25 S PENICILLIN G (STAPH) $$ <=0.03 S RIFAMPIN $ <=1 S TETRACYCLINE $$ <=1 S TRIMETHOPRIM/SULFAMETHOXAZ $$ <=10 S VANCOMYCIN $$ <=0.5 S SOURCE UNKNOWM BUG B ITE HCG QUANT.Ordered By: Filler Blender on 02-21-2007 HCG QUANT. 0 m[iU]/mL Normal 0-6 Non-preg [facility] Work Phone: ,SERUMOrdered By: S ystem Manager Animal on 02-21-2007 ,SERUM SeeNote Normal [facility]prehen s[facility] Work Phone: Comment on above: Result: NEGATIVE TSHOrdered By: System Manage r on 02-21-2007 Thyrotropin Qn 2.24 {uIU/mL} Normal 0.34-4.82 Compre[facility] ens[facility] Work Phone: PELVIC (NON )Ordered By: Filler Blender on 01-29-2007 PELVIC (NON ) See Note Normal [facility] Work Phone: Comment on above: Exam Number: [id number] PELVIC ULTRASOUND HISTORYAbnormal vaginal bleeding. Both transabdominal and transvaginal studies were performed. On thetransabdominal examination, the uterus is relatively long .3 x 2.4 x 4.2 cm. On the transvaginal study, the uterus measures9.1 x 3 x 4.3 cm. The uterus is retroverted. The endometriummeasures 2 mm which is normal. The right ovary is normal in sizemeasuring 3 x 2.3 x 1.8 cm. There are normal follicles in the rightovary. The left ovary is not seen. IMPRESSION1. The uterus is within normal limits in size. It is retroverted.2. Endometrium is within normal limits.3. Right ovary is normal. Left ovary is not seen. Reported By: DULCE PEACOCK M.D. Exam Number: [id number] PELVIC ULTRASOUND HISTORYAbnormal vaginal bleeding. Both transabdominal and transvaginal studies were performed. On thetransabdominal examination, the uterus is relatively long [id number] x 2.4 x 4.2 cm. On the transvaginal study, the uterus measures9.1 x 3 x 4.3 cm. The uterus is retroverted. The endometriummeasures 2 mm which is normal. The right ovary is normal in sizemeasuring 3 x 2.3 x 1.8 cm. There are normal follicles in the rightovary. The left ovary is not seen. IMPRESSION1. The uterus is within normal limits in size. It is retroverted.2. Endometrium is within normal limits.3. Right ovary is normal. Left ovary is not seen. Reported By: DULCE PEACOCK M.D. HCG QUANT.Ordered By: Filler Blender on 01-22-2007 HCG QUANT. 3 m[iU]/mL Normal 0-6 Non-preg [facility] Work Phone: HCG QUANT.Ordered By: Filler Blender on 07-11-2006 HCG QUANT. 4 m[iU]/mL Normal 0-6 Non-preg [facility] Work Phone: [id number] By: System Manag er on 07-11-2006 T3UP 34 % Normal 30-39 [facility] Work Phone: T3UP 3.7 1 Normal 1.4-4.5 [facility] Work Phone: T4 THYROXINOrdered By: Jonas eric Manager Animal on 07-11-2006 T4 THYROXIN 11.0 ug/dL Normal 4.8-13.9 [facility] Work Phone: TSHOrdered By: System Manage r on 07-11-2006 Thyrotropin Qn 0.47 {uIU/mL} Normal 0.34-4.82 Compreh ensive [facility] Work Phone: HCG QUANT.Ordered By: Filler Blender on 06-26-2006 HCG QUANT. 1695 m[iU]/mL Abnormal 0-6 Non-preg [facility] Work Phone: Comment on above: QUANTITATIVE hCG (pr egnancy) TEST is *POSITIVE* PLEASE CALL RESULT [phone] OR [phone] HCG QUANT.Ordered By: Filler Blender on 06-11-2006 HCG QUANT. 3404 m[iU]/mL Abnormal 0-6 Non-preg [facility] Work Phone: Comment on above: QUANTITATIVE hCG (pr egnancy) TEST is *POSITIVE* TSHOrdered By: System Manage r on 06-11-2006 Thyrotropin Qn 0.19 {uIU/mL} Abnormal 0.34-4.82 [facility] Work Phone: HCG QUANT.Ordered By: Filler Blender on 06-09-2006 HCG QUANT. 5127 m[iU]/mL Abnormal 0-6 Non-preg [facility] Work Phone: Comment on above: QUANTITATIVE hCG (pr egnancy) TEST is *POSITIVE* CULTURE, THROATOrdered By: Luis rodriguez Manager Animal on 06-06-2006 CULTURE, THROAT See Note Normal [facility] Work Phone: Comment on above: Normal throat clarisa isolated. No beta-hemolyticstreptococcus isolated. Vital Signs Date Time Vital Sign Value Performing Clinician Facility 04-20-2023 14:08040 Body height 152.4 cm [facility]; [facility] Work Phone: 04-20-2023 14:08-0400 Body mass index (BMI) [Ratio] 31.25 kg/m2 [facility]; [facility] Work Phone: 04-20-2023 14:08040 Body surface area Derived from formula 1.7 m2 [facility]; [facility] Work Phone: 04-20-2023 14:08-0400 Body temperature 98.1 [degF] Agnes Chris [facility]; [facility] Work Phone: Comment on above: Method: Thermal Scan 04-20-2023 14:08-0400 Body weight 72.58 kg Agnes Chris [facility]; [facility] Work Phone: 04-20-2023 14:08-0400 Diastolic blood pressure 80 mm[Hg] Agnes Chris [facility]; [facility] Work Phone: Comment on above: Patient Position: Si tting; Cuff Location: Left Arm; Cuff Size: Standard 04-20-2023 14:08-0400 Heart rate 75 /min Agnes Chris [facility]; [facility] Work Phone: Comment on above: Pattern: Regular 04-20-2023 14:08-0400 Respiratory rate 16 /min Agnes Chris [facility]; [facility] Work Phone: Comment on above: Pattern: Unlabored 04-20-2023 14:08-0400 SaO2% (BldA) [Mass fraction] 99 % Agnes Chris [facility]; [facility] Work Phone: Comment on above: Room air 04-20-2023 14:08-0400 Systolic blood pressure 116 mm[Hg] Agnes Chris [facility]; [facility] Work Phone: Comment on above: Patient Position: Si tting; Cuff Location: Left Arm; Cuff Size: Standard 04-18-2023 15:18-0400 Body height 152.4 cm Agnes Chris [facility]; [facility] Work Phone: 04-18-2023 15:18-0400 Body mass index (BMI) [Ratio] 31.25 kg/m2 Agnes Chris [facility]; [facility] Work Phone: 04-18-2023 15:18-0400 Body surface area Derived from formula 1.7 m2 Agnes Chris [facility]; [facility] Work Phone: 04-18-2023 15:18-0400 Body temperature 98.1 [degF] Agnes Chris [facility]; [facility] Work Phone: Comment on above: Method: Thermal Scan 04-18-2023 15:18-0400 Body weight 72.58 kg Agnes Chris [facility]; [facility] Work Phone: 04-18-2023 15:18-0400 Diastolic blood pressure 80 mm[Hg] Agnes Chris [facility]; [facility] Work Phone: Comment on above: Patient Position: Si tting; Cuff Location: Left Arm; Cuff Size: Standard 04-18-2023 15:18-0400 Heart rate 75 /min Agnes Chris [facility]; [facility] Work Phone: Comment on above: Pattern: Regular 04-18-2023 15:18-0400 Respiratory rate 16 /min Agnes Chris [facility]; [facility] Work Phone: Comment on above: Pattern: Unlabored 04-18-2023 15:18-0400 SaO2% (BldA) [Mass fraction] 99 % Agnes Chris [facility]; [facility] Work Phone: Comment on above: Room air 04-18-2023 15:18-0400 Systolic blood pressure 116 mm[Hg] Agnes Chris [facility]; [facility] Work Phone: Comment on above: Patient Position: Si tting; Cuff Location: Left Arm; Cuff Size: Standard 11-21-2021 15:06-0400 Body weight 79.38 kg Rodney Sprague MD Work Phone: [facility] 08-16-2021 11:35-0500 Body height 152.4 cm JOEY Negrete LPN [facility]; [facility] Work Phone: 08-16-2021 11:35-0500 Body mass index (BMI) [Ratio] 31.25 kg/m2 JOEY Negrete LPN [facility]; [facility] Work Phone: 08-16-2021 11:35-0500 Body surface area Derived from formula 1.7 m2 JOEY Negrete LPN [facility]; [facility] Work Phone: 08-16-2021 11:35-0500 Body temperature 97.8 [degF] JOEY Negrete PHOTOGRAPHIC COLORIST [facility]; [facility] Work Phone: Comment on above: Method: Temporal 08-16-2021 11:35-0500 Body weight 72.58 kg JOEY Negrete PHOTOGRAPHIC COLORIST [facility]; [facility] Work Phone: 08-16-2021 11:35-0500 Diastolic blood pressure 74 mm[Hg] JOEY Negrete LPN [facility]; [facility] Work Phone: Comment on above: Patient Position: Si tting; Cuff Location: Left Arm; Cuff Size: Standard 08-16-2021 11:35-0500 Heart rate 70 /min JOEY Negrete LPN [facility]; [facility] Work Phone: Comment on above: Pattern: Regular 08-16-2021 11:35-0500 Respiratory rate 18 /min JOEY Negrete LPN [facility]; [facility] Work Phone: Comment on above: Pattern: Unlabored 08-16-2021 11:35-0500 SaO2% (BldA) [Mass fraction] 100 % JOEY Negrete LPN [facility]; [facility] Work Phone: Comment on above: Room air 08-16-2021 11:35-0500 Systolic blood pressure 114 mm[Hg] JOEY Negrete PHOTOGRAPHIC COLORIST [facility]; [facility] Work Phone: Comment on above: Patient Position: Si tting; Cuff Location: Left Arm; Cuff Size: Standard 07-15-2021 16:39-0500 Body height 152.4 cm Renee [facility]; [facility] Work Phone: 07-15-2021 16:39-0500 Body mass index (BMI) [Ratio] 31.64 kg/m2 Renee Barrientos [facility]; [facility] Work Phone: 07-15-2021 16:39-0500 Body surface area Derived from formula 1.71 m2 Renee Barrientos [facility]; [facility] Work Phone: 07-15-2021 16:39-0500 Body temperature 97.3 [degF] Renee Barrientos [facility]; [facility] Work Phone: 07-15-2021 16:39-0500 Body weight 73.48 kg Renee Barrientos [facility]; [facility] Work Phone: 07-15-2021 16:39-0500 Diastolic blood pressure 68 mm[Hg] Renee Barrientos [facility]; [facility] Work Phone: Comment on above: Patient Position: Si tting; Cuff Location: Left Arm; Cuff Size: Standard 07-15-2021 16:39-0500 Heart rate 89 /min Renee Barrientos [facility]; [facility] Work Phone: Comment on above: Pattern: Regular 07-15-2021 16:39-0500 Respiratory rate 16 /min Renee Barrientos [facility]; [facility] Work Phone: Comment on above: Pattern: Unlabored 07-15-2021 16:39-0500 SaO2% (BldA) [Mass fraction] 98 % Renee Barrientos [facility]; [facility] Work Phone: Comment on above: Room air 07-15-2021 16:39-0500 Systolic blood pressure 112 mm[Hg] Renee Barrientos [facility]; [facility] Work Phone: Comment on above: Patient Position: Si tting; Cuff Location: Left Arm; Cuff Size: Standard 06-20-2021 10:10-0500 Body height 152.4 cm JOEY Negrete LPN [facility]; [facility] Work Phone: 06-20-2021 10:10-0500 Body mass index (BMI) [Ratio] 33.2 kg/m2 JOEY Negrete LPN [facility]; [facility] Work Phone: 06-20-2021 10:10-0500 Body surface area Derived from formula 1.74 m2 JOEY Negrete LPN [facility]; [facility] Work Phone: 06-20-2021 10:10-0500 Body temperature 97.9 [degF] JOEY Negrete LPN [facility]; [facility] Work Phone: Comment on above: Method: Axillary 06-20-2021 10:10-0500 Body weight 77.11 kg JOEY Negrete PHOTOGRAPHIC COLORIST [facility]; [facility] Work Phone: 06-20-2021 10:10-0500 Diastolic blood pressure 74 mm[Hg] JOEY Negrete LPN [facility]; [facility] Work Phone: Comment on above: Patient Position: Si tting; Cuff Location: Left Arm; Cuff Size: Standard 06-20-2021 10:10-0500 Heart rate 76 /min JOEY Negrete LPN [facility]; [facility] Work Phone: Comment on above: Pattern: Regular 06-20-2021 10:10-0500 Respiratory rate 18 /min JOEY Negrete LPN [facility]; [facility] Work Phone: Comment on above: Pattern: Unlabored 06-20-2021 10:10-0500 SaO2% (BldA) [Mass fraction] 99 % JOEY Negrete LPN [facility]; [facility] Work Phone: Comment on above: Room air 06-20-2021 10:10-0500 Systolic blood pressure 114 mm[Hg] JOEY Negrete PHOTOGRAPHIC COLORIST [facility]; [facility] Work Phone: Comment on above: Patient Position: Si tting; Cuff Location: Left Arm; Cuff Size: Standard 01-31-2021 10:15-0400 Body height 154.7 cm Nadya WEISS Work Phone: [facility] Comment on above: with shoes 01-31-2021 10:15-0400 Body mass index (BMI) [Ratio] 32.34 kg/m2 Nadya Clarkll [employer]ING [employer] SUPERVISOR[employer]NER Work Phone: [facility] 01-31-2021 10:15-0400 Body temperature 97.59 [degF] Nadya Rene [employer]RAWING [employer] SUPERVISOR[employer]NER Work Phone: [facility] 01-31-2021 10:15-0400 Body weight 77.38 kg Nadya Rene [employer]RAWING [employer] SUPERVISOR[employer]NER Work Phone: [facility] Comment on above: with shoes 01-31-2021 10:15-0400 Diastolic blood pressure 68 mm[Hg] Nadya Rene [employer]RAWING [employer] SUPERVISOR[employer]NER Work Phone: [facility] 01-31-2021 10:15-0400 Heart rate 67 /min Nadya Rene DRAWING [employer] SUPERVISOR[employer]NER Work Phone: [facility] 01-31-2021 10:15-0400 Respiratory rate 14 /min Nadya Rene [employer]RAWING [employer] SUPERVISOR[employer]NER Work Phone: [facility] 01-31-2021 10:15-0400 Systolic blood pressure 137 mm[Hg] Nadya Clarkll [employer]RAWING [employer] SUPERVISOR[employer]NER Work Phone: [facility] 04-12-2020 09:29-0400 BMI (Body Mass Index) 29.69 kg/m2 Renee Barrientos [facility] Work Phone: 04-12-2020 09:290400 Body Temperature 96.6 [degF] Renee Barrientos [facility] Work Phone: Comment on above: Method: Infrared 04-12-2020 09:29-0400 Body weight 68.95 kg Renee Barrientos [facility] Work Phone: 04-12-2020 09:29-0400 BP Diastolic 78 mm[Hg] Renee Barrientos [facility] Work Phone: Comment on above: Patient Position: Si tting; Cuff Location: Left Arm; Cuff Size: Standard 04-12-2020 09:29-0400 BP Systolic 106 mm[Hg] Renee Barrientos [facility] Work Phone: Comment on above: Patient Position: Si tting; Cuff Location: Left Arm; Cuff Size: Standard 04-12-2020 09:29-0400 BSA (Body Surface Area) 1.66 m2 Renee Barrientos [facility] Work Phone: 04-12-2020 09:29-0400 Height 152.4 cm Renee Barrientos [facility] Work Phone: 04-12-2020 09:29-0400 Pulse (Heart Rate) 89 /min Renee Barrientos [facility] Work Phone: Comment on above: Pattern: Regular 04-12-2020 09:29-0400 Pulse Oximetry 98 % Young Reid [facility] Work Phone: Comment on above: Room air 04-12-2020 09:29-0400 Respiratory Rate 16 /min Renee Barrientos [facility] Work Phone: Comment on above: Pattern: Unlabored 04-12-2020 09:29-0400 SaO2% (BldA) [Mass fraction] 98 % Renee Barrientos [facility]; [facility] Work Phone: Comment on above: Room air 01-19-2020 09:14-0400 BMI (Body Mass Index) 29.69 kg/m2 Renee Barrientos [facility] Work Phone: 01-19-2020 09:14-0400 Body Temperature 97 [degF] Renee Barrientos [facility] Work Phone: Comment on above: Method: Temporal 01-19-2020 09:14-0400 Body weight 68.95 kg Renee Barrientos [facility] Work Phone: 01-19-2020 09:14-0400 BSA (Body Surface Area) 1.66 m2 Renee Barrientos [facility] Work Phone: 01-19-2020 09:14-0400 Height 152.4 cm Renee Barrientos [employer] [facility] Work Phone: 11-24-2019 12:03-0400 BMI (Body Mass Index) 29.69 kg/m2 Ashwini Ortiz RN [facility] Work Phone: 11-24-2019 12:03-0400 Body Temperature 97.9 [degF] Ashwini Ortiz RN [facility] Work Phone: Comment on above: Method: Temporal 11-24-2019 12:03-0400 Body weight 68.95 kg Ashwini Ortiz RN [facility] Work Phone: 11-24-2019 12:03-0400 BP Diastolic 80 mm[Hg] Ashwini Ortiz RN [facility] Work Phone: Comment on above: Patient Position: Si tting; Cuff Location: Left Arm; Cuff Size: Large 11-24-2019 12:03-0400 BP Systolic 122 mm[Hg] Ashwini Ortiz RN [facility] Work Phone: Comment on above: Patient Position: Si tting; Cuff Location: Left Arm; Cuff Size: Large 11-24-2019 12:03-0400 BSA (Body Surface Area) 1.66 m2 Ashwini Ortiz RN [facility] Work Phone: 11-24-2019 12:03-0400 Height 152.4 cm Ashwini Ortiz RN [facility] Work Phone: 11-24-2019 12:03-0400 Pulse (Heart Rate) 80 /min Ashwini Ortiz RN [facility] Work Phone: Comment on above: Pattern: Regular 11-24-2019 12:03-0400 Pulse Oximetry 98 % Young Reid [facility] Work Phone: Comment on above: Room air 11-24-2019 12:03-0400 Respiratory Rate 18 /min Ashwini Ortiz RN [facility] Work Phone: Comment on above: Pattern: Unlabored 11-24-2019 12:03-0400 SaO2% (BldA) [Mass fraction] 98 % Ashwini Ortiz RN [facility]; [facility] Work Phone: Comment on above: Room air 10-31-2019 12:30-0400 BMI (Body Mass Index) 30.37 kg/m2 Ashwini Ortiz RN [facility] Work Phone: 10-31-2019 12:30-0400 Body weight 70.53 kg Ashwini Ortiz RN [facility] Work Phone: 10-31-2019 12:30-0400 BP Diastolic 78 mm[Hg] Ashwini Ortiz RN [facility] Work Phone: Comment on above: Patient Position: Si tting; Cuff Location: Left Arm; Cuff Size: Large 10-31-2019 12:30-0400 BP Systolic 118 mm[Hg] Ashwini Ortiz RN [facility] Work Phone: Comment on above: Patient Position: Si tting; Cuff Location: Left Arm; Cuff Size: Large 10-31-2019 12:30-0400 BSA (Body Surface Area) 1.68 m2 Ashwini Ortiz RN [facility] Work Phone: 10-31-2019 12:30-0400 Height 152.4 cm Ashwini Ortiz RN [facility] Work Phone: 10-31-2019 12:30-0400 Pulse (Heart Rate) 70 /min Ashwini Ortiz RN [facility] Work Phone: Comment on above: Pattern: Regular 10-31-2019 12:30-0400 Pulse Oximetry 97 % Young Reid [facility] Work Phone: Comment on above: Room air 10-31-2019 12:30-0400 Respiratory Rate 18 /min Ashwini Ortiz RN [facility] Work Phone: Comment on above: Pattern: Unlabored 10-31-2019 12:30-0400 SaO2% (BldA) [Mass fraction] 97 % Ashwini Ortiz RN [facility]; [facility] Work Phone: Comment on above: Room air 12-28-2016 15:22-0400 BMI (Body Mass Index) 26.83 kg/m2 Ashwini Ortiz RN [facility] Work Phone: 12-28-2016 15:22-0400 Body weight 62.31 kg Ashwini Ortiz RN [facility] Work Phone: 12-28-2016 15:22-0400 BP Diastolic 68 mm[Hg] Ashwini Ortiz RN [facility] Work Phone: Comment on above: Patient Position: Si tting; Cuff Location: Left Arm; Cuff Size: Standard 12-28-2016 15:22-0400 BP Systolic 118 mm[Hg] Ashwini Ortiz RN [facility] Work Phone: Comment on above: Patient Position: Si tting; Cuff Location: Left Arm; Cuff Size: Standard 12-28-2016 15:22-0400 BSA (Body Surface Area) 1.59 m2 Ashwini Ortiz RN [facility] Work Phone: 12-28-2016 15:22-0400 Height 152.4 cm Ashwini Ortiz RN [facility] Work Phone: 12-28-2016 15:22-0400 Pulse (Heart Rate) 60 /min Ashwini Ortiz RN [facility] Work Phone: Comment on above: Pattern: Regular 12-28-2016 15:22-0400 Respiratory Rate 16 /min Ashwini Ortiz RN [facility] Work Phone: Comment on above: Pattern: Unlabored 12-28-2016 15:22-0400 Weight 62.31 kg Young Reid [facility] Work Phone: 06-22-2016 13:01-0500 BMI (Body Mass Index) 30.08 kg/m2 Viki Julia DO Work Phone: [facility] Work Phone: 06-22-2016 13:01-0500 Body weight 69.85 kg Viki Julia DO Work Phone: [facility] Work Phone: 06-22-2016 13:01-0500 BP Diastolic 70 mm[Hg] Viki Julia DO Work Phone: [facility] Work Phone: Comment on above: Patient Position: Si tting 06-22-2016 13:01-0500 BP Systolic 118 mm[Hg] Viki Julia DO Work Phone: [facility] Work Phone: Comment on above: Patient Position: Si tting 06-22-2016 13:01-0500 BSA (Body Surface Area) 1.67 m2 Viki Dumont DO Work Phone: [facility] Work Phone: 06-22-2016 13:01-0500 Height 152.4 cm Viki Dumont DO Work Phone: [facility] Work Phone: 06-22-2016 13:01-0500 Pulse (Heart Rate) 82 /min Viki Dumont DO Work Phone: [facility] Work Phone: Comment on above: Pattern: Regular 06-22-2016 13:01-0500 Respiratory Rate 16 /min Viki Dumont DO Work Phone: [facility] Work Phone: 06-22-2016 13:01-0500 Weight 69.85 kg Young Reid [facility] Work Phone: 05-10-2015 16:54-0500 BMI (Body Mass Index) 28.32 kg/m2 JOEY Negrete LPN [facility] Work Phone: 05-10-2015 16:54-0500 Body Temperature 97.9 [degF] JOEY Negrete LPN [facility] Work Phone: Comment on above: Method: Temporal 05-10-2015 16:54-0500 Body weight 65.77 kg JOEY Negrete NAZARIO [facility] Work Phone: 05-10-2015 16:54-0500 BP Diastolic 78 mm[Hg] JOEY Negrete LPN [facility] Work Phone: Comment on above: Patient Position: Si tting; Cuff Location: Left Arm; Cuff Size: Standard 05-10-2015 16:54-0500 BP Systolic 116 mm[Hg] JOEY Negrete LPN [facility] Work Phone: Comment on above: Patient Position: Si tting; Cuff Location: Left Arm; Cuff Size: Standard 05-10-2015 16:54-0500 BSA (Body Surface Area) 1.63 m2 JOEY Negrete NAZARIO [facility] Work Phone: 05-10-2015 16:54-0500 Height 152.4 cm JOEY Caden LANGE [facility] Work Phone: 05-10-2015 16:54-0500 Pulse (Heart Rate) 70 /min JOEY Negrete NAZARIO [facility] Work Phone: Comment on above: Pattern: Regular 05-10-2015 16:54-0500 Pulse Oximetry 98 % Young Reid [facility] Work Phone: Comment on above: Room air 05-10-2015 16:54-0500 Respiratory Rate 18 /min JOEY Caden LANGE [facility] Work Phone: Comment on above: Pattern: Unlabored 05-10-2015 16:54-0500 SaO2% (BldA) [Mass fraction] 98 % JOEY Negrete PHOTOGRAPHIC COLORIST [facility]; [facility] Work Phone: Comment on above: Room air 05-10-2015 16:54-0500 Weight 65.77 kg Young Reid [facility] Work Phone: 03-05-2015 08:46-0400 BMI (Body Mass Index) 30.27 kg/m2 Young Reid MD Work Phone: [facility] Work Phone: 03-05-2015 08:46-0400 Body weight 70.31 kg Young Reid MD Work Phone: [facility] Work Phone: 03-05-2015 08:46-0400 BP Diastolic 70 mm[Hg] Young Reid MD Work Phone: [facility] Work Phone: Comment on above: Patient Position: Si tting 03-05-2015 08:46-0400 BP Systolic 118 mm[Hg] Young Reid MD Work Phone: [facility] Work Phone: Comment on above: Patient Position: Si tting 03-05-2015 08:46-0400 BSA (Body Surface Area) 1.68 m2 Young Reid MD Work Phone: [facility] Work Phone: 03-05-2015 08:46-0400 Height 152.4 cm Young Reid MD Work Phone: [facility] Work Phone: 03-05-2015 08:46-0400 Pulse (Heart Rate) 72 /min Young Reid MD Work Phone: [facility] Work Phone: Comment on above: Pattern: Regular 03-05-2015 08:46-0400 Weight 70.31 kg Young Reid [facility] Work Phone: 02-07-2013 14:28-0400 BMI (Body Mass Index) 29.69 kg/m2 Ashwini Ortiz RN [facility] Work Phone: 02-07-2013 14:28-0400 Body Temperature 97.8 [degF] Ashwini Ortiz RN [facility] Work Phone: Comment on above: Method: Oral 02-07-2013 14:28-0400 Body weight 68.95 kg Ashwini Ortiz RN [facility] Work Phone: 02-07-2013 14:28-0400 BP Diastolic 78 mm[Hg] Ashwini Ortiz RN [facility] Work Phone: Comment on above: Patient Position: Si tting; Cuff Location: Left Arm; Cuff Size: Large 02-07-2013 14:28-0400 BP Systolic 122 mm[Hg] Ashwini Ortiz RN [facility] Work Phone: Comment on above: Patient Position: Si tting; Cuff Location: Left Arm; Cuff Size: Large 02-07-2013 14:28-0400 BSA (Body Surface Area) 1.66 m2 Ashwini Ortiz RN [facility] Work Phone: 02-07-2013 14:28-0400 Height 152.4 cm Ashwini Ortiz RN [facility] Work Phone: 02-07-2013 14:28-0400 Pulse (Heart Rate) 64 /min Ashwini Ortiz RN [facility] Work Phone: Comment on above: Pattern: Regular 02-07-2013 14:28-0400 Respiratory Rate 18 /min Ashwini Ortiz RN [facility] Work Phone: Comment on above: Pattern: Unlabored 02-07-2013 14:28-0400 Weight 68.95 kg Young Reid [facility] Work Phone: 12-18-2012 08:07-0400 BMI (Body Mass Index) 29.69 kg/m2 Ashwini Ortiz RN [facility] Work Phone: 12-18-2012 08:07-0400 Body weight 68.95 kg Ashwini Ortiz RN [facility] Work Phone: 12-18-2012 08:07-0400 BP Diastolic 70 mm[Hg] Ashwini Ortiz RN [facility] Work Phone: Comment on above: Patient Position: Si tting; Cuff Location: Left Arm; Cuff Size: Standard 12-18-2012 08:07-0400 BP Systolic 120 mm[Hg] Ashwini Ortiz RN [facility] Work Phone: Comment on above: Patient Position: Si tting; Cuff Location: Left Arm; Cuff Size: Standard 12-18-2012 08:07-0400 BSA (Body Surface Area) 1.66 m2 Ashwini Ortiz RN [facility] Work Phone: 12-18-2012 08:07-0400 Height 152.4 cm Ashwini Ortiz RN [facility] Work Phone: 12-18-2012 08:07-0400 Pulse (Heart Rate) 68 /min Ashwini Ortiz RN [facility] Work Phone: Comment on above: Pattern: Regular 12-18-2012 08:07-0400 Respiratory Rate 18 /min Ashwini Ortiz RN [facility] Work Phone: Comment on above: Pattern: Unlabored 12-18-2012 08:07-0400 Weight 68.95 kg Young Reid [facility] Work Phone: 11-19-2012 15:58-0400 BMI (Body Mass Index) 30.08 kg/m2 Ashwini Ortiz RN [facility] Work Phone: 11-19-2012 15:58-0400 Body weight 69.85 kg Ashwini Ortiz RN [facility] Work Phone: 11-19-2012 15:58-0400 BP Diastolic 70 mm[Hg] Ashwini Ortiz RN [facility] Work Phone: Comment on above: Patient Position: Si tting; Cuff Location: Left Arm; Cuff Size: Large 11-19-2012 15:58-0400 BP Systolic 110 mm[Hg] Ashwini Ortiz RN [facility] Work Phone: Comment on above: Patient Position: Si tting; Cuff Location: Left Arm; Cuff Size: Large 11-19-2012 15:58-0400 BSA (Body Surface Area) 1.67 m2 Ashwini Ortiz RN [facility] Work Phone: 11-19-2012 15:58-0400 Height 152.4 cm Ashwini Ortiz RN [facility] Work Phone: 11-19-2012 15:58-0400 Pulse (Heart Rate) 60 /min Ashwini Ortiz RN [facility] Work Phone: Comment on above: Pattern: Regular 11-19-2012 15:58-0400 Respiratory Rate 18 /min Ashwini Ortiz RN [facility] Work Phone: Comment on above: Pattern: Unlabored 11-19-2012 15:58-0400 Weight 69.85 kg Young Reid [facility] Work Phone: 11-06-2012 13:00-0400 BP Diastolic 72 mm[Hg] Constanza Landrum RN [facility] Work Phone: Comment on above: Patient Position: Si tting; Cuff Location: Left Arm; Cuff Size: Standard 11-06-2012 13:00-0400 BP Systolic 116 mm[Hg] Constanza Landrum RN [facility] Work Phone: Comment on above: Patient Position: Si tting; Cuff Location: Left Arm; Cuff Size: Standard 10-21-2012 08:17-0400 BMI (Body Mass Index) 31.44 kg/m2 Ashwini Ortiz RN [facility] Work Phone: 10-21-2012 08:17-0400 Body weight 73.03 kg Ashwini Ortiz RN [facility] Work Phone: 10-21-2012 08:17-0400 BSA (Body Surface Area) 1.7 m2 Ashwini Ortiz RN [facility] Work Phone: 10-21-2012 08:17-0400 Height 152.4 cm Ashwini Ortiz RN [facility] Work Phone: 10-21-2012 08:17-0400 Weight 73.03 kg Young Gloverpatricio [facility] Work Phone: 03-06-2012 17:24-0400 BMI (Body Mass Index) 27.34 kg/m2 Viki Julia DO Work Phone: [facility] Work Phone: 03-06-2012 17:24-0400 Body Temperature 98.2 [degF] Viki Julia DO Work Phone: [facility] Work Phone: Comment on above: Method: Oral 03-06-2012 17:24-0400 Body weight 63.5 kg Viki Julia DO Work Phone: [facility] Work Phone: 03-06-2012 17:24-0400 BP Diastolic 82 mm[Hg] Viki Julia DO Work Phone: [facility] Work Phone: Comment on above: Patient Position: Si tting; Cuff Location: Left Arm; Cuff Size: Standard 03-06-2012 17:24-0400 BP Systolic 122 mm[Hg] Viki Julia DO Work Phone: [facility] Work Phone: Comment on above: Patient Position: Si tting; Cuff Location: Left Arm; Cuff Size: Standard 03-06-2012 17:24-0400 BSA (Body Surface Area) 1.6 m2 Viki Julia DO Work Phone: [facility] Work Phone: 03-06-2012 17:24-0400 Height 152.4 cm Viki Julia DO Work Phone: [facility] Work Phone: 03-06-2012 17:24-0400 Pulse (Heart Rate) 72 /min Viki Julia DO Work Phone: [facility] Work Phone: Comment on above: Pattern: Regular 03-06-2012 17:24-0400 Respiratory Rate 18 /min Viki Julia DO Work Phone: [facility] Work Phone: Comment on above: Pattern: Unlabored 03-06-2012 17:24-0400 Weight 63.5 kg Young Bonezzi [facility] Work Phone: 11-04-2009 08:19-0400 BMI (Body Mass Index) 28.98 kg/m2 Ashwini Ortiz RN [facility] Work Phone: 11-04-2009 08:19-0400 Body weight 67.3 kg Ashwini Ortiz RN [facility] Work Phone: 11-04-2009 08:19-0400 BSA (Body Surface Area) 1.64 m2 Ashwini Ortiz RN [facility] Work Phone: 11-04-2009 08:19-0400 Height 152.4 cm Ashwini Ortiz RN [facility] Work Phone: 11-04-2009 08:19-0400 Weight 67.3 kg Young Bonezzi [facility] Work Phone: 10-20-2009 10:30-0400 BMI (Body Mass Index) 29.38 kg/m2 Ashwini Ortiz RN [facility] Work Phone: 10-20-2009 10:30-0400 Body weight 68.24 kg Ashwini Ortiz RN [facility] Work Phone: 10-20-2009 10:30-0400 BP Diastolic 70 mm[Hg] Ashwini Ortiz RN [facility] Work Phone: Comment on above: Patient Position: Si tting; Cuff Location: Right Arm; Cuff Size: Standard 10-20-2009 10:30-0400 BP Systolic 112 mm[Hg] Ashwini Ortiz RN [facility] Work Phone: Comment on above: Patient Position: Si tting; Cuff Location: Right Arm; Cuff Size: Standard 10-20-2009 10:30-0400 BSA (Body Surface Area) 1.65 m2 Ashwini Ortiz RN [facility] Work Phone: 10-20-2009 10:30-0400 Height 152.4 cm Ashwini Ortiz RN [facility] Work Phone: 10-20-2009 10:30-0400 Pulse (Heart Rate) 64 /min Ashwini Ortiz RN [facility] Work Phone: Comment on above: Pattern: Regular 10-20-2009 10:30-0400 Respiratory Rate 18 /min Ashwini Ortiz RN [facility] Work Phone: Comment on above: Pattern: Unlabored 10-20-2009 10:30-0400 Weight 68.24 kg Young Reid [facility] Work Phone: 10-05-2009 08:40-0400 BMI (Body Mass Index) 29.8 kg/m2 Ashwini Ortiz RN [facility] Work Phone: 10-05-2009 08:40-0400 Body weight 69.2 kg Ashwini Ortiz RN [facility] Work Phone: 10-05-2009 08:40-0400 BP Diastolic 64 mm[Hg] Ashwini Ortiz RN [facility] Work Phone: Comment on above: Patient Position: Si tting; Cuff Location: Left Arm; Cuff Size: Standard 10-05-2009 08:40-0400 BP Systolic 118 mm[Hg] Ashwini Ortiz RN [facility] Work Phone: Comment on above: Patient Position: Si tting; Cuff Location: Left Arm; Cuff Size: Standard 10-05-2009 08:40-0400 BSA (Body Surface Area) 1.66 m2 Ashwini Ortiz RN [facility] Work Phone: 10-05-2009 08:40-0400 Height 152.4 cm Ashwini Ortiz RN [facility] Work Phone: 10-05-2009 08:40-0400 Pulse (Heart Rate) 60 /min Ashwini Ortiz RN [facility] Work Phone: Comment on above: Pattern: Regular 10-05-2009 08:40-0400 Respiratory Rate 18 /min Ashwini Ortiz RN [facility] Work Phone: Comment on above: Pattern: Unlabored 10-05-2009 08:40-0400 Weight 69.2 kg Young Reid [facility] Work Phone: 09-21-2009 15:33-0400 BMI (Body Mass Index) 30.5 kg/m2 Ashwini Ortiz RN [facility] Work Phone: 09-21-2009 15:33-0400 Body weight 70.85 kg Ashwini Ortiz RN [facility] Work Phone: 09-21-2009 15:33-0400 BP Diastolic 78 mm[Hg] Ashwini Ortiz RN [facility] Work Phone: Comment on above: Patient Position: Si tting; Cuff Location: Left Arm; Cuff Size: Large 09-21-2009 15:33-0400 BP Systolic 114 mm[Hg] Ashwini Ortiz RN [facility] Work Phone: Comment on above: Patient Position: Si tting; Cuff Location: Left Arm; Cuff Size: Large 09-21-2009 15:33-0400 BSA (Body Surface Area) 1.68 m2 Ashwini Ortiz RN [facility] Work Phone: 09-21-2009 15:33-0400 Height 152.4 cm Ashwini Ortiz RN [facility] Work Phone: 09-21-2009 15:33-0400 Weight 70.85 kg Young Reid [facility] Work Phone: 09-08-2009 08:11-0500 BMI (Body Mass Index) 31.09 kg/m2 Ashwini Ortiz RN [facility] Work Phone: 09-08-2009 08:11-0500 Body weight 72.21 kg Ashwini Ortiz RN [facility] Work Phone: 09-08-2009 08:11-0500 BP Diastolic 76 mm[Hg] Ashwini Ortiz RN [facility] Work Phone: Comment on above: Patient Position: Si tting; Cuff Location: Left Arm; Cuff Size: Standard 09-08-2009 08:11-0500 BP Systolic 116 mm[Hg] Ashwini Ortiz RN [facility] Work Phone: Comment on above: Patient Position: Si tting; Cuff Location: Left Arm; Cuff Size: Standard 09-08-2009 08:11-0500 BSA (Body Surface Area) 1.69 m2 Ashwini Ortiz RN [facility] Work Phone: 09-08-2009 08:11-0500 Height 152.4 cm Ashwini Ortiz RN [facility] Work Phone: 09-08-2009 08:11-0500 Pulse (Heart Rate) 72 /min Ashwini Ortiz RN [facility] Work Phone: Comment on above: Pattern: Regular 09-08-2009 08:11-0500 Respiratory Rate 18 /min Ashwini Ortiz RN [facility] Work Phone: Comment on above: Pattern: Unlabored 09-08-2009 08:11-0500 Weight 72.21 kg Young Reid [facility] Work Phone: 08-24-2009 11:16-0500 BMI (Body Mass Index) 31.83 kg/m2 Ashwini Ortiz RN [facility] Work Phone: 08-24-2009 11:16-0500 Body weight 73.94 kg Ashwini Ortiz RN [facility] Work Phone: 08-24-2009 11:16-0500 BP Diastolic 62 mm[Hg] Ashwini Ortiz RN [facility] Work Phone: Comment on above: Patient Position: Si tting; Cuff Location: Right Arm; Cuff Size: Large 08-24-2009 11:16-0500 BP Systolic 118 mm[Hg] Ashwini Ortiz RN [facility] Work Phone: Comment on above: Patient Position: Si tting; Cuff Location: Right Arm; Cuff Size: Large 08-24-2009 11:16-0500 BSA (Body Surface Area) 1.71 m2 Ashwini Ortiz RN [facility] Work Phone: 08-24-2009 11:16-0500 Height 152.4 cm Ashwini Ortiz RN [facility] Work Phone: 08-24-2009 11:16-0500 Pulse (Heart Rate) 68 /min Ashwini Ortiz RN [facility] Work Phone: Comment on above: Pattern: Regular 08-24-2009 11:16-0500 Respiratory Rate 20 /min Ashwini Ortiz RN [facility] Work Phone: Comment on above: Pattern: Unlabored 08-24-2009 11:16-0500 Weight 73.94 kg Young Reid [facility] Work Phone: 08-09-2009 09:03-0500 BMI (Body Mass Index) 33.67 kg/m2 Ashwini Ortiz RN [facility] Work Phone: 08-09-2009 09:03-0500 Body weight 78.2 kg Ashwini Ortiz RN [facility] Work Phone: 08-09-2009 09:03-0500 BP Diastolic 64 mm[Hg] Ashwini Ortiz RN [facility] Work Phone: Comment on above: Patient Position: St anding; Cuff Location: Left Arm; Cuff Size: Large 08-09-2009 09:03-0500 BP Systolic 118 mm[Hg] Ashwini Ortiz RN [facility] Work Phone: Comment on above: Patient Position: St anding; Cuff Location: Left Arm; Cuff Size: Large 08-09-2009 09:03-0500 BSA (Body Surface Area) 1.75 m2 Ashwini Ortiz RN [facility] Work Phone: 08-09-2009 09:03-0500 Height 152.4 cm Ashwini Ortiz RN [facility] Work Phone: 08-09-2009 09:03-0500 Respiratory Rate 20 /min Ashwini Ortiz RN [facility] Work Phone: Comment on above: Pattern: Unlabored 08-09-2009 09:03-0500 Weight 78.2 kg Young Reid [facility] Work Phone: NEGATED: Highlighted [id number] 11:14-0400 BMI (Body Mass Index) 30.27 kg/m2 Constanza [facility] Work Phone: NEGATED: Highlighted [id number] 11:14-0400 Body weight 71.22 kg Constanza [facility] Work Phone: NEGATED: Highlighted [id number] 11:14-0400 Body weight 71 kg Constanza West PHOTOGRAPHIC COLORIST [facility] Work Phone: NEGATED: Highlighted [id number] 11:14-0400 Heart rate 2+ Constanza [facility] Work Phone: NEGATED: Highlighted [id number] 11:14-0400 Height 153.67 cm Constanza [facility] Work Phone: NEGATED: Highlighted [id number] 11:14-0400 Height 154 cm Constanza [facility] Work Phone: Encounters Encounter Date Encounter Type Care Provider Facility Start: 05-05-2025 ambulatory RAJESH JIM Facility:[id number] Start: 05-05-2025 End: 05-05-2025 Subsequent hospital visit by physician Rajesh Jim DO Work Phone: [facility] Comment on above: Arrived Start: 04-21-2025 ambulatory Health Risk Assessment Facility:[facility] Start: 05-03-2024 End: 05-03-2024 Subsequent hospital visit by physician Rajesh Jim DO Work Phone: [facility] Comment on above: Arrived Start: 07-03-2023 End: 07-03-[address] Rajesh Jim Work Phone: [facility] Work Phone: Start: 07-03-2023 End: 07-03-[address] Rajesh Jim Work Phone: [facility] Work Phone: Start: 06-12-2023 End: 06-12-[address] Rajesh Jim Work Phone: [facility] Start: 05-10-2023 End: 05-10-2023 Phone Encounter Young Reid MD Work Phone: [facility] Start: 05-07-2023 End: 05-07-2023 Lab Order Young Reid MD Work Phone: [facility] Start: 05-04-2023 End: 05-04-[address] Rajesh Jim Work Phone: [facility] Work Phone: Start: 05-01-2023 End: 05-01-2023 Subsequent hospital visit by physician Rajesh Jim DO Work Phone: [facility] Comment on above: Arrived Start: 04-20-2023 End: 04-23-2023 Patient encounter procedure Young Reid MD Work Phone: [facility] Start: 04-20-2023 Review Young Garrett Work Phone: [facility] Start: 04-18-2023 End: 04-18-2023 Phone Encounter Young Reid MD Work Phone: [facility] Start: 03-13-2023 End: 04-20-2023 ambulatory RAJESH A FAST Facility:[id number] Start: 02-19-2023 End: 02-19-2023 Annotation/Addendum Young Reid MD Work Phone: [facility] Start: 01-02-2023 End: 03-09-2023 ambulatory RAJESH A FAST Facility:[id number] Start: 11-23-2022 End: 11-23-2022 Admission to establishment Young Reid MD Work Phone: [facility] Start: 11-09-2022 End: 11-09-2022 Office outpatient new 20 minutes Young Reid MD Work Phone: [facility] Start: 10-24-2022 End: 01-06-2023 ambulatory YOUNG TRACEY Facility:[id number] Start: 09-07-2022 End: 09-07-2022 Phone Encounter Young Reid MD Work Phone: [facility] Start: 07-18-2022 End: 10-07-2022 ambulatory YOUNG TRACEY Facility:[id number] Start: 07-07-2022 End: 07-07-[address] Rajesh Jim Work Phone: [facility] Work Phone: Start: 07-07-2022 End: 07-07-[address] Rajesh Jim Work Phone: [facility] Start: 07-07-2022 End: 07-07-2022 Phone Encounter Young Reid MD Work Phone: [facility] Start: 05-16-2022 End: 07-09-2022 ambulatory RAJESH JIM Facility:[id number] Start: 05-02-2022 End: 05-02-[address] Rajesh Jim Work Phone: [facility] Rad[facility] Start: 04-28-2022 End: 04-28-2022 Annotation/Addendum Young Reid MD Work Phone: [facility] Start: 03-02-2022 End: 03-02-2022 Phone Encounter Young Reid MD Work Phone: [facility] Start: 02-14-2022 End: 02-14-2022 Subsequent hospital visit by physician Rajesh Jim DO Work Phone: [facility] Comment on above: Arrived Start: 01-26-2022 End: 01-26-2022 Phone Encounter Young Reid MD Work Phone: [facility] Start: 12-19-2021 End: 12-19-2021 Phone Encounter Young Reid MD Work Phone: [facility] Start: 12-01-2021 End: 12-01-2021 Phone Encounter Young Reid MD Work Phone: [facility] Start: 11-21-2021 End: 11-21-2021 Patient encounter procedure Rodney Sprague MD Work Phone: [facility] Comment on above: Chronic venous insuf ficiency (Primary Dx); Varicose veins of bilateral lower extremities with other complications Start: 08-16-2021 End: 08-28-2021 Office outpatient visit 15 minutes Young Reid MD Work Phone: [facility] Start: 08-16-2021 Review Young Garrett Work Phone: [facility] Start: 07-26-2021 End: 07-26-2021 Phone Encounter Young Reid MD Work Phone: [facility] Start: 07-26-2021 End: 07-26-2021 Preprocedural examination done Agnes Chris [facility] Work Phone: Start: 07-25-2021 End: 07-25-2021 Patient encounter status Renee Barrientos [facility] Work Phone: Start: 07-25-2021 End: 07-25-2021 Phone Encounter Young Reid MD Work Phone: [facility] Start: 07-18-2021 End: 07-19-2021 Periodic preventive med est patient 65yrs& older Young Reid MD Work Phone: [facility] Start: 07-15-2021 End: 07-24-2021 Office outpatient visit 15 minutes Young Reid MD Work Phone: [facility] Start: 07-15-2021 End: 07-24-2021 Preprocedural examination done Renee Barrientos CMA [facility]; [facility] Work Phone: Start: 07-15-2021 Review Young Garrett Work Phone: [facility] Start: 06-24-2021 End: 06-27-2021 Office outpatient visit 5 minutes Young Reid MD Work Phone: [facility] Start: 06-20-2021 End: 06-20-2021 Phone Encounter Young Reid MD Work Phone: [facility] Start: 02-17-2021 End: 02-18-2021 Office outpatient visit 5 minutes Young Reid MD Work Phone: [facility] Start: 02-07-2021 End: 02-07-2021 Office outpatient visit 5 minutes Young Reid MD Work Phone: [facility] Start: 01-31-2021 End: 01-31-2021 Office outpatient visit 15 minutes Nadya Rene [employer] Work Phone: Division of Surgical Oncology Comment on above: Encounter for screen ing mammogram for malignant neoplasm of breast (Primary Dx) Start: 01-31-2021 End: 01-31-2021 Subsequent hospital visit by physician Nadya Rene [employer] Work Phone: [facility] at [facility] [place] Comment on above: Arrived Start: 01-03-2021 End: 01-03-2021 Phone Encounter Young Reid MD Work Phone: [facility] Start: 12-31-2020 End: 12-31-2020 Office outpatient visit 5 minutes Young Reid MD Work Phone: [facility] Start: 10-18-2020 End: 10-18-2020 Office outpatient visit 5 minutes Young Reid [facility] Start: 07-12-2020 End: 07-12-2020 Phone Encounter Young Reid [facility] Start: 06-28-2020 End: 06-28-2020 Phone Encounter Young Bonezzi [facility] Start: 06-17-2020 End: 06-17-2020 Phone Encounter Young [facility] Start: 05-24-2020 Review Young [facility] Start: 04-12-2020 End: 04-19-2020 Office outpatient visit 15 minutes Young Reid [facility] Start: 04-12-2020 Review Young [facility] Start: 03-31-2020 End: 03-31-2020 Phone Encounter Young [facility] Start: 03-10-2020 End: 03-10-2020 Phone Encounter Young [facility] Start: 01-30-2020 End: 01-30-2020 Phone Encounter Young [facility] Start: 01-26-2020 End: 01-26-2020 Phone Encounter Young [facility] Start: 01-21-2020 End: 01-21-2020 Phone Encounter Young [facility] Start: 01-19-2020 End: 01-19-2020 Office outpatient visit 5 minutes Young Reid [facility] Start: 01-07-2020 End: 01-07-2020 Phone Encounter Young [facility] Start: 01-02-2020 End: 01-02-2020 Phone Encounter Young [facility] Start: 12-31-2019 End: 12-31-2019 Phone Encounter Young [facility] Start: 12-29-2019 End: 12-29-2019 Phone Encounter Young [facility] Start: 12-10-2019 End: 12-10-2019 Immune system finding Young Reid MD Work Phone: [facility] Start: 12-10-2019 End: 12-10-2019 Phone Encounter Young [facility]pat[facility] Start: 11-24-2019 End: 12-02-2019 Office outpatient visit 15 minutes Young Reid [facility] Start: 10-31-2019 End: 11-06-2019 Office outpatient visit 15 minutes Young Reid [facility] Start: 10-14-2019 End: 10-14-2019 Patient encounter procedure Jeffy Trotter MD Work Phone: [facility] Work Phone: Start: 09-26-2019 End: 09-26-2019 Office outpatient visit 15 minutes Young Bonezzi [facility] Start: 09-25-2019 End: 09-25-2019 Phone Encounter Young [facility] Start: 08-15-2019 End: 08-15-2019 Phone Encounter Young [facility] Start: 08-11-2019 End: 08-11-2019 Office outpatient visit 5 minutes Young Bonezzi [facility] Start: 07-08-2019 End: 07-08-2019 Phone Encounter Young [facility] Start: 06-27-2019 End: 06-27-2019 Office outpatient visit 5 minutes Young Bonezzi [facility] Start: 05-02-2019 End: 05-02-2019 Phone Encounter Young [facility] Start: 04-07-2019 End: 04-07-2019 Phone Encounter Young [facility] Start: 10-21-2018 End: 10-21-2018 Phone Encounter Young [facility] Start: 10-09-2018 End: 10-09-2018 Phone Encounter Young [facility] Start: 09-13-2018 End: 09-13-2018 Phone Encounter Young [facility] Start: 04-22-2018 End: 04-22-2018 Phone Encounter Young [facility] Start: 04-22-2018 End: 04-22-2018 Phone Encounter Young [facility] Start: 12-12-2017 End: 12-12-2017 Phone Encounter Young [facility] Start: 10-30-2017 End: 10-30-2017 Phone Encounter Young [facility] Start: 10-08-2017 End: 10-08-2017 Phone Encounter Young [facility] Start: 08-09-2017 End: 09-24-2017 Patient encounter Young [facility] Start: 07-04-2017 End: 07-04-2017 Phone Encounter Young [facility] Start: 03-21-2017 End: 03-21-2017 Phone Encounter Young [facility] Start: 01-24-2017 End: 01-24-2017 Phone Encounter Young [facility] Start: 12-28-2016 End: 01-01-2017 Office outpatient visit 15 minutes Young Reid [facility] Start: 12-28-2016 End: 01-01-2017 Patient encounter status Ashwini Ortiz RN [facility]; [facility] Work Phone: Comment on above: pt good will get lab s done with lipids. will stay up to date on pap and pelvic. tetanus upt to date. Start: 11-23-2016 End: 11-23-2016 Phone Encounter Young Reid [facility] Start: 10-13-2016 End: 10-13-2016 Lab Order Young Reid [facility] Start: 09-11-2016 End: 09-11-2016 Phone Encounter Young Reid [facility] Start: 07-12-2016 End: 07-12-2016 Phone Encounter Young Reid [facility] Start: 06-26-2016 End: 06-26-2016 Phone Encounter Young [facility] Start: 06-22-2016 End: 06-23-2016 Periodic preventive med est patient 40-64yrs Young Reid [facility] Start: 06-05-2016 End: 06-05-2016 Phone Encounter Young [facility] Start: 05-02-2016 End: 05-02-2016 Phone Encounter Young [facility] Start: 03-16-2016 End: 03-16-2016 Phone Encounter Young [facility] Start: 03-09-2016 End: 03-09-2016 Phone Encounter Young [facility] Start: 01-18-2016 End: 01-18-2016 Patient encounter Young [facility] Start: 01-17-2016 End: 01-17-2016 Phone Encounter Young [facility] Start: 01-12-2016 End: 01-12-2016 Phone Encounter Young [facility] Start: 10-25-2015 End: 10-25-2015 Phone Encounter Young [facility] Start: 08-25-2015 End: 08-25-2015 Phone Encounter Young Reid [facility] Start: 05-13-2015 End: 05-13-2015 Phone Encounter Young Reid [facility] Start: 05-10-2015 End: 05-12-2015 Office outpatient visit 25 minutes Young Reid [facility] Start: 04-16-2015 End: 04-16-2015 Phone Encounter Young Reid [facility] Start: 03-11-2015 End: 03-11-2015 Phone Encounter Young [facility] Start: 03-11-2015 End: 03-11-2015 Phone Encounter Young [facility] Start: 03-10-2015 End: 03-10-2015 Phone Encounter Young Reid [facility] Start: 03-05-2015 End: 03-05-2015 Office outpatient visit 15 minutes Young Reid [facility] Start: 03-04-2015 End: 03-04-2015 Phone Encounter Young Reid [facility] Start: 12-10-2014 End: 12-10-2014 Phone Encounter Young [facility] Start: 09-25-2014 End: 09-25-2014 Office outpatient visit 25 minutes Young Reid [facility] Start: 08-27-2014 End: 08-27-2014 Phone Encounter Young Reid [facility] Start: 06-15-2014 End: 06-15-2014 Phone Encounter Young [facility] Start: 03-20-2014 End: 03-20-2014 Phone Encounter Young Reid [facility] Start: 03-16-2014 End: 03-16-2014 Phone Encounter Young [facility] Start: 10-10-2013 End: 10-10-2013 Phone Encounter Young Reid [facility] Start: 08-29-2013 End: 08-29-2013 Phone Encounter Young Reid [facility] Start: 05-19-2013 End: 05-19-2013 Refill Request Young Reid [facility] Start: 02-07-2013 End: 02-17-2013 Patient encounter Young Reid [facility] Start: 02-07-2013 End: 02-17-2013 Patient encounter status Young Reid MD Work Phone: [facility] Start: 01-02-2013 End: 01-02-2013 Patient encounter Young Reid [facility] Start: 12-18-2012 End: 12-18-2012 Patient encounter Young Reid [facility] Start: 12-05-2012 End: 12-05-2012 Phone Encounter Young Reid [facility] Start: 11-19-2012 End: 11-19-2012 Patient encounter Young Reid [facility] Start: 11-07-2012 End: 11-07-2012 Patient encounter Young Reid [facility] Start: 11-06-2012 End: 11-06-2012 Phone Encounter Young Reid [facility] Start: 11-04-2012 End: 11-04-2012 Phone Encounter Young Reid [facility] Start: 10-21-2012 End: 10-23-2012 Patient encounter Young Reid [facility] Start: 08-30-2012 End: 08-30-2012 Phone Encounter Young Reid [facility] Start: 05-24-2012 End: 05-24-2012 Phone Encounter Young Reid [facility] Start: 05-17-2012 End: 05-17-2012 Phone Encounter Young Reid [facility] Start: 04-10-2012 End: 04-10-2012 Phone Encounter Young Reid [facility] Start: 03-27-2012 End: 03-27-2012 Historical Summary Young Reid [facility] Start: 03-06-2012 End: 03-22-2012 Patient encounter Young Reid [facility] Start: 03-06-2012 End: 03-22-2012 Patient encounter status Young Reid MD Work Phone: [facility] Start: 02-12-2012 End: 02-12-2012 Patient encounter Young Reid [facility] Start: 01-08-2012 End: 01-08-2012 Phone Encounter Young Reid [facility] Start: 01-04-2012 End: 01-04-2012 Lab Order Young Reid [facility] Start: 01-03-2012 End: 01-03-2012 Historical Summary Young Bonezzi [facility] Start: 11-06-2011 End: 11-06-2011 Phone Encounter Young [facility] Start: 11-03-2011 End: 11-03-2011 Historical Summary Young [facility] Start: 11-01-2011 End: 11-02-2011 Patient encounter Young [facility] Start: 04-17-2011 End: 04-17-2011 Patient encounter Young [facility] Start: 03-23-2011 End: 03-23-2011 Phone Encounter Young [facility] Start: 12-29-2010 End: 12-29-2010 Phone Encounter Young [facility] Start: 12-26-2010 End: 12-26-2010 Phone Encounter Young [facility] Start: 12-13-2010 End: 12-13-2010 Phone Encounter Young [facility] Start: 10-14-2010 End: 10-14-2010 Phone Encounter Young [facility] Start: 10-13-2010 End: 10-13-2010 Phone Encounter Young [facility] Start: 07-15-2010 End: 07-15-2010 Historical Summary Young [facility] Start: 06-22-2010 End: 06-22-2010 Phone Encounter Young [facility] Start: 05-10-2010 End: 05-10-2010 Phone Encounter Young [facility] Start: 11-04-2009 End: 11-04-2009 Patient encounter Young [facility] Start: 10-20-2009 End: 10-20-2009 Patient encounter Young [facility] Start: 10-05-2009 End: 10-06-2009 Patient encounter Young [facility] Start: 09-24-2009 End: 10-02-2009 Patient encounter Young Bone[facility] Start: 09-08-2009 End: 09-19-2009 Patient encounter Young Bone[facility] Start: 08-24-2009 End: 08-30-2009 Patient encounter Young [facility] Start: 08-09-2009 End: 08-11-2009 Patient encounter Young Bone[facility] Start: 06-01-2009 End: 06-01-2009 Historical Summary Young Reid [facility] Start: 05-31-2009 End: 05-31-2009 Historical Summary Young Reid [facility] Immune system finding Renee Barrientos CMA [facility] Work Phone: Immune system finding Renee Barrientos CMA [facility]; [facility] Work Phone: Patient encounter status Renee Mueller MA [facility]; [facility] Work Phone: Comment on above: had lipids 2016. nee ds colonscopy make sure gets tdap if not done in last 10 years. remind her to get mammogram Patient encounter status Renee Mueller MA [facility]; [facility] Work Phone: Comment on above: had lipids 2016. nee ds colonscopy make sure gets tdap if not done in last 10 years. remind her to get mammogram End: 04-23-2023 Patient encounter status Rajesh Jim DO Work Phone: [facility]; [facility] Work Phone: Patient encounter status Agnes Chris [facility]; [facility] Work Phone: Comment on above: had lipids 2016. nee ds colonscopy make sure gets tdap if not done in last 10 years. remind her to get mammogram End: 09-08-2022 Preprocedural examination done Viki Dumont DO Work Phone: [facility]; [facility] Work Phone: Procedures Date Procedure Procedure Detail Performing Clinician Start: 05-05-2025 Screening mammograph y bi 2-view breast inc cad Self-Requested [facility]ammography[facility] Work Phone: Start: 07-03-[address] Gerry Jim Work Phone: Start: 07-03-[address] Rajesh Jim Work Phone: Start: 06-12-2023 Plain x-ray of pelvi s and lower extremity Dr. Rajesh Jim Work Phone: Start: 05-04-[address] Gerry Jim Work Phone: Start: 05-04-2023 End: 05-05-2023 Pelvic w/ Transvaginal Procedure Note: See Note; NOTES: [facility] Imaging Services [address] [place] [address] Pelvic w/ Transvaginal MR#: [id number] Acct: [id number] Name: VIKI DUMONT Rep #: [id number] : 1965 F 57 From: Emery Guevara MD PCP: Dr. Rajesh Jim DO Status: REG CLI Study: Pelvic w/ Transvaginal Date of Exam: 05/04/23 Exam# [id number] Ordering Dr: Rajesh Jim DO [id number] INDICATION: postmenopausal bleeding EXAMINATION: Ultrasound US Pelvis Non OB Complete With Transvaginal Imaging TECHNIQUE: Transabdominal and transvaginal pelvic ultrasound was performed. Grayscale, spectral waveform, and color flow Doppler evaluation of the adnexa. COMPARISON: FINDINGS: UTERUS: Anteverted. The uterus measures 9.2 x 4.3 x 2.8 cm. There is no uterine mass. The endometrial stripe measures 4 mm in AP diameter which is within normal limits. RIGHT OVARY: 2.3 x 1.9 x 1.5 cm.. Complex cyst 0.95 x 0.77 x 0.91 cm. This likely represents hemorrhagic cyst less likely endometrioma. Non-enlarged, normal echogenicity. There is normal arterial inflow and venous outflow present in the right ovary. LEFT OVARY: 1.9 x 1.1 x 1.1 cm.. Non-enlarged, normal echogenicity. There is normal arterial inflow and venous outflow present in the left ovary. FREE FLUID: None. US/Pelvic w/ Transvaginal IMPRESSION: Uterus normal. Endometrial thickness of 4 mm is normal in a postmenopausal patient. Given patient''s history of postmenopausal bleeding occult pathology including endometrial hyperplasia or endometrial carcinoma cannot be excluded. Complex cyst right ovary 1.0 x 0.9 x 0.2 cm likely hemorrhagic cyst or less likely endometrioma. Left ovary normal. Electronically Signed: Emery Guevara MD at 10:13 EDT , CC: Dr. Rajesh Jim DO Bellows Assembler: Signed Rajesh Jim DO Work Phone: Start: 05-01-2023 Screening mammograph y bi 2-view breast inc cad Self-Requested Mammography[facility] Work Phone: Start: 07-07-2022 End: 07-08-2022 Foot min 3 Views Procedure Note: See Note; NOTES: [facility] Imaging Services [address] [place] [address] Foot min 3 Views MR#: [id number] Acct: [id number] Name: VIKI DUMONT Rep #: [id number] : 1965 F 56 From: Emery Zamora MD PCP: Dr. Rajesh Jim DO Status: REG CLI Study: Foot min 3 Views Date of Exam: 07/07/22 Exam# [id number] Ordering Dr: Young Reid MD INDICATION: FOOT PAIN EXAMINATION/TECHNIQUE: X-RAY - LEFT XR Foot Min 3 Views: Weightbearing views COMPARISON: None. FINDINGS: SOFT TISSUES: No significant soft tissue swelling. No radiopaque foreign body detected. BONES/JOINTS: No acute fracture or subluxation. Normal alignment. Preservation of the joint space(s). Small posterior and plantar calcaneal enthesophytes. RAD/Foot min 3 Views IMPRESSION: Mild calcaneal spurring. Electronically Signed: Emery Zamora MD at 7:41 EST , CC: Dr. Young Reid MD; Dr. Rajesh Jim DO Bellows Assembler: Signed Young Reid MD Work Phone: Start: 07-07-2022 X-ray of both feet Dr. Rajesh Jim Work Phone: Start: 05-02-2022 End: 05-02-2022 Elbow min 3 Views Procedure Note: See Note; NOTES: [facility] Radiology [address] [place] [address] Elbow min 3 Views MR#: [id number] Acct: [id number] Name: VIKI DUMONT Rep #: [id number] : 1965 F 56 From: Jim valenzuela MD PCP: Dr. Rajesh Jim DO Status: DEP AMB Study: Elbow min 3 Views Date of Exam: 05/02/22 Exam# [id number] Ordering Dr: Rajesh Jim DO STUDY: X-RAY - RIGHT ELBOW REASON FOR EXAM: Female, 56 years old. Elbow pain. TECHNIQUE: 3 view(s) of the elbow. COMPARISON: None. FINDINGS: Normal visualized humerus, radius and ulna. Normal radiocapitellar and ulnotrochlear articulations. The soft tissue structures are unremarkable. RAD/Elbow min 3 Views IMPRESSION: Normal x-ray examination of the elbow. Electronically Signed: Jim Dooley MD at 13:28 EDT , CC: Dr. Rajesh Jim DO Bellows Assembler: Signed Rajesh Jim DO Work Phone: Start: 05-02-2022 End: 05-02-2022 Plain x-ray of elbow Dr. Rajesh Jim Work Phone: Start: 02-14-2022 Screening mammograph y bi 2-view breast inc cad Nadya Rene [employer] Work Phone: Start: 01-31-2021 Screening mammograph y bi 2-view breast inc cad Nadya Rene [employer] Work Phone: Start: 01-05-2021 End: 01-05-2021 HIP, UNI W/ Pelvis 2-3 Views Comments: See Note; NOTES: [facility] [address] [address] HIP, UNI W/ Pelvis 2-3 Views MR#: [id number] Acct: [id number] Name: VIKI DUMONT Rep #: [id number] : 1965 F 55 From: Will Padron DO PCP: Dr. Rajesh Jim DO Status: DEP AMB Study: HIP, UNI W/ Pelvis 2-3 Views Date of Exam: Exam# [id number] Ordering Dr: Rajesh Jim DO STUDY: X-RAY - PELVIS AND LEFT HIP REASON FOR EXAM: Female, 55 years old. Pain. TECHNIQUE: 3 views of the pelvis and hip. COMPARISON: None. FINDINGS: There is a non-specific bowel gas pattern. Normal visualized soft tissue structures. Tubal ligation clips are seen in the pelvis. Normal bilateral iliac wings, sacroiliac joints and visualized sacrum. Normal bilateral superior and inferior pubic rami. Normal pubic symphysis. Normal bilateral ischial tuberosities. Degenerative changes of the right hip. 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 Normal left acetabulum. There is mild articular joint space narrowing of the left hip. RAD/HIP, UNI W/ Pelvis 2-3 Views IMPRESSION: Degenerative changes of the left hip without fracture or dislocation. Electronically Signed: Will SmithonDO at 23:52 EDT Tel [phone], Service support , CC: Dr. Rajesh Jim DO Bellows Assembler: Signed Rajesh Jim DO Work Phone: Start: 06-29-2020 End: 06-29-2020 Esophagus Dual Contrast Comments: See Note; NOTES: [facility] Imaging Services [address] [place] [address] Esophagus Dual Contrast MR#: [id number] Acct: [id number] Name: VIKI DUMONT Rep #: [id number] : 1965 F 54 From: Jim valenzuela MD PCP: Dr. Rajesh Jim DO Status: REG CLI Study: Esophagus Dual Contrast Date of Exam: 06/29/20 Exam# [id number] Ordering Dr: Rajesh Jim DO STUDY: X-RAY - ESOPHAGUS (BARIUM SWALLOW) WITH FLUOROSCOPY REASON FOR EXAM: Female, 54 years old. COUGHING AFTER EATING -- CHOKING -- 6-8 MONTHS, GOTTEN WORSE TECHNIQUE: 26 view(s) of the esophagus were obtained following swallowing of barium. FLUOROSCOPY TIME (if supplied): (0:29) minutes/seconds COMPARISON: None. FINDINGS: There is no demonstrated esophageal foreign body. There is no demonstrated stricture or mucosal abnormality. Normal gastroesophageal junction, without a demonstrated hiatal hernia. The patient ingested a 12 mm tablet of barium without difficulty. Normal visualized aortic arch and descending thoracic aorta. Normal visualized pulmonary parenchyma. Normal visualized osseous structures of the thorax. RAD/Esophagus Dual Contrast IMPRESSION: Normal plain film x-ray examination (barium swallow) of the esophagus. Electronically Signed: Jim Dooley, at 11:17 EST , Service support , CC: Dr. Rajesh Jim DO Bellows Assembler: Signed Rajesh Jim Work Phone: Start: 04-13-2020 End: 04-13-2020 Transvaginal Non- Comments: See Note; NOTES: [facility] Imaging Services [address] [place] [address] Transvaginal Non- MR#: [id number] Acct: [id number] Name: VIKI DUMONT Rep #: [id number] : 1965 F 54 From: Cade Curtis MD PCP: Dr. Rajesh Jim DO Status: REG CLI Study: Transvaginal Non- Date of Exam: Exam# [id number] Ordering Dr: Génesis Joshi MD STUDY: ULTRASOUND TRANSVAGINAL CLINICAL: Female, 54 years old. MEN Irregular Menses US - Pelvic, Tvag -- EXCESSIVE AND FREQUENT MENSTRUATION WITH IRREGULAR CYCLE-EVALUATE ENDO STRIPE TECHNIQUE: Transvaginal COMPARISON: To FINDINGS: Normal uterine size measuring 3.3 x 5.1 x 4.3 cm in maximal craniocaudal dimension. 2.4 cm intramural fibroid in the posterior body the uterus.. Normal endometrial thickness measuring 7 mm. There are no endometrial masses, and there is no fluid in the endometrial cavity. Normal uterine cervix. Normal right ovary, measuring 2.8 x 2.2 x 2.8 cm. 2.6 cm oval isoechoic mass with increased transmission the right ovary likely consistent with a complicated corpus luteum cyst.. Normal left ovary, measuring 3.4 x 1.7 x 1.5 cm. There are multiple follicles without a dominant cyst. There is no free fluid in the pelvis. Polycystic ovary disease: No. US/Transvaginal Non- IMPRESSION: 1. 2.4 cm intramural fibroid in the posterior body the uterus. 2. 2.6 cm probable the hemorrhagic corpus luteum cyst right ovary. Electronically Signed: Cade Curtis MD at 10:14 EDT Tel , Service support , CC: Dr. Génesis Joshi MD; Dr. Rajesh Jim DO Bellows Assembler: Signed Young Reid Start: 01-19-2020 End: 01-19-2020 Abdomen/Pelvis WITH Contrast Comments: See Note; NOTES: [facility] Imaging Services [address] [place] [address] Abdomen/Pelvis WITH Contrast MR#: [id number] Acct: [id number] Name: VIKI DUMONT Rep #: [id number] : 1965 F 54 From: Jim valenzuela MD PCP: Dr. Rajesh Jim DO Status: REG CLI Study: Abdomen/Pelvis WITH Contrast Date of Exam: Exam# [id number] Ordering Dr: Rajesh Jim DO STUDY: CT ABDOMEN AND PELVIS WITH CONTRAST REASON FOR EXAM: Female, 54 years old. RLQ PAIN RADIATION DOSAGE (If Supplied By Facility): CTDIvol = ( 13.17 ) mGy, DLP = ( 812.62 ) mGycm TECHNIQUE: Transaxial images were obtained from the dome of the diaphragm to the symphysis pubis without oral contrast. Oral and amp;amp; IV Gastrografin and amp;amp; 100mL Isovue-300 was administered. Sagittal and coronal images were reconstructed. Individualized dose optimization techniques were used for this CT. COMPARISON: None. FINDINGS: The visualized lung bases are unremarkable. The visualized portions of the heart are within normal limits. Normal liver. Normal gallbladder and extrahepatic biliary system. Normal spleen. Normal pancreas. Normal bilateral adrenal glands. Minimal dilatation of the right renal pelvis and proximal right ureter. There is a 1 mm calculus in the distal portion of the right ureter just proximal to the right ureterovesical junction. Normal left kidney. Normal visualized stomach. Normal small intestine. Normal colon. The appendix is visualized and appears normal. Normal abdominal aorta. Normal inferior vena cava. Normal retroperitoneum. Normal urinary bladder. The endometrium is thickened measuring 14 mm. There is a 1.7 cm x 1.1 cm right ovarian follicle. There is evidence of tubal ligation clips bilaterally. Normal abdominal wall. Normal osseous structures. CT/Abdomen/Pelvis WITH Contrast IMPRESSION: 1 mm calculus in the distal portion of the right ureter just proximal to the ureterovesical junction. Small ovarian follicles. Electronically Signed: Jim Dooley, at 13:29 EDT , Service support , CC: Dr. Rajesh iJm, Bellows Assembler: Signed Rajesh Jim Work Phone: Start: 10-14-2019 End: 10-14-2019 Blood pressure screening not performed - reason not given Jeffy Trotter MD Work Phone: Start: 10-14-2019 End: 10-14-2019 BMI documented as above normal parameters - follow-up documented Jeffy Trotter MD Work Phone: Start: 10-14-2019 End: 10-14-2019 Documentation of current medications Jeffy Trotter MD Work Phone: Start: 10-14-2019 End: 10-14-2019 Pain assessment documented as positive - follow-up documented Jeffy Trotter MD Work Phone: Start: 10-14-2019 End: 10-14-2019 Tobacco non-user Jeffy Trotter MD Work Phone: Start: 07-08-2019 End: 07-08-2019 Echocardiogram Complete Comments: See Note; NOTES: [facility] [place] [address] Echo Complete 07/08/19 1107 MR#: [id number] Acct: [id number] Name: VIKI DUMONT Rep #: [id number] : 1965 53 From: Tyrell Espino MD Attending Dr: Young Reid MD Status: REG CLI Ordering Dr: Young Reid MD Date: 07/08/19 Location: [facility]S Sex: F C Admitted: Reason For Study: Chest pain Procedure This was a 2D Doppler, Color Flow transthoracic echocardiogram. Exam performed in department. Left Ventricle Normal LV size. Apical false tendon noted. Left ventricular systolic function is normal. The estimated ejection fraction is 60 %. No evidence for diastolic dysfunction. No regional wall motion abnormalities noted. Right Ventricle Normal RV size. Normal systolic function. Atria Normal left atrium. Normal right atrium. No doppler evidence for ASD. Bubble contrast study negative for right to left interatrial shunt. Mitral Valve There is no mitral annular calcification. Normal mitral valve. Trivial mitral valve insufficiency. Tricuspid Valve Normal tricuspid valve. Trivial tricuspid valve insufficiency. Right ventricular systolic pressure estimated to be 24 mmHg. Aortic Valve Trisinus/trileaflet aortic valve. Normal aortic valve. Pulmonic Valve The pulmonic valve is not well visualized. Trivial pulmonic valve insufficiency. Great Vessels Normal sized aortic root. Pericardium/Pleural No pericardial effusion. Medication 22 gauge I.V. with prn adaptor inserted into right arm. Performed a rapid injection of agitated mix of 9 cc saline and 1cc air to assess for atrial septal defect. MMode/2D Measurements AND Calculations LVIDd: 4.3 cm IVSd: 0.79 cm Ao root diam: 2.7 cm LVIDs: 2.7 cm LVPWd: 0.71 cm RVDd: 2.8 cm FS: 36.6 % LAV(MOD-bp): 40.3 ml LA A4 area: 15.3 cm2 LA dimension(2D): 3.3 cm LAV(MOD-bp) Indexed: 25.1 ml/m2 LAV(MOD-sp2): 42.0 ml LAV(MOD-sp4): 38.8 ml RA A4 area: 10.9 cm2 Doppler Measurements AND Calculations MV E max zahira: 83.1 cm/sec Lat Peak E' Zahira: 13.6 cm/sec Med Peak E' Zahira: 10.7 cm/sec MV A max zahira: 76.7 cm/sec E/E' lat: 6.1 E/E' med: 7.8 MV E/A: 1.1 Ao V2 max: 140.9 cm/sec LV V1 max: 117.0 cm/sec PA V2 max: 92.3 cm/sec Ao max P.9 mmHg LV V1 max P.5 mmHg TR max zahira: 230.1 cm/sec TR max P.2 mmHg Interpretation Summary Left ventricular systolic function is normal. The estimated ejection fraction is 60 %. Apical false tendon noted. Trivial mitral valve insufficiency. Trivial tricuspid valve insufficiency. Trivial pulmonic valve insufficiency. Right ventricular systolic pressure estimated to be 24 mmHg. No evidence for diastolic dysfunction. Bubble contrast study negative for right to left interatrial shunt. Ordering Physician: Young Reid Referring Physician: Rajesh Jim D.O. Performed By: Gracie Reed FAUSTO 07/08/19 1540 Date Tyrell Espino MD CC: Young Reid MD; Rajesh Jim DO Date Dictated: 07/08/19 1107 Date Transcribed: 07/08/19 154 Bellows Assembler: Signed Young Reid Work Phone: Start: 07-08-2019 End: 07-08-2019 HIP, UNI W/ Pelvis 2-3 Views Comments: See Note; NOTES: [facility] Imaging Services [address] [place] [address] HIP, UNI W/ Pelvis 2-3 Views MR#: [id number] Acct: [id number] Name: JULIAVIKI K Rep #: [id number] : 1965 F 53 From: Ron Travis DO PCP: Rajesh Jim DO Status: REG CLI Study: HIP, UNI W/ Pelvis 2-3 Views Date of Exam: 07/08/19 Exam# [id number] Ordering Dr: Young Reid MD STUDY: X-RAY - PELVIS AND RIGHT HIP REASON FOR EXAM: Female, 53 years old. Hip pain. TECHNIQUE: 3 views of the pelvis and hip. COMPARISON: None. FINDINGS: Tubal ligation devices. Left pelvic phlebolith. No acute fracture, dislocation or osseous destruction. Mild joint space narrowing at the hips. Mild productive changes at the superior lateral acetabula bilaterally. Normal pubic symphysis. Normal sacroiliac joints. Normal lumbar spine. Small pelvic enthesophytes. Slightly prominent lateral femoral head neck junction protuberance. No significant soft tissue swelling. Normal bowel gas pattern. RAD/HIP, UNI W/ Pelvis 2-3 Views IMPRESSION: Hips and pelvis intact Mild bilateral hip osteoarthritis Electronically Signed: Ron Travis DO at 9:08 EST Tel , Service support , CC: Young Reid MD; Rajesh Jim DO Bellows Assembler: Signed Young Reid Work Phone: Start: 05-23-2019 End: 05-23-2019 Foot min 3 Views Comments: See Note; NOTES: [facility] Imaging Services [address] [place] [address] Foot min 3 Views MR#: [id number] Acct: [id number] Name: VIKI DUMONT Rep #: [id number] : 1965 F 53 From: Jim Dooley MD PCP: Rajesh Jim DO Status: REG CLI Study: Foot min 3 Views Date of Exam: 05/23/19 Exam# [id number] Ordering Dr: Rajesh Jim DO STUDY: X-RAY - RIGHT FOOT CLINICAL: Female, 53 years old. Pain at the base of the great toe following hyperextension injury. TECHNIQUE: 3 view(s) of the foot. COMPARISON: None. FINDINGS: There is a small plantar calcaneal spur. Normal visualized subtalar, talonavicular, calcaneocuboid, tarsal and tarsometatarsal articulations. Normal metatarsi. Normal metatarsophalangeal joint of the great toe. Normal tibial and fibular sesamoid bones. Normal interphalangeal joint of the great toe. Normal phalanges of the great toe. Normal second through fifth metatarsophalangeal joints. Normal interphalangeal joints and phalanges of the lesser toes. The soft tissue structures are unremarkable. RAD/Foot min 3 Views IMPRESSION: Small plantar spur. Electronically Signed: Jim Dooley, at 13:23 EST , Service support , CC: Rajesh Jim DO Bellows Assembler: Signed Rajesh Jim Work Phone: Start: 10-22-2018 End: 10-22-[address] w/CCTA Comments: See Note; NOTES: [facility] Imaging Services [address] [place] [address] w/CCTA MR#: [id number] Acct: [id number] Name: VIKI DUMONT Rep #: [id number] : 1965 F 52 From: Alton Carpenter MD PCP: Rajesh Jim DO Status: REG CLI Study: Limited Chest CT w/CCTA Date of Exam: 10/22/18 Exam# [id number] Ordering Dr: Rajesh Jim DO STUDY: CT CHEST WITHOUT CONTRAST REASON FOR EXAM: Female, 52 years old. Family history of cardiovascular disease RADIATION DOSAGE (If Supplied By Facility): CTDIvol = ( 12.19 ) mGy, DLP = ( 170.66 ) mGycm TECHNIQUE: Transaxial imaging was performed without the administration of intravenous contrast material. Individualized dose optimization techniques were used for this CT. COMPARISON: None. FINDINGS: Only a portion of the chest was imaged for the purposes of calcium scoring. No visible pulmonary nodules, acute alveolar disease, pleural fluid, or pericardial fluid. No acute osseous abnormality is visible. Visualized portions of upper abdomen are intact. CT/Limited Chest CT w/CCTA IMPRESSION: No focal lesions are seen in the visualized portions of the lungs. Electronically Signed: Alton Carpenter MD at 21:51 EDT Tel , Service support , CC: Rajesh Jim DO Bellows Assembler: Signed Rajesh Jim Work Phone: Start: 10-09-2018 End: 10-09-2018 TXT - Blood Flow Screening Comments: See Note; NOTES: [facility] [address] [facility] [facility] [place] [address] 10/08/18 0804 MR#: [id number] Acct: [id number] Name: VIKI DUMONT Rep #: [id number] : 1965 52 From: Trace Atwood MD Attending Dr: Rajesh Jim DO Status: REG REF Ordering Dr: Date: 10/09/18 Location: [facility] Sex: F C Admitted: Reason For Study: Blood flow screening Carotid Duplex Ultrasound Abdominal Aorta The right maximum ICA velocity is 112.5/51.3 cm/s.The maximal outside diameter of the proximal aorta The right ECA velocity is less than 125 cm/s. measures 1.4 cm in the longitudinal axis. There is no plaque formation noted on the right The maximal outside diameter of the proximal aorta side. measures 1.4 x 1.4 cm in the cross-sectional axis. The left maximum ICA velocity is 106.0/43.4 cm/s. The left ECA velocity is less than 125 cm/s. There is no plaque formation noted on the left side. Ankle Brachial Index The right ankle/ brachial index is 1.2. The left ankle/ brachial index is 1.1. Medical History and Assessment The heart rate is 60 beats per minute. The heart rhythm is regular. The right blood pressure is 100/68. The left blood pressure is 104/70. The assessment was performed by Kelli Maldonado RVT. Interpretation Summary Normal carotid artery screening (0 to 15% narrowing). Normal aortic ultrasound exam. The ankle/brachial index is normal (1.0 or greater). Ordering Physician: Rajesh Jim D.O. Performed By: Barbara Maldonado RVT 10/09/18 1434 Date Trace Atwood MD CC: Rajesh Jim DO Date Dictated: 10/08/18 0804 Date Transcribed: 10/09/18 1434 Bellows Assembler: Signed Young Reid Start: 09-20-2018 End: 09-24-2018 Breast Limited Unilateral Comments: See Note; NOTES: [facility] Imaging Services [address] [place] [address] Breast Limited Unilateral MR#: [id number] Acct: [id number] Name: VIKI DUMONT Rep #: [id number] : 1965 F 52 From: Connie Vazquez MD PCP: Rajesh Jim DO Status: REG CLI Study: Breast Limited Unilateral Date of Exam: 09/20/18 Exam# [id number] Ordering Dr: Génesis Joshi MD STUDY: ULTRASOUND BREAST - RIGHT REASON FOR EXAM: Female, 52 years old. MAMMSMammogram,Abnormal-[id number] for exam - Breast (US) TECHNIQUE: Axial and longitudinal images of the RIGHT breast were performed with a high resolution ultrasound transducer. COMPARISON: None. FINDINGS: RIGHT Breast: There is no ultrasound abnormality. There is no abnormal cyst or mass. US/Breast Limited Unilateral IMPRESSION: The previously described lesion on the mammogram is not visualized on the ultrasound. Stereotactic biopsy may be warranted to exclude a neoplastic process. ASSESSMENT CATEGORY: BIRADS Category 4: Suspicious - Biopsy Should Be Considered. A letter regarding these results will be sent to the patient by the facility within 30 days. Electronically Signed: Connie Vazquez, at 10:57 EDT Tel , Service support , CC: Génesis Joshi MD; Rajesh Jim DO Bellows Assembler: Signed Young Reid Start: 09-17-2018 End: 09-17-2018 SCREENING MAMM (CAD), BILAT Comments: See Note; NOTES: [facility] Imaging Services [address] [place] [address] SCREENING MAMM (CAD), BILAT MR#: [id number] Acct: [id number] Name: VKII DUMONT Rep #: [id number] : 1965 F 52 From: Jim Dooley MD PCP: Rajesh Jim DO Status: [facility] Study: SCREENING MAMM (CAD), BILAT Date of Exam: 09/17/18 Exam# [id number] Ordering Dr: Génesis Joshi MD MAMMOGRAPHY - BILATERAL SCREENING REASON FOR EXAM: Female, 52 years old. Routine annual screening examination. PERTINENT HISTORY: Non-contributory. TECHNIQUE: Digital bilateral breast paco (3D mammographic acquisition) in the CC and MLO projections. 2-D mediolateral oblique (MLO) and craniocaudad (CC) views of both breasts were obtained. CAD: Full Field Digital Mammography with Computer Added Detection was performed. COMPARISON: Comparison is made with prior study dated August 14, 2017 and June 10, 2016. FINDINGS: Breast Composition: There are scattered areas of fibroglandular density. There are no dominant masses or suspicious calcifications. There is a 3.3 mm x 3.1 mm well-defined nodule in the slightly upper central portion of the right breast. This may represent a small cyst. Stable benign-appearing bilateral axillary lymph nodes. Correlation with ultrasound is recommended. No other significant abnormalities are identified. BI/SCREENING MAMM (CAD), BILAT IMPRESSION: 3.3 mm x 3.1 mm well-defined nodule in the slightly upper central portion of the right breast. Correlation with ultrasound is recommended. ASSESSMENT CATEGORY: BIRADS Category 0: Incomplete. Need additional imaging evaluation. A letter regarding these results will be sent to the patient by the facility within 30 days. Approximately 10% of breast cancers are not detected by mammography. A normal mammogram should not delay biopsy of a clinically suspicious abnormality. [id number] Electronically Signed: Jim Dooley, at 9:14 EDT , Service support , CC: Génesis Joshi MD; Rajesh Jim DO Bellows Assembler: Signed Young Reid Start: 08-09-2018 End: 08-10-2018 Transvaginal Non- Comments: See Note; NOTES: [facility] Imaging Services [address] [place] [address] Transvaginal Non- MR#: [id number] Acct: [id number] Name: VIKI DUMONT Rep #: [id number] : 1965 F 52 From: Deni Osman MD PCP: Rajesh Jim DO Status: REG CLI Study: Transvaginal Non- Date of Exam: 08/09/18 Exam# [id number] Ordering Dr: Génesis Joshi MD STUDY: ULTRASOUND TRANSVAGINAL CLINICAL: Female, 52 years old. Left-sided pelvic pain TECHNIQUE: Transvaginal COMPARISON: None. FINDINGS: Normal uterine size measuring 9.5 x 2.3 x 2.4 cm in maximal craniocaudal dimension. A myometrial fundal mass measures 4.1 x 4.1 x 4.2 cm Normal endometrial thickness measuring 4.8 mm. The lower uterine segment endometrial complex, there is a focal, isoechoic to slightly hyperechoic lesion measuring up to 8 mm. Normal uterine cervix. Normal right ovary, measuring 2.5 x 1.2 x 1.2 cm. There are multiple follicles without a dominant cyst. Normal left ovary, measuring 2.5 x 1.7 x 1.0 cm. There are multiple follicles without a dominant cyst. There is no free fluid in the pelvis. Polycystic ovary disease: No. US/Transvaginal Non- IMPRESSION: 1. Uterine fundal fibroid measuring 4.2 cm. 2. 8 mm focal lower uterine segment endometrial hyperechoic/isoechoic mass could represent an endometrial polyp. Additional evaluation with sonohysterography or MRI suggested. Electronically Signed: Deni Osman MD at 8:20 EST , Service support , CC: Génesis Joshi MD; Rajesh Jim DO Bellows Assembler: Signed Young Reid Start: 08-09-2018 End: 08-10-2018 Pelvic (Non ) Comments: See Note; NOTES: [facility] Imaging Services [address] [place] [address] Pelvic (Non ) MR#: [id number] Acct: [id number] Name: VIKI DUMONT Rep #: [id number] : 1965 F 52 From: Deni Osman MD PCP: Rajesh Jim DO Status: REG CLI Study: Pelvic (Non ) Date of Exam: 08/09/18 Exam# [id number] Ordering Dr: Génesis Joshi MD STUDY: ULTRASOUND TRANSVAGINAL CLINICAL: Female, 52 years old. Left-sided pelvic pain TECHNIQUE: Transvaginal COMPARISON: None. FINDINGS: Normal uterine size measuring 9.5 x 2.3 x 2.4 cm in maximal craniocaudal dimension. A myometrial fundal mass measures 4.1 x 4.1 x 4.2 cm Normal endometrial thickness measuring 4.8 mm. The lower uterine segment endometrial complex, there is a focal, isoechoic to slightly hyperechoic lesion measuring up to 8 mm. Normal uterine cervix. Normal right ovary, measuring 2.5 x 1.2 x 1.2 cm. There are multiple follicles without a dominant cyst. Normal left ovary, measuring 2.5 x 1.7 x 1.0 cm. There are multiple follicles without a dominant cyst. There is no free fluid in the pelvis. Polycystic ovary disease: No. US/Pelvic (Non ) IMPRESSION: 1. Uterine fundal fibroid measuring 4.2 cm. 2. 8 mm focal lower uterine segment endometrial hyperechoic/isoechoic mass could represent an endometrial polyp. Additional evaluation with sonohysterography or MRI suggested. Electronically Signed: Deni Osman MD at 8:20 EST , Service support , CC: Génesis Joshi MD; Rajesh Jim DO Bellows Assembler: Signed Young Reid Start: 08-14-2017 End: 08-14-2017 SCREENING MAMM (CAD), BILAT Comments: See Note; NOTES: [facility] Imaging Services [address] [place] [address] SCREENING MAMM (CAD), BILAT MR#: [id number] Acct: [id number] Name: VIKI DUMONT Rep #: [id number] : 1965 F 51 From: Jim Dooley MD PCP: Rajesh Jim DO Status: REG CLI Study: SCREENING MAMM (CAD), BILAT Date of Exam: 08/14/17 Exam# [id number] Ordering Dr: Rajesh Jim DO MAMMOGRAPHY - BILATERAL SCREENING REASON FOR EXAM: Female, 51 years old. Routine annual screening examination. PERTINENT HISTORY: Non-contributory. TECHNIQUE: Digital bilateral breast paco (3D mammographic acquisition) in the CC and MLO projections. 2-D mediolateral oblique (MLO) and craniocaudad (CC) views of both breasts were obtained. CAD: Full Field Digital Mammography with Computer Added Detection was performed. COMPARISON: Comparison is made with prior study dated June 10, 2016 and April 06, 2015. FINDINGS: Breast Composition: There are scattered areas of fibroglandular density. There are no dominant masses or suspicious calcifications. Stable bilateral benign appearing axillary lymph nodes. No other significant abnormalities are identified. There has been no significant change since the prior study. HPBI/SCREENING MAMM (CAD), BILAT IMPRESSION: Stable bilateral screening mammogram. Yearly follow-up mammogram recommended. (A) ASSESSMENT CATEGORY: BIRADS Category 2: Benign. A letter regarding these results will be sent to the patient by the facility within 30 days. Approximately 10% of breast cancers are not detected by mammography. A normal mammogram should not delay biopsy of a clinically suspicious abnormality. [id number] Electronically Signed: Jim Dooley MD at 11:13 EST Tel [phone], Service support , CC: Rajesh Jim DO Bellows Assembler: Signed Rajesh Jim Work Phone: Start: 06-10-2016 End: 06-12-2016 Bilat Scrn Digital AND CAD Comments: See Note; NOTES: [facility] Imaging Services [address] [place] [address] Farhaddabrian 4d Bilat Scrn Digital AND CAD MR#: [id number] Acct: [id number] Name: VIKI DUMONT Rep #: [id number] : 1965 F 50 From: Jim Dooley MD PCP: Rajesh Jim DO Status: REG CLI Study: Bilat Scrn Digital AND CAD Date of Exam: 06/10/16 Exam# [id number] Ordering Dr: Young Reid MD MAMMOGRAPHY - BILATERAL SCREENING REASON FOR EXAM: Female, 50 years old. Routine annual screening examination. PERTINENT HISTORY: Non-contributory. TECHNIQUE: Digital bilateral breast paco (3D mammographic acquisition) in the CC and MLO projections. 2-D mediolateral oblique (MLO) and craniocaudad (CC) views of both breasts were obtained. CAD: Full Field Digital Mammography with Computer Added Detection was performed. COMPARISON: Comparison is made with prior study dated April 06, 2015 and December 30, 2013. FINDINGS: Breast Composition: There are scattered areas of fibroglandular density. There are no dominant masses or suspicious calcifications. No other significant abnormalities are identified. There has been no significant change since the prior study. HPBI/Bilat Scrn Digital AND CAD IMPRESSION: Stable bilateral screening mammogram. Yearly follow-up mammogram recommended. (A) ASSESSMENT CATEGORY: BIRADS Category 1: Negative. A letter regarding these results will be sent to the patient by the facility within 30 days. Approximately 10% of breast cancers are not detected by mammography. A normal mammogram should not delay biopsy of a clinically suspicious abnormality. [id number] Electronically Signed: Jim Dooley MD at 9:24 EST Tel [phone], Service support [phone], CC: Young Reid MD; Rajesh Jim DO Bellows Assembler: Signed Young Reid Work Phone: Start: 04-06-2015 End: 04-06-2015 Bilat Scrn Digital AND CAD Comments: See Note; NOTES: [facility] Imaging Services [address] [place] [address] Breast Imaging Report MR#: [id number] Acct: [id number] Name: VIKI DUMONT Rep #: [id number] : 1965 F 49 From: Jim Dooley MD PCP: Rajesh Jim DO Status: REG CLI Study: Bilarnulfo Cheng Digital AND CAD Date of Exam: 04/06/15 Exam# [id number] Ordering Dr: Viki Dumont DO MAMMOGRAPHY - BILATERAL SCREENING REASON FOR EXAM: Female, 49 years old. Routine annual screening examination. PERTINENT HISTORY: Non-contributory. TECHNIQUE: Digital examination. Mediolateral oblique (MLO) and craniocaudad (CC) views of both breasts were obtained. CAD: CAD was performed on this study. COMPARISON: Comparison is made with prior study dated March 24, 2014 and March 20, 2013. FINDINGS: Breast Composition: There are scattered areas of fibroglandular density. There are no dominant masses or suspicious calcifications. No other significant abnormalities are identified. There has been no significant change since the prior study. IMPRESSION: Stable bilateral screening mammogram. Yearly follow-up recommended. (A) ASSESSMENT CATEGORY: BIRADS Category 1: Negative. A letter regarding these results will be sent to the patient by the facility within 30 days. Approximately 10% of breast cancers are not detected by mammography. A normal mammogram should not delay biopsy of a clinically suspicious abnormality. Electronically Signed: Jim Dooley MD at 13:47 EDT Tel [phone], Service support [phone], CC: Rajesh Jim DO; Viki Dumont DO Bellows Assembler: Signed Vikifrancesca Krauson Work Phone: Start: 03-11-2015 End: 03-11-2015 Ecg routine ecg w/least 12 lds w/i&r [MEASUREMENTS ANALYSIS] Date of Test: 03/11/2015 07:14:33; Heart Rate: 87; PA Interval: 142; QRS: 86; QT Interval: 358; Corrected QT Interval (QTc): 405; P [place]: 19; QRS [place]: 2; T [place]: -1; Blood Pressure: 118/70 [ECG DIAGNOSTIC STATEMENTS] Date of Test: 03/11/2015 07:14:33; Summary: Sinus Rhythm Low voltage -possible pulmonary disease. ABNORMAL Viki Dumont Work Phone: Start: 01-17-2014 End: 01-17-2014 Hand Min 3 Views Comments: See Note; NOTES: [facility] Imaging Services [address] [place] [address] Radiology Report MR#: [id number] Acct: [id number] Name: JULIADALLINCOREY GALLEGO Rep #: [id number] : 12/02/2007 F 6Y 01M From: Edu Mancilla MD PCP: Tanika Negrete MD Status: REG CLI Study: Hand Min 3 Views Date of Exam: 01/17/14 Exam# [id number] Ordering Dr: Viki Dumont DO STUDY: X-RAY - LEFT HAND REASON FOR EXAM: Female, 6 years old. Trauma TECHNIQUE: 3 view(s) of the hand. COMPARISON: None. FINDINGS: Normal visualized carpal bones and carpal articulations. Normal carpometacarpal articulation of the thumb. Normal second through fifth carpometacarpal joints. Normal metacarpi. Normal metacarpophalangeal (MCP) joints. Normal visualized phalanges and interphalangeal joints. The soft tissue structures are unremarkable. IMPRESSION: Normal x-ray examination of the hand. Electronically Signed: Edu Mancilla MD at 15:54 EDT Tel , Service support [phone], CC: Viki Dumont DO; Tanika Negrete MD Bellows Assembler: Signed Viki Julia Work Phone: Start: 12-30-2013 End: 12-31-2013 Bilat Scrn Digital & CAD Comments: See Note; NOTES: [facility] Imaging Services [address] [place] [address] Breast Imaging Report MR#: [id number] Acct: [id number] Name: VIKI DUMONT Rep #: [id number] : 1965 F 48 From: Jim Dooley MD PCP: Status: [facility] Exam# [id number] Ordering Dr: Génesis Joshi MD MAMMOGRAPHY - BILATERAL SCREENING REASON FOR EXAM: Female, 48 years old. Routine annual screening examination. PERTINENT HISTORY: Non-contributory. TECHNIQUE: Digital examination. Mediolateral oblique (MLO) and craniocaudad (CC) views of both breasts were obtained. CAD: CAD was performed on this study. COMPARISON: Comparison is made with prior study dated December 06, 2012 and July 07, 2011. FINDINGS: The breast composition is almost entirely fatty with glandular tissue comprising less than 25% of the total breast volume. There are no dominant masses or suspicious calcifications. No other significant abnormalities are identified. There has been no significant change since the prior study. IMPRESSION: Stable bilateral screening mammogram. Yearly follow-up recommended. (A) ASSESSMENT CATEGORY: BIRADS Category 2: Benign finding(s). A letter regarding these results will be sent to the patient by the facility within 30 days. Approximately 10% of breast cancers are not detected by mammography. A normal mammogram should not delay biopsy of a clinically suspicious abnormality. Electronically Signed: Jim Dooley MD at 11:13 EDT Tel [phone], Service support [phone], CC: Génesis Joshi MD; Young Reid MD Bellows Assembler: Signed Young Reid hip replacemnt 2021 Rajesh A Fast DO Work Phone: NEGATED: Highlighted rowStart: 10-14-2019 End: 10-14-2019 Documentation of current medications Constanza Nam LPN Plan of Treatment Date Care Activity Detail Author Start: 05-05-2026 Screening for malign ant neoplasm of breast MAMMOGRAM SCREENING DISCUSSION [facility] Start: 05-26-2025 Hepatitis B vaccination HEP B VACCINE (2 of 2 - CpG 2-dose series) [facility] Start: 03-09-2025 COVID-19 VACCINE ( season) COVID-19 VACCINE ( season) [facility] Start: 03-09-2025 Influenza vaccination INFLUENZA VACC INE (#1) [facility] Start: 05-01-2024 Screening for malign ant neoplasm of breast MAMMOGRAM SCREENING DISCUSSION [facility] Start: 03-09-2024 COVID-19 VACCINE ( season) COVID-19 VACCINE ( season) [facility] Start: 03-09-2024 Influenza vaccination INFLUENZA VACC INE (#1) [facility] Start: 05-10-2023 Assay of thyroid stimulating hormone tsh TSH (81450) [facility]; [facility] Work Phone: Start: 05-10-2023 Immunoassay tumor antigen quantitative ca 125 Cancer Antigen (CA) 125 (95701) [facility]; [facility] Work Phone: Start: 05-07-2023 Immunoassay tumor antigen quantitative ca 125 Cancer Antigen (CA) 125 (83457) [facility]; [facility] Work Phone: Start: 05-07-2023 Immunoassay tumor antigen quantitative ca 15-3 Cancer Antigen (CA) 15-3 (81968) [facility]; [facility] Work Phone: Start: 05-07-2023 Immunoassay tumor antigen quantitative ca 19-9 Cancer Ag (CA) 19-9 (51314) [facility]; [facility] Work Phone: Start: 04-20-2023 Procedure Education Eprescribe d prescriptions (G8553) [facility]; [facility] Work Phone: Start: 03-09-2023 Influenza vaccination INFLUENZA VACC INE (#1) [facility] Start: 02-14-2023 Screening mammography MAMMOGRA M SCREENING DISCUSSION [facility] Start: 09-07-2022 Assay of thyroid stimulating hormone tsh TSH (THYROID STIMULATING HORMONE) (49782) [facility]; [facility] Work Phone: Start: 07-07-2022 25 hydroxy includes fractions if performed CALCIFIDIOL (49839) VIT D 25 [facility]; [facility] Work Phone: Start: 07-07-2022 Assay of thyroid stimulating hormone tsh TSH (THYROID STIMULATING HORMONE) (27031) [facility]; [facility] Work Phone: Start: 04-28-2022 Assay of thyroid stimulating hormone tsh TSH (THYROID STIMULATING HORMONE) (16964) [facility]; [facility] Work Phone: Start: 03-09-2022 Influenza vaccination [facility] Start: 02-06-2022 End: 02-06-2022 Patient encounter procedure [facility] [place] Start: 01-31-2022 End: 03-03-2022 MG Breast Views MAMMO SCREENING WITH PACO BILATERAL Imaging Routine Encounter for screening mammogram for malignant neoplasm of breast Expected: 01/31/2022, Expires: 03/03/2022 [facility] Work Phone: Comment on above: Expected: 01/31/2022 , Expires: 03/03/2022 Start: 01-31-2022 Screening mammography MAMMOGRA M SCREENING DISCUSSION [facility] Start: 01-26-2022 Ova&parasites direct smears concentration & id OVA & PARASITE DIR SMEAR (55995) [facility]; [facility] Work Phone: Start: 01-26-2022 Blood occult peroxid ase actv qual feces 1 deter OCCULT BLOOD FECES SCREEN (05513) [facility]; [facility] Work Phone: Start: 01-26-2022 Leukocyte assmt feca l qual/semiquantitative LEUKOCYTE COUNT, FECAL (70230) [facility]; [facility] Work Phone: Start: 01-26-2022 Culture bacterial an y source anaerobic iso&id C-DIFFICILE, STOOL (55573) [facility]; [facility] Work Phone: Start: 01-26-2022 Cul bact stool aerob ic isol salmonella&shigell DONNA CULTURE-STOOL (22246) [facility]; [facility] Work Phone: Start: 07-25-2021 Iaadiadoo influenza 2019 Novel Coronavirus (COVID-19), KOLBY (89421) [facility]; [facility] Work Phone: Start: 07-15-2021 Blood count complete auto&auto difrntl wbc CBC, PLATELETS & AUT DIFF (66423) [facility]; [facility] Work Phone: Start: 07-15-2021 Basic metabolic pane l calcium total METABOLIC PANEL, BASIC (23548) [facility]; [facility] Work Phone: Start: 09-01-2021 Influenza vaccination INFLUENZA VACC INE (#1) [facility] Start: 07-12-2020 Troponin I.cardiac [Mass/Vol] Troponin I (90830) [facility]; [facility] Work Phone: Start: 07-12-2020 TSH Qn TSH (THYROID STIMULATING HORMONE) (66092) [facility]; [facility] Work Phone: Start: 06-17-2020 Iaadiadoo influenza 2019 Novel Coronavirus (COVID-19), KOLBY (19342) [facility]; [facility] Work Phone: Start: 04-12-2020 Procedure Education Eprescribe d prescriptions (G8553) [facility] Work Phone: Start: 03-31-2020 Assay of thyroxine total TT4 (THYROXINE TOTAL) (01095) [facility]; [facility] Work Phone: Start: 03-31-2020 T4 [Mass/Vol] TT4 (THYROXINE TOTAL) (37216) [facility] Work Phone: Start: 01-19-2020 Procedure Education Eprescribe d prescriptions (G8553) [facility] Work Phone: Start: 01-07-2020 [place]adiadoo influenza 2019 Novel Coronavirus (COVID-19), KOLBY (18314) [facility] Work Phone: Start: 10-14-2019 End: 10-14-2019 Appointment Appointment [facility] Work Phone: Start: 10-14-2019 End: 10-14-2019 Mri any jt lower extrem w/o contrast matrl MRI right hip without contrast [facility] Work Phone: Start: 10-14-2019 End: 10-14-2019 Radex hip unilateral with pelvis 2-3 views XR PELVIS W HIP 2-3 VWS-RT [facility] Work Phone: Start: 05-02-2019 Lipoprotein blood qu an numbers & subclasses NMR Profile (99603) [facility] Work Phone: Start: 05-02-2019 TSH Qn TSH (92926) [facility] Work Phone: Start: 05-02-2019 Free T4 [Mass/Vol] T4, FREE (T HYROXINE) (62218) [facility] Work Phone: Start: 05-02-2019 Free T3 [Mass/Vol] T3, FREE (TRIDOTHYRONINE) (50401) [facility] Work Phone: Start: 10-09-2018 Comprehensive metabo lic panel METABOLIC PANEL, COMPREHENSIVE (64823) [facility] Work Phone: Start: 10-09-2018 CBC, PLATELETS & MAN UAL DIFF (34210) CBC, PLATELETS & MANUAL DIFF (65095) [facility] Work Phone: Start: 10-09-2018 Sedimentation rate r bc automated Sedimentation Rate-ESR (92615) [facility] Work Phone: Start: 10-09-2018 CRP mass conc C-REACTIVE PRO TEIN (97125) [facility] Work Phone: Start: 10-09-2018 T3 free mass conc T3, FREE (TRIDOTHYRONINE) (08574) [facility] Work Phone: Start: 10-09-2018 T4 free mass conc T4, FREE (TH YROXINE) (70656) [facility] Work Phone: Start: 10-09-2018 Thyrotropin Qn TSH (THYROID STIMULATING HORMONE) (78074) [facility] Work Phone: Start: 04-22-2018 25 hydroxy includes fractions if performed CALCIFEDIOL (89421) [facility] Work Phone: Start: 04-22-2018 Thyrotropin Qn TSH (35455) [facility] Work Phone: Start: 04-22-2018 T4 free mass conc T4, FREE (TH YROXINE) (35385) [facility] Work Phone: Start: 04-22-2018 T3 free mass conc T3, FREE (TRIDOTHYRONINE) (23095) [facility] Work Phone: Start: 01-01-2017 Lipid panel LIPID PANEL (03535) [facility] Work Phone: Start: 01-01-2017 Assay of free thyroxine T4, FR EE (THYROXINE) (55004) [facility]; [facility] Work Phone: Start: 01-01-2017 T4 free mass conc T4, FREE (TH YROXINE) (13558) [facility] Work Phone: Start: 01-01-2017 Assay of thyroid stimulating hormone tsh TSH (49315) [facility]; [facility] Work Phone: Start: 01-01-2017 Thyrotropin Qn TSH (79944) [facility] Start: 2016 Pneumococcal vaccination PNEUMOCOCCAL VACCINE SERIES (1 of 1 - PCV) [facility] Start: 2016 SHINGRIX VACCINE (1 of 2) SHINGRIX VACCINE (1 of 2) [facility] Start: 2016 Zoster vaccine hzv l olga for subcutaneous use ZOSTER (SHINGLES) VACCINE (1 of 2) [facility] Start: 01-08-2012 Antibody mycoplsm MYCOPLASMA A NTIBODY (25702) [facility] Work Phone: Comment on above: IgM and IgG Start: 01-04-2012 Iadna nos amplified probe tq each organism Bordetella Pertussis PCR (45583) [facility] Work Phone: Start: 11-13-2011 COLOGUARD (FIT-DNA) COLOGUARD (FIT-D NA) [facility] Start: 11-13-2011 Colonoscopy [facility] Start: 11-13-2011 COLORECTAL CANCER SCREENING COLORECTAL CANCER SCREENING [facility] Start: 11-13-[address] COLONOGRAPHY [facility] Start: 11-13-2011 DIABETES SCREEN DIABETES SCREEN [facility] Start: 11-13-2011 FECAL OCCULT BLOOD FECAL OCCULT BLOO D [facility] Start: 11-13-2011 LIPID SCREEN LIPID SCREEN [facility] Start: 11-13-2011 Screening for malign ant neoplasm of colon COLORECTAL CANCER SCREENING DISCUSSION [facility] Start: 11-13-2011 SIGMOIDOSCOPY SIGMOIDOSCOPY [facility] Start: 2006 Fasting lipid profile LIPID SCREENIN G [facility] Start: 2006 Lipid panel LIPID SCREENING [facility] Start: 2006 Mammography MAMMOGRAM [facility] Start: 1996 HPV TESTING HPV TESTING [facility] Start: 11-13-1987 PAP TESTING PAP TESTING [facility] Start: 11-13-1987 Screening for malign ant neoplasm of cervix CERVICAL CANCER SCREENING DISCUSSION [facility] Start: 1985 Hepatitis B vaccination HEP B VACCINE (1 of 3 - 19+ 3-dose series) [facility] Start: 1985 Third diphtheria, tetanus and acellular pertussis (DTaP) vaccination TDAP (ADULT) [facility] Start: 1985 Urine microalbumin profile DTAP,TDAP,TD (1 - Tdap) [facility] Start: 1984 HEPATITIS C SCREENING HEPATITIS C SC REENING [facility] Start: 1984 HIV SCREENING HIV SCREENING [facility] Start: 1984 Tetanus vaccination TETANUS [facility] Start: 1981 HIV screening HIV SCREENING DISCUSSION [facility] Start: 1978 Adult depression screening assessment DEPRESSION SCREENING [facility] Start: 1978 COVID-19 VACCINE (1) COVID-19 VACCIN E (1) [facility] Start: 11-13-1971 COVID-19 VACCINE (#1) COVID-19 VACCI NE (#1) [facility] Start: 05-15-1967 COVID-19 VACCINE (#1) COVID-19 VACCI NE (#1) [facility] Start: 1966 Hepatitis C antibody , confirmatory test HEPATITIS C VIRUS SCREENING [facility] Start: 1966 Hepatitis C screening HEPATITI S C VIRUS SCREENING [facility] Start: 1966 Tetanus vaccination TETANUS [facility] Start: 1966 [facility]roid stimulating [facility] End: 05-03-2024 [facility] Work Phone: Comment on above: 1 Occurrences starti ng 05/03/2024 until 05/03/2024 [facility] Work Phone: [facility] Work Phone: [facility] Work Phone: [facility] Work Phone: [facility] Work Phone: [facility] Work Phone[facility] Work Phone: [facility] Work Phone: [facility] Work Phone: [facility] Work Phone: [facility] Work Phone[facility] Work Phone[facility] Work Phone[facility] Work Phone: [facility] Work Phone: [facility]; [facility] Work Phone: [facility]; [facility] Work Phone: [facility]; [facility] Work Phone: Payers Date Payer Category Payer Self-pay [id number] 2021 [facility] [id number] 2021 Unknown ANTHEM BLUE ACCE SS PPO [id number] 2021-Present [phone] [id number] [place] [id number] PPO [id number] 2021 Unknown [id number] 2021 Unknown 2021 Unknown ANTHEM ANTHEM HM O PPO POS [id number] 2021-Present [id number] [place] [id number] 2008 Unknown [id number] 1966 Unknown [id number] 1966 Unknown [id number] 1966 Unknown [id number] 1966 Unknown [id number] 1966 Unknown [id number] 1966 Unknown [id number] Unknown SELF PAY INSURANCE [id number] Unknown [id number] Unknown [facility] P[facility] [id number] Unknown [id number] Social History Date Type Detail Facility Start: 01-08-2020 End: 01-31-2021 Alcohol Use Never smoker [facility] Work Phone: Comment on above: Occasional alcohol u se Exercises regularly Lives with spouse 3 Dogx2 Tobacco use: Never smoker. [facility] Work Phone: Tobacco use: Tobacco use: [facility]; [facility] Work Phone: Start: 09-26-2018 Tobacco smoking stat [facility] Never smoker [facility] Start: 09-26-2018 Tobacco use and exposure Never used [facility] Start: 01-31-2021 End: 05-05-2025 Alcohol intake Current drinker of alcohol (finding) [facility] Start: 01-08-2020 End: 01-31-2021 History SDOH Alcohol Frequency 2 [facility] Start: 01-31-2021 History SDOH Financial 5 [facility] Start: 01-31-2021 History SDOH Food Worry 1 [facility] Start: 1965 Sex Assigned At Not on file [facility] Start: 11-11-2021 End: 11-21-2021 Exposure to SARS-CoV-2 (event) Not sure [facility] unknown [facility] Start: 1965 Sex Assigned At Female W [facility] Start: 01-08-2020 End: 01-31-2021 Alcohol Use Disorder Identification Test - Consumption [AUDIT-C] [facility] How often to you hav e a drink containing alcohol? Monthly or less [facility] Average Number of Drinks Not on file [facility] (I/We) worried wheth er (my/our) food would run out before (I/we) got money to buy more. Never true [facility] Start: 04-29-2023 Gender identity Identifies as female gender (finding) [facility] Start: 08-11-2012 Sex Female (finding) [facility] NEGATED: Highlighted rowStart: 10-14-2019 End: 10-14-2019 Alcohol use Alcohol use [facility] Work Phone: NEGATED: Highlighted rowStart: 10-14-2019 End: 10-14-2019 Details of drug misuse behavior Details of drug misuse behavior [facility] Work Phone: NEGATED: Highlighted rowStart: 10-14-2019 End: 10-14-2019 Employment detail Employment detail [facility] Work Phone: NEGATED: Highlighted rowStart: 10-14-2019 End: 10-14-2019 Assertion Never smoker [facility] Work Phone: Functional Status Date Assessment Result Facility 05-02-2019 LP-IR Score LP-IR Score 26 [facility] Work Phone: Comment on above: INSULIN RESISTANCE Blayne AQUINO <--Insulin Sensitive Insulin Resistant--> Percentile in Reference PopulationInsulin Resistance ScoreLP-IR Score Low 25th 50th 75th High <27 27 45 63 >63LP-IR Score is inaccurate if patient is non-fasting. .The LP-IR score is a laboratory developed index that has beenassociated with insulin resistance and diabetes risk and should beused as one component of a physician's clinical assessment. Test(s) 587352-AQC-X ; 947408-WRA-I; 021050-EOE-U; 145098-Gislsalubtfzg; 002322-Bsgngodpydd, Total; 695054-BIX-M (Total);375503-Fhzng LDL-P; 734157-QSH Size; 919662-EY-UF Scorewas developed and its performance characteristics determinedby [employer]. It has not been cleared or approved by the Foodand Drug Administration.PATIENT WAS FASTINGPERFORMED BY: [place] [id number] BY: MAIA [facility] [id number] [facility] [id number] Clinical Notes 01-31-2021 to 05-05-2025 Ewelina Nicholson - 05/05/2025 11:20 AM EDKelley Camacho - 05/03/2024 1:00 PM EDAlex Balbuena - 05/01/2023 10:20 AM EDAndria Schuster - 02/14/2022 10:20 AM EDTZoltan Pratt - 01/31/2021 9:20 AM EDT Note Date & Type Note Facility 05-05-2025 History of Present illness Narrative Patient offered a medical pneumatic tool operator for sensitive exam. Pt declined documented in this encounter [facility] 05-03-2024 History of Present illness Narrative Patient offered a medical pneumatic tool operator for sensitive exam. Pt declined documented in this encounter [facility] 05-01-2023 History of Present illness Narrative Patient offered a medical pneumatic tool operator for sensitive exam. Pt declined documented in this encounter [facility] 01-23-2023 Note PT Outpatient Progre ss Note Entered On: 01/23/2023 10:07 EDT Performed On: 01/23/2023 10:04 EDT by aTnia Lopes PT Review/Treatments Provided Total Visit Count : 2 Visit Count Reviewed? : Yes Pain Present : Yes actual or suspected pain Diagnosis : Reason for Visit: L KNEE PAIN, BACK PAIN, R HIP PAIN Precautions/Special Notes : L knee pain and LBP PMH-History of acid reflux, hypothyroidism (22 yo). PSH-3 c-sections, R THR 07-29-21 PT Diagnosis : L knee pain, LBP Attending Physician : Name: RAJESH JIM PT, Carrie - 01/23/2023 10:04 EDT Subjective : Patient reported left knee felt much looser with swing through, since last treatment. I felt some pressure behind my left knee. The doctor saw a little bit of fluid. Moses JACKMAN, Tania 01/23/2023 13:37 EDT Manual Therapy : Yes Moses JACKMAN, Tania 01/23/2023 10:04 EDT Pain Assessment Pain Location : Knee Laterality : Left Quality : Pressure Pain Negatively Impacts : Daily life Question Ability to Self Report Pain : No Self Report Pain : Numeric rating scale Numeric Pain Scale : 8 Acceptable Numeric Pain Scale : 0 = No pain Numeric Pain Score : 8 Numeric Pain Acceptable Intensity Score : 0 Moses JACKMAN, Tania 01/23/2023 10:04 EDT Manual Therapy Manual Therapy Activity 1 Activity 2 Activity 3 Activity 4 Type/Technique : Myofascial/Soft tissue mobilization Other: descending colon/sigmoid colon Other: arterial releases Other: middle cervical fascia Moses JACKMAN, Tania 01/23/2023 11:06 EDT Moses JACKMAN, Tania 01/23/2023 11:06 EDT Moses JACKMAN, Tania 01/23/2023 11:06 EDT Moses JACKMAN, Tania 01/23/2023 11:06 EDT Activity 5 Type/Technique : Other: arterial releases Moses JACKMAN, Tania 01/23/2023 11:06 EDT Education *Barriers To Learning : None evident *Teaching Method : Explanation Patient Education - PT Outpatient : Anatomy, Self care Moses JACKMAN, Tania 01/23/2023 13:37 EDT Assessment PT Clinical Assessment Summary : Patient having difficulty exercising due to L knee pain which she gets relief by kicking L hip/knee out to the left. Patient presents with limited fluid L knee posteriorly and limited patellar tendon mobility. Patient feels that her knee cap looks different when she's in pain, however, I didn't see that today. Patient tolerated treatment well with decreased back and L knee pain at end of treatment. Moses JACKMAN, Tania 01/23/2023 13:37 EDT Plan Frequency : Other: 1-3 treatments/month *Duration : 12 Weeks *Treatments : Edema control, Manual therapy, Dry needling, Neuromuscular re-education, Therapeutic exercises, Therapeutic activities, Pain Management, Patient education, Posture/Body mechanics training *Plan for Next Visit : Education, Manual tx. Tania Lopes PT 01/23/2023 13:37 EDT Time Spent with Patient - Outpatient PT Time In : 10:04 EST PT Time Out : 11:04 EST PT Soft Tissue Mobility Units : 4 units PT Soft Tissue Mobility Time : 60 minutes PT Total Timed Code Treatment Units : 4 units PT Total Timed Code Tx Minutes : 60 minutes 8 Min Rule Unit Check PT OP : 4 units PT Total Treatment Time Rehab : 60 minutes 8 Min Rule Unit Difference PT OP : 0 Tania Lopes PT - 01/23/2023 13:37 EDT [facility] 01-02-2023 Note PT Outpatient Evalua tion Entered On: 01/02/2023 16:21 EDT Performed On: 01/02/2023 16:17 EDT by Tania Lopes PT Reason for Treatment *Reason for Referral/Chief Complaint : L knee pain and back pain Precautions/Special Notes : L knee pain and LBP PMH-History of acid reflux, hypothyroidism (22 yo). PSH-3 c-sections, R THR 07-29-21 Tania Lopes PT 01/02/2023 16:21 EDT Total Visit Count : 1 Tania Lopes PT 01/02/2023 16:17 EDT Patient/Family Subjective Statement : 57 yo female with diagnosis of back pain s/p R THR and L knee pain. Patient reports that she went airborne November 06 after dog took off between her legs. Patient fell onto left knee with subsequent bruising on front of knee. Patient told that she sprained her L knee. Patient feels pressure behind left knee. Patient reports having full body aches including L achilles tendonitis since fall. Patient reports having increased L LE pain with first step after prolonged sitting >15 minutes. Squatting also increases L knee and LBP significantly. Tania Lopes PT 01/02/2023 16:21 EDT Visit Count Reviewed? : Yes Tania Lopes PT 01/02/2023 16:17 EDT Subjective Precautions : No Orders Qualified Diagnosis : Reason for Visit: L KNEE PAIN, BACK PAIN, R HIP PAIN PT Diagnosis : L knee pain, LBP Pain Present : Yes actual or suspected pain Attending Physician : Name: RAJESH JIM Chronicity of Condition PT : Acute (less than 3 months) Tania Lopes PT 01/02/2023 16:21 EDT Past Medical History, Hospitalizations, Surgeries History of Problems, Comorbidities Rehab : R THR, age, OA, LBP History of Comorbidities,Personal Factor : 3-4 personal factors and/or comorbidities Rehab Problems and Meds Reviewed : Patient's problem and medication lists were reviewed Moses JACKMAN [facility] 01/02/2023 16:21 EDT Pain Assessment Pain Location : Knee Laterality : Left Quality : Pressure Time Pattern : Acute Pain Negatively Impacts : Daily life Question Ability to Self Report Pain : No Self Report Pain : Numeric rating scale Numeric Pain Scale : 9 Acceptable Numeric Pain Scale : 0 = No pain Numeric Pain Score : 9 Numeric Pain Acceptable Intensity Score : 0 Moses JACKMAN [facility] 01/02/2023 16:21 EDT Home Environment Living Environment : Home Environment No qualifying data available Patient's Responsibilities 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, Personal ADL Moses JACKMAN [facility] 01/02/2023 16:21 EDT Home Environment II Living Environment : Home Environment No qualifying data available Moses JACKMAN [facility] 01/02/2023 16:21 EDT Prior Functional Status Grid ADL : Independent Mobility : Independent Instrumental ADL : Independent Cognitive-Communication Skills : Independent Moses JACKMAN [facility] 01/02/2023 16:21 EDT Posture/Deviations Posture Rounded Shoulders : Sitting, Standing, Supine Cervical Lordosis, Reduced : Sitting, Standing, Supine Lumbar Lordosis, Accentuated : Sitting, Standing, Supine Moses JACKMAN [place] 01/02/2023 16:21 EDT Deviations - Head/Trunk Pelvic Obliquity : Sitting, Standing, Supine Moses JACKMAN [place] 01/02/2023 16:21 EDT Lumbar Mobility Lumbar Spine Movement Loss Flexion : Moderate Extension : Minimal Sidebending Left : Moderate Sidebending Right : Moderate, With pain, tight Rotation Left : Moderate Rotation Right : Moderate Moses JACKMAN [place] 01/02/2023 16:21 EDT LE ROM/Strength Left Strength (ref) Hip Flexion : 5 Hip Abduction : 4+ Hip External Rotation : 5 Knee Flexion : 5 Ankle Dorsiflexion : 5 Ankle Plantarflexion : 5 Great Toe Extension : 5 Moses JACKMAN [place] 01/02/2023 16:21 EDT Right Strength (ref) Hip Flexion : 5 Hip Abduction : 5 Hip External Rotation : 5 Knee Flexion : 5 Knee Extension : 5 Ankle Dorsiflexion : 5 Ankle Plantarflexion : 5 Great Toe Extension : 5 Tania Lopes PT - 01/02/2023 16:21 EDT Functional Outcome Measures Functional Outcome Measures - grid Activity 1 Test : JR. OSIEL Adult Knee Survey Score : 9 Tania Lopes PT - 01/02/2023 16:21 EDT Education *Barriers To Learning : None evident *Teaching Method : Explanation Patient Education - PT Outpatient : Anatomy, Etiology of current dysfunction, Posture, Self care, Symptom management Tania Lopes PT - 01/02/2023 16:21 EDT Falls and Education Assessment Fall In The Past Year : No Prior Level of Functioning : No Deficits Does Patient Have Adequate Support System : Yes Signs/Symptoms of Abuse/Neglect : No Pt. Notified of Benefits and Risks of Therapy : Yes Treatment Plan Discussed with Patient : Yes Discuss Cancel/No Show Policy : Yes Tania Lopes PT - 01/02/2023 16:21 EDT Assessment *Patient/Family Receptiveness : Good *Rehabilitation Potential : Good PT Clinical Assessment Summary : 57 yo female with diagnosis of L knee pain after traumatic fall onto cement and LBP which started after R THR . Patient has functional AROM L kne (more content not included)... [facility] 10-24-2022 Note PT Outpatient Sal blair Note Entered On: 10/24/2022 10:19 EDT Performed On: 10/24/2022 10:16 EDT by Tania Lopes PT Review/Treatments Provided Total Visit Count : 4 Visit Count Reviewed? : Yes Diagnosis : Reason for Visit: low back pain Precautions/Special Notes : Back and Neck Pain PMH-History of Acid Reflux, hypothyroidism (22 yo), stress incontinence. PSH-3 c-sections, R THR 07-29- PT Diagnosis : Back and Neck Pain Attending Physician : Name: YOUNG TRACEY Subjective : My neck and back feel tight vs. pain. I feel like my left hip limits what I can do with my right hip and back. Therapeutic Exercise : Yes Manual Therapy : Yes Tania Lopes PT 10/24/2022 10:16 EDT Therapeutic Exercise Custom Therapeutic Exercise Exercise 1 Exercise 2 Exercise 3 Exercise 4 Exercise : SLS exercises pelvic tilt with exhale contract relax- hip flex/ext knee to chest Moses PT, Tania 10/24/2022 10:16 EDT Moses PT, Tania 10/24/2022 10:16 EDT Moses PT, Tania - 10/24/2022 10:16 EDT Moses PT, Tania 10/24/2022 10:16 EDT Exercise 5 Exercise 6 Exercise 7 Exercise 8 Exercise : table top prayer stretch toe stretch adductor stretch with pec stretch Moses PT, Tania - 10/24/2022 10:16 EDT Moses PT, Tania - 10/24/2022 10:16 EDT Moses PT, Tania 10/24/2022 10:16 EDT Moses PT, Tania - 10/24/2022 10:16 EDT Manual Therapy Manual Therapy Activity 1 Activity 2 Activity 3 Activity 4 Type/Technique : Myofascial/Soft tissue mobilization Other: R lung Other: Middle cervical aponeurosis Other: arterial releases Region : Cervical spine, Thoracic spine Comment : dural stretch Moses PT, Tania 10/24/2022 10:16 EDT Moses PT, Tania 10/24/2022 10:16 EDT Moses PT, Tania 10/24/2022 10:16 EDT Moses PT, Tania 10/24/2022 10:16 EDT Activity 5 Type/Technique : Other: trigeminal nerve Region : Comment : Moses JACKMAN, Tania 10/24/2022 10:16 EDT Education *Barriers To Learning : None evident *Teaching Method : Demonstration, Explanation Patient Education - PT Outpatient : Anatomy, Home exercise program - progression/modification, Posture, Self care, Symptom management Moses PT, Tania 10/24/2022 11:44 EDT Assessment PT Clinical Assessment Summary : Patient continues to improve mobility of spine, however, L hip tends to make patient compensate due to significant OA. Forward head and neck continue to decrease severity. Patient tolerated treatment well and demonstrates improved understanding of HEP. Patient reports having less reliance on chiropractor because back and neck pain are decreasing. Moses JACKMAN, Tania 10/24/2022 11:44 EDT Plan Frequency : Other: 1-4 x's/month *Duration : 12 Weeks *Treatments : Edema control, Manual therapy, Dry needling, Neuromuscular re-education, Therapeutic exercises, Therapeutic activities, Pain Management, Patient education, Posture/Body mechanics training *Plan for Next Visit : Education, Manual tx. Treatment Plan/Goals Established with Patient/Caregiver : Yes Tania Lopes PT 10/24/2022 11:44 EDT Time Spent with Patient - Outpatient PT Time In : 09:00 EST PT Time Out : 10:00 EST PT Therapeutic Exercise Units : 1 units PT Therapeutic Exercise Time : 15 minutes PT Soft Tissue Mobility Units : 3 units PT Soft Tissue Mobility Time : 45 minutes PT Total Timed Code Treatment Units : 4 units PT Total Timed Code Tx Minutes : 60 minutes 8 Min Rule Unit Check PT OP : 4 units PT Total Treatment Time Rehab : 60 minutes 8 Min Rule Unit Difference PT OP : 0 Tania Lopes PT 10/24/2022 11:44 EDT [facility] 09-19-2022 Note PT Outpatient Progre ss Note Entered On: 09/19/2022 9:43 EDT Performed On: 09/19/2022 9:36 EDT by Tania Lopes PT Review/Treatments Provided Functional Activity : Yes Tania Lopes PT 09/19/2022 16:02 EDT Rehab Reassessment : Reassessment Pain Present : Yes actual or suspected pain Subjective : Every time I come to therapy makes a difference. Otherwise, I wouldn't be driving an hour for treatment. I continue to feel better. My back is bothering me more than my neck especially when I walk, therefore, I've been exercising on the elliptical instead of the treadmill. Tania Lopes PT 09/19/2022 15:35 EDT Manual Therapy : Yes Tania Lopes PT 09/19/2022 10:14 EDT Total Visit Count : 3 Visit Count Reviewed? : Yes Fdc Goals Reviewed : Yes Diagnosis : Reason for Visit: low back pain Precautions/Special Notes : Back and Neck Pain PMH-History of Acid Reflux, hypothyroidism (22 yo), stress incontinence. PSH-3 c-sections, R THR - PT Diagnosis : Back and Neck Pain Attending Physician : Name: YOUNG TRACEY PT, Carrie - 09/19/2022 9:36 EDT Pain Assessment Pain Location : Back Quality : Tightness Time Pattern : Constant Pain Negatively Impacts : Daily life Question Ability to Self Report Pain : No Self Report Pain : Numeric rating scale Numeric Pain Scale : 5 = Moderate pain Acceptable Numeric Pain Scale : 0 = No pain Numeric Pain Score : 5 Numeric Pain Acceptable Intensity Score : 0 Moses PT, Tania - 09/19/2022 15:35 EDT Fdc Goals PT Outpt Pt Goal - grid Goal #1 PT Patient,Caregiver Goal : NL adl's with minimal to no back and neck pain. Duration : 12 weeks Status : Progressing, continue Date : 09/19/2022 EDT Comment : 510 Moses PT, Tania 09/19/2022 9:36 EDT General Function Goal #6 Goal #1 Goal #2 Goal #3 Goal : Other: Ambulate 1/2 mile without LBP as reflected by Oswestry score of 7. Independent with symptom management Other: Patient able to forward bend without back and neck pain. Sleep through the night Duration : 16 Weeks 8 Weeks 8 Weeks 8 Weeks Status : Initial Progressing, continue Goal met Goal met Date : 09/19/2022 EDT 09/19/2022 EDT 09/19/2022 EDT 09/19/2022 EDT Comment : Oswestry score reflects improved ability to forward bend with decreased score from 16 to 13 (Oswestry score improved to 10.) Moses PT, Tania 09/19/2022 15:46 EDT Moses PT, Tania 09/19/2022 9:36 EDT Moses PT, Tania 09/19/2022 15:35 EDT Moses PT, Tania 09/19/2022 9:36 EDT Goal #4 Goal #5 Goal : Transition to independent home or community exercise program Lift/carry to assist in household tasks Duration : 12 Weeks 12 Weeks Status : Progressing, continue Goal met Date : 09/19/2022 EDT 09/19/2022 EDT Comment : Oswestry score reflects improved ability for lifting with decreased Oswestry score of 16 to 10 by end of treatment. Moses PT, Tania 09/19/2022 9:36 EDT Moses PT, Tania 09/19/2022 15:35 EDT Functional Activity Functional Activity : Therapeutic Activities No qualifying data available Moses PT, Tania 09/19/2022 16:02 EDT PT Therapeutic Activities Grid Activity 1 Activity 2 Activity : Posture Transitional movement Moses PT, Tania 09/19/2022 16:02 EDT Moses PT, Tania 09/19/2022 16:02 EDT Manual Therapy Manual Therapy Activity 1 Activity 2 Activity 3 Activity 4 Type/Technique : Myofascial/Soft tissue mobilization Grade I joint mobilization Grade I joint mobilization, Other: clavipectoral fascia Other: arterial releases Region : Cervical spine Moses PT, Tania 09/19/2022 10:14 EDT Moses PT, Tania 09/19/2022 10:14 EDT Moses PT, Tania 09/19/2022 10:14 EDT Moses PT, Tania 09/19/2022 10:14 EDT Cervical Mobility Movement Loss Cervical Spine Grid Flexion : Moderate, With pain, shoulder blades tight Extension : Nil Sidebending Left : Moderate, With pain, tight Sidebending Right : Moderate, With pain, tight Rotation Left : Minimal, limited on L side of CS Rotation Right : Nil Moses PT, Tania 09/19/2022 9:36 EDT Lumbar Mobility Lumbar Spine Movement Loss Extension : Minimal Sidebending Left : Nil, tight right Sidebending Right : Minimal, tight left Rotation Left : Moderate Rotation Right : Moderate Moses PT, Tania 09/19/2022 9:36 EDT Flexion : Moderate, hamstrings Moses PT, Tania 09/19/2022 15:35 EDT Functional Outcome Measures Functional Outcome Measures - grid Activity 1 Activity 2 Test : Neck Disability Index Oswestry Low Back Disability Index (Modified) Score : 4 10 Moses PT, Tania 09/19/2022 13:56 EDT Moses PT, Tania 09/19/2022 15:46 EDT Education *Barriers To Learning : None evident *Teaching Method : Explanation Patient Education - PT Outpatient : Anatomy, Etiology of current dysfunction, Posture, Self care Moses PT, Tania 09/19/2022 15:46 EDT Assessment PT Clinical Assessment Summary : Patien (more content not included)... [facility] 08-22-2022 Note PT Outpatient Sal ss Note Entered On: 08/22/2022 10:13 EST Performed On: 08/22/2022 10:09 EST by Tania Lopes PT Review/Treatments Provided Pain Present : Yes actual or suspected pain Subjective : My back is really stiff especially when I transfer out of the car. Tania Lopes PT 08/22/2022 13:39 EST Total Visit Count : 2 Visit Count Reviewed? : Yes Diagnosis : Reason for Visit: low back pain Precautions/Special Notes : Back and Neck Pain PMH-History of Acid Reflux, hypothyroidism (22 yo), stress incontinence. PSH-3 c-sections, R THR 07-29-21 PT Diagnosis : Back and Neck Pain Attending Physician : Name: YOUNG TRACEY Manual Therapy : Yes Tania Lopes PT 08/22/2022 10:09 EST Pain Assessment Pain Location : Back Quality : Aching, Tightness Time Pattern : Chronic Pain Negatively Impacts : Daily life Question Ability to Self Report Pain : No Self Report Pain : Numeric rating scale Numeric Pain Scale : 6 Acceptable Numeric Pain Scale : 0 = No pain Numeric Pain Score : 6 Numeric Pain Acceptable Intensity Score : 0 Tania Lopes PT 08/22/2022 13:39 EST Manual Therapy Manual Therapy Activity 1 Activity 2 Activity 3 Activity 4 Type/Technique : Myofascial/Soft tissue mobilization Other: descending colon Grade I joint mobilization Other: arterial releases Region : Thoracic spine Tania Lopes PT 08/22/2022 10:09 EST Tania Lopes PT 08/22/2022 10:09 EST Tania Lopes PT 08/22/2022 10:09 EST Tania Lopes PT 08/22/2022 10:09 EST Education *Barriers To Learning : None evident *Teaching Method : Explanation Patient Education - PT Outpatient : Anatomy, Posture, Self care, Symptom management Tania Lopes PT 08/22/2022 13:39 EST Assessment PT Clinical Assessment Summary : Patient recently joined a yoga studio to help support physical therapy treatment. Patient has significant stiffness and c/o achiness after prolonged sitting. Patient has line of strain up left side of thoracic and lumbar spine which is her non surgical side. Patient following up with surgeon to discuss possible surgery for L hip pain. Patient tolerated treatment well with decreased back pain at end of treatment. Patient has her own medical practice 1 hour away and is a single mother of 3 children which makes more frequent appointments more difficult to schedule. Tania Lopes PT 08/22/2022 13:39 EST Plan Frequency : Other: 1-4 x's/month *Duration : 12 Weeks *Treatments : Edema control, Manual therapy, Dry needling, Neuromuscular re-education, Therapeutic exercises, Therapeutic activities, Pain Management, Patient education, Posture/Body mechanics training *Plan for Next Visit : Manual tx., Education Treatment Plan/Goals Established with Patient/Caregiver : Yes Tania Lopes PT - 08/22/2022 13:39 EST Time Spent with Patient - Outpatient PT Time In : 09:00 EST PT Time Out : 10:00 EST PT Soft Tissue Mobility Units : 4 units PT Soft Tissue Mobility Time : 60 minutes PT Total Timed Code Treatment Units : 4 units PT Total Timed Code Tx Minutes : 60 minutes 8 Min Rule Unit Check PT OP : 4 units PT Total Treatment Time Rehab : 60 minutes 8 Min Rule Unit Difference PT OP : 0 Tania Lopes PT - 08/22/2022 13:39 EST [facility] 07-19-2022 Note PT Outpatient Evalua tion Entered On: 07/18/2022 9:36 EST Performed On: 07/18/2022 9:05 EST by Tania Lopes PT Reason for Treatment Total Visit Count : 1 Tania Lopes PT - 07/18/2022 9:05 EST Patient/Family Subjective Statement : 56 yo female with diagnosis of back and neck pain. Patient reports onset of back pain started after having R THR. Onset of neck pain first occurred 12 years ago. Patient had been diagnosed with cervical radiculopathy. Back pain increases with forward bending and lifting heavy objects. Neck pain occurs when sleeping funny, doing computer work, or heavy lifting. Patient has intermittant R UE pain. Patient sees a chiropractor 2-4 times/month for adjustments. Patient gets random intermittant headaches with frequency increasing during times of stress. Patient has 3 partial tears in L rotator cuff per MRI for which she rehabed in therapy. Tania Lopes PT - 07/19/2022 8:13 EST Visit Count Reviewed? : Yes *Reason for Referral/Chief Complaint : Back and Neck pain Tania Lopes PT - 07/18/2022 9:05 EST Precautions/Special Notes : Back and Neck Pain PMH-History of Acid Reflux, hypothyroidism (22 yo), stress incontinence. PSH-3 c-sections, R THR 1-21-22 Moses JACKMAN, [place] 07/18/2022 14:00 EST Subjective Precautions : No Orders Qualified Diagnosis : Reason for Visit: low back pain PT Diagnosis : Back and Neck Pain Pain Present : Yes actual or suspected pain Attending Physician : Name: YOUNG TRACEY Chronicity of Condition PT : Chronic (greater than 3 months) Moses JACKMAN, [place] 07/18/2022 9:05 EST Past Medical History, Hospitalizations, Surgeries History of Problems, Comorbidities Rehab : Chronic neck and back pain, History of cervical bulging disc, History of 3 partial tears in L rotator cuff. Moses JACKMAN [place] 07/19/2022 8:13 EST History of Comorbidities,Personal Factor : 1-2 personal factors and/or comorbidities Rehab Problems and Meds Reviewed : Patient's problem and medication lists were reviewed Moses JACKMAN [place] 07/18/2022 9:05 EST Pain Assessment Pain Location : Neck Laterality : Bilateral Quality : Radiating Time Pattern : Chronic Pain Negatively Impacts : Daily life, Sleep Question Ability to Self Report Pain : No Self Report Pain : Numeric rating scale Numeric Pain Scale : 8 Acceptable Numeric Pain Scale : 0 = No pain Numeric Pain Score : 8 Numeric Pain Acceptable Intensity Score : 0 Moses JACKMAN [place] 07/18/2022 9:05 EST Home Environment Living Environment : Home Environment No qualifying data available *Living Situation : Home Independently Patient's Responsibilities 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, Personal ADL Moses JACKMAN [place] 07/18/2022 9:05 EST Home Environment II Living Environment : Home Environment No qualifying data available Moses JACKMAN [place] 07/18/2022 9:05 EST Prior Functional Status Grid ADL : Independent Mobility : Independent Instrumental ADL : Independent Cognitive-Communication Skills : Independent Moses JACKMAN [place] 07/18/2022 9:05 EST Posture/Deviations Posture Rounded Shoulders : Sitting, Standing, Supine Cervical Lordosis, Reduced : Sitting, Standing, Supine Lumbar Lordosis, Accentuated : Sitting, Standing, Supine Moses JACKMAN [place] 07/18/2022 9:05 EST Deviations - Head/Trunk Depressed Scapula : Right Pelvic Obliquity : Sitting, Standing, Supine Moses JACKMAN [place] 07/18/2022 9:05 EST Manual Therapy Manual Therapy Activity 1 Type/Technique : Myofascial/Soft tissue mobilization Region : Cervical spine, Lumbar spine Tania Lopes PT - 07/18/2022 10:05 EST Cervical Mobility Movement Loss Cervical Spine Grid Flexion : Moderate Extension : Moderate Sidebending Left : Moderate Sidebending Right : Moderate, Tight L Rotation Left : Moderate, With pain, Feels a block Rotation Right : Minimal Tania Lopes PT - 07/18/2022 9:05 EST Lumbar Mobility Lumbar Spine Movement Loss Flexion : Moderate Extension : Minimal Sidebending Left : Moderate, With pain Sidebending Right : Minimal Rotation Left : Moderate Rotation Right : Moderate, With pain Tania Lopes PT - 07/18/2022 9:05 EST UE ROM/Strength Upper Extremity Overall ROM Grid Left Upper Extremity Active Range : Within functional limits Right Upper Extremity Active Range : Within functional limits Tania Lopes PT - 07/19/2022 8:13 EST Left Upper Extremity Strength Grid Shoulder Flexion : 5 Shoulder Extension : 5 Shoulder Abduction : 5 Shoulder Adduction : 4- Shoulder External Rotation : 4 Shoulder Internal Rotation : 4+ Wrist Flexion : 5 Wrist Extension : 4+ Tania Lopes PT - 07/18/2022 9:05 EST Right Upper Extremity Strength Grid Shoulder Flexion : 5 Shoulder Extension : 5 Shoulder Abduction : 5 Shoulder Adduction : 4- Shoulder External Rotation : 4 Shoulder Internal Rotation : 5 Wrist Flexion : 5 Wrist Extension : 4+ Tania Lopes PT 07/09 (more content not included)... [facility] 06-20-2022 Note PT Outpatient Progre ss Note Entered On: 06/20/2022 10:48 EST Performed On: 06/20/2022 10:20 EST by Tania Lopes PT Review/Treatments Provided Rehab Reassessment : Reassessment Functional Activity : Yes Tania Lopes PT - 06/20/2022 13:51 EST Visit Count Reviewed? : Yes Manual Therapy : Yes Total Visit Count : 9 Tania Lopes PT - 06/20/2022 11:18 EST Junior Administrative Assistant Goals Reviewed : Yes Pain Present : Yes actual or suspected pain Diagnosis : Reason for Visit: LEFT HIP PAIN, SWELLING, S/P THR Precautions/Special Notes : R hip pain (tightness) PMH-hypothyroidism (22 yo), stress incontinence, normal bowels, acid reflux PSH- 3 c-sections, R hip replacement PT Diagnosis : R hip pain, L hip pain Attending Physician : Name: RAJESH JIM Moses JACKMAN, [place] 06/20/2022 10:20 EST Subjective : Patient reports R hip being fatigued when she's been on the stairs frequently during the day. Patient using an anti-inflammatory and muscle relaxer for relief. 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 Patient reports her working postures causes her to be tight and slows down her transfers from sit to stand. Moses JACKMAN, Tania 06/20/2022 13:51 EST Pain Assessment Pain Location : Hip Laterality : Right Quality : Tightness Time Pattern : Intermittent Pain Negatively Impacts : Daily life Question Ability to Self Report Pain : No Self Report Pain : Numeric rating scale Numeric Pain Scale : 4 Acceptable Numeric Pain Scale : 0 = No pain Numeric Pain Score : 4 Numeric Pain Acceptable Intensity Score : 0 Tania Lopes PT 06/20/2022 10:20 EST Junior Administrative Assistant Goals Other PT Goals Goal #1 Goal #2 Goal : 0 score for [place] JR hip survey with reflection in no c/o stiffness in transfers sit to stand. LEFS score increased by 15 as evidenced by patient being able to exercise without hip or back pain. Duration : 12 weeks 12 weeks Status : Initial Initial Moses PT, Tania 06/20/2022 14:09 EST Moses PT, Tania 06/20/2022 14:09 EST PT Outpt Pt Goal - grid Goal #1 PT Patient,Caregiver Goal : NL adl's with minimal to no R hip pain. Duration : 12 weeks Status : Goal met Date : 05/16/2022 EST Tania Lopes PT 06/20/2022 10:20 EST General Function Goal #7 Goal #8 Goal #1 Goal #2 Goal : Other: B hip external rotators and hip extensors MMT 5/5 Other: Painfree AROM LS spine Transition to independent home or community exercise program Independent with symptom management Duration : 12 Weeks 12 Weeks 12 Weeks 12 Weeks Status : Initial Initial Progressing, continue Progressing, continue Date : 06/20/2022 EST 06/20/2022 EST Comment : Continuing to progress HEP. Continuing to progress Tania Lopes PT 06/20/2022 13:51 EST Moses JACKMAN, Tania 06/20/2022 13:51 EST Moses PT, [place] 06/20/2022 13:51 EST Lopes PT, [place] 06/20/2022 13:51 EST Goal #3 Goal #4 Goal #5 Goal #6 Goal : Other: Decreased edema R hip Other: Ascend 7 stairs without lurch in R hip with reciprocal pattern. Other: Normal scar and myofascial mobility R hip. Ambulate community distances with normal gait mechanics Duration : 12 Weeks 12 Weeks 12 Weeks 12 Weeks Status : Goal met Goal met Goal met Goal met Date : 05/16/2022 EST 05/16/2022 EST 05/16/2022 EST 05/16/2022 EST Comment : Moses PT, Tania 06/20/2022 10:20 EST Moses PT, [place] 06/20/2022 10:20 EST Moses PT, [place] 06/20/2022 10:20 EST Moses PT, [place] 06/20/2022 10:20 EST Functional Activity Functional Activity : Therapeutic Activities No qualifying data available Moses JACKMAN, Tania 06/20/2022 13:51 EST PT Therapeutic Activities Grid Activity 1 Activity : Transitional movement Moses JACKMAN, [place] 06/20/2022 13:51 EST Manual Therapy Manual Therapy Activity 1 Activity 2 Activity 3 Activity 4 Type/Technique : Other: mesenteric root Other: R kidney Other: sternal pericardial ligaments Other: R external obturator Comment : dural stretch T9-sacrum Moses PT, [place] 06/20/2022 11:18 EST Moses PT, [place] 06/20/2022 11:18 EST Moses PT, [place] 06/20/2022 11:18 EST Moses PT, [place] 06/20/2022 11:18 EST Activity 5 Type/Technique : Other: arterial releases Comment : Moses JACKMAN, Tania 06/20/2022 11:18 EST Lumbar Mobility Lumbar Spine Movement Loss Flexion : Moderate Extension : Moderate, With pain, SIJ B Sidebending Left : Moderate, tight Sidebending Right : Moderate, tight Rotation Left : Minimal, With pain Rotation Right : Minimal Moses PT, [place] 06/20/2022 10:20 EST LE ROM/Strength Document Left LE Range Description : Yes Document Right LE Range Description : Yes Tania Lopes PT - 06/20/2022 10:20 EST Left Lower Extremity Strength Grid Hip Flexion : 5 Hip External Rotation : 4- Knee Extension : 5 Ankle Dorsiflexion : 5 Ankle Plantarflexion : 5 Great Toe Extension : 5 Tania Lopes PT - 06/20/2022 10:20 EST Righ (more content not included)... [facility] 05-18-2022 Note PT Outpatient Progre ss Note Entered On: 05/16/2022 11:22 EST Performed On: 05/16/2022 10:48 EST by Tania Lopes PT Review/Treatments Provided Rehab Reassessment : Reassessment Tania Lopes PT - 05/18/2022 14:49 EST PT Diagnosis : R hip pain, L hip pain Tania Lopes PT - 05/16/2022 13:46 EST Total Visit Count : 8 Visit Count Reviewed? : Yes Fdc Goals Reviewed : Yes Diagnosis : Reason for Visit: LEFT HIP PAIN, SWELLING, S/P THR Precautions/Special Notes : R hip pain (tightness) PMH-hypothyroidism (22 yo), stress incontinence, normal bowels, acid reflux PSH- 3 c-sections, R hip replacement Attending Physician : Name: RAJESH JIM PT, Carrie - 05/16/2022 10:48 EST Subjective : I feel like my R hip is very tight. I've been raising my foot up onto the chair as an exercise. Tania Lopes PT - 05/18/2022 14:19 EST Therapeutic Exercise : Yes Manual Therapy : Yes Tania Lopes PT - 05/16/2022 10:48 EST Fdc Goals PT Outpt Pt Goal - grid Goal #1 PT Patient,Caregiver Goal : NL adl's with minimal to no R hip pain. Duration : 12 weeks Status : Goal met Date : 05/16/2022 EST Tania Lopes PT - 05/16/2022 13:46 EST General Function Goal #1 Goal #2 Goal #3 Goal #4 Goal : Transition to independent home or community exercise program Independent with symptom management Other: Decreased edema R hip Other: Ascend 7 stairs without lurch in R hip with reciprocal pattern. Duration : 12 Weeks 12 Weeks 12 Weeks 12 Weeks Status : Progressing, continue Progressing, continue Goal met Goal met Date : 05/16/2022 EST 05/16/2022 EST 05/16/2022 EST 05/16/2022 EST Comment : Continuing to progress HEP. Continuing to progress Moses PT, Tania 05/16/2022 13:46 EST Moses PT, Tania 05/16/2022 13:46 EST Moses PT, Tania 05/16/2022 13:46 EST Moses PT, Tania 05/16/2022 13:46 EST Goal #5 Goal #6 Goal : Other: Normal scar and myofascial mobility R hip. Ambulate community distances with normal gait mechanics Duration : 12 Weeks 12 Weeks Status : Goal met Goal met Date : 05/16/2022 EST 05/16/2022 EST Comment : Moses PT, Tania 05/16/2022 10:48 EST Moses PT, Tania 05/16/2022 13:46 EST Therapeutic Exercise Custom Therapeutic Exercise Exercise 1 Exercise 2 Exercise 3 Exercise 4 Exercise : SLS exercises pelvic tilt with exhale contract relax- hip flex/ext knee to chest Moses PT, Tania 05/16/2022 10:48 EST Moses PT, Tania 05/16/2022 10:48 EST Moses PT, Tania 05/16/2022 10:48 EST Moses PT, Tania 05/16/2022 10:48 EST Exercise 5 Exercise 6 Exercise 7 Exercise 8 Exercise : table top prayer stretch toe stretch adductor stretch with pec stretch Moses PT, Tania 05/16/2022 10:48 EST Moses PT, Tania 05/16/2022 10:48 EST Moses PT, Tania 05/16/2022 10:48 EST Moses PT, Tania 05/16/2022 10:48 EST Manual Therapy Manual Therapy Activity 1 Activity 2 Activity 3 Activity 4 Type/Technique : IASTM Myofascial/Soft tissue mobilization Other: external obturator Other: bladder-SIJ Comment : dural stretch T9-sacrum Moses PT, Tania 05/16/2022 10:48 EST Moses PT, Tania 05/16/2022 10:48 EST Moses PT, Tania 05/16/2022 10:48 EST Moses PT, Tania 05/16/2022 10:48 EST Activity 5 Type/Technique : Other: dural stretch Comment : Moses PT, Tania 05/16/2022 10:48 EST LE ROM/Strength LE Overall Range of Motion Grid Left Lower Extremity Active Range : Impaired Moses PT, Tania 05/18/2022 14:49 EST Document Left LE Range Description : Yes Moses PT, Tania 05/18/2022 14:49 EST Left Lower Extremity Strength Grid Hip External Rotation : 4- Moses PT, Tania 05/18/2022 14:49 EST Right Lower Extremity Strength Grid Hip External Rotation : 4- Moses PT, Tania 05/18/2022 14:49 EST Left LE ROM Description Left Lower Extremity Passive ROM Grid Hip External Rotation 0-45 : Moderately limited, 28 degrees Moses PT, Tania 05/18/2022 14:49 EST Education *Barriers To Learning : None evident *Teaching Method : Demonstration, Explanation Patient Education - PT Outpatient : Anatomy, Home exercise program - progression/modification, Posture, Self care Moses PT, Tania 05/16/2022 13:46 EST Assessment PT Clinical Assessment Summary : Patient has met 5/7 goals established during evaluation. Patient presents with decreased R quad flexibility including hard end feel and 4-/5 strength in B hip external rotation. Patient also has noticeable decreased L hip IR/ER present at start of treatment which is affecting pelvic obliquity. Distal gastroc/soleus also very tight from compensations in ambulation. Patient tolerated treatment well with improved symmetry of motion in B hips, improved R quad flexibility and improved myofascial mobility in B LE's. R external obturator was signficantly tight as compared to L side. Patient only being seen 1x/1-2 months since driving from 1+hour away and working as a (more content not included)... [facility] 02-14-2022 History of Present illness Narrative Patient offered a medical pneumatic tool operator for sensitive exam. Pt declined. documented in this encounter [facility] 11-21-2021 Note HNO ID: [id number] Author: Rodney Sprague MD Service: ? Author Type: Physician Type: Progress Notes Filed: 11/21/2021 3:32 PM Note Text: Patient is seen today in assessment evaluation of bilateral lower extremity varicosities. I last saw this patient about 12 years ago and at that point time felt that the patient would best benefit from conservative management. She has been doing a very good job of this and been compliant with therapy and at this point in time presents wondering if the varicose veins have proceeded to a point that they should require treatment. She is moderately symptomatic from the varicose veins in the right lower extremity but they are right over her anterior tibia and I am really reluctant to treat these unless they become more symptomatic. They really have not grown in size since the last time we saw her may be a little bit more bulging than there was but this is primarily just one varix and there is a whole nest of underlying veins that 1 can see that her not yet varicose. She might benefit from sclerotherapy for this however at this point time my concern would be that if we get into any complication she might actually be having more pain and problems that she is currently having. Her left leg is a newer problem and this developed after recent right hip surgery. She has developed some telangiectasia and some irritating small varicose veins on the surface of the anterior left leg. At this point she is possibly going to have to have left hip surgery as well and while these may be treated with sclerotherapy and relieve some of her problems I think that I would wait until after she has had further surgery since the seem to develop after the first surgery that she had. Especially since she is going to be possibly having that surgery on the affected leg. She seems to understand all of this and overall have a good grasp of what our plan is. She is going to continue to wear compression and will follow up with one of my partners should her issue become more problematic. 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 I spent 10 minutes in the visit, with more than 50% of the total [id number] time of the visit in counseling / coordination of care. This note was generated with [employer] dictation software. It may contain incorrect words, spelling, and punctuation and that were not noted in review of the chart prior to signing. [facility] 11-21-2021 History of Present illness Narrative Patient is seen today in assessment evaluation of bilateral lower extremity varicosities. I last saw this patient about 12 years ago and at that point time felt that the patient would best benefit from conservative management. She has been doing a very good job of this and been compliant with therapy and at this point in time presents wondering if the varicose veins have proceeded to a point that they should require treatment. She is moderately symptomatic from the varicose veins in the right lower extremity but they are right over her anterior tibia and I am really reluctant to treat these unless they become more symptomatic. They really have not grown in size since the last time we saw her may be a little bit more bulging than there was but this is primarily just one varix and there is a whole nest of underlying veins that 1 can see that her not yet varicose. She might benefit from sclerotherapy for this however at this point time my concern would be that if we get into any complication she might actually be having more pain and problems that she is currently having. Her left leg is a newer problem and this developed after recent right hip surgery. She has developed some telangiectasia and some irritating small varicose veins on the surface of the anterior left leg. At this point she is possibly going to have to have left hip surgery as well and while these may be treated with sclerotherapy and relieve some of her problems I think that I would wait until after she has had further surgery since the seem to develop after the first surgery that she had. Especially since she is going to be possibly having that surgery on the affected leg. She seems to understand all of this and overall have a good grasp of what our plan is. She is going to continue to wear compression and will follow up with one of my partners should her issue become more problematic. 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 I spent 10 minutes in the visit, with more than 50% of the total [id number] time of the visit in counseling / coordination of care. This note was generated with [employer] software. It may contain incorrect words, spelling, and punctuation and that were not noted in review of the chart prior to signing. documented in this encounter [facility] 11-21-2021 Nurse Note Patient is here today with concerns of veins in the legs. Patient complains of some pain without swelling. Patient is active and wears compression stockings. Elena Juan RDMS, JOHN documented in this encounter [facility] 01-31-2021 History of Present illness Narrative Viki Dumont is a 55 y.o. female who presents to the [facility] for routine follow up. Clinical Care Team: -Referring Provider for today's consult: Rajesh Jim DO -Primary Care Provider: Rajesh Jim History of Present Illness: Chief Complaint Patient presents with Follow-up Follow up history of FCBD; bilateral mammogram done today. No new breast complaints/changes in BSE. Viki Dumont is a 55 y.o. female who presents to the clinic for routine follow up. She initially established care with Dr. Paz in 2019 for consultation regarding an abnormal mammogram. On September 17, 2018, she did undergo a bilateral screening mammogram. This mammogram showed a 3.3 x 3.1 mm well-defined nodule in the upper central portion of the right breast. It was felt that it could represent a cyst. She did undergo a right ultrasound on September 20, 2018. This ultrasound showed a 3 mm nodule and a stereotactic biopsy was recommended. We reviewed her films and felt that there was no definitive mammographic or sonographic evidence of malignancy and the mass noted within the upper central right breast at mid depth was felt to be present on multiple prior examination dating back to 2013. She is doing well since her last visit and denies any new breast lumps, masses, or skin changes. I have reviewed Viki Dumont medical, surgical and other pertinent history in detail, and have updated medication and allergy information in the computerized patient record. Review of Systems: Pertinent items are noted in the HPI, all other systems were queried and are negative. Imaging: EXAM: MAMMO SCREENING WITH PACO BILATERAL, 01/31/2021 10:04 AM CLINICAL INDICATIONS: Screening COMPARISON: Prior exams dated 01/08/2020, 04/22/2019, 09/17/2018, 08/14/2017 TECHNIQUE: 2-D MLO and CC views were obtained of the bilateral breasts. 3-D MLO and CC digital tomosynthesis images were also acquired. Computer aided detection was utilized. FINDINGS: The breasts have scattered areas of fibroglandular density. There are no suspicious masses, calcifications, or architectural distortions. IMPRESSION IMPRESSION: No mammographic evidence of malignancy. BI-RADS: 1: Negative Recommendation: Routine mammography. Recommendation Laterality: Bilateral The current National Comprehensive Cancer Network and [employer] guidelines recommend women undergo a screening mammogram every year over the age of 40 and continue mammographic screening as long as they are in good health. Screening mammography under age 40 may occur for women who are at increased risk for breast cancer. Physical Exam: Vital Signs/LMP: BP 137/68 Pulse 67 Temp 97.6 F (36.4 C) (Oral) Resp 14 Ht 1.547 m (5' 0.9) Comment: with shoes Wt 77.4 kg (170 lb 9.6 oz) Comment: with shoes BMI 32.34 kg/m Smoking Status Never Smoker General/Constitutional: Well developed, well nourished female, who looks their stated age of 55 y.o.. No acute distress. HEENT: Neck: Supple, non-tender, with no cervical, supraclavicular lymphadenopathy. Thyroid normal. Breast/Chest Wall: On exam of her chest wall, both breast are essentially symmetrical. I do not feel any dominant masses in either breast. There is no axillary or supraclavicular adenopathy. Assessment & Plan: Impression: Fibrocystic condition of the breast Plan/Recommendations: I shared with Viki Dumont that her clinical breast exam and breast imaging are stable and without suspicious features. She should continue with self breast exams and will call with questions or concerns prior to her scheduled follow up exam regarding her breast health. We discussed the option to return to the clinic as needed, but for now she would like to schedule follow up with me. She will return in 1 year with her mammogram and clinical breast exam in the [employer] follow up clinic. We discussed that she is a good candidate for mammography with tomosynthesis and I have ordered her next mammogram to continue to include this. All questions were answered. ABHISHEK Cartwright Viki was seen today for follow-up. 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 Patient declined documented in this encounter [facility] Evaluation note Diagnosis Encounter for screening mammogram for malignant neoplasm of breast- Primary Other screening mammogram [facility] Diagnosis Fibrocystic breast disease (FCBD), unspecified laterality Encounter for screening mammogram for malignant neoplasm of breast Other screening mammogram [facility] Diagnosis Chronic venous insufficiency- Primary Unspecified venous (peripheral) insufficiency Varicose veins of bilateral lower extremities with other complications [facility] noteNo assessment information availableW[facility] Work Phone: Evaluation note* Diagnosis Encounter for screening mammogram for malignant neoplasm of breast Other screening mammogram [facility] Diagnosis Visit for screening mammogram Other screening mammogram [facility] Diagnosis Visit for screening mammogram Other screening mammogram [facility] Diagnosis Visit for screening mammogram Other screening mammogram [facility] Name Dates Details How to access health [employer] [facility] online Indication:Non-smoker Start:12-Apr-2020 Instruction Type:Patient Education How to access health informa tion online - Detail Indication:Non-smoker Start:12-Apr-2020 Instruction Type:Patient Education Patient Instructions Indication:Non-smoker Start:12-Apr-2020 Instruction Type:Provider Instructions for Treatment How to access health informa tion online Indication:Non-smoker Start:19-Jan-2020 Instruction Type:Patient Education How to access health informa tion online - Detail Indication:Non-smoker Start:19-Jan-2020 Instruction Type:Patient Education Patient Instructions Indication:Non-smoker Start:19-Jan-2020 Instruction Type:Provider Instructions for Treatment How to access health informa tion online Indication:Non-smoker Start:31-Oct-2019 Instruction Type:Patient Education How to access health informa tion online - Detail Indication:Non-smoker Start:31-Oct-2019 Instruction Type:Patient Education Patient Instructions Indication:Non-smoker Start:31-Oct-2019 Instruction Type:Provider Instructions for Treatment How to access health informa tion online Indication:Non-smoker Start:28-Dec-2016 Instruction Type:Patient Education How to access health informa tion online - Detail Indication:Non-smoker Start:28-Dec-2016 Instruction Type:Patient Education Patient Instructions Indication:Non-smoker Start:28-Dec-2016 Instruction Type:Provider Instructions for Treatment How to access health informa tion online Indication:Chest pain Start:22-Jun-2016 Instruction Type:Patient Education How to access health informa tion online - Detail Indication:Chest pain Start:22-Jun-2016 Instruction Type:Patient Education Patient Instructions Indication:Chest pain Start:22-Jun-2016 Instruction Type:Provider Instructions for Treatment [facility] Work Phone: Instructions* Name Dates Details How to access health informa tion online Indication:Non-smoker Start:12-Apr-2020 Instruction Type:Patient Education How to access health informa tion online - Detail Indication:Non-smoker Start:12-Apr-2020 Instruction Type:Patient Education Patient Instructions Indication:Non-smoker Start:12-Apr-2020 Instruction Type:Provider Instructions for Treatment How to access health informa tion online Indication:Non-smoker Start:19-Jan-2020 Instruction Type:Patient Education How to access health informa tion online - Detail Indication:Non-smoker Start:19-Jan-2020 Instruction Type:Patient Education Patient Instructions Indication:Non-smoker Start:19-Jan-2020 Instruction Type:Provider Instructions for Treatment How to access health informa tion online Indication:Non-smoker Start:31-Oct-2019 Instruction Type:Patient Education How to access health informa tion online - Detail Indication:Non-smoker Start:31-Oct-2019 Instruction Type:Patient Education Patient Instructions Indication:Non-smoker Start:31-Oct-2019 Instruction Type:Provider Instructions for Treatment How to access health informa tion online Indication:Non-smoker Start:28-Dec-2016 Instruction Type:Patient Education How to access health informa tion online - Detail Indication:Non-smoker Start:28-Dec-2016 Instruction Type:Patient Education Patient Instructions Indication:Non-smoker Start:28-Dec-2016 Instruction Type:Provider Instructions for Treatment How to access health informa tion online Indication:Chest pain Start:22-Jun-2016 Instruction Type:Patient Education How to access health informa tion online - Detail Indication:Chest pain Start:22-Jun-2016 Instruction Type:Patient Education Patient Instructions Indication:Chest pain Start:22-Jun-2016 Instruction Type:Provider Instructions for Treatment [facility] Work Phone: Instructions* Name Dates Details How to access health informa tion online Indication:Non-smoker Start:12-Apr-2020 Instruction Type:Patient Education How to access health informa tion online - Detail Indication:Non-smoker Start:12-Apr-2020 Instruction Type:Patient Education Patient Instructions Indication:Non-smoker Start:12-Apr-2020 Instruction Type:Provider Instructions for Treatment How to access health informa tion online Indication:Non-smoker Start:19-Jan-2020 Instruction Type:Patient Education How to access health informa tion online - Detail Indication:Non-smoker Start:19-Jan-2020 Instruction Type:Patient Education Patient Instructions Indication:Non-smoker Start:19-Jan-2020 Instruction Type:Provider Instructions for Treatment How to access health informa tion online Indication:Non-smoker Start:31-Oct-2019 Instruction Type:Patient Education How to access health informa tion online - Detail Indication:Non-smoker Start:31-Oct-2019 Instruction Type:Patient Education Patient Instructions Indication:Non-smoker Start:31-Oct-2019 Instruction Type:Provider Instructions for Treatment How to access health informa tion online Indication:Non-smoker Start:28-Dec-2016 Instruction Type:Patient Education How to access health informa tion online - Detail Indication:Non-smoker Start:28-Dec-2016 Instruction Type:Patient Education Patient Instructions Indication:Non-smoker Start:28-Dec-2016 Instruction Type:Provider Instructions for Treatment How to access health informa tion online Indication:Chest pain Start:22-Jun-2016 Instruction Type:Patient Education How to access health informa tion online - Detail Indication:Chest pain Start:22-Jun-2016 Instruction Type:Patient Education Patient Instructions Indication:Chest pain Start:22-Jun-2016 Instruction Type:Provider Instructions for Treatment [facility] Work Phone: Instructions* Name Dates Details How to access health informa tion online Indication:Non-smoker Start:12-Apr-2020 Instruction Type:Patient Education How to access health informa tion online - Detail Indication:Non-smoker Start:12-Apr-2020 Instruction Type:Patient Education Patient Instructions Indication:Non-smoker Start:12-Apr-2020 Instruction Type:Provider Instructions for Treatment How to access health informa tion online Indication:Non-smoker Start:19-Jan-2020 Instruction Type:Patient Education How to access health informa tion online - Detail Indication:Non-smoker Start:19-Jan-2020 Instruction Type:Patient Education Patient Instructions Indication:Non-smoker Start:19-Jan-2020 Instruction Type:Provider Instructions for Treatment How to access health informa tion online Indication:Non-smoker Start:31-Oct-2019 Instruction Type:Patient Education How to access health informa tion online - Detail Indication:Non-smoker Start:31-Oct-2019 Instruction Type:Patient Education Patient Instructions Indication:Non-smoker Start:31-Oct-2019 Instruction Type:Provider Instructions for Treatment How to access health informa tion online Indication:Non-smoker Start:28-Dec-2016 Instruction Type:Patient Education How to access health informa tion online - Detail Indication:Non-smoker Start:28-Dec-2016 Instruction Type:Patient Education Patient Instructions Indication:Non-smoker Start:28-Dec-2016 Instruction Type:Provider Instructions for Treatment How to access health informa tion online Indication:Chest pain Start:22-Jun-2016 Instruction Type:Patient Education How to access health informa tion online - Detail Indication:Chest pain Start:22-Jun-2016 Instruction Type:Patient Education Patient Instructions Indication:Chest pain Start:22-Jun-2016 Instruction Type:Provider Instructions for Treatment [facility]; [facility] Work Phone: Instructions* Name Dates Details Patient Instructions Indication:BMI 33.0-33.9,adult Start:20-Jun-2021 Instruction Type:Provider Instructions for Treatment How to Access Health Informa tion Online using Patient Portal and [employer] Indication:BMI 33.0-33.9,adult Start:20-Jun-2021 Instruction Type:Patient Education How to access health informa tion online Indication:Non-smoker Start:12-Apr-2020 Instruction Type:Patient Education How to access health informa tion online - Detail Indication:Non-smoker Start:12-Apr-2020 Instruction Type:Patient Education Patient Instructions Indication:Non-smoker Start:12-Apr-2020 Instruction Type:Provider Instructions for Treatment How to access health informa tion online Indication:Non-smoker Start:19-Jan-2020 Instruction Type:Patient Education How to access health informa tion online - Detail Indication:Non-smoker Start:19-Jan-2020 Instruction Type:Patient Education Patient Instructions Indication:Non-smoker Start:19-Jan-2020 Instruction Type:Provider Instructions for Treatment How to access health informa tion online Indication:Non-smoker Start:31-Oct-2019 Instruction Type:Patient Education How to access health informa tion online - Detail Indication:Non-smoker Start:31-Oct-2019 Instruction Type:Patient Education Patient Instructions Indication:Non-smoker Start:31-Oct-2019 Instruction Type:Provider Instructions for Treatment How to access health informa tion online Indication:Non-smoker Start:28-Dec-2016 Instruction Type:Patient Education How to access health informa tion online - Detail Indication:Non-smoker Start:28-Dec-2016 Instruction Type:Patient Education Patient Instructions Indication:Non-smoker Start:28-Dec-2016 Instruction Type:Provider Instructions for Treatment How to access health informa tion online Indication:Chest pain Start:22-Jun-2016 Instruction Type:Patient Education How to access health informa tion online - Detail Indication:Chest pain Start:22-Jun-2016 Instruction Type:Patient Education Patient Instructions Indication:Chest pain Start:22-Jun-2016 Instruction Type:Provider Instructions for Treatment [facility]; [facility] Work Phone: Instructions* Name Dates Details Patient Instructions Indication:BMI 33.0-33.9,adult Start:20-Jun-2021 Instruction Type:Provider Instructions for Treatment How to Access Health Informa tion Online using Patient Portal and [employer] Indication:BMI 33.0-33.9,adult Start:20-Jun-2021 Instruction Type:Patient Education How to access health informa tion online Indication:Non-smoker Start:12-Apr-2020 Instruction Type:Patient Education How to access health informa tion online - Detail Indication:Non-smoker Start:12-Apr-2020 Instruction Type:Patient Education Patient Instructions Indication:Non-smoker Start:12-Apr-2020 Instruction Type:Provider Instructions for Treatment How to access health informa tion online Indication:Non-smoker Start:19-Jan-2020 Instruction Type:Patient Education How to access health informa tion online - Detail Indication:Non-smoker Start:19-Jan-2020 Instruction Type:Patient Education Patient Instructions Indication:Non-smoker Start:19-Jan-2020 Instruction Type:Provider Instructions for Treatment How to access health informa tion online Indication:Non-smoker Start:31-Oct-2019 Instruction Type:Patient Education How to access health informa tion online - Detail Indication:Non-smoker Start:31-Oct-2019 Instruction Type:Patient Education Patient Instructions Indication:Non-smoker Start:31-Oct-2019 Instruction Type:Provider Instructions for Treatment How to access health informa tion online Indication:Non-smoker Start:28-Dec-2016 Instruction Type:Patient Education How to access health informa tion online - Detail Indication:Non-smoker Start:28-Dec-2016 Instruction Type:Patient Education Patient Instructions Indication:Non-smoker Start:28-Dec-2016 Instruction Type:Provider Instructions for Treatment How to access health informa tion online Indication:Chest pain Start:22-Jun-2016 Instruction Type:Patient Education How to access health informa tion online - Detail Indication:Chest pain Start:22-Jun-2016 Instruction Type:Patient Education Patient Instructions Indication:Chest pain Start:22-Jun-2016 Instruction Type:Provider Instructions for Treatment [facility]; [facility] Work Phone: Instructions* Name Dates Details Patient Instructions Indication:BMI 33.0-33.9,adult Start:20-Jun-2021 Instruction Type:Provider Instructions for Treatment How to Access Health Informa tion Online using Patient Portal and [employer] Indication:BMI 33.0-33.9,adult Start:20-Jun-2021 Instruction Type:Patient Education How to access health informa tion online Indication:Non-smoker Start:12-Apr-2020 Instruction Type:Patient Education How to access health informa tion online - Detail Indication:Non-smoker Start:12-Apr-2020 Instruction Type:Patient Education Patient Instructions Indication:Non-smoker Start:12-Apr-2020 Instruction Type:Provider Instructions for Treatment How to access health informa tion online Indication:Non-smoker Start:19-Jan-2020 Instruction Type:Patient Education How to access health informa tion online - Detail Indication:Non-smoker Start:19-Jan-2020 Instruction Type:Patient Education Patient Instructions Indication:Non-smoker Start:19-Jan-2020 Instruction Type:Provider Instructions for Treatment How to access health informa tion online Indication:Non-smoker Start:31-Oct-2019 Instruction Type:Patient Education How to access health informa tion online - Detail Indication:Non-smoker Start:31-Oct-2019 Instruction Type:Patient Education Patient Instructions Indication:Non-smoker Start:31-Oct-2019 Instruction Type:Provider Instructions for Treatment How to access health informa tion online Indication:Non-smoker Start:28-Dec-2016 Instruction Type:Patient Education How to access health informa tion online - Detail Indication:Non-smoker Start:28-Dec-2016 Instruction Type:Patient Education Patient Instructions Indication:Non-smoker Start:28-Dec-2016 Instruction Type:Provider Instructions for Treatment How to access health informa tion online Indication:Chest pain Start:22-Jun-2016 Instruction Type:Patient Education How to access health informa tion online - Detail Indication:Chest pain Start:22-Jun-2016 Instruction Type:Patient Education Patient Instructions Indication:Chest pain Start:22-Jun-2016 Instruction Type:Provider Instructions for Treatment [facility]; [facility] Work Phone: Instructions* Name Dates Details Patient Instructions Indication:BMI 33.0-33.9,adult Start:20-Jun-2021 Instruction Type:Provider Instructions for Treatment How to Access Health Informa tion Online using Patient Portal and [employer] Indication:BMI 33.0-33.9,adult Start:20-Jun-2021 Instruction Type:Patient Education How to access health informa tion online Indication:Non-smoker Start:12-Apr-2020 Instruction Type:Patient Education How to access health informa tion online - Detail Indication:Non-smoker Start:12-Apr-2020 Instruction Type:Patient Education Patient Instructions Indication:Non-smoker Start:12-Apr-2020 Instruction Type:Provider Instructions for Treatment How to access health informa tion online Indication:Non-smoker Start:19-Jan-2020 Instruction Type:Patient Education How to access health informa tion online - Detail Indication:Non-smoker Start:19-Jan-2020 Instruction Type:Patient Education Patient Instructions Indication:Non-smoker Start:19-Jan-2020 Instruction Type:Provider Instructions for Treatment How to access health informa tion online Indication:Non-smoker Start:31-Oct-2019 Instruction Type:Patient Education How to access health informa tion online - Detail Indication:Non-smoker Start:31-Oct-2019 Instruction Type:Patient Education Patient Instructions Indication:Non-smoker Start:31-Oct-2019 Instruction Type:Provider Instructions for Treatment How to access health informa tion online Indication:Non-smoker Start:28-Dec-2016 Instruction Type:Patient Education How to access health informa tion online - Detail Indication:Non-smoker Start:28-Dec-2016 Instruction Type:Patient Education Patient Instructions Indication:Non-smoker Start:28-Dec-2016 Instruction Type:Provider Instructions for Treatment How to access health informa tion online Indication:Chest pain Start:22-Jun-2016 Instruction Type:Patient Education How to access health informa tion online - Detail Indication:Chest pain Start:22-Jun-2016 Instruction Type:Patient Education Patient Instructions Indication:Chest pain Start:22-Jun-2016 Instruction Type:Provider Instructions for Treatment [facility]; [facility] Work Phone: Instructions* Name Dates Details Patient Instructions Indication:BMI 33.0-33.9,adult Start:20-Jun-2021 Instruction Type:Provider Instructions for Treatment How to Access Health Informa tion Online using Patient Portal and [employer] Indication:BMI 33.0-33.9,adult Start:20-Jun-2021 Instruction Type:Patient Education How to access health informa tion online Indication:Non-smoker Start:12-Apr-2020 Instruction Type:Patient Education How to access health informa tion online - Detail Indication:Non-smoker Start:12-Apr-2020 Instruction Type:Patient Education Patient Instructions Indication:Non-smoker Start:12-Apr-2020 Instruction Type:Provider Instructions for Treatment How to access health informa tion online Indication:Non-smoker Start:19-Jan-2020 Instruction Type:Patient Education How to access health informa tion online - Detail Indication:Non-smoker Start:19-Jan-2020 Instruction Type:Patient Education Patient Instructions Indication:Non-smoker Start:19-Jan-2020 Instruction Type:Provider Instructions for Treatment How to access health informa tion online Indication:Non-smoker Start:31-Oct-2019 Instruction Type:Patient Education How to access health informa tion online - Detail Indication:Non-smoker Start:31-Oct-2019 Instruction Type:Patient Education Patient Instructions Indication:Non-smoker Start:31-Oct-2019 Instruction Type:Provider Instructions for Treatment How to access health informa tion online Indication:Non-smoker Start:28-Dec-2016 Instruction Type:Patient Education How to access health informa tion online - Detail Indication:Non-smoker Start:28-Dec-2016 Instruction Type:Patient Education Patient Instructions Indication:Non-smoker Start:28-Dec-2016 Instruction Type:Provider Instructions for Treatment How to access health informa tion online Indication:Chest pain Start:22-Jun-2016 Instruction Type:Patient Education How to access health informa tion online - Detail Indication:Chest pain Start:22-Jun-2016 Instruction Type:Patient Education Patient Instructions Indication:Chest pain Start:22-Jun-2016 Instruction Type:Provider Instructions for Treatment [facility]; [facility] Work Phone: Instructions* Name Dates Details Patient Instructions Indication:BMI 33.0-33.9,adult Start:20-Jun-2021 Instruction Type:Provider Instructions for Treatment How to Access Health Informa tion Online using Patient Portal and [employer] Indication:BMI 33.0-33.9,adult Start:20-Jun-2021 Instruction Type:Patient Education How to access health informa tion online Indication:Non-smoker Start:12-Apr-2020 Instruction Type:Patient Education How to access health informa tion online - Detail Indication:Non-smoker Start:12-Apr-2020 Instruction Type:Patient Education Patient Instructions Indication:Non-smoker Start:12-Apr-2020 Instruction Type:Provider Instructions for Treatment How to access health informa tion online Indication:Non-smoker Start:19-Jan-2020 Instruction Type:Patient Education How to access health informa tion online - Detail Indication:Non-smoker Start:19-Jan-2020 Instruction Type:Patient Education Patient Instructions Indication:Non-smoker Start:19-Jan-2020 Instruction Type:Provider Instructions for Treatment How to access health informa tion online Indication:Non-smoker Start:31-Oct-2019 Instruction Type:Patient Education How to access health informa tion online - Detail Indication:Non-smoker Start:31-Oct-2019 Instruction Type:Patient Education Patient Instructions Indication:Non-smoker Start:31-Oct-2019 Instruction Type:Provider Instructions for Treatment How to access health informa tion online Indication:Non-smoker Start:28-Dec-2016 Instruction Type:Patient Education How to access health informa tion online - Detail Indication:Non-smoker Start:28-Dec-2016 Instruction Type:Patient Education Patient Instructions Indication:Non-smoker Start:28-Dec-2016 Instruction Type:Provider Instructions for Treatment How to access health informa tion online Indication:Chest pain Start:22-Jun-2016 Instruction Type:Patient Education How to access health informa tion online - Detail Indication:Chest pain Start:22-Jun-2016 Instruction Type:Patient Education Patient Instructions Indication:Chest pain Start:22-Jun-2016 Instruction Type:Provider Instructions for Treatment [facility]; [facility] Work Phone: Instructions* Name Dates Details Patient Instructions Indication:BMI 33.0-33.9,adult Start:20-Jun-2021 Instruction Type:Provider Instructions for Treatment How to Access Health Informa tion Online using Patient Portal and [employer] Indication:BMI 33.0-33.9,adult Start:20-Jun-2021 Instruction Type:Patient Education How to access health informa tion online Indication:Non-smoker Start:12-Apr-2020 Instruction Type:Patient Education How to access health informa tion online - Detail Indication:Non-smoker Start:12-Apr-2020 Instruction Type:Patient Education Patient Instructions Indication:Non-smoker Start:12-Apr-2020 Instruction Type:Provider Instructions for Treatment How to access health informa tion online Indication:Non-smoker Start:19-Jan-2020 Instruction Type:Patient Education How to access health informa tion online - Detail Indication:Non-smoker Start:19-Jan-2020 Instruction Type:Patient Education Patient Instructions Indication:Non-smoker Start:19-Jan-2020 Instruction Type:Provider Instructions for Treatment How to access health informa tion online Indication:Non-smoker Start:31-Oct-2019 Instruction Type:Patient Education How to access health informa tion online - Detail Indication:Non-smoker Start:31-Oct-2019 Instruction Type:Patient Education Patient Instructions Indication:Non-smoker Start:31-Oct-2019 Instruction Type:Provider Instructions for Treatment How to access health informa tion online Indication:Non-smoker Start:28-Dec-2016 Instruction Type:Patient Education How to access health informa tion online - Detail Indication:Non-smoker Start:28-Dec-2016 Instruction Type:Patient Education Patient Instructions Indication:Non-smoker Start:28-Dec-2016 Instruction Type:Provider Instructions for Treatment How to access health informa tion online Indication:Chest pain Start:22-Jun-2016 Instruction Type:Patient Education How to access health informa tion online - Detail Indication:Chest pain Start:22-Jun-2016 Instruction Type:Patient Education Patient Instructions Indication:Chest pain Start:22-Jun-2016 Instruction Type:Provider Instructions for Treatment [facility]; [facility] Work Phone: Instructions* Name Dates Details Patient Instructions Indication:BMI 33.0-33.9,adult Start:20-Jun-2021 Instruction Type:Provider Instructions for Treatment How to Access Health Informa tion Online using Patient Portal and [employer] Indication:BMI 33.0-33.9,adult Start:20-Jun-2021 Instruction Type:Patient Education How to access health informa tion online Indication:Non-smoker Start:12-Apr-2020 Instruction Type:Patient Education How to access health informa tion online - Detail Indication:Non-smoker Start:12-Apr-2020 Instruction Type:Patient Education Patient Instructions Indication:Non-smoker Start:12-Apr-2020 Instruction Type:Provider Instructions for Treatment How to access health informa tion online Indication:Non-smoker Start:19-Jan-2020 Instruction Type:Patient Education How to access health informa tion online - Detail Indication:Non-smoker Start:19-Jan-2020 Instruction Type:Patient Education Patient Instructions Indication:Non-smoker Start:19-Jan-2020 Instruction Type:Provider Instructions for Treatment How to access health informa tion online Indication:Non-smoker Start:31-Oct-2019 Instruction Type:Patient Education How to access health informa tion online - Detail Indication:Non-smoker Start:31-Oct-2019 Instruction Type:Patient Education Patient Instructions Indication:Non-smoker Start:31-Oct-2019 Instruction Type:Provider Instructions for Treatment How to access health informa tion online Indication:Non-smoker Start:28-Dec-2016 Instruction Type:Patient Education How to access health informa tion online - Detail Indication:Non-smoker Start:28-Dec-2016 Instruction Type:Patient Education Patient Instructions Indication:Non-smoker Start:28-Dec-2016 Instruction Type:Provider Instructions for Treatment How to access health informa tion online Indication:Chest pain Start:22-Jun-2016 Instruction Type:Patient Education How to access health informa tion online - Detail Indication:Chest pain Start:22-Jun-2016 Instruction Type:Patient Education Patient Instructions Indication:Chest pain Start:22-Jun-2016 Instruction Type:Provider Instructions for Treatment [facility]; [facility] Work Phone: Instructions* Name Dates Details Patient Instructions Indication:BMI 33.0-33.9,adult Start:20-Jun-2021 Instruction Type:Provider Instructions for Treatment How to Access Health Informa tion Online using Patient Portal and [employer] Indication:BMI 33.0-33.9,adult Start:20-Jun-2021 Instruction Type:Patient Education How to access health informa tion online Indication:Non-smoker Start:12-Apr-2020 Instruction Type:Patient Education How to access health informa tion online - Detail Indication:Non-smoker Start:12-Apr-2020 Instruction Type:Patient Education Patient Instructions Indication:Non-smoker Start:12-Apr-2020 Instruction Type:Provider Instructions for Treatment How to access health informa tion online Indication:Non-smoker Start:19-Jan-2020 Instruction Type:Patient Education How to access health informa tion online - Detail Indication:Non-smoker Start:19-Jan-2020 Instruction Type:Patient Education Patient Instructions Indication:Non-smoker Start:19-Jan-2020 Instruction Type:Provider Instructions for Treatment How to access health informa tion online Indication:Non-smoker Start:31-Oct-2019 Instruction Type:Patient Education How to access health informa tion online - Detail Indication:Non-smoker Start:31-Oct-2019 Instruction Type:Patient Education Patient Instructions Indication:Non-smoker Start:31-Oct-2019 Instruction Type:Provider Instructions for Treatment How to access health informa tion online Indication:Non-smoker Start:28-Dec-2016 Instruction Type:Patient Education How to access health informa tion online - Detail Indication:Non-smoker Start:28-Dec-2016 Instruction Type:Patient Education Patient Instructions Indication:Non-smoker Start:28-Dec-2016 Instruction Type:Provider Instructions for Treatment How to access health informa tion online Indication:Chest pain Start:22-Jun-2016 Instruction Type:Patient Education How to access health informa tion online - Detail Indication:Chest pain Start:22-Jun-2016 Instruction Type:Patient Education Patient Instructions Indication:Chest pain Start:22-Jun-2016 Instruction Type:Provider Instructions for Treatment [facility]; [facility] Work Phone: Instructions* Name Dates Details Patient Instructions Indication:BMI 33.0-33.9,adult Start:20-Jun-2021 Instruction Type:Provider Instructions for Treatment How to Access Health Informa tion Online using Patient Portal and [employer] Indication:BMI 33.0-33.9,adult Start:20-Jun-2021 Instruction Type:Patient Education How to access health informa tion online Indication:Non-smoker Start:12-Apr-2020 Instruction Type:Patient Education How to access health informa tion online - Detail Indication:Non-smoker Start:12-Apr-2020 Instruction Type:Patient Education Patient Instructions Indication:Non-smoker Start:12-Apr-2020 Instruction Type:Provider Instructions for Treatment How to access health informa tion online Indication:Non-smoker Start:19-Jan-2020 Instruction Type:Patient Education How to access health informa tion online - Detail Indication:Non-smoker Start:19-Jan-2020 Instruction Type:Patient Education Patient Instructions Indication:Non-smoker Start:19-Jan-2020 Instruction Type:Provider Instructions for Treatment How to access health informa tion online Indication:Non-smoker Start:31-Oct-2019 Instruction Type:Patient Education How to access health informa tion online - Detail Indication:Non-smoker Start:31-Oct-2019 Instruction Type:Patient Education Patient Instructions Indication:Non-smoker Start:31-Oct-2019 Instruction Type:Provider Instructions for Treatment How to access health informa tion online Indication:Non-smoker Start:28-Dec-2016 Instruction Type:Patient Education How to access health informa tion online - Detail Indication:Non-smoker Start:28-Dec-2016 Instruction Type:Patient Education Patient Instructions Indication:Non-smoker Start:28-Dec-2016 Instruction Type:Provider Instructions for Treatment How to access health informa tion online Indication:Chest pain Start:22-Jun-2016 Instruction Type:Patient Education How to access health informa tion online - Detail Indication:Chest pain Start:22-Jun-2016 Instruction Type:Patient Education Patient Instructions Indication:Chest pain Start:22-Jun-2016 Instruction Type:Provider Instructions for Treatment [facility]; [facility] Work Phone: Instructions* Name Dates Details Patient Instructions Indication:BMI 33.0-33.9,adult Start:20-Jun-2021 Instruction Type:Provider Instructions for Treatment How to Access Health Informa tion Online using Patient Portal and [employer] Indication:BMI 33.0-33.9,adult Start:20-Jun-2021 Instruction Type:Patient Education How to access health informa tion online Indication:Non-smoker Start:12-Apr-2020 Instruction Type:Patient Education How to access health informa tion online - Detail Indication:Non-smoker Start:12-Apr-2020 Instruction Type:Patient Education Patient Instructions Indication:Non-smoker Start:12-Apr-2020 Instruction Type:Provider Instructions for Treatment How to access health informa tion online Indication:Non-smoker Start:19-Jan-2020 Instruction Type:Patient Education How to access health informa tion online - Detail Indication:Non-smoker Start:19-Jan-2020 Instruction Type:Patient Education Patient Instructions Indication:Non-smoker Start:19-Jan-2020 Instruction Type:Provider Instructions for Treatment How to access health informa tion online Indication:Non-smoker Start:31-Oct-2019 Instruction Type:Patient Education How to access health informa tion online - Detail Indication:Non-smoker Start:31-Oct-2019 Instruction Type:Patient Education Patient Instructions Indication:Non-smoker Start:31-Oct-2019 Instruction Type:Provider Instructions for Treatment How to access health informa tion online Indication:Non-smoker Start:28-Dec-2016 Instruction Type:Patient Education How to access health informa tion online - Detail Indication:Non-smoker Start:28-Dec-2016 Instruction Type:Patient Education Patient Instructions Indication:Non-smoker Start:28-Dec-2016 Instruction Type:Provider Instructions for Treatment How to access health informa tion online Indication:Chest pain Start:22-Jun-2016 Instruction Type:Patient Education How to access health informa tion online - Detail Indication:Chest pain Start:22-Jun-2016 Instruction Type:Patient Education Patient Instructions Indication:Chest pain Start:22-Jun-2016 Instruction Type:Provider Instructions for Treatment [facility]; [facility] Work Phone: Instructions* Name Dates Details Patient Instructions Indication:BMI 33.0-33.9,adult Start:20-Jun-2021 Instruction Type:Provider Instructions for Treatment How to Access Health Informa tion Online using Patient Portal and [employer] Indication:BMI 33.0-33.9,adult Start:20-Jun-2021 Instruction Type:Patient Education How to access health informa tion online Indication:Non-smoker Start:12-Apr-2020 Instruction Type:Patient Education How to access health informa tion online - Detail Indication:Non-smoker Start:12-Apr-2020 Instruction Type:Patient Education Patient Instructions Indication:Non-smoker Start:12-Apr-2020 Instruction Type:Provider Instructions for Treatment How to access health informa tion online Indication:Non-smoker Start:19-Jan-2020 Instruction Type:Patient Education How to access health informa tion online - Detail Indication:Non-smoker Start:19-Jan-2020 Instruction Type:Patient Education Patient Instructions Indication:Non-smoker Start:19-Jan-2020 Instruction Type:Provider Instructions for Treatment How to access health informa tion online Indication:Non-smoker Start:31-Oct-2019 Instruction Type:Patient Education How to access health informa tion online - Detail Indication:Non-smoker Start:31-Oct-2019 Instruction Type:Patient Education Patient Instructions Indication:Non-smoker Start:31-Oct-2019 Instruction Type:Provider Instructions for Treatment How to access health informa tion online Indication:Non-smoker Start:28-Dec-2016 Instruction Type:Patient Education How to access health informa tion online - Detail Indication:Non-smoker Start:28-Dec-2016 Instruction Type:Patient Education Patient Instructions Indication:Non-smoker Start:28-Dec-2016 Instruction Type:Provider Instructions for Treatment How to access health informa tion online Indication:Chest pain Start:22-Jun-2016 Instruction Type:Patient Education How to access health informa tion online - Detail Indication:Chest pain Start:22-Jun-2016 Instruction Type:Patient Education Patient Instructions Indication:Chest pain Start:22-Jun-2016 Instruction Type:Provider Instructions for Treatment [facility]; [facility] Work Phone: Instructions* Name Dates Details Patient Instructions Indication:BMI 33.0-33.9,adult Start:20-Jun-2021 Instruction Type:Provider Instructions for Treatment How to Access Health Informa tion Online using Patient Portal and [employer] Apps Indication:BMI 33.0-33.9,adult Start:20-Jun-2021 Instruction Type:Patient Education How to access health informa tion online Indication:Non-smoker Start:12-Apr-2020 Instruction Type:Patient Education How to access health informa tion online - Detail Indication:Non-smoker Start:12-Apr-2020 Instruction Type:Patient Education Patient Instructions Indication:Non-smoker Start:12-Apr-2020 Instruction Type:Provider Instructions for Treatment How to access health informa tion online Indication:Non-smoker Start:19-Jan-2020 Instruction Type:Patient Education How to access health informa tion online - Detail Indication:Non-smoker Start:19-Jan-2020 Instruction Type:Patient Education Patient Instructions Indication:Non-smoker Start:19-Jan-2020 Instruction Type:Provider Instructions for Treatment How to access health informa tion online Indication:Non-smoker Start:31-Oct-2019 Instruction Type:Patient Education How to access health informa tion online - Detail Indication:Non-smoker Start:31-Oct-2019 Instruction Type:Patient Education Patient Instructions Indication:Non-smoker Start:31-Oct-2019 Instruction Type:Provider Instructions for Treatment How to access health informa tion online Indication:Non-smoker Start:28-Dec-2016 Instruction Type:Patient Education How to access health informa tion online - Detail Indication:Non-smoker Start:28-Dec-2016 Instruction Type:Patient Education Patient Instructions Indication:Non-smoker Start:28-Dec-2016 Instruction Type:Provider Instructions for Treatment How to access health informa tion online Indication:Chest pain Start:22-Jun-2016 Instruction Type:Patient Education How to access health informa tion online - Detail Indication:Chest pain Start:22-Jun-2016 Instruction Type:Patient Education Patient Instructions Indication:Chest pain Start:22-Jun-2016 Instruction Type:Provider Instructions for Treatment [facility]; [facility] Work Phone: Instructions* Name Dates Details Patient Instructions Indication:BMI 33.0-33.9,adult Start:20-Jun-2021 Instruction Type:Provider Instructions for Treatment How to Access Health Informa tion Online using Patient Portal and [employer] Apps Indication:BMI 33.0-33.9,adult Start:20-Jun-2021 Instruction Type:Patient Education How to access health informa tion online Indication:Non-smoker Start:12-Apr-2020 Instruction Type:Patient Education How to access health informa tion online - Detail Indication:Non-smoker Start:12-Apr-2020 Instruction Type:Patient Education Patient Instructions Indication:Non-smoker Start:12-Apr-2020 Instruction Type:Provider Instructions for Treatment How to access health informa tion online Indication:Non-smoker Start:19-Jan-2020 Instruction Type:Patient Education How to access health informa tion online - Detail Indication:Non-smoker Start:19-Jan-2020 Instruction Type:Patient Education Patient Instructions Indication:Non-smoker Start:19-Jan-2020 Instruction Type:Provider Instructions for Treatment How to access health informa tion online Indication:Non-smoker Start:31-Oct-2019 Instruction Type:Patient Education How to access health informa tion online - Detail Indication:Non-smoker Start:31-Oct-2019 Instruction Type:Patient Education Patient Instructions Indication:Non-smoker Start:31-Oct-2019 Instruction Type:Provider Instructions for Treatment How to access health informa tion online Indication:Non-smoker Start:28-Dec-2016 Instruction Type:Patient Education How to access health informa tion online - Detail Indication:Non-smoker Start:28-Dec-2016 Instruction Type:Patient Education Patient Instructions Indication:Non-smoker Start:28-Dec-2016 Instruction Type:Provider Instructions for Treatment How to access health informa tion online Indication:Chest pain Start:22-Jun-2016 Instruction Type:Patient Education How to access health informa tion online - Detail Indication:Chest pain Start:22-Jun-2016 Instruction Type:Patient Education Patient Instructions Indication:Chest pain Start:22-Jun-2016 Instruction Type:Provider Instructions for Treatment [facility]; [facility] Work Phone: Instructions* Name Dates Details Patient Instructions Indication:BMI 33.0-33.9,adult Start:20-Jun-2021 Instruction Type:Provider Instructions for Treatment How to Access Health Informa tion Online using Patient Portal and [employer] Apps Indication:BMI 33.0-33.9,adult Start:20-Jun-2021 Instruction Type:Patient Education How to access health informa tion online Indication:Non-smoker Start:12-Apr-2020 Instruction Type:Patient Education How to access health informa tion online - Detail Indication:Non-smoker Start:12-Apr-2020 Instruction Type:Patient Education Patient Instructions Indication:Non-smoker Start:12-Apr-2020 Instruction Type:Provider Instructions for Treatment How to access health informa tion online Indication:Non-smoker Start:19-Jan-2020 Instruction Type:Patient Education How to access health informa tion online - Detail Indication:Non-smoker Start:19-Jan-2020 Instruction Type:Patient Education Patient Instructions Indication:Non-smoker Start:19-Jan-2020 Instruction Type:Provider Instructions for Treatment How to access health informa tion online Indication:Non-smoker Start:31-Oct-2019 Instruction Type:Patient Education How to access health informa tion online - Detail Indication:Non-smoker Start:31-Oct-2019 Instruction Type:Patient Education Patient Instructions Indication:Non-smoker Start:31-Oct-2019 Instruction Type:Provider Instructions for Treatment How to access health informa tion online Indication:Non-smoker Start:28-Dec-2016 Instruction Type:Patient Education How to access health informa tion online - Detail Indication:Non-smoker Start:28-Dec-2016 Instruction Type:Patient Education Patient Instructions Indication:Non-smoker Start:28-Dec-2016 Instruction Type:Provider Instructions for Treatment How to access health informa tion online Indication:Chest pain Start:22-Jun-2016 Instruction Type:Patient Education How to access health informa tion online - Detail Indication:Chest pain Start:22-Jun-2016 Instruction Type:Patient Education Patient Instructions Indication:Chest pain Start:22-Jun-2016 Instruction Type:Provider Instructions for Treatment [facility]; [facility] Work Phone: Instructions* Name Dates Details Patient Instructions Indication:BMI 33.0-33.9,adult Start:20-Jun-2021 Instruction Type:Provider Instructions for Treatment How to Access Health Informa tion Online using Patient Portal and [employer] Apps Indication:BMI 33.0-33.9,adult Start:20-Jun-2021 Instruction Type:Patient Education How to access health informa tion online Indication:Non-smoker Start:12-Apr-2020 Instruction Type:Patient Education How to access health informa tion online - Detail Indication:Non-smoker Start:12-Apr-2020 Instruction Type:Patient Education Patient Instructions Indication:Non-smoker Start:12-Apr-2020 Instruction Type:Provider Instructions for Treatment How to access health informa tion online Indication:Non-smoker Start:19-Jan-2020 Instruction Type:Patient Education How to access health informa tion online - Detail Indication:Non-smoker Start:19-Jan-2020 Instruction Type:Patient Education Patient Instructions Indication:Non-smoker Start:19-Jan-2020 Instruction Type:Provider Instructions for Treatment How to access health informa tion online Indication:Non-smoker Start:31-Oct-2019 Instruction Type:Patient Education How to access health informa tion online - Detail Indication:Non-smoker Start:31-Oct-2019 Instruction Type:Patient Education Patient Instructions Indication:Non-smoker Start:31-Oct-2019 Instruction Type:Provider Instructions for Treatment How to access health informa tion online Indication:Non-smoker Start:28-Dec-2016 Instruction Type:Patient Education How to access health informa tion online - Detail Indication:Non-smoker Start:28-Dec-2016 Instruction Type:Patient Education Patient Instructions Indication:Non-smoker Start:28-Dec-2016 Instruction Type:Provider Instructions for Treatment How to access health informa tion online Indication:Chest pain Start:22-Jun-2016 Instruction Type:Patient Education How to access health informa tion online - Detail Indication:Chest pain Start:22-Jun-2016 Instruction Type:Patient Education Patient Instructions Indication:Chest pain Start:22-Jun-2016 Instruction Type:Provider Instructions for Treatment [facility]; [facility] Work Phone: Instructions* Name Dates Details Patient Instructions Indication:BMI 33.0-33.9,adult Start:20-Jun-2021 Instruction Type:Provider Instructions for Treatment How to Access Health Informa tion Online using Patient Portal and [employer] Indication:BMI 33.0-33.9,adult Start:20-Jun-2021 Instruction Type:Patient Education How to access health informa tion online Indication:Non-smoker Start:12-Apr-2020 Instruction Type:Patient Education How to access health informa tion online - Detail Indication:Non-smoker Start:12-Apr-2020 Instruction Type:Patient Education Patient Instructions Indication:Non-smoker Start:12-Apr-2020 Instruction Type:Provider Instructions for Treatment How to access health informa tion online Indication:Non-smoker Start:19-Jan-2020 Instruction Type:Patient Education How to access health informa tion online - Detail Indication:Non-smoker Start:19-Jan-2020 Instruction Type:Patient Education Patient Instructions Indication:Non-smoker Start:19-Jan-2020 Instruction Type:Provider Instructions for Treatment How to access health informa tion online Indication:Non-smoker Start:31-Oct-2019 Instruction Type:Patient Education How to access health informa tion online - Detail Indication:Non-smoker Start:31-Oct-2019 Instruction Type:Patient Education Patient Instructions Indication:Non-smoker Start:31-Oct-2019 Instruction Type:Provider Instructions for Treatment How to access health informa tion online Indication:Non-smoker Start:28-Dec-2016 Instruction Type:Patient Education How to access health informa tion online - Detail Indication:Non-smoker Start:28-Dec-2016 Instruction Type:Patient Education Patient Instructions Indication:Non-smoker Start:28-Dec-2016 Instruction Type:Provider Instructions for Treatment How to access health informa tion online Indication:Chest pain Start:22-Jun-2016 Instruction Type:Patient Education How to access health informa tion online - Detail Indication:Chest pain Start:22-Jun-2016 Instruction Type:Patient Education Patient Instructions Indication:Chest pain Start:22-Jun-2016 Instruction Type:Provider Instructions for Treatment [facility]; [facility] Work Phone: Instructions* Name Dates Details Patient Instructions Indication:Unspecified Diagnosis Start:20-Apr-2023 Instruction Type:Provider Instructions for Treatment How to Access Health Informa tion Online using Patient Portal and [employer] Indication:Unspecified Diagnosis Start:20-Apr-2023 Instruction Type:Patient Education Patient Instructions Indication:BMI 33.0-33.9,adult Start:20-Jun-2021 Instruction Type:Provider Instructions for Treatment How to Access Health Informa tion Online using Patient Portal and [employer] Indication:BMI 33.0-33.9,adult Start:20-Jun-2021 Instruction Type:Patient Education How to access health informa tion online Indication:Non-smoker Start:12-Apr-2020 Instruction Type:Patient Education How to access health informa tion online - Detail Indication:Non-smoker Start:12-Apr-2020 Instruction Type:Patient Education Patient Instructions Indication:Non-smoker Start:12-Apr-2020 Instruction Type:Provider Instructions for Treatment How to access health informa tion online Indication:Non-smoker Start:19-Jan-2020 Instruction Type:Patient Education How to access health informa tion online - Detail Indication:Non-smoker Start:19-Jan-2020 Instruction Type:Patient Education Patient Instructions Indication:Non-smoker Start:19-Jan-2020 Instruction Type:Provider Instructions for Treatment How to access health informa tion online Indication:Non-smoker Start:31-Oct-2019 Instruction Type:Patient Education How to access health informa tion online - Detail Indication:Non-smoker Start:31-Oct-2019 Instruction Type:Patient Education Patient Instructions Indication:Non-smoker Start:31-Oct-2019 Instruction Type:Provider Instructions for Treatment How to access health informa tion online Indication:Non-smoker Start:28-Dec-2016 Instruction Type:Patient Education How to access health informa tion online - Detail Indication:Non-smoker Start:28-Dec-2016 Instruction Type:Patient Education Patient Instructions Indication:Non-smoker Start:28-Dec-2016 Instruction Type:Provider Instructions for Treatment How to access health informa tion online Indication:Chest pain Start:22-Jun-2016 Instruction Type:Patient Education How to access health informa tion online - Detail Indication:Chest pain Start:22-Jun-2016 Instruction Type:Patient Education Patient Instructions Indication:Chest pain Start:22-Jun-2016 Instruction Type:Provider Instructions for Treatment [facility]; [facility] Work Phone: Instructions* Name Dates Details Patient Instructions Indication:Physical for colonoscopy Start:20-Apr-2023 Instruction Type:Provider Instructions for Treatment How to Access Health Informa tion Online using Patient Portal and [employer] Indication:Physical for colonoscopy Start:20-Apr-2023 Instruction Type:Patient Education Patient Instructions Indication:BMI 33.0-33.9,adult Start:20-Jun-2021 Instruction Type:Provider Instructions for Treatment How to Access Health Informa tion Online using Patient Portal and [employer] Indication:BMI 33.0-33.9,adult Start:20-Jun-2021 Instruction Type:Patient Education How to access health informa tion online Indication:Non-smoker Start:12-Apr-2020 Instruction Type:Patient Education How to access health informa tion online - Detail Indication:Non-smoker Start:12-Apr-2020 Instruction Type:Patient Education Patient Instructions Indication:Non-smoker Start:12-Apr-2020 Instruction Type:Provider Instructions for Treatment How to access health informa tion online Indication:Non-smoker Start:19-Jan-2020 Instruction Type:Patient Education How to access health informa tion online - Detail Indication:Non-smoker Start:19-Jan-2020 Instruction Type:Patient Education Patient Instructions Indication:Non-smoker Start:19-Jan-2020 Instruction Type:Provider Instructions for Treatment How to access health informa tion online Indication:Non-smoker Start:31-Oct-2019 Instruction Type:Patient Education How to access health informa tion online - Detail Indication:Non-smoker Start:31-Oct-2019 Instruction Type:Patient Education Patient Instructions Indication:Non-smoker Start:31-Oct-2019 Instruction Type:Provider Instructions for Treatment How to access health informa tion online Indication:Non-smoker Start:28-Dec-2016 Instruction Type:Patient Education How to access health informa tion online - Detail Indication:Non-smoker Start:28-Dec-2016 Instruction Type:Patient Education Patient Instructions Indication:Non-smoker Start:28-Dec-2016 Instruction Type:Provider Instructions for Treatment How to access health informa tion online Indication:Chest pain Start:22-Jun-2016 Instruction Type:Patient Education How to access health informa tion online - Detail Indication:Chest pain Start:22-Jun-2016 Instruction Type:Patient Education Patient Instructions Indication:Chest pain Start:22-Jun-2016 Instruction Type:Provider Instructions for Treatment [facility]; [facility] Work Phone: Instructions* Name Dates Details Patient Instructions Indication:Physical for colonoscopy Start:20-Apr-2023 Instruction Type:Provider Instructions for Treatment How to Access Health Informa tion Online using Patient Portal and [employer] Apps Indication:Physical for colonoscopy Start:20-Apr-2023 Instruction Type:Patient Education Patient Instructions Indication:BMI 33.0-33.9,adult Start:20-Jun-2021 Instruction Type:Provider Instructions for Treatment How to Access Health Informa tion Online using Patient Portal and [employer] Indication:BMI 33.0-33.9,adult Start:20-Jun-2021 Instruction Type:Patient Education How to access health informa tion online Indication:Non-smoker Start:12-Apr-2020 Instruction Type:Patient Education How to access health informa tion online - Detail Indication:Non-smoker Start:12-Apr-2020 Instruction Type:Patient Education Patient Instructions Indication:Non-smoker Start:12-Apr-2020 Instruction Type:Provider Instructions for Treatment How to access health informa tion online Indication:Non-smoker Start:19-Jan-2020 Instruction Type:Patient Education How to access health informa tion online - Detail Indication:Non-smoker Start:19-Jan-2020 Instruction Type:Patient Education Patient Instructions Indication:Non-smoker Start:19-Jan-2020 Instruction Type:Provider Instructions for Treatment How to access health informa tion online Indication:Non-smoker Start:31-Oct-2019 Instruction Type:Patient Education How to access health informa tion online - Detail Indication:Non-smoker Start:31-Oct-2019 Instruction Type:Patient Education Patient Instructions Indication:Non-smoker Start:31-Oct-2019 Instruction Type:Provider Instructions for Treatment How to access health informa tion online Indication:Non-smoker Start:28-Dec-2016 Instruction Type:Patient Education How to access health informa tion online - Detail Indication:Non-smoker Start:28-Dec-2016 Instruction Type:Patient Education Patient Instructions Indication:Non-smoker Start:28-Dec-2016 Instruction Type:Provider Instructions for Treatment How to access health informa tion online Indication:Chest pain Start:22-Jun-2016 Instruction Type:Patient Education How to access health informa tion online - Detail Indication:Chest pain Start:22-Jun-2016 Instruction Type:Patient Education Patient Instructions Indication:Chest pain Start:22-Jun-2016 Instruction Type:Provider Instructions for Treatment [facility]; [facility] Work Phone: Instructions* Name Dates Details Patient Instructions Indication:Physical for colonoscopy Start:20-Apr-2023 Instruction Type:Provider Instructions for Treatment How to Access Health Informa tion Online using Patient Portal and [employer] Apps Indication:Physical for colonoscopy Start:20-Apr-2023 Instruction Type:Patient Education Patient Instructions Indication:BMI 33.0-33.9,adult Start:20-Jun-2021 Instruction Type:Provider Instructions for Treatment How to Access Health Informa tion Online using Patient Portal and [employer] Apps Indication:BMI 33.0-33.9,adult Start:20-Jun-2021 Instruction Type:Patient Education How to access health informa tion online Indication:Non-smoker Start:12-Apr-2020 Instruction Type:Patient Education How to access health informa tion online - Detail Indication:Non-smoker Start:12-Apr-2020 Instruction Type:Patient Education Patient Instructions Indication:Non-smoker Start:12-Apr-2020 Instruction Type:Provider Instructions for Treatment How to access health informa tion online Indication:Non-smoker Start:19-Jan-2020 Instruction Type:Patient Education How to access health informa tion online - Detail Indication:Non-smoker Start:19-Jan-2020 Instruction Type:Patient Education Patient Instructions Indication:Non-smoker Start:19-Jan-2020 Instruction Type:Provider Instructions for Treatment How to access health informa tion online Indication:Non-smoker Start:31-Oct-2019 Instruction Type:Patient Education How to access health informa tion online - Detail Indication:Non-smoker Start:31-Oct-2019 Instruction Type:Patient Education Patient Instructions Indication:Non-smoker Start:31-Oct-2019 Instruction Type:Provider Instructions for Treatment How to access health informa tion online Indication:Non-smoker Start:28-Dec-2016 Instruction Type:Patient Education How to access health informa tion online - Detail Indication:Non-smoker Start:28-Dec-2016 Instruction Type:Patient Education Patient Instructions Indication:Non-smoker Start:28-Dec-2016 Instruction Type:Provider Instructions for Treatment How to access health informa tion online Indication:Chest pain Start:22-Jun-2016 Instruction Type:Patient Education How to access health informa tion online - Detail Indication:Chest pain Start:22-Jun-2016 Instruction Type:Patient Education Patient Instructions Indication:Chest pain Start:22-Jun-2016 Instruction Type:Provider Instructions for Treatment [facility] Work Phone: Instructions* Name Dates Details Patient Instructions Indication:Physical for colonoscopy Start:20-Apr-2023 Instruction Type:Provider Instructions for Treatment How to Access Health Informa tion Online using Patient Portal and [employer] Indication:Physical for colonoscopy Start:20-Apr-2023 Instruction Type:Patient Education Patient Instructions Indication:BMI 33.0-33.9,adult Start:20-Jun-2021 Instruction Type:Provider Instructions for Treatment How to Access Health Informa tion Online using Patient Portal and [employer]rd [employer] Apps Indication:BMI 33.0-33.9,adult Start:20-Jun-2021 Instruction Type:Patient Education How to access health informa tion online Indication:Non-smoker Start:12-Apr-2020 Instruction Type:Patient Education How to access health informa tion online - Detail Indication:Non-smoker Start:12-Apr-2020 Instruction Type:Patient Education Patient Instructions Indication:Non-smoker Start:12-Apr-2020 Instruction Type:Provider Instructions for Treatment How to access health informa tion online Indication:Non-smoker Start:19-Jan-2020 Instruction Type:Patient Education How to access health informa tion online - Detail Indication:Non-smoker Start:19-Jan-2020 Instruction Type:Patient Education Patient Instructions Indication:Non-smoker Start:19-Jan-2020 Instruction Type:Provider Instructions for Treatment How to access health informa tion online Indication:Non-smoker Start:31-Oct-2019 Instruction Type:Patient Education How to access health informa tion online - Detail Indication:Non-smoker Start:31-Oct-2019 Instruction Type:Patient Education Patient Instructions Indication:Non-smoker Start:31-Oct-2019 Instruction Type:Provider Instructions for Treatment How to access health informa tion online Indication:Non-smoker Start:28-Dec-2016 Instruction Type:Patient Education How to access health informa tion online - Detail Indication:Non-smoker Start:28-Dec-2016 Instruction Type:Patient Education Patient Instructions Indication:Non-smoker Start:28-Dec-2016 Instruction Type:Provider Instructions for Treatment How to access health informa tion online Indication:Chest pain Start:22-Jun-2016 Instruction Type:Patient Education How to access health informa tion online - Detail Indication:Chest pain Start:22-Jun-2016 Instruction Type:Patient Education Patient Instructions Indication:Chest pain Start:22-Jun-2016 Instruction Type:Provider Instructions for Treatment [facility] Work Phone: Instructions* Name Dates Details Patient Instructions Indication:Physical for colonoscopy Start:20-Apr-2023 Instruction Type:Provider Instructions for Treatment How to Access Health Informa tion Online using Patient Portal and [employer] Apps Indication:Physical for colonoscopy Start:20-Apr-2023 Instruction Type:Patient Education Patient Instructions Indication:BMI 33.0-33.9,adult Start:20-Jun-2021 Instruction Type:Provider Instructions for Treatment How to Access Health Informa tion Online using Patient Portal and [employer] Apps Indication:BMI 33.0-33.9,adult Start:20-Jun-2021 Instruction Type:Patient Education How to access health informa tion online Indication:Non-smoker Start:12-Apr-2020 Instruction Type:Patient Education How to access health informa tion online - Detail Indication:Non-smoker Start:12-Apr-2020 Instruction Type:Patient Education Patient Instructions Indication:Non-smoker Start:12-Apr-2020 Instruction Type:Provider Instructions for Treatment How to access health informa tion online Indication:Non-smoker Start:19-Jan-2020 Instruction Type:Patient Education How to access health informa tion online - Detail Indication:Non-smoker Start:19-Jan-2020 Instruction Type:Patient Education Patient Instructions Indication:Non-smoker Start:19-Jan-2020 Instruction Type:Provider Instructions for Treatment How to access health informa tion online Indication:Non-smoker Start:31-Oct-2019 Instruction Type:Patient Education How to access health informa tion online - Detail Indication:Non-smoker Start:31-Oct-2019 Instruction Type:Patient Education Patient Instructions Indication:Non-smoker Start:31-Oct-2019 Instruction Type:Provider Instructions for Treatment How to access health informa tion online Indication:Non-smoker Start:28-Dec-2016 Instruction Type:Patient Education How to access health informa tion online - Detail Indication:Non-smoker Start:28-Dec-2016 Instruction Type:Patient Education Patient Instructions Indication:Non-smoker Start:28-Dec-2016 Instruction Type:Provider Instructions for Treatment How to access health informa tion online Indication:Chest pain Start:22-Jun-2016 Instruction Type:Patient Education How to access health informa tion online - Detail Indication:Chest pain Start:22-Jun-2016 Instruction Type:Patient Education Patient Instructions Indication:Chest pain Start:22-Jun-2016 Instruction Type:Provider Instructions for Treatment [facility] Work Phone: reason for visit Narrative* Radiology (Routine) - New Request Specialty Diagnoses / Procedures Referred By Hallie bates Referred To Contact Diagnoses Visit for screening mammogram Procedures MAMMO SCREENING WITH PACO BILATERAL Mammography-Jefry, Self-[place]ed [place] [address] Phone: tel: fax: Referral ID Status Reason Start Date Expiration Date V isits Requested Visits Authorized [id number] New Request 02/03/2025 02/28/2026 1 1 [facility] Instructions Name Dates Details Non-smoker : How to access h ealth information online Indication:Non-smoker Non-smoker : How to access h ealth information online - Detail Indication:Non-smoker Non-smoker : Patient Instruc tions Indication:Non-smoker Chest pain : How to access h ealth information online Indication:Chest pain Chest pain : How to access h ealth information online - Detail Indication:Chest pain Chest pain : Patient Instruc tions Indication:Chest pain Name Dates Details Non-smoker : How to access h ealth information online Indication:Non-smoker Non-smoker : How to access h ealth information online - Detail Indication:Non-smoker Non-smoker : Patient Instruc tions Indication:Non-smoker Chest pain : How to access h ealth information online Indication:Chest pain Chest pain : How to access h ealth information online - Detail Indication:Chest pain Chest pain : Patient Instruc tions Indication:Chest pain Name Dates Details Non-smoker : How to access h ealth information online Indication:Non-smoker Non-smoker : How to access h ealth information online - Detail Indication:Non-smoker Non-smoker : Patient Instruc tions Indication:Non-smoker Chest pain : How to access h ealth information online Indication:Chest pain Chest pain : How to access h ealth information online - Detail Indication:Chest pain Chest pain : Patient Instruc tions Indication:Chest pain Name Dates Details Non-smoker : How to access h ealth information online Indication:Non-smoker Non-smoker : How to access h ealth information online - Detail Indication:Non-smoker Non-smoker : Patient Instruc tions Indication:Non-smoker Chest pain : How to access h ealth information online Indication:Chest pain Chest pain : How to access h ealth information online - Detail Indication:Chest pain Chest pain : Patient Instruc tions Indication:Chest pain Name Dates Details How to access health informa tion online Indication:Non-smoker Start:28-Dec-2016 Instruction Type:Patient Education How to access health informa tion online - Detail Indication:Non-smoker Start:28-Dec-2016 Instruction Type:Patient Education Patient Instructions Indication:Non-smoker Start:28-Dec-2016 Instruction Type:Provider Instructions for Treatment How to access health informa tion online Indication:Chest pain Start:22-Jun-2016 Instruction Type:Patient Education How to access health informa tion online - Detail Indication:Chest pain Start:22-Jun-2016 Instruction Type:Patient Education Patient Instructions Indication:Chest pain Start:22-Jun-2016 Instruction Type:Provider Instructions for Treatment Instruction Description Start Date Patient advised to follow-up with Primary Care Physician for BMI management. Name Dates Details How to access health informa tion online Indication:Non-smoker Start:31-Oct-2019 Instruction Type:Patient Education How to access health informa tion online - Detail Indication:Non-smoker Start:31-Oct-2019 Instruction Type:Patient Education Patient Instructions Indication:Non-smoker Start:31-Oct-2019 Instruction Type:Provider Instructions for Treatment How to access health informa tion online Indication:Non-smoker Start:28-Dec-2016 Instruction Type:Patient Education How to access health informa tion online - Detail Indication:Non-smoker Start:28-Dec-2016 Instruction Type:Patient Education Patient Instructions Indication:Non-smoker Start:28-Dec-2016 Instruction Type:Provider Instructions for Treatment How to access health informa tion online Indication:Chest pain Start:22-Jun-2016 Instruction Type:Patient Education How to access health informa tion online - Detail Indication:Chest pain Start:22-Jun-2016 Instruction Type:Patient Education Patient Instructions Indication:Chest pain Start:22-Jun-2016 Instruction Type:Provider Instructions for Treatment Name Dates Details How to access health informa tion online Indication:Non-smoker Start:19-Jan-2020 Instruction Type:Patient Education How to access health informa tion online - Detail Indication:Non-smoker Start:19-Jan-2020 Instruction Type:Patient Education Patient Instructions Indication:Non-smoker Start:19-Jan-2020 Instruction Type:Provider Instructions for Treatment How to access health informa tion online Indication:Non-smoker Start:31-Oct-2019 Instruction Type:Patient Education How to access health informa tion online - Detail Indication:Non-smoker Start:31-Oct-2019 Instruction Type:Patient Education Patient Instructions Indication:Non-smoker Start:31-Oct-2019 Instruction Type:Provider Instructions for Treatment How to access health informa tion online Indication:Non-smoker Start:28-Dec-2016 Instruction Type:Patient Education How to access health informa tion online - Detail Indication:Non-smoker Start:28-Dec-2016 Instruction Type:Patient Education Patient Instructions Indication:Non-smoker Start:28-Dec-2016 Instruction Type:Provider Instructions for Treatment How to access health informa tion online Indication:Chest pain Start:22-Jun-2016 Instruction Type:Patient Education How to access health informa tion online - Detail Indication:Chest pain Start:22-Jun-2016 Instruction Type:Patient Education Patient Instructions Indication:Chest pain Start:22-Jun-2016 Instruction Type:Provider Instructions for Treatment Name Dates Details How to access health informa tion online Indication:Non-smoker Start:19-Jan-2020 Instruction Type:Patient Education How to access health informa tion online - Detail Indication:Non-smoker Start:19-Jan-2020 Instruction Type:Patient Education Patient Instructions Indication:Non-smoker Start:19-Jan-2020 Instruction Type:Provider Instructions for Treatment How to access health informa tion online Indication:Non-smoker Start:31-Oct-2019 Instruction Type:Patient Education How to access health informa tion online - Detail Indication:Non-smoker Start:31-Oct-2019 Instruction Type:Patient Education Patient Instructions Indication:Non-smoker Start:31-Oct-2019 Instruction Type:Provider Instructions for Treatment How to access health informa tion online Indication:Non-smoker Start:28-Dec-2016 Instruction Type:Patient Education How to access health informa tion online - Detail Indication:Non-smoker Start:28-Dec-2016 Instruction Type:Patient Education Patient Instructions Indication:Non-smoker Start:28-Dec-2016 Instruction Type:Provider Instructions for Treatment How to access health informa tion online Indication:Chest pain Start:22-Jun-2016 Instruction Type:Patient Education How to access health informa tion online - Detail Indication:Chest pain Start:22-Jun-2016 Instruction Type:Patient Education Patient Instructions Indication:Chest pain Start:22-Jun-2016 Instruction Type:Provider Instructions for Treatment Name Dates Details How to access health informa tion online Indication:Non-smoker Start:19-Jan-2020 Instruction Type:Patient Education How to access health informa tion online - Detail Indication:Non-smoker Start:19-Jan-2020 Instruction Type:Patient Education Patient Instructions Indication:Non-smoker Start:19-Jan-2020 Instruction Type:Provider Instructions for Treatment How to access health informa tion online Indication:Non-smoker Start:31-Oct-2019 Instruction Type:Patient Education How to access health informa tion online - Detail Indication:Non-smoker Start:31-Oct-2019 Instruction Type:Patient Education Patient Instructions Indication:Non-smoker Start:31-Oct-2019 Instruction Type:Provider Instructions for Treatment How to access health informa tion online Indication:Non-smoker Start:28-Dec-2016 Instruction Type:Patient Education How to access health informa tion online - Detail Indication:Non-smoker Start:28-Dec-2016 Instruction Type:Patient Education Patient Instructions Indication:Non-smoker Start:28-Dec-2016 Instruction Type:Provider Instructions for Treatment How to access health informa tion online Indication:Chest pain Start:22-Jun-2016 Instruction Type:Patient Education How to access health informa tion online - Detail Indication:Chest pain Start:22-Jun-2016 Instruction Type:Patient Education Patient Instructions Indication:Chest pain Start:22-Jun-2016 Instruction Type:Provider Instructions for Treatment Name Dates Details How to access health informa tion online Indication:Non-smoker Start:19-Jan-2020 Instruction Type:Patient Education How to access health informa tion online - Detail Indication:Non-smoker Start:19-Jan-2020 Instruction Type:Patient Education Patient Instructions Indication:Non-smoker Start:19-Jan-2020 Instruction Type:Provider Instructions for Treatment How to access health informa tion online Indication:Non-smoker Start:31-Oct-2019 Instruction Type:Patient Education How to access health informa tion online - Detail Indication:Non-smoker Start:31-Oct-2019 Instruction Type:Patient Education Patient Instructions Indication:Non-smoker Start:31-Oct-2019 Instruction Type:Provider Instructions for Treatment How to access health informa tion online Indication:Non-smoker Start:28-Dec-2016 Instruction Type:Patient Education How to access health informa tion online - Detail Indication:Non-smoker Start:28-Dec-2016 Instruction Type:Patient Education Patient Instructions Indication:Non-smoker Start:28-Dec-2016 Instruction Type:Provider Instructions for Treatment How to access health informa tion online Indication:Chest pain Start:22-Jun-2016 Instruction Type:Patient Education How to access health informa tion online - Detail Indication:Chest pain Start:22-Jun-2016 Instruction Type:Patient Education Patient Instructions Indication:Chest pain Start:22-Jun-2016 Instruction Type:Provider Instructions for Treatment Name Dates Details How to access health informa tion online Indication:Non-smoker Start:19-Jan-2020 Instruction Type:Patient Education How to access health informa tion online - Detail Indication:Non-smoker Start:19-Jan-2020 Instruction Type:Patient Education Patient Instructions Indication:Non-smoker Start:19-Jan-2020 Instruction Type:Provider Instructions for Treatment How to access health informa tion online Indication:Non-smoker Start:31-Oct-2019 Instruction Type:Patient Education How to access health informa tion online - Detail Indication:Non-smoker Start:31-Oct-2019 Instruction Type:Patient Education Patient Instructions Indication:Non-smoker Start:31-Oct-2019 Instruction Type:Provider Instructions for Treatment How to access health informa tion online Indication:Non-smoker Start:28-Dec-2016 Instruction Type:Patient Education How to access health informa tion online - Detail Indication:Non-smoker Start:28-Dec-2016 Instruction Type:Patient Education Patient Instructions Indication:Non-smoker Start:28-Dec-2016 Instruction Type:Provider Instructions for Treatment How to access health informa tion online Indication:Chest pain Start:22-Jun-2016 Instruction Type:Patient Education How to access health informa tion online - Detail Indication:Chest pain Start:22-Jun-2016 Instruction Type:Patient Education Patient Instructions Indication:Chest pain Start:22-Jun-2016 Instruction Type:Provider Instructions for Treatment Name Dates Details How to access health informa tion online Indication:Non-smoker Start:19-Jan-2020 Instruction Type:Patient Education How to access health informa tion online - Detail Indication:Non-smoker Start:19-Jan-2020 Instruction Type:Patient Education Patient Instructions Indication:Non-smoker Start:19-Jan-2020 Instruction Type:Provider Instructions for Treatment How to access health informa tion online Indication:Non-smoker Start:31-Oct-2019 Instruction Type:Patient Education How to access health informa tion online - Detail Indication:Non-smoker Start:31-Oct-2019 Instruction Type:Patient Education Patient Instructions Indication:Non-smoker Start:31-Oct-2019 Instruction Type:Provider Instructions for Treatment How to access health informa tion online Indication:Non-smoker Start:28-Dec-2016 Instruction Type:Patient Education How to access health informa tion online - Detail Indication:Non-smoker Start:28-Dec-2016 Instruction Type:Patient Education Patient Instructions Indication:Non-smoker Start:28-Dec-2016 Instruction Type:Provider Instructions for Treatment How to access health informa tion online Indication:Chest pain Start:22-Jun-2016 Instruction Type:Patient Education How to access health informa tion online - Detail Indication:Chest pain Start:22-Jun-2016 Instruction Type:Patient Education Patient Instructions Indication:Chest pain Start:22-Jun-2016 Instruction Type:Provider Instructions for Treatment Name Dates Details How to access health informa tion online Indication:Non-smoker Start:12-Apr-2020 Instruction Type:Patient Education How to access health informa tion online - Detail Indication:Non-smoker Start:12-Apr-2020 Instruction Type:Patient Education Patient Instructions Indication:Non-smoker Start:12-Apr-2020 Instruction Type:Provider Instructions for Treatment How to access health informa tion online Indication:Non-smoker Start:19-Jan-2020 Instruction Type:Patient Education How to access health informa tion online - Detail Indication:Non-smoker Start:19-Jan-2020 Instruction Type:Patient Education Patient Instructions Indication:Non-smoker Start:19-Jan-2020 Instruction Type:Provider Instructions for Treatment How to access health informa tion online Indication:Non-smoker Start:31-Oct-2019 Instruction Type:Patient Education How to access health informa tion online - Detail Indication:Non-smoker Start:31-Oct-2019 Instruction Type:Patient Education Patient Instructions Indication:Non-smoker Start:31-Oct-2019 Instruction Type:Provider Instructions for Treatment How to access health informa tion online Indication:Non-smoker Start:28-Dec-2016 Instruction Type:Patient Education How to access health informa tion online - Detail Indication:Non-smoker Start:28-Dec-2016 Instruction Type:Patient Education Patient Instructions Indication:Non-smoker Start:28-Dec-2016 Instruction Type:Provider Instructions for Treatment How to access health informa tion online Indication:Chest pain Start:22-Jun-2016 Instruction Type:Patient Education How to access health informa tion online - Detail Indication:Chest pain Start:22-Jun-2016 Instruction Type:Patient Education Patient Instructions Indication:Chest pain Start:22-Jun-2016 Instruction Type:Provider Instructions for Treatment Name Dates Details How to access health informa tion online Indication:Non-smoker Start:12-Apr-2020 Instruction Type:Patient Education How to access health informa tion online - Detail Indication:Non-smoker Start:12-Apr-2020 Instruction Type:Patient Education Patient Instructions Indication:Non-smoker Start:12-Apr-2020 Instruction Type:Provider Instructions for Treatment How to access health informa tion online Indication:Non-smoker Start:19-Jan-2020 Instruction Type:Patient Education How to access health informa tion online - Detail Indication:Non-smoker Start:19-Jan-2020 Instruction Type:Patient Education Patient Instructions Indication:Non-smoker Start:19-Jan-2020 Instruction Type:Provider Instructions for Treatment How to access health informa tion online Indication:Non-smoker Start:31-Oct-2019 Instruction Type:Patient Education How to access health informa tion online - Detail Indication:Non-smoker Start:31-Oct-2019 Instruction Type:Patient Education Patient Instructions Indication:Non-smoker Start:31-Oct-2019 Instruction Type:Provider Instructions for Treatment How to access health informa tion online Indication:Non-smoker Start:28-Dec-2016 Instruction Type:Patient Education How to access health informa tion online - Detail Indication:Non-smoker Start:28-Dec-2016 Instruction Type:Patient Education Patient Instructions Indication:Non-smoker Start:28-Dec-2016 Instruction Type:Provider Instructions for Treatment How to access health informa tion online Indication:Chest pain Start:22-Jun-2016 Instruction Type:Patient Education How to access health informa tion online - Detail Indication:Chest pain Start:22-Jun-2016 Instruction Type:Patient Education Patient Instructions Indication:Chest pain Start:22-Jun-2016 Instruction Type:Provider Instructions for Treatment Name Dates Details How to access health informa tion online Indication:Non-smoker Start:12-Apr-2020 Instruction Type:Patient Education How to access health informa tion online - Detail Indication:Non-smoker Start:12-Apr-2020 Instruction Type:Patient Education Patient Instructions Indication:Non-smoker Start:12-Apr-2020 Instruction Type:Provider Instructions for Treatment How to access health informa tion online Indication:Non-smoker Start:19-Jan-2020 Instruction Type:Patient Education How to access health informa tion online - Detail Indication:Non-smoker Start:19-Jan-2020 Instruction Type:Patient Education Patient Instructions Indication:Non-smoker Start:19-Jan-2020 Instruction Type:Provider Instructions for Treatment How to access health informa tion online Indication:Non-smoker Start:31-Oct-2019 Instruction Type:Patient Education How to access health informa tion online - Detail Indication:Non-smoker Start:31-Oct-2019 Instruction Type:Patient Education Patient Instructions Indication:Non-smoker Start:31-Oct-2019 Instruction Type:Provider Instructions for Treatment How to access health informa tion online Indication:Non-smoker Start:28-Dec-2016 Instruction Type:Patient Education How to access health informa tion online - Detail Indication:Non-smoker Start:28-Dec-2016 Instruction Type:Patient Education Patient Instructions Indication:Non-smoker Start:28-Dec-2016 Instruction Type:Provider Instructions for Treatment How to access health informa tion online Indication:Chest pain Start:22-Jun-2016 Instruction Type:Patient Education How to access health informa tion online - Detail Indication:Chest pain Start:22-Jun-2016 Instruction Type:Patient Education Patient Instructions Indication:Chest pain Start:22-Jun-2016 Instruction Type:Provider Instructions for Treatment Name Dates Details How to access health informa tion online Indication:Non-smoker Start:12-Apr-2020 Instruction Type:Patient Education How to access health informa tion online - Detail Indication:Non-smoker Start:12-Apr-2020 Instruction Type:Patient Education Patient Instructions Indication:Non-smoker Start:12-Apr-2020 Instruction Type:Provider Instructions for Treatment How to access health informa tion online Indication:Non-smoker Start:19-Jan-2020 Instruction Type:Patient Education How to access health informa tion online - Detail Indication:Non-smoker Start:19-Jan-2020 Instruction Type:Patient Education Patient Instructions Indication:Non-smoker Start:19-Jan-2020 Instruction Type:Provider Instructions for Treatment How to access health informa tion online Indication:Non-smoker Start:31-Oct-2019 Instruction Type:Patient Education How to access health informa tion online - Detail Indication:Non-smoker Start:31-Oct-2019 Instruction Type:Patient Education Patient Instructions Indication:Non-smoker Start:31-Oct-2019 Instruction Type:Provider Instructions for Treatment How to access health informa tion online Indication:Non-smoker Start:28-Dec-2016 Instruction Type:Patient Education How to access health informa tion online - Detail Indication:Non-smoker Start:28-Dec-2016 Instruction Type:Patient Education Patient Instructions Indication:Non-smoker Start:28-Dec-2016 Instruction Type:Provider Instructions for Treatment How to access health informa tion online Indication:Chest pain Start:22-Jun-2016 Instruction Type:Patient Education How to access health informa tion online - Detail Indication:Chest pain Start:22-Jun-2016 Instruction Type:Patient Education Patient Instructions Indication:Chest pain Start:22-Jun-2016 Instruction Type:Provider Instructions for Treatment Name Dates Details How to access health informa tion online Indication:Non-smoker Start:12-Apr-2020 Instruction Type:Patient Education How to access health informa tion online - Detail Indication:Non-smoker Start:12-Apr-2020 Instruction Type:Patient Education Patient Instructions Indication:Non-smoker Start:12-Apr-2020 Instruction Type:Provider Instructions for Treatment How to access health informa tion online Indication:Non-smoker Start:19-Jan-2020 Instruction Type:Patient Education How to access health informa tion online - Detail Indication:Non-smoker Start:19-Jan-2020 Instruction Type:Patient Education Patient Instructions Indication:Non-smoker Start:19-Jan-2020 Instruction Type:Provider Instructions for Treatment How to access health informa tion online Indication:Non-smoker Start:31-Oct-2019 Instruction Type:Patient Education How to access health informa tion online - Detail Indication:Non-smoker Start:31-Oct-2019 Instruction Type:Patient Education Patient Instructions Indication:Non-smoker Start:31-Oct-2019 Instruction Type:Provider Instructions for Treatment How to access health informa tion online Indication:Non-smoker Start:28-Dec-2016 Instruction Type:Patient Education How to access health informa tion online - Detail Indication:Non-smoker Start:28-Dec-2016 Instruction Type:Patient Education Patient Instructions Indication:Non-smoker Start:28-Dec-2016 Instruction Type:Provider Instructions for Treatment How to access health informa tion online Indication:Chest pain Start:22-Jun-2016 Instruction Type:Patient Education How to access health informa tion online - Detail Indication:Chest pain Start:22-Jun-2016 Instruction Type:Patient Education Patient Instructions Indication:Chest pain Start:22-Jun-2016 Instruction Type:Provider Instructions for Treatment Name Dates Details How to access health informa tion online Indication:Non-smoker Start:12-Apr-2020 Instruction Type:Patient Education How to access health informa tion online - Detail Indication:Non-smoker Start:12-Apr-2020 Instruction Type:Patient Education Patient Instructions Indication:Non-smoker Start:12-Apr-2020 Instruction Type:Provider Instructions for Treatment How to access health informa tion online Indication:Non-smoker Start:19-Jan-2020 Instruction Type:Patient Education How to access health informa tion online - Detail Indication:Non-smoker Start:19-Jan-2020 Instruction Type:Patient Education Patient Instructions Indication:Non-smoker Start:19-Jan-2020 Instruction Type:Provider Instructions for Treatment How to access health informa tion online Indication:Non-smoker Start:31-Oct-2019 Instruction Type:Patient Education How to access health informa tion online - Detail Indication:Non-smoker Start:31-Oct-2019 Instruction Type:Patient Education Patient Instructions Indication:Non-smoker Start:31-Oct-2019 Instruction Type:Provider Instructions for Treatment How to access health informa tion online Indication:Non-smoker Start:28-Dec-2016 Instruction Type:Patient Education How to access health informa tion online - Detail Indication:Non-smoker Start:28-Dec-2016 Instruction Type:Patient Education Patient Instructions Indication:Non-smoker Start:28-Dec-2016 Instruction Type:Provider Instructions for Treatment How to access health informa tion online Indication:Chest pain Start:22-Jun-2016 Instruction Type:Patient Education How to access health informa tion online - Detail Indication:Chest pain Start:22-Jun-2016 Instruction Type:Patient Education Patient Instructions Indication:Chest pain Start:22-Jun-2016 Instruction Type:Provider Instructions for Treatment Name Dates Details How to access health informa tion online Indication:Non-smoker Start:12-Apr-2020 Instruction Type:Patient Education How to access health informa tion online - Detail Indication:Non-smoker Start:12-Apr-2020 Instruction Type:Patient Education Patient Instructions Indication:Non-smoker Start:12-Apr-2020 Instruction Type:Provider Instructions for Treatment How to access health informa tion online Indication:Non-smoker Start:19-Jan-2020 Instruction Type:Patient Education How to access health informa tion online - Detail Indication:Non-smoker Start:19-Jan-2020 Instruction Type:Patient Education Patient Instructions Indication:Non-smoker Start:19-Jan-2020 Instruction Type:Provider Instructions for Treatment How to access health informa tion online Indication:Non-smoker Start:31-Oct-2019 Instruction Type:Patient Education How to access health informa tion online - Detail Indication:Non-smoker Start:31-Oct-2019 Instruction Type:Patient Education Patient Instructions Indication:Non-smoker Start:31-Oct-2019 Instruction Type:Provider Instructions for Treatment How to access health informa tion online Indication:Non-smoker Start:28-Dec-2016 Instruction Type:Patient Education How to access health informa tion online - Detail Indication:Non-smoker Start:28-Dec-2016 Instruction Type:Patient Education Patient Instructions Indication:Non-smoker Start:28-Dec-2016 Instruction Type:Provider Instructions for Treatment How to access health informa tion online Indication:Chest pain Start:22-Jun-2016 Instruction Type:Patient Education How to access health informa tion online - Detail Indication:Chest pain Start:22-Jun-2016 Instruction Type:Patient Education Patient Instructions Indication:Chest pain Start:22-Jun-2016 Instruction Type:Provider Instructions for Treatment Name Dates Details How to access health informa tion online Indication:Non-smoker Start:28-Dec-2016 Instruction Type:Patient Education How to access health informa tion online - Detail Indication:Non-smoker Start:28-Dec-2016 Instruction Type:Patient Education Patient Instructions Indication:Non-smoker Start:28-Dec-2016 Instruction Type:Provider Instructions for Treatment How to access health informa tion online Indication:Chest pain Start:22-Jun-2016 Instruction Type:Patient Education How to access health informa tion online - Detail Indication:Chest pain Start:22-Jun-2016 Instruction Type:Patient Education Patient Instructions Indication:Chest pain Start:22-Jun-2016 Instruction Type:Provider Instructions for Treatment Name Dates Details Non-smoker : How to access h ealth information online Indication:Non-smoker Non-smoker : How to access h ealth information online - Detail Indication:Non-smoker Non-smoker : Patient Instruc tions Indication:Non-smoker Chest pain : How to access h ealth information online Indication:Chest pain Chest pain : How to access h ealth information online - Detail Indication:Chest pain Chest pain : Patient Instruc tions Indication:Chest pain Name Dates Details How to access health informa tion online Indication:Non-smoker Start:12-Apr-2020 Instruction Type:Patient Education How to access health informa tion online - Detail Indication:Non-smoker Start:12-Apr-2020 Instruction Type:Patient Education Patient Instructions Indication:Non-smoker Start:12-Apr-2020 Instruction Type:Provider Instructions for Treatment How to access health informa tion online Indication:Non-smoker Start:19-Jan-2020 Instruction Type:Patient Education How to access health informa tion online - Detail Indication:Non-smoker Start:19-Jan-2020 Instruction Type:Patient Education Patient Instructions Indication:Non-smoker Start:19-Jan-2020 Instruction Type:Provider Instructions for Treatment How to access health informa tion online Indication:Non-smoker Start:31-Oct-2019 Instruction Type:Patient Education How to access health informa tion online - Detail Indication:Non-smoker Start:31-Oct-2019 Instruction Type:Patient Education Patient Instructions Indication:Non-smoker Start:31-Oct-2019 Instruction Type:Provider Instructions for Treatment How to access health informa tion online Indication:Non-smoker Start:28-Dec-2016 Instruction Type:Patient Education How to access health informa tion online - Detail Indication:Non-smoker Start:28-Dec-2016 Instruction Type:Patient Education Patient Instructions Indication:Non-smoker Start:28-Dec-2016 Instruction Type:Provider Instructions for Treatment How to access health informa tion online Indication:Chest pain Start:22-Jun-2016 Instruction Type:Patient Education How to access health informa tion online - Detail Indication:Chest pain Start:22-Jun-2016 Instruction Type:Patient Education Patient Instructions Indication:Chest pain Start:22-Jun-2016 Instruction Type:Provider Instructions for Treatment Name Dates Details How to access health informa tion online Indication:Non-smoker Start:12-Apr-2020 Instruction Type:Patient Education How to access health informa tion online - Detail Indication:Non-smoker Start:12-Apr-2020 Instruction Type:Patient Education Patient Instructions Indication:Non-smoker Start:12-Apr-2020 Instruction Type:Provider Instructions for Treatment How to access health informa tion online Indication:Non-smoker Start:19-Jan-2020 Instruction Type:Patient Education How to access health informa tion online - Detail Indication:Non-smoker Start:19-Jan-2020 Instruction Type:Patient Education Patient Instructions Indication:Non-smoker Start:19-Jan-2020 Instruction Type:Provider Instructions for Treatment How to access health informa tion online Indication:Non-smoker Start:31-Oct-2019 Instruction Type:Patient Education How to access health informa tion online - Detail Indication:Non-smoker Start:31-Oct-2019 Instruction Type:Patient Education Patient Instructions Indication:Non-smoker Start:31-Oct-2019 Instruction Type:Provider Instructions for Treatment How to access health informa tion online Indication:Non-smoker Start:28-Dec-2016 Instruction Type:Patient Education How to access health informa tion online - Detail Indication:Non-smoker Start:28-Dec-2016 Instruction Type:Patient Education Patient Instructions Indication:Non-smoker Start:28-Dec-2016 Instruction Type:Provider Instructions for Treatment How to access health informa tion online Indication:Chest pain Start:22-Jun-2016 Instruction Type:Patient Education How to access health informa tion online - Detail Indication:Chest pain Start:22-Jun-2016 Instruction Type:Patient Education Patient Instructions Indication:Chest pain Start:22-Jun-2016 Instruction Type:Provider Instructions for Treatment Summary Purpose Family History Unknown Family Member Name Dates Details family history pf precancero us polyps dementia cad Status:Active Unknown Family Member Name Dates Details family history pf precancero us polyps dementia cad Status:Active Unknown Family Member Name Dates Details family history pf precancero us polyps dementia cad Status:Active Unknown Family Member Name Dates Details family history pf precancero us polyps dementia cad Status:Active Unknown Family Member Name Dates Details family history pf precancero us polyps dementia cad Status:Active Advance Directives No Advanced Directives Records FoundThere may be information available, but it has not been provided by the sender.No Advanced Directives Records FoundNo Advanced Directives Records FoundNo Advanced Directives Records FoundNo Advanced Directives Records FoundNo Advanced Directives Records Found Chief Complaint Chief Complaint Description Start Date right hip pain Preliminary chief co mplaint data, not yet signed by the author as of Assessments There may be information available, but it has not been provided by the sender. Review of System There may be information available, but it has not been provided by the sender. History of Present Illness There may be information available, but it has not been provided by the sender. Reason for Referral Specialty Diagnoses / Procedures Referred By Hallie bates Referred To Contact Diagnoses Encounter for screening mammogram for malignant neoplasm of breast Procedures MAMMO SCREENING WITH PACO BILATERAL Nadya Rene [employer] [address] [place] [address] Referral ID Status Reason Start Date Expiration Date V isits Requested Visits Authorized [id number] New Request 01/31/2021 02/25/2022 1 1 Specialty Diagnoses / Procedures Referred By Hallie bates Referred To Contact Diagnoses Fibrocystic breast disease (FCBD), unspecified laterality Encounter for screening mammogram for malignant neoplasm of breast Procedures MAMMO SCREENING WITH PACO BILATERAL Nadya Rene [employer] [address] [place] [address] Referral ID Status Reason Start Date Expiration Date V isits Requested Visits Authorized [id number] Pending Review 01/08/2020 02/01/2021 1 1 Chief Complaint and Reason for Visit Chief Complaint xray FOOT PAIN- COPY ALEXANDRU LALA Chief Complaint POSTMENOPAUSAL BLEED ING XRAY ABNORMAL PELIC US Additional Source Comments INFORMATION SOURCE (unrecogn ized section and content) DATE CREATED AUTHOR 10/21/2019 [facility] DATE CREATED AUTHOR AUTHOR'S ORGANIZ ATION 01/30/2020 [facility] ([place]) DATE CREATED AUTHOR AUTHOR'S ORGANIZ ATION 11/25/2021 [facility] DATE CREATED AUTHOR AUTHOR'S ORGANIZ ATION 04/21/2023 [facility] DATE CREATED AUTHOR AUTHOR'S ORGANIZ ATION 04/25/2025 [facility] DATE CREATED AUTHOR AUTHOR'S ORGANIZ ATION 05/06/2025 [facility] Reason for Visit (unrecogniz ed section and content) Reason For Visit Description New/Est - 1st visit with physician 10/13 Preliminary reason f or visit data, not yet signed by the author as of right hip pain Reason Comments Follow-up Follow up history of FCBD; bilateral mammogram done today. No new breast complaints/changes in BSE. Specialty Diagnoses / Procedures Referred By Hallie bates Referred To Contact Diagnoses Fibrocystic breast disease (FCBD), unspecified laterality Encounter for screening mammogram for malignant neoplasm of breast Procedures MAMMO SCREENING WITH PACO BILATERAL Nadya Rene, [employer] [address] [place] [address] Referral ID Status Reason Start Date Expiration Date V isits Requested Visits Authorized [id number] Pending Review 01/08/2020 02/01/2021 1 1 Reason Comments Telangiectasia Pain Varicose Veins Specialty Diagnoses / Procedures Referred By Hallie bates Referred To Contact Diagnoses Encounter for screening mammogram for malignant neoplasm of breast Procedures MAMMO SCREENING WITH PACO BILATERAL Nadya Rene, [employer] [address] [place] [address] Referral ID Status Reason Start Date Expiration Date V isits Requested Visits Authorized [id number] New Request 01/31/2021 02/25/2022 1 1 Specialty Diagnoses / Procedures Referred By Hallie bates Referred To Contact Diagnoses Visit for screening mammogram Procedures MAMMO SCREENING WITH PACO BILATERAL MAMMO SCREENING BILATERAL Mammography-[facility], [place] [address] [place] [address] Referral ID Status Reason Start Date Expiration Date V isits Requested Visits Authorized [id number] New Request 02/20/2023 03/16/2024 1 1 Referral ID Status Reason Start Date Expiration Date V isits Requested Visits Authorized [id number] New Request 02/26/2024 03/22/2025 1 1 Care Teams (unrecognized sec tion and content) Wheelage Clerk Relationship Specialty Start Date End Date Rajesh Jim DO [address] [facility] [address] [place], [place] [id number] PCP - General Internal Medicine 09/25/18 Wheelage Clerk Relationship Specialty Start Date End Date Rajesh Jim DO [address] [facility] [address] [place] [address] PCP - General Internal Medicine 09/25/18 Wheelage Clerk Relationship Specialty Start Date End Date Rajesh Jim DO [address] [facility] [address] [place], [place] [id number] PCP - General Internal Medicine 09/25/18 Wheelage Clerk Relationship Specialty Start Date End Date Rajesh Jim DO [address] [place] [address] [address] [place], [place] [id number] PCP - General Internal Medicine 09/25/18 Team Status: Active Member Role Status Dates Dr. Rajesh Jim DO Family Provider Active Dr. Rajesh Jim DO Primary Care Provider Active Team Status: Inactive Member Role Status Dates Dr. Rajesh Jim DO Primary Care Provider Active Dr. Waldemar Avila MD Attending Provider Active Team Status: Inactive Member Role Status Dates Dr. Rajesh Jim DO Primary Care Provide r, Attending Provider, Referring Provider Active Wheelage Clerk Relationship Specialty Start Date End Date Rajesh Jim DO [address] [place] [address] [address] [place], [place] [id number] PCP - General Internal Medicine 09/25/18 Source Comments (unrecognize d section and content) In the event this informatio n is protected by the Federal Confidentiality of Alcohol and Drug Abuse Patient Records regulations: The Federal rules restrict any use of the information to criminally investigate or prosecute any alcohol or drug abuse patient.[facility] Goals (unrecognized section and content) Goals may be documented in a n alternate sectionGoals may be documented in an alternate sectionGoals may be documented in an alternate section FOR RECORDS PERTAINING TO PATIENTS WHO ARE OR HAVE BEEN ENROLLED IN A CHEMICAL DEPENDENCY/SUBSTANCEABUSE PROGRAM, SOME INFORMATION MAY BE OMITTED. This clinical summary was aggregated from multiple sources. Caution should be exercised in using it in the provision of clinical care. This summary normalizes information from multiple sources, and as a consequence, information in this document may materially change the coding, format and clinical context of patient data. In addition, data may be omitted in some cases. CLINICAL DECISIONS SHOULD BE BASED ON THE PRIMARY CLINICAL RECORDS. [employer] [facility]. provides no warranty or guarantee of the accuracy or completeness of information in this document.
[2025-06-24 16:13] LABS: Free T3 2.5 pg/mL (2.18-3.98); Vitamin D,25 Hydroxy 25.5 ng/mL (30-100)
== END | disposition home or self-care (01) ==
LOC: CIMLAB 07:39
PROVIDERS: PCP Internal Medicine; Referring Provider Internal Medicine; Visit Provider Internal Medicine
DX: E03.9 Hypothyroidism, unspecified (principal); E55.9 Vitamin D deficiency, unspecified
CPT/HCPCS: 36415; 82306; 84443; 84481